=== PATIENT | female | born 1950 | race Caucasian/White ===

== ENCOUNTER 2016-05-05 19:06 | Observation (INO) | payer OTHER ==
[~2016-05-05] VITALS: Ht 157.5 cm; Wt 94.8 kg
[~2016-05-05 19:06] MED LIST: ACET-1138 PO; ATOR-24 PO; CHOL100010 PO; CITA40TA4 PO; CMD25 PO; CRG625 PO; EST5 PO; HYG25 PO; LSN40 PO; RXC5 PO; SNK PO; TRIA0.5C9 TOP; VITAMIN B6 PO
[2016-05-05 19:49] LABS: BASO % 0.2 %; BASO ABS # 0.02 K/uL (0-0.2); COMPLETE YES; EOS % 3.3 %; HEMATOCRIT 37.5 % (37-47); IG% 0.3 %; LYMPH % 23.4 %; LYMPH ABS # 2.19 K/uL (1.2-3.4); MEAN CELL VOLUME 89.5 fL (80-100); MEAN CORPUSCULAR HEMOGLOBIN 29.6 pg (25-34); MEAN CORPUSCULAR HGB CONC 33.1 g/dl (32-36); MEAN PLATELET VOLUME 8.7 fL (7.4-10.4); NEUT % 63.8 %; PLATELET COUNT 270 K/uL (130-400); RED BLOOD COUNT 4.19 M/uL (4.2-5.4); WHITE BLOOD COUNT 9.35 K/uL (4.8-10.8)
[2016-05-05 19:56] LABS: BLOOD UREA NITROGEN 12 mg/dl (7-18); CALCIUM 9.1 mg/dl (8.5-10.1); CARBON DIOXIDE 28 mmol/L (21-32); CHLORIDE 106 mmol/L (98-107); GLUCOSE 94 mg/dl (70-99); SODIUM 142 mmol/L (136-145)
--- NOTE | 2016-05-05 19:56 | EMERGENCY ROOM VISIT NOTE ---
History First contact with patient: 19:12 (Eriberto Roberson MD) First contact with patient: 19:09 (Chandu Urena M.D.) Chief Complaint: CHEST PAIN Stated Complaint: CHEST PAIN Nursing Triage Summary: PT PRESENTS VIA ALS FROM HOME. PT HAD A SUDDEN ONSET OF DIZZINESS WITH LEFT SIDED CP RADIATING INTO HER LEFT JAW 6/10 AND ASSOCIATED NAUSEA. EMS ADMINISTERED 324 ASA AND 4MG IV ZOFRAN TIRE SORTER. UPON ARRIVAL PT DENIES ANY CP OR NAUSEA, ONLY SLIGHT DIZZINESS. (Eriberto Roberson MD) History of Present Illness The patient is a 66 year old female smoker w/ hx HTN, HLD, CVA who presents to the Emergency Room with complaints of Chest Pain. Around 4 PM today, patient noted progressive AGUIRRE, sweating, a sensation of room spinning followed by central chest pain. Chest pain was described as non-radiating 5/10 intensity pressure sensation. She also reported lightheadedness nausea/vomiting. NO SOB, Palpitation, no cough. NO previous similar symptoms. Pt denies headache, change in vision, fevers, diarrhea, pain with urination, and melena. Patient arrived by ambulance and was given Zofran and ASA along the route. 2 wks ago, she was treated for acute bronchitis with abx, prednisone, and sent home with and inhaler. She is a patient of Dr. Fregoso. (Eriberto Roberson MD) Review of Systems See HPI for pertinent positives & negatives. A total of 10 systems reviewed and were otherwise negative. (Eriberto Roberson MD) Past Medical/Surgical History Medical Problems: (1) Anxiety (2) COPD (chronic obstructive pulmonary disease) (3) Depression (4) Dysmetabolic syndrome (5) GERD (gastroesophageal reflux disease) (6) Heterozygous factor V Leiden mutation (7) History of CVA (cerebrovascular accident) (8) HTN (hypertension) (9) Hyperlipidemia (10) Irritable bowel syndrome (IBS) (11) Osteoarthritis (12) PUD (peptic ulcer disease) (13) Tobacco abuse disorder Surgical Problems: (1) History of carpal tunnel surgery (2) History of hysterectomy (3) S/P total knee arthroplasty (Chandu Urena M.D.) Social History Smoking Status: Current Every Day Smoker Marital Status: Housing Status: lives with family (Eriberto Roberson MD) Current/Historical Medications Scheduled Atorvastatin (Lipitor), 40 MG PO QAM Carvedilol (Carvedilol), 6.25 MG PO BID Chlorthalidone (Chlorthalidone), 25 MG PO QAM Cholecalciferol (Vitamin D), 1,000 UNITS PO QAM Citalopram (Citalopram Hydrobromide), 40 MG PO QAM Diclofenac Sodium (Topical) (Voltaren 1% Top Gel), 1 APPLN TOP QID Duloxetine HCl (Cymbalta), 60 MG PO DAILY Estradiol (Estradiol), 0.5 MG PO QAM Fluticasone Propionate (Flovent Hfa), 2 PUFFS INH BID Lisinopril (Lisinopril), 40 MG PO QAM Pyridoxine Hcl (Vitamin B6), 250 MG PO QAM Warfarin Sod (Coumadin), 2.5 MG PO QAM Scheduled PRN Albuterol (Ventolin Hfa), 2 PUFFS INH Q6 PRN for Wheezing Hydrocodone/Acetaminophen 7.5MG/325MG ([place] 7.5MG/325MG), 1 TAB PO Q6 PRN for Pain Allergies Coded Allergies: Buspirone (Verified Allergy, Unknown, PT UNSURE OF RXN, 05/05/16) Iodine (Verified Allergy, Unknown, ITCHING, 05/05/16) Physical Exam Vital Signs Date Time Temp Pulse Resp B/P Pulse Ox O2 Delivery O2 Flow Rate FiO2 05/05/16 21:00 163/76 05/05/16 20:41 80 15 92 05/05/16 20:30 150/80 05/05/16 20:11 75 21 92 05/05/16 20:06 76 18 96 05/05/16 20:00 167/86 05/05/16 19:36 75 19 93 05/05/16 19:30 162/86 05/05/16 19:22 74 20 168/86 95 Room Air 05/05/16 19:14 168/86 05/05/16 19:13 74 05/05/16 19:12 95 Room Air 05/05/16 19:11 95 Room Air 05/05/16 19:11 36.5 77 20 155/80 95 Room Air 05/05/16 19:08 155/80 (Chandu Urena M.D.) Physical Exam GENERAL: alert, well appearing, well nourished, no distress, non-toxic OROPHARYNX: no exudate, no erythema, lips, buccal mucosa, and tongue normal and mucous membranes are moist NECK: supple, no nuchal rigidity, no adenopathy, non-tender LUNGS: Felipa wheezing. Normal chest wall mechanics HEART: no murmurs, S1 normal and S2 normal ABDOMEN: abdomen soft, non-tender, normo-active bowel sounds, no masses, no rebound or guarding. . SKIN: no rashes and no bruising UPPER EXTREMITIES: upper extremities are grossly normal. LOWER EXTREMITIES: No pitting edema. (Eriberto Roberson MD) Medical Decision & Procedures Laboratory Results 05/05/16 19:12 Red Blood Count 4.19, Mean Corpuscular Volume 89.5, Mean Corpuscular Hemoglobin 29.6, Mean Corpuscular Hemoglobin Concent 33.1, Mean Platelet Volume 8.7, Neutrophils (%) (Auto) 63.8, Lymphocytes (%) (Auto) 23.4, Monocytes (%) (Auto) 9.0, Eosinophils (%) (Auto) 3.3, Basophils (%) (Auto) 0.2, Neutrophils # (Auto) 5.96, Lymphocytes # (Auto) 2.19, Monocytes # (Auto) 0.84, Eosinophils # (Auto) 0.31, Basophils # (Auto) 0.02 05/05/16 19:12 Test 05/05/16 19:12 05/05/16 19:19 White Blood Count 9.35 K/uL (4.8-10.8) Red Blood Count 4.19 M/uL (4.2-5.4) Hemoglobin 12.4 g/dL (12.0-16.0) Hematocrit 37.5 % (37-47) Mean Corpuscular Volume 89.5 fL (80-100) Mean Corpuscular Hemoglobin 29.6 pg (25-34) Mean Corpuscular Hemoglobin Concent 33.1 g/dl (32-36) Platelet Count 270 K/uL (130-400) Mean Platelet Volume 8.7 fL (7.4-10.4) Neutrophils (%) (Auto) 63.8 % Lymphocytes (%) (Auto) 23.4 % Monocytes (%) (Auto) 9.0 % Eosinophils (%) (Auto) 3.3 % Basophils (%) (Auto) 0.2 % Neutrophils # (Auto) 5.96 K/uL (1.4-6.5) Lymphocytes # (Auto) 2.19 K/uL (1.2-3.4) Monocytes # (Auto) 0.84 K/uL (0.11-0.59) Eosinophils # (Auto) 0.31 K/uL (0-0.5) Basophils # (Auto) 0.02 K/uL (0-0.2) RDW Standard Deviation 49.0 fL (36.4-46.3) RDW Coefficient of Variation 15.2 % (11.5-14.5) Immature Granulocyte % (Auto) 0.3 % Immature Granulocyte # (Auto) 0.03 K/uL (0.00-0.02) Prothrombin Time 19.3 SECONDS (9.0-12.0) Prothromb Time International Ratio 1.8 (0.9-1.1) Anion Gap 8.0 mmol/L (3-11) Est Creatinine Clear Calc Drug Dose 62.9 ml/min Estimated GFR () 68.5 Estimated GFR (Non- 59.1 BUN/Creatinine Ratio 12.0 (10-20) Calcium Level 9.1 mg/dl (8.5-10.1) Troponin I < 0.015 ng/ml (0-0.045) Bedside Troponin I 0.000 ng/ml (0-0.045) (Chandu Urena M.D.) Medications Administered Medications (Trade) Dose Ordered Sig/Justin Route Start Time Stop Time Status Last Admin Dose Admin Albuterol/ Ipratropium (Duoneb) 3 ml QIDR INH 05/05/16 20:00 05/05/16 22:45 DC 05/05/16 20:13 3 ML (Chandu Urena M.D.) Medical Decision Differential diagnoses includes but is not limited to acute coronary syndrome, myocardial infarction, pericarditis, pulmonary embolus, aortic dissection, pneumonia, pneumothorax, musculoskeletal, shingles, esophageal. 66 yo F smoker with HTN, HLD, CVA, p/w with 5/10 substernal Chest pain, EKG NSR , troponin neg, with Felipa wheezing on exam Chest Pain, Wheezing Recent hx of bronchitis, s/p abx therapy, on prednisone, inhaler, felipa wheeze on exam CXR: unremarkable, Pneumonia unlikely Troponin: negative, ACS unlikely CBC: unremarkable BMP: wnl -Failure of outpatient therapy for Acute Bronchitis likely, but further evaluation for cardiac etiology warranted given patient's multiple risk factors -Given Duoneb treatment for wheezing - Discussed case with [facility] Hospitalist ( Dr. Stoddard) who agreed to admit to inpatient service (Eriberto Roberson MD) Resident Physician Supervision Note: Dr. Roberson was resident physician during care of patient. I separately evaluated patient and did history and exam. I discussed the case with the resident and generally agree with the findings and plan. Please see my full H& P note for complete documentation. Documented By: Chandu Urena MD (Chandu Urena M.D.) Impression Primary Impression: Substernal precordial chest pain Departure Information Dispostion Admitted as an inpatient Referrals Obed King M.D. (PCP) Patient Instructions My [facility] Resident Tracking Resident Involvement: Resident Care Provided Care Provided: Adult ED (Eriberto Roberson MD)
--- NOTE | 2016-05-05 19:56 | DIAGNOSTIC IMAGING REPORT ---
CHEST ONE VIEW PORTABLE CLINICAL HISTORY: CHEST PAIN dyspnea COMPARISON STUDY: 06/26/2015 FINDINGS: Moderate cardiomegaly. Lungs are clear. Diaphragms are smooth. IMPRESSION: Moderate cardiomegaly. Lungs are clear. Electronically signed by: Sukumar Rees M.D. 05/05/2016 7:55 PM Dictated Date/Time: 05/05/2016 7:55 PM
[2016-05-05] MEDS ORDERED: ALBUT/IPRATROP 3MG/0.5MG NEB 3 ML VIAL INH SCH (20:00)
[2016-05-05] MEDS ORDERED: CYM/60 PO (21:08)
[2016-05-05] MEDS ORDERED: CLX40 PO (21:08)
[2016-05-05] MEDS ORDERED: FLVHFA110 INH (21:08)
[2016-05-05] MEDS ORDERED: PRVHFAIN INH (21:08)
[2016-05-05] MEDS ORDERED: DICL1GEL12 TOP (21:08)
[2016-05-05] MEDS ORDERED: CHOL100010 PO (21:09)
[2016-05-05 21:14] LABS: INR 1.8 (0.9-1.1); PROTHROMBIN TIME (PATIENT) 19.3 SECONDS (9.0-12.0)
[2016-05-05] MEDS ORDERED: PYRI250T7 PO (21:16)
[2016-05-05] MEDS ORDERED: HYDR-3983 PO (21:16)
--- NOTE | 2016-05-05 21:26 | EMERGENCY ROOM VISIT NOTE ---
History Report prepared by Ruiz: Ronna Jacobo Under the Supervision of: Dr. Chandu Urena M.D. First contact with patient: 19:09 Chief Complaint: CHEST PAIN Stated Complaint: CHEST PAIN Nursing Triage Summary: PT PRESENTS VIA ALS FROM HOME. PT HAD A SUDDEN ONSET OF DIZZINESS WITH LEFT SIDED CP RADIATING INTO HER LEFT JAW 6/10 AND ASSOCIATED NAUSEA. EMS ADMINISTERED 324 ASA AND 4MG IV ZOFRAN MODELING DIRECTOR. UPON ARRIVAL PT DENIES ANY CP OR NAUSEA, ONLY SLIGHT DIZZINESS. History of Present Illness The patient is a 66 year old female who presents to the Emergency Room with complaints of resolved central chest pain that started 3.5 hours ago, around 1600. At that time she was also experiencing lightheadedness, a headache, and sweating.The patient came to the ED via ambulance. The patient received aspirin and Zofran MODELING DIRECTOR. She describes the pain as pressure and she rates her discomfort as a 5/10 in severity. The pain does not radiate from her chest. She denies shortness of breath, palpitations, and lower extremity edema. Additionally, the patient was diagnosed with bronchitis 1.5 weeks ago. She was started on antibiotics, prednisone, and 3 inhalers. She states that she uses one inhaler in the morning, one at night, and she has one for emergencies. She has a history of hypertension and hyperlipidemia. The patient also has a history of a CVA and she is on Coumadin. Source of History: patient Onset: 3.5 hours ago, around 1600 Position: chest (central) Symptom Intensity: 5/10 Quality: pressure Timing: resolved Associated Symptoms: + headache, No SOB Note: lightheadedness, sweating, no palpitations, no lower extremity edema Review of Systems See HPI for pertinent positives & negatives. A total of 10 systems reviewed and were otherwise negative. Past Medical & Surgical Medical Problems: (1) Anxiety (2) COPD (chronic obstructive pulmonary disease) (3) Depression (4) Dysmetabolic syndrome (5) GERD (gastroesophageal reflux disease) (6) Heterozygous factor V Leiden mutation (7) History of CVA (cerebrovascular accident) (8) HTN (hypertension) (9) Hyperlipidemia (10) Irritable bowel syndrome (IBS) (11) Osteoarthritis (12) PUD (peptic ulcer disease) (13) Tobacco abuse disorder Surgical Problems: (1) History of carpal tunnel surgery (2) History of hysterectomy (3) S/P total knee arthroplasty Family History Factor V Leiden mutation Social History Smoking Status: Current Every Day Smoker Marital Status: Housing Status: lives with family Current/Historical Medications Scheduled Atorvastatin (Lipitor), 40 MG PO QAM Carvedilol (Carvedilol), 6.25 MG PO BID Chlorthalidone (Chlorthalidone), 25 MG PO QAM Cholecalciferol (Vitamin D), 1,000 UNITS PO QAM Citalopram (Citalopram Hydrobromide), 40 MG PO QAM Diclofenac Sodium (Topical) (Voltaren 1% Top Gel), 1 APPLN TOP QID Duloxetine HCl (Cymbalta), 60 MG PO DAILY Estradiol (Estradiol), 0.5 MG PO QAM Fluticasone Propionate (Flovent Hfa), 2 PUFFS INH BID Lisinopril (Lisinopril), 40 MG PO QAM Pyridoxine Hcl (Vitamin B6), 250 MG PO QAM Warfarin Sod (Coumadin), 2.5 MG PO QAM Scheduled PRN Albuterol (Ventolin Hfa), 2 PUFFS INH Q6 PRN for Wheezing Hydrocodone/Acetaminophen 7.5MG/325MG ([place] 7.5MG/325MG), 1 TAB PO Q6 PRN for Pain Allergies Coded Allergies: Buspirone (Verified Allergy, Unknown, PT UNSURE OF RXN, 05/05/16) Iodine (Verified Allergy, Unknown, ITCHING, 05/05/16) Physical Exam Vital Signs Date Time Temp Pulse Resp B/P Pulse Ox O2 Delivery O2 Flow Rate FiO2 05/05/16 21:00 163/76 05/05/16 20:41 80 15 92 05/05/16 20:30 150/80 05/05/16 20:11 75 21 92 05/05/16 20:06 76 18 96 05/05/16 20:00 167/86 05/05/16 19:36 75 19 93 05/05/16 19:30 162/86 05/05/16 19:22 74 20 168/86 95 Room Air 05/05/16 19:14 168/86 05/05/16 19:13 74 05/05/16 19:12 95 Room Air 05/05/16 19:11 95 Room Air 05/05/16 19:11 36.5 77 20 155/80 95 Room Air 05/05/16 19:08 155/80 Physical Exam GENERAL: Patient is well appearing and in no acute distress. HEENT: No acute trauma, normocephalic atraumatic, mucous membranes moist, no nasal congestion, no scleral icterus. NECK: No stridor, no adenopathy, no meningismus, trachea is midline. LUNGS: No dyspnea. Diffuse wheezing in all lung mendoza. Equal bilaterally. No wheeze, no rhonchi. HEART: Regular rate and rhythm. No murmurs, rubs, gallops appreciated. ABDOMEN: Soft, nontender, bowel sounds positive, no masses appreciated, no peritonitis. BACK: No midline tenderness, no CVA tenderness EXTREMITIES: Normal motion all extremities, no cyanosis, no edema. NEUROLOGIC: Alert and oriented, no acute motor or sensory deficits, no focal weakness, cranial nerves grossly intact. SKIN: No rash, no jaundice, no diaphoresis. Medical Decision & Procedures ER Provider Diagnostic Interpretation: X ray results are stated below per my interpretation and the radiologist's interpretation. CHEST ONE VIEW PORTABLE IMPRESSION: Moderate cardiomegaly. Lungs are clear. Electronically signed by: Sukumar Rees M.D. 05/05/2016 7:55 PM Dictated Date/Time: 05/05/2016 7:55 PM Laboratory Results 05/05/16 19:12 Red Blood Count 4.19, Mean Corpuscular Volume 89.5, Mean Corpuscular Hemoglobin 29.6, Mean Corpuscular Hemoglobin Concent 33.1, Mean Platelet Volume 8.7, Neutrophils (%) (Auto) 63.8, Lymphocytes (%) (Auto) 23.4, Monocytes (%) (Auto) 9.0, Eosinophils (%) (Auto) 3.3, Basophils (%) (Auto) 0.2, Neutrophils # (Auto) 5.96, Lymphocytes # (Auto) 2.19, Monocytes # (Auto) 0.84, Eosinophils # (Auto) 0.31, Basophils # (Auto) 0.02 05/05/16 19:12 Test 05/05/16 19:12 05/05/16 19:19 White Blood Count 9.35 K/uL (4.8-10.8) Red Blood Count 4.19 M/uL (4.2-5.4) Hemoglobin 12.4 g/dL (12.0-16.0) Hematocrit 37.5 % (37-47) Mean Corpuscular Volume 89.5 fL (80-100) Mean Corpuscular Hemoglobin 29.6 pg (25-34) Mean Corpuscular Hemoglobin Concent 33.1 g/dl (32-36) Platelet Count 270 K/uL (130-400) Mean Platelet Volume 8.7 fL (7.4-10.4) Neutrophils (%) (Auto) 63.8 % Lymphocytes (%) (Auto) 23.4 % Monocytes (%) (Auto) 9.0 % Eosinophils (%) (Auto) 3.3 % Basophils (%) (Auto) 0.2 % Neutrophils # (Auto) 5.96 K/uL (1.4-6.5) Lymphocytes # (Auto) 2.19 K/uL (1.2-3.4) Monocytes # (Auto) 0.84 K/uL (0.11-0.59) Eosinophils # (Auto) 0.31 K/uL (0-0.5) Basophils # (Auto) 0.02 K/uL (0-0.2) RDW Standard Deviation 49.0 fL (36.4-46.3) RDW Coefficient of Variation 15.2 % (11.5-14.5) Immature Granulocyte % (Auto) 0.3 % Immature Granulocyte # (Auto) 0.03 K/uL (0.00-0.02) Prothrombin Time 19.3 SECONDS (9.0-12.0) Prothromb Time International Ratio 1.8 (0.9-1.1) Anion Gap 8.0 mmol/L (3-11) Est Creatinine Clear Calc Drug Dose 62.9 ml/min Estimated GFR () 68.5 Estimated GFR (Non- 59.1 BUN/Creatinine Ratio 12.0 (10-20) Calcium Level 9.1 mg/dl (8.5-10.1) Troponin I < 0.015 ng/ml (0-0.045) Bedside Troponin I 0.000 ng/ml (0-0.045) Laboratory results as reviewed by me. Medications Administered Medications (Trade) Dose Ordered Sig/Justin Route Start Time Stop Time Status Last Admin Dose Admin Albuterol/ Ipratropium (Duoneb) 3 ml QIDR INH 05/05/16 20:00 05/05/16 22:45 DC 05/05/16 20:13 3 ML ECG Indication: chest pain Rate (beats per minute): 76 Rhythm: normal sinus Findings: no acute ischemic change, no ectopy ED Course 1919: The biomedical field service engineer, Dr. Eriberto Roberson, evaluated the patient at this time. We discussed his findings and potential treatment plans. 1939: The patient was evaluated in room B2. A complete history and physical exam was performed. 1999: Ordered DuoNeb 3 ml INH 2029: Dr. Roberson discussed the patient's case with Dr. Richi Mendez. The patient will be evaluated for further treatment and disposition. 2031: Upon Dr. Roberson's reevaluation, the patient is resting comfortably. He discussed results and treatment plan with the patient. The patient verbalized understanding and agreement with the treatment plan. The patient will be evaluated for further management. Medical Decision Differential: Cardiac Ischemia (STEMI, NSTEMI, Unstable Angina, etc), Aortic Dissection, Arrhythmia, Pulmonary Embolism, Pneumonia, Pneumothorax, MSK, Infectious, Pericarditis/Myocarditis, Esophageal Rupture, Gastrointestinal, amongst other pathologies entertained. 66 yr old female arrives iwth acute left chest pain radiating to neck associated with nausea and vertigo. Received ASA and Zofran MODELING DIRECTOR with resolution of symptoms. Feeling well and in no distress now though on exam her lungs are quite poor. Neb given. She recently was treated for bronchitis consistent with failure of outpatient therapy. Already anticoagulated thus I do not feel CT PE study required. EKG negative for acute findings and trop negative as well. Will need to come in for cardiac rule out along with further treatment for bronchitis. Stable and in no distress throughout ED stay. Consults Time Called: 2018 Consulting Physician: Dr. Richi Mendez Returned Call: 2029 Dr. Roberson discussed the patient's case with Dr. Richi Mendez. The patient will be evaluated for further treatment and disposition. Impression Primary Impression: Substernal chest pain Additional Impressions: Failure of outpatient treatment Bronchitis Scribe Attestation The scribe's documentation has been prepared under my direction and personally reviewed by me in its entirety. I confirm that the note above accurately reflects all work, treatment, procedures, and medical decision making performed by me. Departure Information Dispostion Being Evaluated By Hospitalist Referrals Obed King M.D. (PCP) Patient Instructions My [facility] Problem Qualifiers
[2016-05-05] MEDS ORDERED: NITROGLYCERIN 0.4 MG SL PER TAB CHARGE SL PRN (21:30)
[2016-05-05] MEDS ORDERED: ONDANSETRON INJ 2 MG/ML 2 ML VIAL IV PRN (21:30)
[2016-05-05] MEDS ORDERED: ACETAMINOPHEN 325 MG TAB PO PRN (21:30)
[2016-05-05] MEDS ORDERED: MoRPHine SULFATE 2 MG/ML CARP IV PRN (21:30)
--- NOTE | 2016-05-05 21:30 | History and Physical ---
History & Physical Date & Time of Service: May 05, 2016 at 21:30 Chief Complaint: Chest Pain Primary Care Physician: Obed King M.D. Past Medical/Surgical History Medical Problems: (1) Anxiety Status: Chronic (2) COPD (chronic obstructive pulmonary disease) Status: Chronic (3) Depression Status: Chronic (4) Dysmetabolic syndrome Status: Chronic (5) GERD (gastroesophageal reflux disease) Status: Chronic (6) Heterozygous factor V Leiden mutation Status: Chronic (7) History of CVA (cerebrovascular accident) Status: Chronic (8) HTN (hypertension) Status: Chronic (9) Hyperlipidemia Status: Chronic (10) Irritable bowel syndrome (IBS) Status: Chronic (11) Osteoarthritis Status: Chronic (12) PUD (peptic ulcer disease) Status: Chronic (13) Tobacco abuse disorder Status: Chronic Surgical Problems: (1) History of carpal tunnel surgery Status: Chronic (2) History of hysterectomy Status: Chronic (3) S/P total knee arthroplasty Permanent Comment: Left 2015 Status: Chronic Family History Factor V Leiden mutation Social History Smoking Status: Current Every Day Smoker Marital Status: Immunizations History of Influenza Vaccine: Yes History of Tetanus Vaccine?: Yes History of Pneumococcal: Yes History of Hepatitis B Vaccine: No Multi-Drug Resistant Organisms History of MDRO: No Allergies Coded Allergies: Buspirone (Verified Allergy, Unknown, PT UNSURE OF RXN, 05/05/16) Iodine (Verified Allergy, Unknown, ITCHING, 05/05/16) Home Medications Scheduled Atorvastatin (Lipitor), 40 MG PO QAM Carvedilol (Carvedilol), 6.25 MG PO BID Chlorthalidone (Chlorthalidone), 25 MG PO QAM Cholecalciferol (Vitamin D), 1,000 UNITS PO QAM Citalopram (Citalopram Hydrobromide), 40 MG PO QAM Diclofenac Sodium (Topical) (Voltaren 1% Top Gel), 1 APPLN TOP QID Duloxetine HCl (Cymbalta), 60 MG PO DAILY Estradiol (Estradiol), 0.5 MG PO QAM Fluticasone Propionate (Flovent Hfa), 2 PUFFS INH BID Lisinopril (Lisinopril), 40 MG PO QAM Pyridoxine Hcl (Vitamin B6), 250 MG PO QAM Warfarin Sod (Coumadin), 2.5 MG PO QAM Scheduled PRN Albuterol (Ventolin Hfa), 2 PUFFS INH Q6 PRN for Wheezing Hydrocodone/Acetaminophen 7.5MG/325MG ([place] 7.5MG/325MG), 1 TAB PO Q6 PRN for Pain Physical Exam Vital Signs Date Time Temp Pulse Resp B/P Pulse Ox O2 Delivery O2 Flow Rate FiO2 05/05/16 21:00 163/76 05/05/16 20:41 80 15 92 05/05/16 20:30 150/80 05/05/16 20:11 75 21 92 05/05/16 20:06 76 18 96 05/05/16 20:00 167/86 05/05/16 19:36 75 19 93 05/05/16 19:30 162/86 05/05/16 19:22 74 20 168/86 95 Room Air 05/05/16 19:14 168/86 05/05/16 19:13 74 05/05/16 19:12 95 Room Air 05/05/16 19:11 95 Room Air 05/05/16 19:11 36.5 77 20 155/80 95 Room Air 05/05/16 19:08 155/80 Diagnostics Laboratory Results Results Past 24 Hours Test 05/05/16 19:12 05/05/16 19:19 Range/Units White Blood Count 9.35 4.8-10.8 K/uL Red Blood Count 4.19 4.2-5.4 M/uL Hemoglobin 12.4 12.0-16.0 g/dL Hematocrit 37.5 37-47 % Mean Corpuscular Volume 89.5 80-100 fL Mean Corpuscular Hemoglobin 29.6 25-34 pg Mean Corpuscular Hemoglobin Concent 33.1 32-36 g/dl Platelet Count 270 130-400 K/uL Mean Platelet Volume 8.7 7.4-10.4 fL Neutrophils (%) (Auto) 63.8 % Lymphocytes (%) (Auto) 23.4 % Monocytes (%) (Auto) 9.0 % Eosinophils (%) (Auto) 3.3 % Basophils (%) (Auto) 0.2 % Neutrophils # (Auto) 5.96 1.4-6.5 K/uL Lymphocytes # (Auto) 2.19 1.2-3.4 K/uL Monocytes # (Auto) 0.84 0.11-0.59 K/uL Eosinophils # (Auto) 0.31 0-0.5 K/uL Basophils # (Auto) 0.02 0-0.2 K/uL RDW Standard Deviation 49.0 36.4-46.3 fL RDW Coefficient of Variation 15.2 11.5-14.5 % Immature Granulocyte % (Auto) 0.3 % Immature Granulocyte # (Auto) 0.03 0.00-0.02 K/uL Prothrombin Time 19.3 9.0-12.0 SECONDS Prothromb Time International Ratio 1.8 0.9-1.1 Sodium Level 142 136-145 mmol/L Potassium Level 4.0 3.5-5.1 mmol/L Chloride Level 106 98-107 mmol/L Carbon Dioxide Level 28 21-32 mmol/L Anion Gap 8.0 3-11 mmol/L Blood Urea Nitrogen 12 7-18 mg/dl Creatinine 1.00 0.60-1.20 mg/dl Est Creatinine Clear Calc Drug Dose 62.9 ml/min Estimated GFR () 68.5 Estimated GFR (Non- 59.1 BUN/Creatinine Ratio 12.0 10-20 Random Glucose 94 70-99 mg/dl Calcium Level 9.1 8.5-10.1 mg/dl Troponin I < 0.015 0-0.045 ng/ml Bedside Troponin I 0.000 0-0.045 ng/ml Impression VTE Prophylaxis VTE Risk Assessment Done? Y/N: Yes Risk Level: Moderate
[2016-05-05] MEDS ORDERED: HYDROCODONE/ACETAMINOPHEN 7.5/325MG TAB PO PRN (22:15)
[2016-05-05] MEDS ORDERED: ALBUTEROL HFA 8 GM INHALER INH PRN (22:15)
--- NOTE | 2016-05-05 22:31 | History and Physical ---
History & Physical Date & Time of Service: May 05, 2016 at 22:16 Chief Complaint: Chest Pain Primary Care Physician: Obed King M.D. History of Present Illness Source: patient This is a 66 y/o female with PMHx of CVA, Factor V Leiden on Coumadin, HTN, Dyslipidemia and other problems as outlined below who presents to the ED c/o chest pain that began this afternoon. Pt states that around 1630 she had just finished dinner when she developed chest pain that she describes as 5/10 substernal chest "pressure" that did not radiate anywhere. Sxs were assoc with diaphoresis, N/V and lightheadedness. Sxs persisted for about 5 minutes before resolving completely. Pt has no personal or FmHx of CAD. She had a stress test July 2015 which was negative. Pt is on Coumadin for Factor V Leiden. She recently completed abx and prednisone taper for bronchitis. Pt denies fever/ chills, palpitations, SOB, wheezing, abd pain, bowel or bladder issues, LE edema or calf pain. In the ED, vitals are stable. Trop and EKG are unremarkable. CXR is negative. Pt is currently chest pain free. She will be admitted for further evaluation and treatment. Past Medical/Surgical History Medical Problems: (1) Anxiety Status: Chronic (2) COPD (chronic obstructive pulmonary disease) Status: Chronic (3) Depression Status: Chronic (4) Dysmetabolic syndrome Status: Chronic (5) GERD (gastroesophageal reflux disease) Status: Chronic (6) Heterozygous factor V Leiden mutation Status: Chronic (7) History of CVA (cerebrovascular accident) Status: Chronic (8) HTN (hypertension) Status: Chronic (9) Hyperlipidemia Status: Chronic (10) Irritable bowel syndrome (IBS) Status: Chronic (11) Osteoarthritis Status: Chronic (12) PUD (peptic ulcer disease) Status: Chronic (13) Tobacco abuse disorder Status: Chronic Surgical Problems: (1) History of carpal tunnel surgery Status: Chronic (2) History of hysterectomy Status: Chronic (3) S/P total knee arthroplasty Permanent Comment: Left 2014 Status: Chronic Family History Factor V Leiden mutation Social History Smoking Status: Current Every Day Smoker (1 ppd x 50 years) Alcohol Use: occasionally Drug Use: none Marital Status: Housing status: lives with significant other Occupational Status: retired Immunizations History of Influenza Vaccine: Yes History of Tetanus Vaccine?: Yes History of Pneumococcal: Yes History of Hepatitis B Vaccine: No Multi-Drug Resistant Organisms History of MDRO: No Allergies Coded Allergies: Buspirone (Verified Allergy, Unknown, PT UNSURE OF RXN, 05/05/16) Iodine (Verified Allergy, Unknown, ITCHING, 05/05/16) Home Medications Scheduled Atorvastatin (Lipitor), 40 MG PO QAM Carvedilol (Carvedilol), 6.25 MG PO BID Chlorthalidone (Chlorthalidone), 25 MG PO QAM Cholecalciferol (Vitamin D), 1,000 UNITS PO QAM Citalopram (Citalopram Hydrobromide), 40 MG PO QAM Diclofenac Sodium (Topical) (Voltaren 1% Top Gel), 1 APPLN TOP QID Duloxetine HCl (Cymbalta), 60 MG PO DAILY Estradiol (Estradiol), 0.5 MG PO QAM Fluticasone Propionate (Flovent Hfa), 2 PUFFS INH BID Lisinopril (Lisinopril), 40 MG PO QAM Pyridoxine Hcl (Vitamin B6), 250 MG PO QAM Warfarin Sod (Coumadin), 2.5 MG PO QAM Scheduled PRN Albuterol (Ventolin Hfa), 2 PUFFS INH Q6 PRN for Wheezing Hydrocodone/Acetaminophen 7.5MG/325MG ([place] 7.5MG/325MG), 1 TAB PO Q6 PRN for Pain Review of Systems Constitutional: + sweats, No chills, No fatigue, No fever, No weakness Eyes: No worsening of vision ENT: + hearing loss Respiratory: No cough, No shortness of breath Cardiovascular: + chest pain, No claudication, No edema, No palpitations Abdomen: + nausea, + vomiting, No GI bleeding, No constipation, No diarrhea, No pain Musculoskeletal: No calf pain, No swelling Genitourinary - Female: No dysuria Neurologic: No weakness Psychiatric: No depression symptoms Endocrine: No fatigue Hematologic / Lymphatic: No abnormal bleeding/bruising Integumentary: No new/changing skin lesions Physical Exam Vital Signs Date Time Temp Pulse Resp B/P Pulse Ox O2 Delivery O2 Flow Rate FiO2 05/05/16 22:11 74 16 146/83 90 Room Air 05/05/16 21:31 80 16 156/82 91 Room Air 05/05/16 21:00 163/76 05/05/16 20:41 80 15 92 05/05/16 20:30 150/80 05/05/16 20:11 75 21 92 05/05/16 20:06 76 18 96 05/05/16 20:00 167/86 05/05/16 19:36 75 19 93 05/05/16 19:30 162/86 05/05/16 19:22 74 20 168/86 95 Room Air 05/05/16 19:14 168/86 05/05/16 19:13 74 05/05/16 19:12 95 Room Air 05/05/16 19:11 95 Room Air 05/05/16 19:11 36.5 77 20 155/80 95 Room Air 05/05/16 19:08 155/80 General Appearance: WD/WN, no apparent distress, + pertinent finding (Pt is sitting up in bed with at bedside) Head: normocephalic, atraumatic Eyes: normal inspection ENT: hearing grossly normal Neck: supple Respiratory/Chest: lungs clear, normal breath sounds, no respiratory distress, + pertinent finding (chest is mildly tender) Cardiovascular: regular rate, rhythm, no edema, no murmur Abdomen/GI: normal bowel sounds, non tender, soft Back: normal inspection Extremities/Musculoskelatal: normal inspection, no calf tenderness, + pedal edema (trace bilat) Neurologic/Psych: alert, normal mood/affect, oriented x 3 Skin: normal color, warm/dry Diagnostics Laboratory Results Results Past 24 Hours Test 05/05/16 19:12 05/05/16 19:19 Range/Units White Blood Count 9.35 4.8-10.8 K/uL Red Blood Count 4.19 4.2-5.4 M/uL Hemoglobin 12.4 12.0-16.0 g/dL Hematocrit 37.5 37-47 % Mean Corpuscular Volume 89.5 80-100 fL Mean Corpuscular Hemoglobin 29.6 25-34 pg Mean Corpuscular Hemoglobin Concent 33.1 32-36 g/dl Platelet Count 270 130-400 K/uL Mean Platelet Volume 8.7 7.4-10.4 fL Neutrophils (%) (Auto) 63.8 % Lymphocytes (%) (Auto) 23.4 % Monocytes (%) (Auto) 9.0 % Eosinophils (%) (Auto) 3.3 % Basophils (%) (Auto) 0.2 % Neutrophils # (Auto) 5.96 1.4-6.5 K/uL Lymphocytes # (Auto) 2.19 1.2-3.4 K/uL Monocytes # (Auto) 0.84 0.11-0.59 K/uL Eosinophils # (Auto) 0.31 0-0.5 K/uL Basophils # (Auto) 0.02 0-0.2 K/uL RDW Standard Deviation 49.0 36.4-46.3 fL RDW Coefficient of Variation 15.2 11.5-14.5 % Immature Granulocyte % (Auto) 0.3 % Immature Granulocyte # (Auto) 0.03 0.00-0.02 K/uL Prothrombin Time 19.3 9.0-12.0 SECONDS Prothromb Time International Ratio 1.8 0.9-1.1 Sodium Level 142 136-145 mmol/L Potassium Level 4.0 3.5-5.1 mmol/L Chloride Level 106 98-107 mmol/L Carbon Dioxide Level 28 21-32 mmol/L Anion Gap 8.0 3-11 mmol/L Blood Urea Nitrogen 12 7-18 mg/dl Creatinine 1.00 0.60-1.20 mg/dl Est Creatinine Clear Calc Drug Dose 62.9 ml/min Estimated GFR () 68.5 Estimated GFR (Non- 59.1 BUN/Creatinine Ratio 12.0 10-20 Random Glucose 94 70-99 mg/dl Calcium Level 9.1 8.5-10.1 mg/dl Troponin I < 0.015 0-0.045 ng/ml Bedside Troponin I 0.000 0-0.045 ng/ml Diagnostic Radiology CXR IMPRESSION: Moderate cardiomegaly. Lungs are clear. EKG EKG: NSR at 76 bpm with no acute ischemic changes noted Impression Assessment and Plan CHEST PAIN R/O ACS -observation status to telemetry -RFs include tobacco use, HTN, Dyslipidemia, obesity -stress echo 07/2015 was negative for inducible ischemia -EKG: no acute ischemic changes; repeat EKG PRN chest pain and in AM -Initial troponin is negative; continue to monitor with serial cardiac enzymes q6h -obtain echo to r/o cardiac wall motion abnormalities -cont BB and statin -start ASA -consider cardio consult if Elena trend up -counseled patient regarding importance of smoking cessation -pt is currently chest pain free -continue to monitor HTN -BP mildly elevated -cont chlorthalidone, lisinopril and carvedilol -monitor FACTOR V LEIDEN -INR subtherapeutic at 1.8 -cont Coumadin -monitor INR daily H/O CVA -CVA 2009; residual short term memory loss per pt -cont Coumadin and statin DYSLIPIDEMIA -cont statin DEPRESSION/ANXIETY -stable -cont Celexa and Cymbalta DVT PROPHYLAXIS -cont Coumadin DISPO Observation status until further workup is complete. Pt seen in collaboration with Dr. Stoddard. Please see addendum for further details. Thanks! -Of note: patient will be followed by Dr. Ceballos starting tomorrow AM. VTE Prophylaxis VTE Risk Assessment Done? Y/N: Yes Risk Level: Moderate Note ATTENDING ADDENDUM Record reviewed. Patient interviewed and examined. Care coordinated with Griselda Dalal PA-C. Please refer to her documentation for patient's history. Briefly, 66-year-old female with history of cerebrovascular disease, back to 5 Leiden mutation, hypertension, and other problems and presented to the ED with chest discomfort. Chest pain described as midsternal pressure that occurred after eating her dinner. Pain was associated with some nausea and diaphoresis. Pain-free in ED. EXAM: General- no distress VS- as noted HEENT- anicteric Neck- no JVD Lungs- diffuse mild wheezing Heart- RRR, I/ systolic murmur at base Abdomen- benign Extremities- 1+ pretibial edema; no calf tenderness Neuro-alert DATA: Lab studies as noted. ASSESSMENT AND PLAN: Chest pain at rest after eating. Serum troponin in ED was 0. EKG performed in ED at 19:12 demonstrated normal sinus rhythm at 76/minute, no acute ST or T-wave abnormalities. Chest pain may be cardiac in nature. Check serial cardiac markers and EKGs. At risk for pulmonary emboli due to factor V Leiden mutation, but pain not pleuritic in nature, oxygen saturation stable, and already anticoagulated on warfarin. Consider GI etiology. Further evaluation will depend on initial hospital course. Please refer to JING Dalal's documentation for discussion of other issues. Johnnie Stoddard MD .
[2016-05-05 23:36] VITALS: BP 154/85; PULSE 74; TEMP 36.3; O2SAT 93
[2016-05-06] VITALS (7 sets, daily range): BP systolic 122–154; BP diastolic 71–85; PULSE 74–85; TEMP 36.3–37; O2SAT 0–92; Ht 157.5 cm; Wt 94.8 kg
[2016-05-06] MEDS ORDERED: IV FLUIDS COMPLETED PRN (00:15)
[2016-05-06 08:10] LABS: HEMATOCRIT 36.5 % (37-47); MEAN CELL VOLUME 92.4 fL (80-100); MEAN CORPUSCULAR HEMOGLOBIN 29.9 pg (25-34); MEAN CORPUSCULAR HGB CONC 32.3 g/dl (32-36); MEAN PLATELET VOLUME 8.4 fL (7.4-10.4); PLATELET COUNT 231 K/uL (130-400); RED BLOOD COUNT 3.95 M/uL (4.2-5.4); WHITE BLOOD COUNT 8.01 K/uL (4.8-10.8)
[2016-05-06 08:18] LABS: INR 2.1 (0.9-1.1); PROTHROMBIN TIME (PATIENT) 23.1 SECONDS (9.0-12.0)
[2016-05-06] MEDS: DICLOFENAC SOD 1% GEL 100 GM TUBE EXT SCH ×3 (08:25→15:37)
[2016-05-06 08:43] LABS: BLOOD UREA NITROGEN 14 mg/dl (7-18); BUN/CREATININE RATIO 16.1 (10-20); CALCIUM 8.9 mg/dl (8.5-10.1); CARBON DIOXIDE 30 mmol/L (21-32); CHLORIDE 106 mmol/L (98-107); CREATININE 0.85 mg/dl (0.60-1.20); GLUCOSE 96 mg/dl (70-99); POTASSIUM 4.1 mmol/L (3.5-5.1); SODIUM 142 mmol/L (136-145)
[2016-05-06] MEDS ORDERED: CARVEDILOL 6.25 MG TAB PO SCH (09:00)
[2016-05-06] MEDS ORDERED: CHOLECALCIFEROL 1000 INTER.UNIT TAB PO SCH (09:00)
[2016-05-06] MEDS ORDERED: LISINOPRIL 40 MG TAB PO SCH (09:00)
[2016-05-06] MEDS ORDERED: ATORVASTATIN 40 MG TAB PO SCH (09:00)
[2016-05-06] MEDS ORDERED: DULOXETINE HCL 60 MG CAP PO SCH (09:00)
[2016-05-06] MEDS ORDERED: ESTRADIOL 1 MG TAB PO SCH (09:00)
[2016-05-06] MEDS ORDERED: ASPIRIN 81 MG ECTAB PO SCH (09:00)
[2016-05-06] MEDS ORDERED: CITALOPRAM 40 MG TAB PO SCH (09:00)
[2016-05-06] MEDS ORDERED: PYRIDOXINE HCL 50 MG TAB PO SCH (09:00)
[2016-05-06] MEDS ORDERED: CHLORTHALIDONE 25 MG TAB PO SCH (09:00)
[2016-05-06] MEDS ORDERED: FLUTICASONE HFA 110MCG INHALER INH SCH (09:00)
--- NOTE | 2016-05-06 09:33 | Progress Note ---
Internal Med Progress Note Date of Service: May 06, 2016. Provider Documentation: SUBJECTIVE: Patient is seen and examined at bedside. States doing well. Denies any chest pain, SOB, dizziness, palpitations. Offers no complaints. Eager to get discharged. OBJECTIVE: Vital Signs-as noted below Physical Exam: General Appearance:Moderately built and nourished, no apparent distress Head: normocephalic, Atraumatic Eyes: normal inspection, EOMI, PERRLA, Anicteric Neck: supple, Trachea midline Respiratory/Chest: Normal breath sounds, CTA Cardiovascular: S1, S2, No murmur Abdomen/GI:Soft, Non tender, Bowel sounds present Extremities/Musculoskelatal:normal inspection, no edema Neurologic/Psych:AAOX3, grossly no focal neurological deficits Skin: normal color, warm Lab data as noted below. ASSESSMENT & PLAN: CHEST PAIN R/O ACS Risk Factors: Tobacco use, HTN, Dyslipidemia, obesity Last stress echo 07/2015 was negative for inducible ischemia EKG: no acute ischemic changes; Troponin: negative X 3 ECHO: No regional wall motion abnormalities, small circumferential pericardial effusion continue BB, statin Counselled on smoking cessation currently asymptomatic HTN continue chlorthalidone, lisinopril and carvedilol Continue to monitor monitor FACTOR V LEIDEN INR 1.8 >>.2.1 continue Coumadin monitor INR H/O CVA CVA 2009; residual short term memory loss per pt Cont Coumadin and statin DYSLIPIDEMIA continue statin DEPRESSION/ANXIETY stable cont Celexa and Cymbalta DVT PROPHYLAXIS On Coumadin INR therapeutic DISPO Plan to discharge home today Follow up with on 05/13/16 at 2:50pm Follow up with (Cardiology) as outpatient in 2-3 weeks. PROCEDURES: ECHO: * No regional wall motion abnormalities noted. * The left ventricle is hyperdynamic. * The LV Ejection Fraction = >70 %. * Doppler findings do not suggest pulmonary hypertension. * The LV diastolic function is normal. * There is a small circumferential pericardial effusion that is largest anteriorly. * There are no echocardiographic indications of cardiac tamponade. Vital Signs: Date Time Temp Pulse Resp B/P Pulse Ox O2 Delivery O2 Flow Rate FiO2 05/06/16 14:47 37.0 78 20 129/79 90 05/06/16 12:22 0 Room Air 05/06/16 11:19 36.8 85 20 132/71 92 Room Air 05/06/16 08:44 Room Air 05/06/16 07:46 36.7 79 20 150/83 91 Room Air 05/06/16 04:10 36.6 74 20 122/73 91 Room Air 05/06/16 04:00 Room Air 05/06/16 02:04 36.3 74 18 154/85 Room Air 05/05/16 23:36 36.3 74 18 154/85 93 Room Air 05/05/16 22:51 36.5 75 16 169/82 90 05/05/16 22:45 75 16 169/82 90 Room Air 05/05/16 22:11 74 16 146/83 90 Room Air 05/05/16 21:31 80 16 156/82 91 Room Air 05/05/16 21:00 163/76 05/05/16 20:41 80 15 92 05/05/16 20:30 150/80 05/05/16 20:11 75 21 92 05/05/16 20:06 76 18 96 05/05/16 20:00 167/86 05/05/16 19:36 75 19 93 05/05/16 19:30 162/86 05/05/16 19:22 74 20 168/86 95 Room Air 05/05/16 19:14 168/86 05/05/16 19:13 74 05/05/16 19:12 95 Room Air 05/05/16 19:11 95 Room Air 05/05/16 19:11 36.5 77 20 155/80 95 Room Air 05/05/16 19:08 155/80 Lab Results: Results Past 24 Hours Test 05/05/16 19:12 05/05/16 19:19 05/06/16 02:00 05/06/16 02:02 Range/Units White Blood Count 9.35 4.8-10.8 K/uL Red Blood Count 4.19 4.2-5.4 M/uL Hemoglobin 12.4 12.0-16.0 g/dL Hematocrit 37.5 37-47 % Mean Corpuscular Volume 89.5 80-100 fL Mean Corpuscular Hemoglobin 29.6 25-34 pg Mean Corpuscular Hemoglobin Concent 33.1 32-36 g/dl Platelet Count 270 130-400 K/uL Mean Platelet Volume 8.7 7.4-10.4 fL Neutrophils (%) (Auto) 63.8 % Lymphocytes (%) (Auto) 23.4 % Monocytes (%) (Auto) 9.0 % Eosinophils (%) (Auto) 3.3 % Basophils (%) (Auto) 0.2 % Neutrophils # (Auto) 5.96 1.4-6.5 K/uL Lymphocytes # (Auto) 2.19 1.2-3.4 K/uL Monocytes # (Auto) 0.84 0.11-0.59 K/uL Eosinophils # (Auto) 0.31 0-0.5 K/uL Basophils # (Auto) 0.02 0-0.2 K/uL RDW Standard Deviation 49.0 36.4-46.3 fL RDW Coefficient of Variation 15.2 11.5-14.5 % Immature Granulocyte % (Auto) 0.3 % Immature Granulocyte # (Auto) 0.03 0.00-0.02 K/uL Prothrombin Time 19.3 9.0-12.0 SECONDS Prothromb Time International Ratio 1.8 0.9-1.1 Sodium Level 142 136-145 mmol/L Potassium Level 4.0 3.5-5.1 mmol/L Chloride Level 106 98-107 mmol/L Carbon Dioxide Level 28 21-32 mmol/L Anion Gap 8.0 3-11 mmol/L Blood Urea Nitrogen 12 7-18 mg/dl Creatinine 1.00 0.60-1.20 mg/dl Est Creatinine Clear Calc Drug Dose 62.9 ml/min Estimated GFR () 68.5 Estimated GFR (Non- 59.1 BUN/Creatinine Ratio 12.0 10-20 Random Glucose 94 70-99 mg/dl Calcium Level 9.1 8.5-10.1 mg/dl Troponin I < 0.015 < 0.015 0-0.045 ng/ml Bedside Troponin I 0.000 0-0.045 ng/ml Creatine Kinase MB Ratio 0-3.0 Creatine Kinase MB 1.0 0.5-3.6 ng/ml Test 05/06/16 08:00 05/06/16 08:01 Range/Units Creatine Kinase MB Ratio 0-3.0 White Blood Count 8.01 4.8-10.8 K/uL Red Blood Count 3.95 4.2-5.4 M/uL Hemoglobin 11.8 12.0-16.0 g/dL Hematocrit 36.5 37-47 % Mean Corpuscular Volume 92.4 80-100 fL Mean Corpuscular Hemoglobin 29.9 25-34 pg Mean Corpuscular Hemoglobin Concent 32.3 32-36 g/dl RDW Standard Deviation 52.4 36.4-46.3 fL RDW Coefficient of Variation 15.4 11.5-14.5 % Platelet Count 231 130-400 K/uL Mean Platelet Volume 8.4 7.4-10.4 fL Prothrombin Time 23.1 9.0-12.0 SECONDS Prothromb Time International Ratio 2.1 0.9-1.1 Sodium Level 142 136-145 mmol/L Potassium Level 4.1 3.5-5.1 mmol/L Chloride Level 106 98-107 mmol/L Carbon Dioxide Level 30 21-32 mmol/L Anion Gap 6.0 3-11 mmol/L Blood Urea Nitrogen 14 7-18 mg/dl Creatinine 0.85 0.60-1.20 mg/dl Est Creatinine Clear Calc Drug Dose 70.8 ml/min Estimated GFR () 83.3 Estimated GFR (Non- 71.9 BUN/Creatinine Ratio 16.1 10-20 Random Glucose 96 70-99 mg/dl Calcium Level 8.9 8.5-10.1 mg/dl Creatine Kinase MB 0.8 0.5-3.6 ng/ml Troponin I < 0.015 0-0.045 ng/ml Hepatitis C Antibody Screen NEG NEG
[2016-05-06] MEDS ORDERED: WARFARIN SOD 2.5 MG TAB PO SCH (16:00)
--- NOTE | 2016-05-06 16:50 | ECHOCARDIOGRAM REPORT ---
*NOTICE TO RECEIVING [employer] This information is strictly Confidential and protected under [place] law. [place] law prohibits you from making any further disclosure of this information unless further disclosure is expressly permitted by the written consent of the person to whom it pertains or is authorized by law. A general authorization for the release of medical or other information is not sufficient for this purpose. Hospital accepts no responsibility if the information is made available to any other person, INCLUDING THE PATIENT. Interpretation Summary * Name: KINDRA LOWE Study Date: 05/06/2016 09:19 AM BP: 150/83 mmHg * Patient Location: [facility]\S\N287\S\2 HR: 88 * : 1950 (M/d/yyyy) Gender: Female Height: 64 in * Age: 66 yrs Ethnicity: [place] Weight: 210 lb * Ordering Physician: Griselda Dalal * Referring Physician: Self, Referred * Performed By: Saima Alfaro RCS * * Reason For Study: CHEST PAIN * BSA: 2.0 m2 * The study was technically adequate. * -- Conclusions -- * No regional wall motion abnormalities noted. * The left ventricle is hyperdynamic. * The LV Ejection Fraction = >70 %. * Doppler findings do not suggest pulmonary hypertension. * The LV diastolic function is normal. * There is a small circumferential pericardial effusion that is largest anteriorly. * There are no echocardiographic indications of cardiac tamponade. Procedure Details * A complete two-dimensional transthoracic echocardiogram was performed (2D, M-mode, Doppler and color flow Doppler). Left Ventricle * The left ventricle is normal in size. * There is normal left ventricular wall thickness. * The left ventricle is hyperdynamic. * Ejection Fraction = >70 %. * No regional wall motion abnormalities noted. Right Ventricle * The right ventricle is normal size. * The right ventricular systolic function is normal as assessed by tricuspid annular plane systolic excursion (TAPSE) (normal >1.5 cm). Atria * The left atrial size is normal. * Right atrial size is normal. * There is no evidence of atrial septal defect, but resolution does not allow assessment for a patent foramen ovale. Mitral Valve * The mitral valve is normal. * There is no mitral valve stenosis. * Significant mitral regurgitation is absent. Tricuspid Valve * The tricuspid valve is normal. * There is no tricuspid stenosis. * Significant tricuspid regurgitation is absent. * Doppler findings do not suggest pulmonary hypertension. Aortic Valve * The aortic valve is trileaflet. * Aortic stenosis is absent. * There is no significant aortic regurgitation. Pulmonic Valve * The pulmonary valve is not well seen, but the Doppler examination is normal without significant regurgitation or stenosis. Great Vessels * The aortic root and proximal ascending aorta are normal sized. Pericardium/Pleural * There is a small circumferential pericardial effusion that is largest anteriorly. * There are no echocardiographic indications of cardiac tamponade. Great Vessels * Normal inferior vena cava diameter and respiratory variation suggests normal central venous pressure. Left Ventricular Diastolic Function * The LV diastolic function is normal. MMode 2D Measurements and Calculations IVSd 1.5 cm IVSs 1.6 cm LVIDd 4.2 cm LVIDs 3.3 cm LVPWd 1.1 cm LVPWs 1.4 cm IVS/LVPW 1.3 FS 21.9 % EDV(Teich) 80.8 ml ESV(Teich) 44.8 ml EF(Teich) 44.6 % EDV(cubed) 76.8 ml ESV(cubed) 36.6 ml EF(cubed) 52.3 % % IVS thick 6.6 % % LVPW thick 27.6 % LV mass(C)d 203.6 grams LV mass(C)dI 102.0 grams/m\S\2 LV mass(C)s 180.4 grams LV mass(C)sI 90.3 grams/m\S\2 SV(Teich) 36.0 ml SI(Teich) 18.0 ml/m\S\2 SV(cubed) 40.2 ml SI(cubed) 20.1 ml/m\S\2 Ao root diam 3.8 cm Ao root area 11.5 cm\S\2 ACS 1.9 cm LA dimension 3.4 cm LA/Ao 0.90 LVOT diam 2.0 cm LVOT area 3.0 cm\S\2 LVAd ap4 24.8 cm\S\2 LVLd ap4 6.1 cm EDV(MOD-sp4) 81.9 ml EDV(sp4-el) 84.9 ml LVAs ap4 13.5 cm\S\2 LVLs ap4 4.8 cm ESV(MOD-sp4) 33.4 ml ESV(sp4-el) 32.2 ml EF(MOD-sp4) 59.3 % EF(sp4-el) 62.1 % LVAd ap2 20.9 cm\S\2 LVLd ap2 5.9 cm EDV(MOD-sp2) 63.6 ml EDV(sp2-el) 63.4 ml LVAs ap2 10.7 cm\S\2 LVLs ap2 4.4 cm ESV(MOD-sp2) 21.7 ml ESV(sp2-el) 21.9 ml EF(MOD-sp2) 65.9 % EF(sp2-el) 65.5 % LVLd %diff -4.47 % EDV(MOD-bp) 74.7 ml LVLs %diff -9.05 % ESV(MOD-bp) 27.6 ml EF(MOD-bp) 63.0 % SV(MOD-sp4) 48.6 ml SI(MOD-sp4) 24.3 ml/m\S\2 SV(MOD-sp2) 41.9 ml SI(MOD-sp2) 21.0 ml/m\S\2 SV(MOD-bp) 47.1 ml SI(MOD-bp) 23.6 ml/m\S\2 SV(sp4-el) 52.7 ml SI(sp4-el) 26.4 ml/m\S\2 SV(sp2-el) 41.5 ml SI(sp2-el) 20.8 ml/m\S\2 Doppler Measurements and Calculations MV E max domenico 100.8 cm/sec MV A max domenico 84.7 cm/sec MV E/A 1.2 MV P1/2t max domenico 125.9 cm/sec MV P1/2t 80.9 msec MVA(P1/2t) 2.7 cm\S\2 MV dec slope 455.9 cm/sec\S\2 MV dec time 0.19 sec Ao V2 max 138.7 cm/sec Ao max PG 7.7 mmHg Ao max PG (full) 3.5 mmHg CL[place](V,A) 2.2 cm\S\2 [place](V,D) 2.2 cm\S\2 LV V1 max PG 4.2 mmHg LV V1 max 102.3 cm/sec PA V2 max 91.8 cm/sec PA max PG 3.4 mmHg
--- NOTE | 2016-05-06 17:12 | Discharge Summary ---
Discharge Summary Date of Service May 06, 2016. Discharge Summary Admission Date: May 05, 2016 at 21:29 Discharge Date: May 06, 2016 Discharge Disposition: Home Principal Diagnosis: Chest Pain: Atypical Procedures: CXR: Moderate cardiomegaly. Lungs are clear ECHO: * No regional wall motion abnormalities noted. * The left ventricle is hyperdynamic. * The LV Ejection Fraction = >70 %. * Doppler findings do not suggest pulmonary hypertension. * The LV diastolic function is normal. * There is a small circumferential pericardial effusion that is largest anteriorly. * There are no echocardiographic indications of cardiac tamponade. Consultations: None Pending Studies/Follow-Up: Follow up with on 05/13/16 at 2:50pm Follow up with (Cardiology) as outpatient in 2-3 weeks. Medication Reconciliation Continued Medications: Albuterol (Ventolin Hfa) 60 Puffs/5400 Mcg Aers 2 PUFFS INH Q6 PRN for Wheezing Atorvastatin (Lipitor) 40 Mg Tab 40 MG PO QAM, TAB Carvedilol (Carvedilol) 6.25 Mg Tab 6.25 MG PO BID Chlorthalidone (Chlorthalidone) 25 Mg Tab 25 MG PO QAM Cholecalciferol (Vitamin D) 1,000 Unit Tab 1000 UNITS PO QAM Citalopram (Citalopram Hydrobromide) 40 Mg Tab 40 MG PO QAM Diclofenac Sodium (Topical) (Voltaren 1% Top Gel) 1 % Gel 1 APPLN TOP QID Duloxetine HCl (Cymbalta) 60 Mg Cap 60 MG PO DAILY Estradiol (Estradiol) 0.5 Mg Tab 0.5 MG PO QAM Fluticasone Propionate (Flovent Hfa) 120 Puffs/31719 Mcg Aero 2 PUFFS INH BID for 30 Days, #1 INHALER 3 Refills Hydrocodone/Acetaminophen 7.5MG/325MG ([place] 7.5MG/325MG) Tab 1 TAB PO Q6 PRN for Pain, TAB PRN PAIN Lisinopril (Lisinopril) 40 Mg Tab 40 MG PO QAM Pyridoxine Hcl (Vitamin B6) 250 Mg Tab 250 MG PO QAM Warfarin Sod (Coumadin) 2.5 Mg Tab 2.5 MG PO QAM Admission Information HPI (per Admitting provider): This is a 66 y/o female with PMHx of CVA, Factor V Leiden on Coumadin, HTN, Dyslipidemia and other problems as outlined below who presents to the ED c/o chest pain that began this afternoon. Pt states that around 1630 she had just finished dinner when she developed chest pain that she describes as 5/10 substernal chest "pressure" that did not radiate anywhere. Sxs were assoc with diaphoresis, N/V and lightheadedness. Sxs persisted for about 5 minutes before resolving completely. Pt has no personal or FmHx of CAD. She had a stress test July 2015 which was negative. Pt is on Coumadin for Factor V Leiden. She recently completed abx and prednisone taper for bronchitis. Pt denies fever/ chills, palpitations, SOB, wheezing, abd pain, bowel or bladder issues, LE edema or calf pain. In the ED, vitals are stable. Trop and EKG are unremarkable. CXR is negative. Pt is currently chest pain free. She will be admitted for further evaluation and treatment. Physical Exam (per Admitting): General Appearance: WD/WN, no apparent distress, + pertinent finding (Pt is sitting up in bed with at bedside) Head: normocephalic, atraumatic Eyes: normal inspection ENT: hearing grossly normal Neck: supple Respiratory/Chest: lungs clear, normal breath sounds, no respiratory distress, + pertinent finding (chest is mildly tender) Cardiovascular: regular rate, rhythm, no edema, no murmur Abdomen/GI: normal bowel sounds, non tender, soft Back: normal inspection Extremities/Musculoskelatal: normal inspection, no calf tenderness, + pedal edema (trace bilat) Neurologic/Psych: alert, normal mood/affect, oriented x 3 Skin: normal color, warm/dry Hospital Course CHEST PAIN R/O ACS Risk Factors: Tobacco use, HTN, Dyslipidemia, obesity Last stress echo 07/2015 was negative for inducible ischemia EKG: no acute ischemic changes; Troponin: negative X 3 ECHO: No regional wall motion abnormalities, small circumferential pericardial effusion continue BB, statin Counselled on smoking cessation currently asymptomatic HTN continue chlorthalidone, lisinopril and carvedilol Continue to monitor monitor FACTOR V LEIDEN INR 1.8 >>.2.1 continue Coumadin monitor INR H/O CVA CVA 2009; residual short term memory loss per pt Cont Coumadin and statin DYSLIPIDEMIA continue statin DEPRESSION/ANXIETY stable cont Celexa and Cymbalta DVT PROPHYLAXIS On Coumadin INR therapeutic DISPO Plan to discharge home today Follow up with on 05/13/16 at 2:50pm Follow up with (Cardiology) as outpatient in 2-3 weeks. PROCEDURES: ECHO: * No regional wall motion abnormalities noted. * The left ventricle is hyperdynamic. * The LV Ejection Fraction = >70 %. * Doppler findings do not suggest pulmonary hypertension. * The LV diastolic function is normal. * There is a small circumferential pericardial effusion that is largest anteriorly. * There are no echocardiographic indications of cardiac tamponade. Total time spent on discharge = This includes examination of the patient, discharge planning, medication reconciliation, and communication with other providers. Discharge Instructions Discharge Instructions Date of Service May 06, 2016. Admission Reason for Admission: Chest Pain Discharge Discharge Diagnosis / Problem: Chest Pain: Atypical Discharge Goals Goal(s): Decrease discomfort, Improve function Activity Recommendations Activity Limitations: resume your previous activity Exercise/Sports Limitations: as tolerated . Instructions / Follow-Up Instructions / Follow-Up Follow up with on 05/13/16 at 2:50pm Follow up with (Cardiology) as outpatient in 2-3 weeks. Seek immediate medical attention if your symptoms reoccur or worsen Current Hospital Diet Patient's current hospital diet: AHA Diet (Heart Healthy) Discharge Diet Recommended Diet: AHA Diet (Heart Healthy) Pending Studies Studies pending at discharge: no Medical Emergencies . Who to Call and When: Medical Emergencies: If at any time you feel your situation is an emergency, please call 911 immediately. . Non-Emergent Contact Non-Emergency issues call your: Primary Care Provider, [employer] Unit Leader Call Non-Emergent contact if: you have a fever, your pain is not controlled, your pain is worsening, your pain is unusual for you, you have any medication questions . . "Provider Documentation" section prepared by Jules Ceballos. VTE Core Measure Inpt VTE Proph given/why not?: Warfarin (Coumadin)
[2016-06-25] MEDS ORDERED: ANT25 PO (13:04)
== END 2016-05-06 18:15 | disposition home or self-care (01) ==
LOC: ENRESERVDT → ENRESERVTM → EDBD 19:06 → C.EDB 19:07 → C.MED 21:29
PROVIDERS: ADMIT Hospitalist; ATTEND Internal Medicine
DX: R07.89 Other chest pain (principal); I10 Essential (primary) hypertension; D68.2 Hereditary deficiency of other clotting factors; Z86.73 Personal history of transient ischemic attack (TIA), and cerebral infarction without residual deficits; E78.5 Hyperlipidemia, unspecified; F32.9 Major depressive disorder, single episode, unspecified; F41.9 Anxiety disorder, unspecified; J44.9 Chronic obstructive pulmonary disease, unspecified; K58.9 Irritable bowel syndrome, unspecified; F17.210 Nicotine dependence, cigarettes, uncomplicated

== ENCOUNTER 2016-06-22 07:36 | Inpatient (IN) | payer OTHER ==
[2016-06-22] VITALS (7 sets, daily range): BP systolic 160–185; BP diastolic 82–85; PULSE 73–117; TEMP 36.4–36.9; O2SAT 90–97; Ht 162.6 cm; Wt 93.0 kg
[~2016-06-22] VITALS: Ht 162.6 cm; Wt 93.0 kg
[~2016-06-22 07:36] MED LIST changes: -ACET-1138 PO; +CYM/60 PO; +DICL1GEL12 TOP; +FLVHFA110 INH; +HYDR-3983 PO; +PRVHFAIN INH; +PYRI250T7 PO; -RXC5 PO; -SNK PO; -TRIA0.5C9 TOP; -VITAMIN B6 PO
[2016-06-22] MEDS ORDERED: MECLIZINE HCL 25 MG TAB PO STA (07:54)
[2016-06-22] MEDS ORDERED: SODIUM CHLORIDE 0.9% 1000ML 1,000 ML IV STA (07:54)
[2016-06-22 08:02] LABS: BASO % 0.5 %; BASO ABS # 0.04 K/uL (0-0.2); COMPLETE YES; EOS % 5.7 %; HEMATOCRIT 40.8 % (37-47); IG% 0.3 %; LYMPH % 26.8 %; LYMPH ABS # 2.36 K/uL (1.2-3.4); MEAN CELL VOLUME 94.9 fL (80-100); MEAN CORPUSCULAR HEMOGLOBIN 31.2 pg (25-34); MEAN CORPUSCULAR HGB CONC 32.8 g/dl (32-36); MEAN PLATELET VOLUME 8.7 fL (7.4-10.4); MONO % 8.7 %; PLATELET COUNT 323 K/uL (130-400); WHITE BLOOD COUNT 8.82 K/uL (4.8-10.8)
--- NOTE | 2016-06-22 08:05 | EMERGENCY ROOM VISIT NOTE ---
History Report prepared by Ruiz: Kristopher De La O Under the Supervision of: Lorraine RoweO. First contact with patient: 07:42 Chief Complaint: DIZZY Stated Complaint: DIZZY History of Present Illness The patient is a 66 year old female who presents to the Emergency Room via EMS with complaints of persistent dizziness that started around 2 hours ago. She says that she cannot open her eyes due to the dizziness. She states that turning her head makes the dizziness worse, and staying still makes the dizziness a bit better. The patient notes that she started having vomiting and diarrhea around the same time this morning. She also started feeling tight in her throat this morning. The patient says that she has had these symptoms before , and the patient states that this was caused in the past due to high blood pressure. She denies any changes in vision, ringing in ears, ear pain, chest pain, shortness of breath, or weakness or numbness in her arms or legs. The patient has a history of a stroke. She has not had any new medications. The patient was recently seen here on May 05 for chest pain. Source of History: patient Onset: Around 2 hours ago Position: other (global - dizziness) Symptom Intensity: cannot open eyes due to dizziness Timing: other (persistent) Modifying Factors (Worsening): other (moving head) Modifying Factors (Relieving): other (staying still) Associated Symptoms: + diarrhea, + vomiting, No SOB, No chest pain, No numbness (arms or legs), No weakness (arms or legs) Note: Associated symptoms: Throat tightness. Denies ear pain or ringing in ears. Review of Systems See HPI for pertinent positives & negatives. A total of 10 systems reviewed and were otherwise negative. Past Medical & Surgical Medical Problems: (1) Anxiety (2) Chest tightness (3) COPD (chronic obstructive pulmonary disease) (4) Depression (5) Dysmetabolic syndrome (6) GERD (gastroesophageal reflux disease) (7) Heterozygous factor V Leiden mutation (8) History of CVA (cerebrovascular accident) (9) HTN (hypertension) (10) Hyperlipidemia (11) Irritable bowel syndrome (IBS) (12) Osteoarthritis (13) PUD (peptic ulcer disease) (14) Tobacco abuse disorder Surgical Problems: (1) History of carpal tunnel surgery (2) History of hysterectomy (3) S/P total knee arthroplasty Family History Factor V Leiden mutation Social History Smoking Status: Current Every Day Smoker Drug Use: none Marital Status: Housing Status: lives with family Occupation Status: retired Current/Historical Medications Scheduled Atorvastatin (Lipitor), 40 MG PO QAM Calcium Carbonate (Calcium), 1 TAB PO BID Carvedilol (Coreg), 1 TAB PO BID Chlorthalidone (Chlorthalidone), 25 MG PO QAM Cholecalciferol (Vitamin D), 1,000 UNITS PO QAM Citalopram (Citalopram Hydrobromide), 40 MG PO QAM Diclofenac Sodium (Topical) (Voltaren 1% Top Gel), 1 APPLN TOP QID Duloxetine HCl (Cymbalta), 60 MG PO DAILY Estradiol (Estradiol), 0.5 MG PO QAM Fluticasone Propionate (Flovent Hfa), 2 PUFFS INH BID Lisinopril (Lisinopril), 40 MG PO QAM Pyridoxine Hcl (Vitamin B6), 250 MG PO QAM Warfarin Sod (Coumadin), 2.5 MG PO QAM Scheduled PRN Acetaminophen (Tylenol), 500 MG PO Q6 PRN for Pain Albuterol (Ventolin Hfa), 2 PUFFS INH Q6 PRN for Wheezing Hydrocodone/Acetaminophen 7.5MG/325MG ([place] 7.5MG/325MG), 1 TAB PO Q6 PRN for Pain Allergies Coded Allergies: Buspirone (Verified Allergy, Unknown, PT UNSURE OF RXN, 06/22/16) Iodine (Verified Allergy, Unknown, ITCHING, 06/22/16) Physical Exam Vital Signs Date Time Temp Pulse Resp B/P Pulse Ox O2 Delivery O2 Flow Rate FiO2 06/22/16 10:15 70 16 173/89 96 Nasal Cannula 2.0 06/22/16 10:15 97 Nasal Cannula 2.0 06/22/16 10:00 64 18 194/95 95 Nasal Cannula 2.0 06/22/16 09:56 73 06/22/16 09:51 75 15 180/98 98 Nasal Cannula 2.0 06/22/16 09:36 68 18 201/112 98 Nasal Cannula 2.0 06/22/16 09:08 80 18 191/108 97 Nasal Cannula 2.0 06/22/16 09:06 70 19 97 06/22/16 08:51 67 19 06/22/16 08:10 68 20 182/106 94 Room Air 72 192/110 76 212/97 06/22/16 08:06 212/97 06/22/16 07:56 94 Room Air 06/22/16 07:56 94 Room Air 06/22/16 07:45 36.4 67 20 182/104 94 Room Air Physical Exam GENERAL: laying in bed with eyes closed, disheveled, uncomfortable EYE EXAM: normal conjunctiva, PERRL and EOM's intact. Horizontal nystagmus present to left with rightward gaze. OROPHARYNX: no exudate, no erythema, lips, buccal mucosa, and tongue normal and mucous membranes are moist NECK: supple, no nuchal rigidity, no adenopathy, non-tender LUNGS: Clear to auscultation. Normal chest wall mechanics HEART: no murmurs, S1 normal and S2 normal ABDOMEN: abdomen soft, non-tender, normo-active bowel sounds, no masses, no rebound or guarding. BACK: Back is symmetrical on inspection and there is no deformity, no midline tenderness, no CVA tenderness. SKIN: no rashes and no bruising UPPER EXTREMITIES: upper extremities are grossly normal. LOWER EXTREMITIES: No pitting edema. NEURO EXAM: Normal sensorium, normal speech, no weakness of arms, no weakness of legs. No drift. Finger to nose intact. Gross sensation intact. Medical Decision & Procedures ER Provider Diagnostic Interpretation: Radiology results as stated below per my review and the radiologist's interpretation: CT OF THE HEAD WITHOUT CONTRAST CLINICAL HISTORY: Sudden onset dizziness. Weakness. COMPARISON STUDY: Head CT July 21, 2008 and MRI of the brain October 04, 2008. CT DOSE: 537.48 mGy.cm TECHNIQUE: Helical axial images of the head were obtained without IV contrast. Automated exposure control was utilized for the study. FINDINGS: No acute intracranial hemorrhage, midline shift or mass effect is present. A small area of encephalomalacia within the left frontal lobe is unchanged. Basilar cisterns are patent. There are no extra-axial collections. There are no findings to suggest acute dural sinus thrombosis or acute territorial infarct. There are no calvarial abnormalities. Visualized portions of the sinuses and mastoid air cells are clear. IMPRESSION: No acute intracranial findings. No change since prior exam. Electronically signed by: Parish Lugo M.D. 06/22/2016 9:06 AM Dictated Date/Time: 06/22/2016 9:04 AM CHEST ONE VIEW PORTABLE CLINICAL HISTORY: Weakness. Dizziness. COMPARISON STUDY: Chest radiograph May 05, 2016. FINDINGS: There is mild elevation of the right hemidiaphragm. No pneumothorax or pleural effusion is present. There is mild cardiomegaly. There is no evidence of pulmonary edema. No consolidation is identified. IMPRESSION: Mild cardiomegaly. No acute cardiopulmonary findings. Electronically signed by: Parish Lugo M.D. 06/22/2016 8:26 AM Dictated Date/Time: 06/22/2016 8:25 AM Laboratory Results 06/22/16 07:20 Red Blood Count 4.30, Mean Corpuscular Volume 94.9, Mean Corpuscular Hemoglobin 31.2, Mean Corpuscular Hemoglobin Concent 32.8, Mean Platelet Volume 8.7, Neutrophils (%) (Auto) 58.0, Lymphocytes (%) (Auto) 26.8, Monocytes (%) (Auto) 8.7, Eosinophils (%) (Auto) 5.7, Basophils (%) (Auto) 0.5, Neutrophils # (Auto) 5.12, Lymphocytes # (Auto) 2.36, Monocytes # (Auto) 0.77, Eosinophils # (Auto) 0.50, Basophils # (Auto) 0.04 06/22/16 07:20 Test 06/22/16 07:20 06/22/16 08:03 06/22/16 08:41 White Blood Count 8.82 K/uL (4.8-10.8) Red Blood Count 4.30 M/uL (4.2-5.4) Hemoglobin 13.4 g/dL (12.0-16.0) Hematocrit 40.8 % (37-47) Mean Corpuscular Volume 94.9 fL (80-100) Mean Corpuscular Hemoglobin 31.2 pg (25-34) Mean Corpuscular Hemoglobin Concent 32.8 g/dl (32-36) Platelet Count 323 K/uL (130-400) Mean Platelet Volume 8.7 fL (7.4-10.4) Neutrophils (%) (Auto) 58.0 % Lymphocytes (%) (Auto) 26.8 % Monocytes (%) (Auto) 8.7 % Eosinophils (%) (Auto) 5.7 % Basophils (%) (Auto) 0.5 % Neutrophils # (Auto) 5.12 K/uL (1.4-6.5) Lymphocytes # (Auto) 2.36 K/uL (1.2-3.4) Monocytes # (Auto) 0.77 K/uL (0.11-0.59) Eosinophils # (Auto) 0.50 K/uL (0-0.5) Basophils # (Auto) 0.04 K/uL (0-0.2) RDW Standard Deviation 49.0 fL (36.4-46.3) RDW Coefficient of Variation 14.2 % (11.5-14.5) Immature Granulocyte % (Auto) 0.3 % Immature Granulocyte # (Auto) 0.03 K/uL (0.00-0.02) Prothrombin Time 41.4 SECONDS (9.0-12.0) Prothromb Time International Ratio 3.7 (0.9-1.1) Activated Partial Thromboplast Time 50.7 SECONDS (21.0-31.0) Partial Thromboplastin Ratio 2.0 Anion Gap 8.0 mmol/L (3-11) Est Creatinine Clear Calc Drug Dose 76.5 ml/min Estimated GFR () 87.0 Estimated GFR (Non- 75.1 BUN/Creatinine Ratio 13.3 (10-20) Calcium Level 8.7 mg/dl (8.5-10.1) Total Bilirubin 0.4 mg/dl (0.2-1) Direct Bilirubin < 0.1 mg/dl (0-0.2) Aspartate Amino Transf (AST/SGOT) 17 U/L (15-37) Alanine Aminotransferase (ALT/SGPT) 26 U/L (12-78) Alkaline Phosphatase 48 U/L (45-117) Total Protein 6.8 gm/dl (6.4-8.2) Albumin 3.8 gm/dl (3.4-5.0) Thyroid Stimulating Hormone (TSH) 2.680 uIu/ml (0.300-4.500) Bedside Glucose 116 mg/dl (70-90) Urine Color YELLOW Urine Appearance CLEAR (CLEAR) Urine pH 6.5 (4.5-7.5) Urine Specific [place] 1.019 (1.000-1.030) Urine Protein NEG (NEG) Urine Glucose (UA) NEG (NEG) Urine Ketones NEG (NEG) Urine Occult Blood 1+ (NEG) Urine Nitrite NEG (NEG) Urine Bilirubin NEG (NEG) Urine Urobilinogen NEG (NEG) Urine Leukocyte Esterase NEG (NEG) Urine WBC (Auto) 1-5 /hpf (0-5) Urine RBC (Auto) 10-30 /hpf (0-4) Urine Hyaline Casts (Auto) 1-5 /lpf (0-5) Urine Epithelial Cells (Auto) >30 /lpf (0-5) Urine Bacteria (Auto) 1+ (NEG) Laboratory results per my review. Medications Administered Medications (Trade) Dose Ordered Sig/Justin Route Start Time Stop Time Status Last Admin Dose Admin Sodium Chloride (Nss 1000ml) 1,000 ml @ 999 mls/hr Q1H1M STAT IV 06/22/16 07:54 06/22/16 08:54 DC 06/22/16 08:04 999 MLS/HR Meclizine HCl (Antivert Tab) 25 mg NOW STAT PO 06/22/16 07:54 06/22/16 07:55 DC 06/22/16 08:16 25 MG Diazepam (Valium Inj) 2.5 mg NOW ONCE IV 06/22/16 09:00 06/22/16 09:01 DC 06/22/16 09:07 2.5 MG Labetalol HCl 10 mg 10 mg ONE ONCE IV 06/22/16 09:45 06/22/16 09:46 DC 06/22/16 09:55 10 MG Sodium Chloride (Nss 1000ml) 1,000 ml @ 100 mls/hr Q10H IV 06/22/16 10:45 06/22/16 20:44 06/22/16 12:21 100 MLS/HR ECG Indication: other (dizziness) Rate (beats per minute): 67 Rhythm: sinus rhythm Findings: no ectopy, other (normal axis) Change: no significant change (compared to May 06 2016) Change: Repeat ECG: no change from old - normal sinus rhythm rate of 68 bpm, normal axis. ED Course ED COURSE: Vital signs were reviewed and showed hypertensive vitals. The patients medical record was reviewed The above diagnostic studies were performed and reviewed. ED treatments and interventions as stated above. 0743: The patient was evaluated in room A2. A complete history and physical examination was performed. 0754: Ordered Antivert Tab 25 mg PO, NSS 1000 ml @ 999 mls/hr IV. 0820: I reevaluated the patient and she vomited when she got up and moved. 0837: I reevaluated the patient and she got up to urinate, and did not vomit. 0845: I reevaluated the patient and she still feels dizzy. 0900: Ordered Valium Inj 2.5 mg IV. 0943: Upon reevaluation, the patient awakens to voice and is now able to keep her eyes open, but is still hypertensive. I discussed my findings with the patient and she understands and agrees with the treatment plan. Based on the patients age, coexisting illnesses, exam and lab findings the decision to treat as an inpatient was made. The patient remained stable while under my care. The patient will be evaluated for further management. 0945: Ordered Normodyne IV 10 mg IV. 0953: I discussed the patient with Dr. Aydin Mendez master cosmetologist - he will evaluate the patient for further treatment. Medical Decision Differential diagnosis includes etiologies such as benign positional vertigo, dehydration, hypovolemia, anemia, tumor, infection, hypoglycemia, electrolyte abnormalities, cardiac sources, intracerebral event, toxicologic, neurologic, as well as others were entertained. Patient is a 66-year-old female who presents to ER with sudden onset of dizziness around 6 AM this morning associated with nausea and vomiting. She does admit to having this before in the past. She notes that symptoms are worsened with opening her eyes or moving her head. On exam she is completely neurologically intact with exception of a horizontal nystagmus as described above. Vitals show hypertension. Labs and CT were ordered along with Antivert. She was given a bolus normal saline. CBC, BMP, LFTs, bilirubin, TSH and troponin were normal. EKG initially had poor baseline in the inferior leads upon repeat showed an unchanged EKG from previous. INR was supratherapeutic at 3.7. CT head shows no acute pathology. She did improve slightly after the Antivert and was able to ambulate but was still very unsteady with her gait. She was given 2.5 mg of Valium IV. Following this she was requiring nasal cannula as she was slightly hypoxic. She still had difficulty ambulating but was able to keep her eyes open during conversation. She is unable to walk by herself. Patient remained hypertensive following the Valium and meclizine. She still has systolics 190 and was given labetalol at this time. I initially believe that her hypertension was secondary to her symptoms of vertigo and was hoping that it would decline with improvement of her vertiginous symptoms. Since it did not, I did elect to treat this blood pressure. Systolic blood pressure down to 160 she is still fairly dizzy. Patient was admitted to internal medicine for further workup of hypertension and vertigo. Consults Time Called: [phone] Consulting Physician: Dr. Aydin Mendez master cosmetologist Returned Call: [phone] I discussed the patient with Dr. Aydin Mendez master cosmetologist - he will evaluate the patient for further treatment. Impression Primary Impression: Hypertensive urgency Additional Impressions: Vertigo Ambulatory dysfunction Nystagmus Scribe Attestation The scribe's documentation has been prepared under my direction and personally reviewed by me in its entirety. I confirm that the note above accurately reflects all work, treatment, procedures, and medical decision making performed by me. Departure Information Dispostion Being Evaluated By Hospitalist Referrals Obed King M.D. (PCP) Patient Instructions My [facility] Problem Qualifiers
[2016-06-22 08:16] LABS: ALT/SGPT 26 U/L (12-78); BLOOD UREA NITROGEN 11 mg/dl (7-18); BUN/CREATININE RATIO 13.3 (10-20); CARBON DIOXIDE 26 mmol/L (21-32); CHLORIDE 108 mmol/L (98-107); CREATININE 0.82 mg/dl (0.60-1.20); GLUCOSE 106 mg/dl (70-99); POTASSIUM 3.9 mmol/L (3.5-5.1); SODIUM 142 mmol/L (136-145)
[2016-06-22 08:19] LABS: PROTHROMBIN TIME (PATIENT) 41.4 SECONDS (9.0-12.0)
[2016-06-22 08:22] LABS: INR 3.7 (0.9-1.1)
[2016-06-22 08:26] LABS: ALKALINE PHOSPHATASE 48 U/L (45-117); AST/SGOT 17 U/L (15-37)
--- NOTE | 2016-06-22 08:27 | DIAGNOSTIC IMAGING REPORT ---
CHEST ONE VIEW PORTABLE CLINICAL HISTORY: Weakness. Dizziness. COMPARISON STUDY: Chest radiograph May 05, 2016. FINDINGS: There is mild elevation of the right hemidiaphragm. No pneumothorax or pleural effusion is present. There is mild cardiomegaly. There is no evidence of pulmonary edema. No consolidation is identified. IMPRESSION: Mild cardiomegaly. No acute cardiopulmonary findings. Electronically signed by: Parish Lugo M.D. 06/22/2016 8:26 AM Dictated Date/Time: 06/22/2016 8:25 AM
[2016-06-22 08:31] LABS: CALCIUM 8.7 mg/dl (8.5-10.1)
[2016-06-22 08:55] LABS: URINE APPEARANCE CLEAR (CLEAR); URINE BILIRUBIN NEG (NEG); URINE COLOR YELLOW; URINE EPITHELIAL CELL AUTO >30 /lpf (0-5); URINE NITRITE NEG (NEG); URINE PH 6.5 (4.5-7.5); URINE SPECIFIC GRAVITY 1.019 (1.000-1.030); UROBILINOGEN NEG (NEG)
[2016-06-22] MEDS ORDERED: DIAZEPAM INJ 5 MG/ML 2 ML CARP IV ONE (09:00)
[2016-06-22 09:02] LABS: MANUAL MICROSCOPIC REQUIRED? NO; REVIEW REQ? NO
--- NOTE | 2016-06-22 09:07 | DIAGNOSTIC IMAGING REPORT ---
CT OF THE HEAD WITHOUT CONTRAST CLINICAL HISTORY: Sudden onset dizziness. Weakness. COMPARISON STUDY: Head CT July 21, 2008 and MRI of the brain October 04, 2008. CT DOSE: 537.48 mGy.cm TECHNIQUE: Helical axial images of the head were obtained without IV contrast. Automated exposure control was utilized for the study. FINDINGS: No acute intracranial hemorrhage, midline shift or mass effect is present. A small area of encephalomalacia within the left frontal lobe is unchanged. Basilar cisterns are patent. There are no extra-axial collections. There are no findings to suggest acute dural sinus thrombosis or acute territorial infarct. There are no calvarial abnormalities. Visualized portions of the sinuses and mastoid air cells are clear. IMPRESSION: No acute intracranial findings. No change since prior exam. Electronically signed by: Parish Lugo M.D. 06/22/2016 9:06 AM Dictated Date/Time: 06/22/2016 9:04 AM
[2016-06-22] MEDS ORDERED: LABETALOL HCL IV 5 MG/ML 20ML IV ONE (09:45)
[2016-06-22] MEDS ORDERED: SODIUM CHLORIDE 0.9% 1000ML 1,000 ML IV SCH (10:45)
[2016-06-22] MEDS ORDERED: CARV12.52 PO (10:56)
[2016-06-22] MEDS ORDERED: CALC-393 PO (10:56)
[2016-06-22] MEDS ORDERED: TYLOTC500 PO (10:56)
[2016-06-22] MEDS ORDERED: ALBUTEROL HFA 8 GM INHALER INH PRN (11:00)
[2016-06-22] MEDS ORDERED: ONDANSETRON INJ 2 MG/ML 2 ML VIAL IV PRN (11:15)
[2016-06-22] MEDS ORDERED: DULOXETINE HCL 60 MG CAP PO ONE (12:00)
[2016-06-22] MEDS ORDERED: LISINOPRIL 40 MG TAB PO ONE (12:00)
[2016-06-22] MEDS ORDERED: CARVEDILOL 12.5 MG TAB PO ONE (12:00)
[2016-06-22] MEDS ORDERED: CITALOPRAM 40 MG TAB PO ONE (12:00)
[2016-06-22] MEDS ORDERED: IV FLUIDS COMPLETED PRN (12:15)
[2016-06-22] MEDS: MECLIZINE HCL 12.5 MG TAB PO PRN ×2 (12:24→20:39)
--- NOTE | 2016-06-22 18:03 | History and Physical ---
History & Physical Date & Time of Service: June 22, 2016 at 11:07 Chief Complaint: DIZZY Primary Care Physician: Obed King M.D. History of Present Illness Source: patient, spouse, clinic records, hospital records 66 year old female with PMH factor v leiden, HTN, CVA, tobacco abuse, pericardial effusion presents to the Emergency Room via EMS with complaints of dizziness that started this morning. Pt said that the dizziness started after she had episodes of vomiting and watery diarrhea. She said that the dizziness worsening if she tried to move her head. she said that because of the dizziness she is seeing everything double. She tried to keep the left eyes closed because it helps with the dizziness. She said also she developed chest tightness as well with seems to improved now. She said that she has had these symptoms in the past that was attributed to elevate BP. She did not miss any dose of her BP meds. When she came to the ER BP was very high. She denies any recent Upper respiratory viral infection. She denies any ringing in ears, ear pain, chest pain, shortness of breath, weakness or numbness. Past Medical/Surgical History Medical Problems: (1) Anxiety Status: Chronic (2) COPD (chronic obstructive pulmonary disease) Status: Chronic (3) Depression Status: Chronic (4) Dysmetabolic syndrome Status: Chronic (5) GERD (gastroesophageal reflux disease) Status: Chronic (6) Heterozygous factor V Leiden mutation Status: Chronic (7) History of CVA (cerebrovascular accident) Status: Chronic (8) HTN (hypertension) Status: Chronic (9) Hyperlipidemia Status: Chronic (10) Irritable bowel syndrome (IBS) Status: Chronic (11) Osteoarthritis Status: Chronic (12) PUD (peptic ulcer disease) Status: Chronic (13) Tobacco abuse disorder Status: Chronic Surgical Problems: (1) History of carpal tunnel surgery Status: Chronic (2) History of hysterectomy Status: Chronic (3) S/P total knee arthroplasty Permanent Comment: Left 2014 Status: Chronic Family History Factor V Leiden mutation Social History Smoking Status: Current Every Day Smoker Drug Use: none Marital Status: Housing status: lives with significant other Occupational Status: retired Immunizations History of Influenza Vaccine: Yes History of Tetanus Vaccine?: Yes History of Pneumococcal: Yes History of Hepatitis B Vaccine: No Multi-Drug Resistant Organisms History of MDRO: No Allergies Coded Allergies: Buspirone (Verified Allergy, Unknown, PT UNSURE OF RXN, 06/22/16) Iodine (Verified Allergy, Unknown, ITCHING, 06/22/16) Home Medications Scheduled Atorvastatin (Lipitor), 40 MG PO QAM Calcium Carbonate (Calcium), 1 TAB PO BID Carvedilol (Coreg), 1 TAB PO BID Chlorthalidone (Chlorthalidone), 25 MG PO QAM Cholecalciferol (Vitamin D), 1,000 UNITS PO QAM Citalopram (Citalopram Hydrobromide), 40 MG PO QAM Diclofenac Sodium (Topical) (Voltaren 1% Top Gel), 1 APPLN TOP QID Duloxetine HCl (Cymbalta), 60 MG PO DAILY Estradiol (Estradiol), 0.5 MG PO QAM Fluticasone Propionate (Flovent Hfa), 2 PUFFS INH BID Lisinopril (Lisinopril), 40 MG PO QAM Pyridoxine Hcl (Vitamin B6), 250 MG PO QAM Warfarin Sod (Coumadin), 2.5 MG PO QAM Scheduled PRN Acetaminophen (Tylenol), 500 MG PO Q6 PRN for Pain Albuterol (Ventolin Hfa), 2 PUFFS INH Q6 PRN for Wheezing Hydrocodone/Acetaminophen 7.5MG/325MG ([place] 7.5MG/325MG), 1 TAB PO Q6 PRN for Pain Review of Systems Constitutional: No chills, No fever Eyes: + diplopia, No discharge ENT: No nasal symptoms, No sore throat, No tinnitus Respiratory: No cough, No shortness of breath, No sputum Cardiovascular: No chest pain, No palpitations Abdomen: + diarrhea, + nausea, + vomiting, No pain Musculoskeletal: No calf pain Genitourinary - Female: No dysuria, No hematuria, No urinary frequency Neurologic: + vertigo, No paralysis, No weakness Psychiatric: No substance abuse Endocrine: No fatigue Hematologic / Lymphatic: No night sweats Integumentary: No itch, No rash Physical Exam Vital Signs Date Time Temp Pulse Resp B/P Pulse Ox O2 Delivery O2 Flow Rate FiO2 06/22/16 10:15 70 16 173/89 96 Nasal Cannula 2.0 06/22/16 10:15 97 Nasal Cannula 2.0 06/22/16 10:00 64 18 194/95 95 Nasal Cannula 2.0 5/14/17 09:56 73 06/22/16 09:51 75 15 180/98 98 Nasal Cannula 2.0 06/22/16 09:36 68 18 201/112 98 Nasal Cannula 2.0 06/22/16 09:08 80 18 191/108 97 Nasal Cannula 2.0 06/22/16 09:06 70 19 97 06/22/16 08:51 67 19 06/22/16 08:10 68 20 182/106 94 Room Air 72 192/110 76 212/97 06/22/16 08:06 212/97 06/22/16 07:56 94 Room Air 06/22/16 07:56 94 Room Air 06/22/16 07:45 36.4 67 20 182/104 94 Room Air General Appearance: WD/WN, no apparent distress Head: normocephalic, atraumatic Eyes: PERRL, EOMI, + pertinent finding (horizontal nystagmus) ENT: normal ENT inspection, + pertinent finding (decrease hearing function) Neck: supple, no JVD Respiratory/Chest: no respiratory distress, no accessory muscle use, + pertinent finding (mild wheezing on expiratory) Cardiovascular: regular rate, rhythm, no gallop, no JVD Abdomen/GI: normal bowel sounds, non tender, soft Back: normal inspection, no CVA tenderness Extremities/Musculoskelatal: no calf tenderness Neurologic/Psych: no motor/sensory deficits, alert, oriented x 3 Skin: normal color, warm/dry, no rash Diagnostics Laboratory Results Results Past 24 Hours Test 06/22/16 07:20 06/22/16 08:03 06/22/16 08:41 Range/Units White Blood Count 8.82 4.8-10.8 K/uL Red Blood Count 4.30 4.2-5.4 M/uL Hemoglobin 13.4 12.0-16.0 g/dL Hematocrit 40.8 37-47 % Mean Corpuscular Volume 94.9 80-100 fL Mean Corpuscular Hemoglobin 31.2 25-34 pg Mean Corpuscular Hemoglobin Concent 32.8 32-36 g/dl Platelet Count 323 130-400 K/uL Mean Platelet Volume 8.7 7.4-10.4 fL Neutrophils (%) (Auto) 58.0 % Lymphocytes (%) (Auto) 26.8 % Monocytes (%) (Auto) 8.7 % Eosinophils (%) (Auto) 5.7 % Basophils (%) (Auto) 0.5 % Neutrophils # (Auto) 5.12 1.4-6.5 K/uL Lymphocytes # (Auto) 2.36 1.2-3.4 K/uL Monocytes # (Auto) 0.77 0.11-0.59 K/uL Eosinophils # (Auto) 0.50 0-0.5 K/uL Basophils # (Auto) 0.04 0-0.2 K/uL RDW Standard Deviation 49.0 36.4-46.3 fL RDW Coefficient of Variation 14.2 11.5-14.5 % Immature Granulocyte % (Auto) 0.3 % Immature Granulocyte # (Auto) 0.03 0.00-0.02 K/uL Prothrombin Time 41.4 9.0-12.0 SECONDS Prothromb Time International Ratio 3.7 0.9-1.1 Activated Partial Thromboplast Time 50.7 21.0-31.0 SECONDS Partial Thromboplastin Ratio 2.0 Sodium Level 142 136-145 mmol/L Potassium Level 3.9 3.5-5.1 mmol/L Chloride Level 108 98-107 mmol/L Carbon Dioxide Level 26 21-32 mmol/L Anion Gap 8.0 3-11 mmol/L Blood Urea Nitrogen 11 7-18 mg/dl Creatinine 0.82 0.60-1.20 mg/dl Est Creatinine Clear Calc Drug Dose 76.5 ml/min Estimated GFR () 87.0 Estimated GFR (Non- 75.1 BUN/Creatinine Ratio 13.3 10-20 Random Glucose 106 70-99 mg/dl Calcium Level 8.7 8.5-10.1 mg/dl Total Bilirubin 0.4 0.2-1 mg/dl Direct Bilirubin < 0.1 0-0.2 mg/dl Aspartate Amino Transf (AST/SGOT) 17 15-37 U/L Alanine Aminotransferase (ALT/SGPT) 26 12-78 U/L Alkaline Phosphatase 48 45-117 U/L Troponin I < 0.015 0-0.045 ng/ml Total Protein 6.8 6.4-8.2 gm/dl Albumin 3.8 3.4-5.0 gm/dl Thyroid Stimulating Hormone (TSH) 2.680 0.300-4.500 uIu/ml Bedside Glucose 116 70-90 mg/dl Urine Color YELLOW Urine Appearance CLEAR CLEAR Urine pH 6.5 4.5-7.5 Urine Specific [place] 1.019 1.000-1.030 Urine Protein NEG NEG Urine Glucose (UA) NEG NEG Urine Ketones NEG NEG Urine Occult Blood 1+ NEG Urine Nitrite NEG NEG Urine Bilirubin NEG NEG Urine Urobilinogen NEG NEG Urine Leukocyte Esterase NEG NEG Urine WBC (Auto) 1-5 0-5 /hpf Urine RBC (Auto) 10-30 0-4 /hpf Urine Hyaline Casts (Auto) 1-5 0-5 /lpf Urine Epithelial Cells (Auto) >30 0-5 /lpf Urine Bacteria (Auto) 1+ NEG Diagnostic Radiology CT OF THE HEAD WITHOUT CONTRAST CLINICAL HISTORY: Sudden onset dizziness. Weakness. COMPARISON STUDY: Head CT July 21, 2008 and MRI of the brain October 04, 2008. CT DOSE: 537.48 mGy.cm TECHNIQUE: Helical axial images of the head were obtained without IV contrast. Automated exposure control was utilized for the study. FINDINGS: No acute intracranial hemorrhage, midline shift or mass effect is present. A small area of encephalomalacia within the left frontal lobe is unchanged. Basilar cisterns are patent. There are no extra-axial collections. There are no findings to suggest acute dural sinus thrombosis or acute territorial infarct. There are no calvarial abnormalities. Visualized portions of the sinuses and mastoid air cells are clear. IMPRESSION: No acute intracranial findings. No change since prior exam. Electronically signed by: Parish Lugo M.D. 06/22/2016 9:06 AM Dictated Date/Time: 06/22/2016 9:04 AM CHEST ONE VIEW PORTABLE CLINICAL HISTORY: Weakness. Dizziness. COMPARISON STUDY: Chest radiograph May 05, 2016. FINDINGS: There is mild elevation of the right hemidiaphragm. No pneumothorax or pleural effusion is present. There is mild cardiomegaly. There is no evidence of pulmonary edema. No consolidation is identified. IMPRESSION: Mild cardiomegaly. No acute cardiopulmonary findings. Electronically signed by: Parish Lugo M.D. 06/22/2016 8:26 AM Impression Assessment and Plan VERTIGO Possible benign paroxysmal positional vertigo Might be related to dehydration vs HTN urgency Worsening with turning her head CT head was negative for any intracranial abnormality Fall precaution received meclizine in the ER Continue meclizine PRN PT eval for vestibular rehab HYPERTENSION URGENCY Received IV labetatol in the ER BP trending down resume PO meds Will start chlorthalidone in am due possible dehydration (episodes N/V) Hydralazine prn for SBP above 170 continue monitor BP in telemetry CHEST TIGHTNESS Troponin negative EKG shown no ischemic changes Will follow CMx2 sets Monitor in tele mild exp wheezing present on exam, will do DuoNeb treatment Hx CVA Factor V Leiden On Coumadin INR supra therapeutic (INR 3.7) Hold today dose coumadin Check INR in am TOBACCO ABUSE Counseling on smoking cessation Refused nicotine patch ANXIETY Continue celaxa SHOULDERS PAIN Continue hydrocodone/cymbalta DYSLIPIDEMIA Continue Lipitor DVT px on Coumadin INR 3.7 CODE STATUS FULL CODE Level of Care Telemetry Advanced Directives Existing Living Will: No Existing Power of Marketing Database Analyst: No Resuscitation Status FULL RESUSCITATION VTE Prophylaxis VTE Risk Assessment Done? Y/N: Yes Risk Level: Moderate Given or contraindicated: Warfarin (Coumadin)
[2016-06-22] MEDS ORDERED: ALBUT/IPRATROP 3MG/0.5MG NEB 3 ML VIAL INH PRN (19:15)
[2016-06-22] MEDS: FLUTICASONE HFA 110MCG INHALER INH SCH (20:38)
[2016-06-22] MEDS: CALCIUM CARBONATE 1250MG TAB PO SCH (20:39)
[2016-06-22] MEDS: CARVEDILOL 12.5 MG TAB PO SCH (20:40)
[2016-06-22] MEDS: ALBUT/IPRATROP 3MG/0.5MG NEB 3 ML VIAL INH SCH (23:05)
[2016-06-23] VITALS (13 sets, daily range): BP systolic 123–184; BP diastolic 75–85; PULSE 70–95; TEMP 36.7–37; O2SAT 90–100
[2016-06-23] MEDS: HydrALAZINE HCL 20 MG/ML VIAL IV. PRN (00:51)
[2016-06-23] MEDS ORDERED: CLONIDINE HCL 0.1 MG TAB PO ONE (02:00)
[2016-06-23] MEDS ORDERED: CLONIDINE HCL 0.1 MG TAB PO PRN (02:00)
[2016-06-23] MEDS: HYDROCODONE/ACETAMINOPHEN 7.5/325MG TAB PO PRN (02:08)
[2016-06-23] MEDS: ALBUT/IPRATROP 3MG/0.5MG NEB 3 ML VIAL INH SCH ×5 (07:07→19:35)
[2016-06-23 07:28] LABS: HEMATOCRIT 38.3 % (37-47); MEAN CORPUSCULAR HEMOGLOBIN 30.6 pg (25-34); MEAN CORPUSCULAR HGB CONC 31.9 g/dl (32-36); MEAN PLATELET VOLUME 8.7 fL (7.4-10.4); PLATELET COUNT 302 K/uL (130-400); RED BLOOD COUNT 3.99 M/uL (4.2-5.4); WHITE BLOOD COUNT 11.84 K/uL (4.8-10.8)
[2016-06-23 07:33] LABS: INR 2.7 (0.9-1.1); PROTHROMBIN TIME (PATIENT) 30.3 SECONDS (9.0-12.0)
[2016-06-23] MEDS: CHLORTHALIDONE 25 MG TAB PO SCH (07:47)
[2016-06-23] MEDS: LISINOPRIL 40 MG TAB PO SCH (07:47)
[2016-06-23] MEDS: CALCIUM CARBONATE 1250MG TAB PO SCH ×2 (07:47→21:28)
[2016-06-23] MEDS: CARVEDILOL 12.5 MG TAB PO SCH ×2 (07:47→21:28)
[2016-06-23] MEDS: CHOLECALCIFEROL 1000 INTER.UNIT TAB PO SCH (07:48)
[2016-06-23] MEDS: ESTRADIOL 1 MG TAB PO SCH (07:48)
[2016-06-23] MEDS: PYRIDOXINE HCL 50 MG TAB PO SCH (07:48)
[2016-06-23] MEDS: ATORVASTATIN 40 MG TAB PO SCH (07:48)
[2016-06-23] MEDS: DULOXETINE HCL 60 MG CAP PO SCH (07:54)
[2016-06-23] MEDS: CITALOPRAM 40 MG TAB PO SCH (07:54)
[2016-06-23] MEDS: FLUTICASONE HFA 110MCG INHALER INH SCH ×2 (07:55→21:25)
[2016-06-23 08:00] LABS: BLOOD UREA NITROGEN 10 mg/dl (7-18); BUN/CREATININE RATIO 11.5 (10-20); CALCIUM 8.3 mg/dl (8.5-10.1); CARBON DIOXIDE 28 mmol/L (21-32); CHLORIDE 108 mmol/L (98-107); CREATININE 0.83 mg/dl (0.60-1.20); GLUCOSE 91 mg/dl (70-99); POTASSIUM 3.8 mmol/L (3.5-5.1); SODIUM 141 mmol/L (136-145)
--- NOTE | 2016-06-23 15:04 | Progress Note ---
Medicine Progress Note Date & Time of Visit: June 23, 2016 at 14:53. Subjective Pt was seen and examined Lying in bed with no distress Pt said that she is still feel dizzy and a pressure feeling in his head he said that he had dizziness in the past that was resolved after 3 hrs Denies any chest pain, palpitation, N/V and SOB Objective Last 8 Hrs Date Time Temp Pulse Resp B/P Pulse Ox O2 Delivery O2 Flow Rate FiO2 06/23/16 14:15 37.0 70 17 123/75 100 2.0 06/23/16 12:00 Nasal Cannula 2.0 06/23/16 11:55 70 16 92 Room Air 06/23/16 08:00 Nasal Cannula 2.0 06/23/16 07:08 36.7 84 18 145/82 Nasal Cannula 2.0 06/23/16 07:07 80 16 93 Room Air Physical Exam: General- no acute distress Head- atraumatic Eyes- PERRL, EOMI, +nystagmus ENT- oropharynx clear Neck- supple, no JVD Lungs- clear to auscultation and percussion Heart- regular rhythm; no murmur Abdomen- normal bowel sounds, soft Extremities-no calf tenderness Neuro- alert, oriented x 3; PERRL, EOMI; no facial palsy Skin- warm & dry Laboratory Results: Last 24 Hours Test 06/22/16 19:00 06/22/16 19:29 06/23/16 00:30 06/23/16 07:00 Creatine Kinase MB Ratio Creatine Kinase MB 1.6 ng/ml 1.1 ng/ml Troponin I < 0.015 ng/ml Test 06/23/16 07:02 White Blood Count 11.84 K/uL Red Blood Count 3.99 M/uL Hemoglobin 12.2 g/dL Hematocrit 38.3 % Mean Corpuscular Volume 96.0 fL Mean Corpuscular Hemoglobin 30.6 pg Mean Corpuscular Hemoglobin Concent 31.9 g/dl RDW Standard Deviation 49.5 fL RDW Coefficient of Variation 14.0 % Platelet Count 302 K/uL Mean Platelet Volume 8.7 fL Prothrombin Time 30.3 SECONDS Prothromb Time International Ratio 2.7 Sodium Level 141 mmol/L Potassium Level 3.8 mmol/L Chloride Level 108 mmol/L Carbon Dioxide Level 28 mmol/L Anion Gap 5.0 mmol/L Blood Urea Nitrogen 10 mg/dl Creatinine 0.83 mg/dl Est Creatinine Clear Calc Drug Dose 76.6 ml/min Estimated GFR () 85.8 Estimated GFR (Non- 74.0 BUN/Creatinine Ratio 11.5 Random Glucose 91 mg/dl Calcium Level 8.3 mg/dl Creatine Kinase MB 1.0 ng/ml Assessment & Plan VERTIGO Possible benign paroxysmal positional vertigo Might be related to dehydration vs HTN urgency BP has been stable and received IVF CT head was negative for any intracranial abnormality Will get an MRI/MRA head and base on finding will consult neuro Case discussed with Neuro BPPV testing was negative as per Physical therapy Fall precaution Continue meclizine PRN Continue PT HYPERTENSION URGENCY Received IV labetatol in the ER Continue lisinopril and chlorthalidone Hydralazine prn for SBP above 170 continue monitor BP in telemetry CHEST TIGHTNESS Troponin negative EKG shown no ischemic changes CM are negative Monitor in tele Resolved Hx CVA Factor V Leiden On Coumadin INR therapeutic (INR 2.5) Will resume coumadin continue to monitor INR TOBACCO ABUSE Counseling on smoking cessation Refused nicotine patch ANXIETY Continue celaxa SHOULDERS PAIN Continue hydrocodone/cymbalta DYSLIPIDEMIA Continue Lipitor DVT px on Coumadin INR 2.5 CODE STATUS FULL CODE DISPOSITION Discharge home tomorrow Follow up appointment with Dr. Lau on 06/30 at 9:45 am Current Inpatient Medications: Current Inpatient Medications Medications (Trade) Dose Ordered Sig/Justin Route Start Time Stop Time Status Last Admin Dose Admin Albuterol (Ventolin Hfa Inhaler) 2 puffs Q6 PRN INH 06/22/16 11:00 07/22/16 10:59 Atorvastatin Calcium (Lipitor Tab) 40 mg QAM PO 06/23/16 09:00 07/23/16 08:59 06/23/16 07:48 40 MG Carvedilol (Coreg Tab) 12.5 mg BID PO 06/22/16 21:00 07/22/16 20:59 06/23/16 07:47 12.5 MG Chlorthalidone ([place] Tab) 25 mg QAM PO 06/23/16 09:00 07/23/16 08:59 06/23/16 07:47 25 MG Cholecalciferol (Vitamin D Tab) 1,000 inter.unit QAM PO 06/23/16 09:00 07/23/16 08:59 06/23/16 07:48 1,000 INTER.UNIT Citalopram Hydrobromide (celeXA TAB) 40 mg QAM PO 06/23/16 09:00 07/22/16 08:59 06/23/16 07:54 40 MG Duloxetine HCl (Cymbalta Cap) 60 mg DAILY PO 06/23/16 09:00 07/22/16 08:59 06/23/16 07:54 60 MG Fluticasone Propionate (Flovent Hfa 110MCG Inhaler) 2 puffs BID INH 06/22/16 21:00 07/22/16 20:59 06/23/16 07:55 2 PUFFS Acetaminophen/ Hydrocodone Bitart ([place] 7.5/325 Tab) 1 tab Q6 PRN PO 06/22/16 11:00 07/06/16 10:59 06/23/16 02:08 1 TAB Lisinopril (Zestril Tab) 40 mg QAM PO 06/23/16 09:00 07/23/16 08:59 06/23/16 07:47 40 MG Calcium Carbonate (oS-[place] 500 TAB) 1,250 mg BID PO 06/22/16 21:00 07/22/16 20:59 06/23/16 07:47 1,250 MG Estradiol (Estrace Tab) 0.5 mg QAM PO 06/23/16 09:00 07/23/16 08:59 06/23/16 07:48 0.5 MG Pyridoxine HCl (Vitamin B-6 Tab) 250 mg QAM PO 06/23/16 09:00 07/23/16 08:59 06/23/16 07:48 250 MG Meclizine HCl (Antivert Tab) 12.5 mg Q8 PRN PO 06/22/16 11:15 07/22/16 11:14 06/22/16 20:39 12.5 MG Ondansetron HCl (Zofran Inj) 4 mg Q6H PRN IV 06/22/16 11:15 07/22/16 11:14 Miscellaneous (Iv Fluids Completed) 1 ea PRN PRN N/A 06/22/16 12:15 06/22/17 12:14 Albuterol/ Ipratropium (Duoneb) 3 ml QIDR INH 06/22/16 20:00 07/22/16 19:59 06/23/16 11:55 3 ML Hydralazine HCl (HydrALAZINE INJ) 10 mg Q6H PRN IV. 06/22/16 18:15 07/22/16 18:14 06/23/16 00:51 10 MG Albuterol/ Ipratropium (Duoneb) 3 ml Q2H PRN INH 06/22/16 19:15 07/22/16 19:14 Clonidine HCl (Catapres Tab) 0.1 mg Q4H PRN PO 06/23/16 02:00 07/23/16 01:59
[2016-06-23] MEDS ORDERED: WARFARIN SOD 2 MG TAB PO ONE (18:30)
--- NOTE | 2016-06-23 19:31 | DIAGNOSTIC IMAGING REPORT ---
MRI OF THE BRAIN WITHOUT IV CONTRAST CLINICAL HISTORY: Vertigo. Nystagmus. COMPARISON STUDY: CT of the brain dated 06/22/2016. MRI of the brain dated 10/04/2008. TECHNIQUE: MRI of the brain was performed utilizing various T1 and T2-weighted sequences in the axial, sagittal, and coronal planes. IV contrast was not administered for this examination. The examination is modestly degraded by motion artifact. FINDINGS: Brain parenchyma: There is encephalomalacia from a chronic left frontal lobe infarct. Minimal subcortical and periventricular microangiopathic changes noted. There is no hemorrhage or mass effect. There is no restricted diffusion to suggest acute ischemia. Vale-white matter differentiation is preserved. No extra-axial fluid collection is seen. The cerebellar tonsils are normal in configuration. Ventricles, sulci, and cisterns: Normal in configuration. Pituitary and sella: Unremarkable. Intracranial vasculature: Normal flow voids are maintained at the skull base. Orbits: The bony orbits are grossly intact. Orbital contents are normal in appearance. Sinuses and mastoids: Clear. Calvarium: Unremarkable. Cervical cord: Partially visualized cervical spinal cord is normal in morphology and signal intensity. IMPRESSION: No acute intracranial abnormality. Electronically signed by: Nixon Drake M.D. 06/23/2016 7:29 PM Dictated Date/Time: 06/23/2016 7:27 PM
--- NOTE | 2016-06-23 19:33 | DIAGNOSTIC IMAGING REPORT ---
MR ANGIOGRAM OF THE BRAIN CLINICAL HISTORY: Vertigo. Nystagmus. COMPARISON STUDY: MRI of the brain performed concurrently on 06/23/2016. MR angiogram of the brain dated 07/21/2008. TECHNIQUE: 3-D [id number] MR angiography of the intracranial circulation is performed. 3-D tumble views are created and assessed. IV contrast was not administered for this examination. FINDINGS: There is origin of the left posterior cerebral artery. The internal carotid arteries are widely patent bilaterally, as are the anterior and middle cerebral arteries. The vertebrobasilar system and posterior cerebral arteries are widely patent. The left vertebral artery is dominant. There is no aneurysm, high-grade stenosis, or focal vessel cutoff seen throughout the intracranial circulation. The brain parenchyma is normal as visualized. IMPRESSION: Unremarkable MR angiogram of the brain. Electronically signed by: Nixon Drake M.D. 06/23/2016 7:32 PM Dictated Date/Time: 06/23/2016 7:30 PM
[2016-06-24] VITALS (15 sets, daily range): BP systolic 101–195; BP diastolic 64–97; PULSE 77–110; TEMP 36.5–37; O2SAT 90–97
[2016-06-24] MEDS: HYDROCODONE/ACETAMINOPHEN 7.5/325MG TAB PO PRN ×3 (01:25→21:05)
[2016-06-24 06:19] LABS: HEMATOCRIT 38.8 % (37-47); MEAN CELL VOLUME 92.8 fL (80-100); MEAN CORPUSCULAR HEMOGLOBIN 30.4 pg (25-34); MEAN CORPUSCULAR HGB CONC 32.7 g/dl (32-36); MEAN PLATELET VOLUME 8.6 fL (7.4-10.4); PLATELET COUNT 286 K/uL (130-400); RED BLOOD COUNT 4.18 M/uL (4.2-5.4); WHITE BLOOD COUNT 12.55 K/uL (4.8-10.8)
[2016-06-24 06:29] LABS: PROTHROMBIN TIME (PATIENT) 22.4 SECONDS (9.0-12.0)
[2016-06-24] MEDS: ALBUT/IPRATROP 3MG/0.5MG NEB 3 ML VIAL INH SCH ×4 (07:57→19:21)
[2016-06-24] MEDS: HydrALAZINE HCL 20 MG/ML VIAL IV. PRN (08:45)
[2016-06-24] MEDS: FLUTICASONE HFA 110MCG INHALER INH SCH ×2 (08:45→21:01)
[2016-06-24] MEDS: CARVEDILOL 12.5 MG TAB PO SCH ×2 (08:46→21:01)
[2016-06-24] MEDS: CALCIUM CARBONATE 1250MG TAB PO SCH ×2 (08:46→21:01)
[2016-06-24] MEDS: ATORVASTATIN 40 MG TAB PO SCH (08:46)
[2016-06-24] MEDS: CITALOPRAM 40 MG TAB PO SCH (08:46)
[2016-06-24] MEDS: PYRIDOXINE HCL 50 MG TAB PO SCH (08:47)
[2016-06-24] MEDS: DULOXETINE HCL 60 MG CAP PO SCH (08:48)
[2016-06-24] MEDS: CHOLECALCIFEROL 1000 INTER.UNIT TAB PO SCH (08:49)
[2016-06-24] MEDS: LISINOPRIL 40 MG TAB PO SCH (08:49)
[2016-06-24] MEDS: CHLORTHALIDONE 25 MG TAB PO SCH (08:49)
[2016-06-24] MEDS: ESTRADIOL 1 MG TAB PO SCH (08:49)
--- NOTE | 2016-06-24 16:19 | Progress Note ---
Internal Med Progress Note Date of Service: June 24, 2016. Provider Documentation: SUBJECTIVE: The patient was seen and examined Still has some Vertigo Getting PT Was noted to have high BP OBJECTIVE: Vital Signs-as noted below Exam: General-no distress at rest Eyes-normal ENT-normal Neck-supple Lungs-clear to auscultate bilaterally Heart-Regular,no murmur appreciated Abdomen-Benign,no masses,bowel sound present Extremities-no edema Neuro-AAOx3 No focal neuro deficit Lab data as noted below. ASSESSMENT & PLAN: VERTIGO Possible benign paroxysmal positional vertigo/ Labyrinthine disease Might be related to dehydration vs HTN urgency BP has been stable and received IVF CT head was negative for any intracranial abnormality Will get an MRI/MRA have been negative Case discussed with Neuro BPPV testing was negative as per Physical therapy Continue PT/OT Likely home tomorrow HYPERTENSION URGENCY Received IV labetalol in the ER Continue lisinopril and chlorthalidone Hydralazine prn for SBP above 170 continue monitor BP in telemetry Blood Pressure is stable now CHEST TIGHTNESS Troponin negative EKG shown no ischemic changes CM are negative Hx CVA Factor V Leiden On Coumadin INR therapeutic (INR 2.0 on 06/24/16) TOBACCO ABUSE Counseling on smoking cessation Refused nicotine patch ANXIETY Continue celaxa SHOULDERS PAIN Continue hydrocodone/Cymbalta DYSLIPIDEMIA Continue Lipitor CODE STATUS FULL CODE DISPOSITION Discharge home tomorrow Follow up appointment with Dr. Lau on 06/30 at 9:45 am Vital Signs: Date Time Temp Pulse Resp B/P Pulse Ox O2 Delivery O2 Flow Rate FiO2 06/24/16 14:43 36.5 83 18 101/64 95 Room Air 06/24/16 14:38 80 16 96 Room Air 06/24/16 12:00 95 Room Air 06/24/16 11:41 36.8 84 18 127/79 92 Room Air 06/24/16 10:00 103 18 126/75 95 Room Air 06/24/16 09:25 110 95 06/24/16 08:00 94 Room Air 06/24/16 07:58 77 16 94 Room Air 06/24/16 07:18 36.9 93 18 195/92 90 Room Air 06/24/16 04:00 Room Air 06/24/16 01:21 96 152/97 06/24/16 00:27 37.0 81 20 179/76 91 Nasal Cannula 2.0 06/24/16 00:00 94 Room Air 06/23/16 20:00 94 Room Air 06/23/16 19:37 80 16 95 Room Air Lab Results: Results Past 24 Hours Test 06/24/16 05:55 Range/Units White Blood Count 12.55 4.8-10.8 K/uL Red Blood Count 4.18 4.2-5.4 M/uL Hemoglobin 12.7 12.0-16.0 g/dL Hematocrit 38.8 37-47 % Mean Corpuscular Volume 92.8 80-100 fL Mean Corpuscular Hemoglobin 30.4 25-34 pg Mean Corpuscular Hemoglobin Concent 32.7 32-36 g/dl RDW Standard Deviation 46.4 36.4-46.3 fL RDW Coefficient of Variation 13.6 11.5-14.5 % Platelet Count 286 130-400 K/uL Mean Platelet Volume 8.6 7.4-10.4 fL Prothrombin Time 22.4 9.0-12.0 SECONDS Prothromb Time International Ratio 2.0 0.9-1.1
[2016-06-25 00:18] VITALS: BP 137/67; PULSE 79; TEMP 36.8; O2SAT 91
[2016-06-25 04:12] VITALS: BP 129/80; PULSE 78; TEMP 36.9; O2SAT 90
[2016-06-25 07:06] LABS: INR 1.6 (0.9-1.1); PROTHROMBIN TIME (PATIENT) 17.6 SECONDS (9.0-12.0)
[2016-06-25 07:17] VITALS: BP 148/78; PULSE 74; TEMP 36.6; O2SAT 92
[2016-06-25] MEDS: ALBUT/IPRATROP 3MG/0.5MG NEB 3 ML VIAL INH SCH ×3 (07:50→11:38)
[2016-06-25 08:00] VITALS: O2SAT 92
[2016-06-25] MEDS: CALCIUM CARBONATE 1250MG TAB PO SCH (09:13)
[2016-06-25] MEDS: CITALOPRAM 40 MG TAB PO SCH (09:13)
[2016-06-25] MEDS: PYRIDOXINE HCL 50 MG TAB PO SCH (09:14)
[2016-06-25] MEDS: DULOXETINE HCL 60 MG CAP PO SCH (09:14)
[2016-06-25] MEDS: CARVEDILOL 12.5 MG TAB PO SCH (09:14)
[2016-06-25] MEDS: ATORVASTATIN 40 MG TAB PO SCH (09:14)
[2016-06-25] MEDS: ESTRADIOL 1 MG TAB PO SCH (09:15)
[2016-06-25] MEDS: LISINOPRIL 40 MG TAB PO SCH (09:15)
[2016-06-25] MEDS: CHLORTHALIDONE 25 MG TAB PO SCH (09:15)
[2016-06-25] MEDS: FLUTICASONE HFA 110MCG INHALER INH SCH (09:16)
[2016-06-25] MEDS: CHOLECALCIFEROL 1000 INTER.UNIT TAB PO SCH (09:16)
[2016-06-25 11:31] VITALS: BP 129/80; PULSE 69; TEMP 36.6; O2SAT 92
--- NOTE | 2016-06-25 11:49 | Progress Note ---
Internal Med Progress Note Date of Service: June 25, 2016. Provider Documentation: SUBJECTIVE: The patient was seen and examined Still has some Vertigo Getting PT BP controlled now No more dizziness Ambulating well OBJECTIVE: Vital Signs-as noted below Exam: General-no distress at rest Eyes-normal ENT-normal Neck-supple Lungs-clear to auscultate bilaterally Heart-Regular,no murmur appreciated Abdomen-Benign,no masses,bowel sound present Extremities-no edema Neuro-AAOx3 No focal neuro deficit Lab data as noted below. ASSESSMENT & PLAN: VERTIGO Possible benign paroxysmal positional vertigo/ Labyrinthine disease Might be related to dehydration vs HTN urgency BP has been stable and received IVF CT head was negative for any intracranial abnormality Will get an MRI/MRA have been negative Case discussed with Neuro BPPV testing was negative as per Physical therapy Continue PT/OT-no more dizziness Likely home today HYPERTENSION URGENCY Received IV labetalol in the ER Continue lisinopril and chlorthalidone Hydralazine prn for SBP above 170 continue monitor BP in telemetry Blood Pressure is stable now and remains stable CHEST TIGHTNESS Troponin negative EKG shown no ischemic changes CE are negative Hx CVA Factor V Leiden On Coumadin INR therapeutic (INR 2.0 on 06/24/16) TOBACCO ABUSE Counseling on smoking cessation Refused nicotine patch ANXIETY Continue celaxa SHOULDERS PAIN Continue hydrocodone/Cymbalta DYSLIPIDEMIA Continue Lipitor CODE STATUS FULL CODE DISPOSITION Discharge home tomorrow Follow up appointment with Dr. Lau on 06/30 at 9:45 am Discharge home today Vital Signs: Date Time Temp Pulse Resp B/P Pulse Ox O2 Delivery O2 Flow Rate FiO2 06/25/16 11:31 36.6 69 18 129/80 92 Room Air 06/25/16 08:00 92 Room Air 06/25/16 07:17 36.6 74 20 148/78 92 Room Air 06/25/16 04:12 36.9 78 19 129/80 90 Room Air 06/25/16 04:00 Room Air 06/25/16 00:18 36.8 79 20 137/67 91 Room Air 06/25/16 00:00 Room Air 06/24/16 20:36 36.8 85 18 131/76 92 Room Air 06/24/16 20:00 Room Air 06/24/16 19:23 86 16 95 Room Air 06/24/16 16:00 97 Room Air 06/24/16 14:43 36.5 83 18 101/64 95 Room Air 06/24/16 14:38 80 16 96 Room Air 06/24/16 12:00 95 Room Air Lab Results: Results Past 24 Hours Test 06/25/16 06:40 Range/Units Prothrombin Time 17.6 9.0-12.0 SECONDS Prothromb Time International Ratio 1.6 0.9-1.1
[2016-06-25 12:56] VITALS: BP 129/80; PULSE 69; TEMP 36.6; O2SAT 92
[2016-06-25] MEDS ORDERED: ANT25 PO (13:04)
--- NOTE | 2016-06-25 13:06 | Discharge Instructions ---
Discharge Instructions Date of Service June 25, 2016. Admission Reason for Admission: Hypertensive Urgency,Vertigo Discharge Discharge Diagnosis / Problem: Dizziness -resolved Discharge Goals Goal(s): Prevent Disease Progression Activity Recommendations Activity Limitations: resume your previous activity . Instructions / Follow-Up Instructions / Follow-Up Dr Lau on 06/30/16 at 9:45 AM .Keep follow up with Coumadin clinic Current Hospital Diet Patient's current hospital diet: Low Sodium Diet (2gm Na), AHA Diet (Heart Healthy) Discharge Diet Recommended Diet: AHA Diet (Heart Healthy), Low Sodium Diet (2gm Na) Pending Studies Studies pending at discharge: no Medical Emergencies . Who to Call and When: Medical Emergencies: If at any time you feel your situation is an emergency, please call 911 immediately. . Non-Emergent Contact Non-Emergency issues call your: Primary Care Provider . Past History Medical & Surgical History: (1) Vertigo (2) Hypertensive urgency (3) Ambulatory dysfunction (4) Chest tightness (5) HTN (hypertension) (6) Heterozygous factor V Leiden mutation (7) History of CVA (cerebrovascular accident) (8) Tobacco abuse disorder (9) COPD (chronic obstructive pulmonary disease) (10) Anxiety (11) Dysmetabolic syndrome . "Provider Documentation" section prepared by Melony Vanegas. . VTE Core Measure Inpt VTE Proph given/why not?: Warfarin (Coumadin)
--- NOTE | 2016-06-25 18:22 | Discharge Summary ---
Discharge Summary Date of Service June 25, 2016. Discharge Summary Admission Date: June 22, 2016 at 10:45 Discharge Date: June 25, 2016 Discharge Disposition: Home Principal Diagnosis: Hypertensive Urgency,Vertigo Secondary Diagnoses/Problems: Please see H&P and Hospital Progress note Medication Reconciliation New Medications: Meclizine HCl (Meclizine HCl) 25 Mg Tab 12.5 MG PO Q8 PRN for dizziness for 10 Days, #15 TAB Continued Medications: Acetaminophen (Tylenol) 500 Mg Tab 500 MG PO Q6 PRN for Pain, TAB Albuterol (Ventolin Hfa) 60 Puffs/5400 Mcg Aers 2 PUFFS INH Q6 PRN for Wheezing Atorvastatin (Lipitor) 40 Mg Tab 40 MG PO QAM, TAB Calcium Carbonate (Calcium) 600 Mg Tab 1 TAB PO BID Carvedilol (Coreg) 12.5 Mg Tab 1 TAB PO BID, TAB 0 Refills Chlorthalidone (Chlorthalidone) 25 Mg Tab 25 MG PO QAM Cholecalciferol (Vitamin D) 1,000 Unit Tab 1000 UNITS PO QAM Citalopram (Citalopram Hydrobromide) 40 Mg Tab 40 MG PO QAM Diclofenac Sodium (Topical) (Voltaren 1% Top Gel) 1 % Gel 1 APPLN TOP QID Duloxetine HCl (Cymbalta) 60 Mg Cap 60 MG PO DAILY Estradiol (Estradiol) 0.5 Mg Tab 0.5 MG PO QAM Fluticasone Propionate (Flovent Hfa) 120 Puffs/89671 Mcg Aero 2 PUFFS INH BID for 30 Days, #1 INHALER 3 Refills Hydrocodone/Acetaminophen 7.5MG/325MG ([place] 7.5MG/325MG) Tab 1 TAB PO Q6 PRN for Pain, TAB PRN PAIN Lisinopril (Lisinopril) 40 Mg Tab 40 MG PO QAM Pyridoxine Hcl (Vitamin B6) 250 Mg Tab 250 MG PO QAM Warfarin Sod (Coumadin) 2.5 Mg Tab 2.5 MG PO QAM Admission Information HPI (per Admitting provider): 66 year old female with PMH factor v leiden, HTN, CVA, tobacco abuse, pericardial effusion presents to the Emergency Room via EMS with complaints of dizziness that started this morning. Pt said that the dizziness started after she had episodes of vomiting and watery diarrhea. She said that the dizziness worsening if she tried to move her head. she said that because of the dizziness she is seeing everything double. She tried to keep the left eyes closed because it helps with the dizziness. She said also she developed chest tightness as well with seems to improved now. She said that she has had these symptoms in the past that was attributed to elevate BP. She did not miss any dose of her BP meds. When she came to the ER BP was very high. She denies any recent Upper respiratory viral infection. She denies any ringing in ears, ear pain, chest pain, shortness of breath, weakness or numbness. Past Medical/Surgical History Medical Problems: (1) Anxiety Status: Chronic (2) COPD (chronic obstructive pulmonary disease) Status: Chronic (3) Depression Status: Chronic (4) Dysmetabolic syndrome Status: Chronic (5) GERD (gastroesophageal reflux disease) Status: Chronic (6) Heterozygous factor V Leiden mutation Status: Chronic (7) History of CVA (cerebrovascular accident) Status: Chronic (8) HTN (hypertension) Status: Chronic (9) Hyperlipidemia Status: Chronic (10) Irritable bowel syndrome (IBS) Status: Chronic (11) Osteoarthritis Status: Chronic (12) PUD (peptic ulcer disease) Status: Chronic (13) Tobacco abuse disorder Status: Chronic Surgical Problems: (1) History of carpal tunnel surgery Status: Chronic (2) History of hysterectomy Status: Chronic (3) S/P total knee arthroplasty Permanent Comment: Left 2014 Status: Chronic Family History Factor V Leiden mutation Social History Smoking Status: Current Every Day Smoker Drug Use: none Marital Status: Housing status: lives with significant other Occupational Status: retired Immunizations History of Influenza Vaccine: Yes History of Tetanus Vaccine?: Yes History of Pneumococcal: Yes History of Hepatitis B Vaccine: No Multi-Drug Resistant Organisms History of MDRO: No Allergies Coded Allergies: Buspirone (Verified Allergy, Unknown, PT UNSURE OF RXN, 06/22/16) Iodine (Verified Allergy, Unknown, ITCHING, 06/22/16) Home Medications Scheduled Atorvastatin (Lipitor), 40 MG PO QAM Calcium Carbonate (Calcium), 1 TAB PO BID Carvedilol (Coreg), 1 TAB PO BID Chlorthalidone (Chlorthalidone), 25 MG PO QAM Cholecalciferol (Vitamin D), 1,000 UNITS PO QAM Citalopram (Citalopram Hydrobromide), 40 MG PO QAM Diclofenac Sodium (Topical) (Voltaren 1% Top Gel), 1 APPLN TOP QID Duloxetine HCl (Cymbalta), 60 MG PO DAILY Estradiol (Estradiol), 0.5 MG PO QAM Fluticasone Propionate (Flovent Hfa), 2 PUFFS INH BID Lisinopril (Lisinopril), 40 MG PO QAM Pyridoxine Hcl (Vitamin B6), 250 MG PO QAM Warfarin Sod (Coumadin), 2.5 MG PO QAM Scheduled PRN Acetaminophen (Tylenol), 500 MG PO Q6 PRN for Pain Albuterol (Ventolin Hfa), 2 PUFFS INH Q6 PRN for Wheezing Hydrocodone/Acetaminophen 7.5MG/325MG ([place] 7.5MG/325MG), 1 TAB PO Q6 PRN for Pain Review of Systems Constitutional: No chills, No fever Eyes: + diplopia, No discharge ENT: No nasal symptoms, No sore throat, No tinnitus Respiratory: No cough, No shortness of breath, No sputum Cardiovascular: No chest pain, No palpitations Abdomen: + diarrhea, + nausea, + vomiting, No pain Musculoskeletal: No calf pain Genitourinary - Female: No dysuria, No hematuria, No urinary frequency Neurologic: + vertigo, No paralysis, No weakness Psychiatric: No substance abuse Endocrine: No fatigue Hematologic / Lymphatic: No night sweats Integumentary: No itch, No rash Physical Ex - H&P Physical Exam Vital Signs Date Time Temp Pulse Resp B/P Pulse Ox O2 Delivery O2 Flow Rate FiO2 06/22/16 10:15 70 16 173/89 96 Nasal Cannula 2.0 06/22/16 10:15 97 Nasal Cannula 2.0 06/22/16 10:00 64 18 194/95 95 Nasal Cannula 2.0 06/22/16 09:56 73 06/22/16 09:51 75 15 180/98 98 Nasal Cannula 2.0 06/22/16 09:36 68 18 201/112 98 Nasal Cannula 2.0 06/22/16 09:08 80 18 191/108 97 Nasal Cannula 2.0 06/22/16 09:06 70 19 97 06/22/16 08:51 67 19 06/22/16 08:10 68 20 182/106 94 Room Air 72 192/110 76 212/97 06/22/16 08:06 212/97 06/22/16 07:56 94 Room Air 06/22/16 07:56 94 Room Air 06/22/16 07:45 36.4 67 20 182/104 94 Room Air General Appearance: WD/WN, no apparent distress Head: normocephalic, atraumatic Eyes: PERRL, EOMI, + pertinent finding (horizontal nystagmus) ENT: normal ENT inspection, + pertinent finding (decrease hearing function) Neck: supple, no JVD Respiratory/Chest: no respiratory distress, no accessory muscle use, + pertinent finding (mild wheezing on expiratory) Cardiovascular: regular rate, rhythm, no gallop, no JVD Abdomen/GI: normal bowel sounds, non tender, soft Back: normal inspection, no CVA tenderness Extremities/Musculoskelatal: no calf tenderness Neurologic/Psych: no motor/sensory deficits, alert, oriented x 3 Skin: normal color, warm/dry, no rash Diagnostics - H&P Diagnostics Laboratory Results Results Past 24 Hours Test 06/22/16 07:20 06/22/16 08:03 06/22/16 08:41 Range/Units White Blood Count 8.82 4.8-10.8 K/uL Red Blood Count 4.30 4.2-5.4 M/uL Hemoglobin 13.4 12.0-16.0 g/dL Hematocrit 40.8 37-47 % Mean Corpuscular Volume 94.9 80-100 fL Mean Corpuscular Hemoglobin 31.2 25-34 pg Mean Corpuscular Hemoglobin Concent 32.8 32-36 g/dl Platelet Count 323 130-400 K/uL Mean Platelet Volume 8.7 7.4-10.4 fL Neutrophils (%) (Auto) 58.0 % Lymphocytes (%) (Auto) 26.8 % Monocytes (%) (Auto) 8.7 % Eosinophils (%) (Auto) 5.7 % Basophils (%) (Auto) 0.5 % Neutrophils # (Auto) 5.12 1.4-6.5 K/uL Lymphocytes # (Auto) 2.36 1.2-3.4 K/uL Monocytes # (Auto) 0.77 0.11-0.59 K/uL Eosinophils # (Auto) 0.50 0-0.5 K/uL Basophils # (Auto) 0.04 0-0.2 K/uL RDW Standard Deviation 49.0 36.4-46.3 fL RDW Coefficient of Variation 14.2 11.5-14.5 % Immature Granulocyte % (Auto) 0.3 % Immature Granulocyte # (Auto) 0.03 0.00-0.02 K/uL Prothrombin Time 41.4 9.0-12.0 SECONDS Prothromb Time International Ratio 3.7 0.9-1.1 Activated Partial Thromboplast Time 50.7 21.0-31.0 SECONDS Partial Thromboplastin Ratio 2.0 Sodium Level 142 136-145 mmol/L Potassium Level 3.9 3.5-5.1 mmol/L Chloride Level 108 98-107 mmol/L Carbon Dioxide Level 26 21-32 mmol/L Anion Gap 8.0 3-11 mmol/L Blood Urea Nitrogen 11 7-18 mg/dl Creatinine 0.82 0.60-1.20 mg/dl Est Creatinine Clear Calc Drug Dose 76.5 ml/min Estimated GFR () 87.0 Estimated GFR (Non- 75.1 BUN/Creatinine Ratio 13.3 10-20 Random Glucose 106 70-99 mg/dl Calcium Level 8.7 8.5-10.1 mg/dl Total Bilirubin 0.4 0.2-1 mg/dl Direct Bilirubin < 0.1 0-0.2 mg/dl Aspartate Amino Transf (AST/SGOT) 17 15-37 U/L Alanine Aminotransferase (ALT/SGPT) 26 12-78 U/L Alkaline Phosphatase 48 45-117 U/L Troponin I < 0.015 0-0.045 ng/ml Total Protein 6.8 6.4-8.2 gm/dl Albumin 3.8 3.4-5.0 gm/dl Thyroid Stimulating Hormone (TSH) 2.680 0.300-4.500 uIu/ml Bedside Glucose 116 70-90 mg/dl Urine Color YELLOW Urine Appearance CLEAR CLEAR Urine pH 6.5 4.5-7.5 Urine Specific [place] 1.019 1.000-1.030 Urine Protein NEG NEG Urine Glucose (UA) NEG NEG Urine Ketones NEG NEG Urine Occult Blood 1+ NEG Urine Nitrite NEG NEG Urine Bilirubin NEG NEG Urine Urobilinogen NEG NEG Urine Leukocyte Esterase NEG NEG Urine WBC (Auto) 1-5 0-5 /hpf Urine RBC (Auto) 10-30 0-4 /hpf Urine Hyaline Casts (Auto) 1-5 0-5 /lpf Urine Epithelial Cells (Auto) >30 0-5 /lpf Urine Bacteria (Auto) 1+ NEG Diagnostic Radiology CT OF THE HEAD WITHOUT CONTRAST CLINICAL HISTORY: Sudden onset dizziness. Weakness. COMPARISON STUDY: Head CT July 21, 2008 and MRI of the brain October 04, 2008. CT DOSE: 537.48 mGy.cm TECHNIQUE: Helical axial images of the head were obtained without IV contrast. Automated exposure control was utilized for the study. FINDINGS: No acute intracranial hemorrhage, midline shift or mass effect is present. A small area of encephalomalacia within the left frontal lobe is unchanged. Basilar cisterns are patent. There are no extra-axial collections. There are no findings to suggest acute dural sinus thrombosis or acute territorial infarct. There are no calvarial abnormalities. Visualized portions of the sinuses and mastoid air cells are clear. IMPRESSION: No acute intracranial findings. No change since prior exam. Electronically signed by: Parish Lugo M.D. 06/22/2016 9:06 AM Dictated Date/Time: 06/22/2016 9:04 AM CHEST ONE VIEW PORTABLE CLINICAL HISTORY: Weakness. Dizziness. COMPARISON STUDY: Chest radiograph May 05, 2016. FINDINGS: There is mild elevation of the right hemidiaphragm. No pneumothorax or pleural effusion is present. There is mild cardiomegaly. There is no evidence of pulmonary edema. No consolidation is identified. IMPRESSION: Mild cardiomegaly. No acute cardiopulmonary findings. Electronically signed by: Parish Lugo M.D. 06/22/2016 8:26 AM Impression - H&P Impression Assessment and Plan VERTIGO Possible benign paroxysmal positional vertigo Might be related to dehydration vs HTN urgency Worsening with turning her head CT head was negative for any intracranial abnormality Fall precaution received meclizine in the ER Continue meclizine PRN PT eval for vestibular rehab HYPERTENSION URGENCY Received IV labetatol in the ER BP trending down resume PO meds Will start chlorthalidone in am due possible dehydration (episodes N/V) Hydralazine prn for SBP above 170 continue monitor BP in telemetry CHEST TIGHTNESS Troponin negative EKG shown no ischemic changes Will follow CMx2 sets Monitor in tele mild exp wheezing present on exam, will do DuoNeb treatment Hx CVA Factor V Leiden On Coumadin INR supra therapeutic (INR 3.7) Hold today dose coumadin Check INR in am TOBACCO ABUSE Counseling on smoking cessation Refused nicotine patch ANXIETY Continue celaxa SHOULDERS PAIN Continue hydrocodone/cymbalta DYSLIPIDEMIA Continue Lipitor DVT px on Coumadin INR 3.7 CODE STATUS FULL CODE Level of Care Telemetry Advanced Directives Existing Living Will: No Existing Power of Mentally Impaired Teacher: No Resuscitation Status FULL RESUSCITATION VTE Prophylaxis VTE Risk Assessment Done? Y/N: Yes Risk Level: Moderate Given or contraindicated: Warfarin (Coumadin) Physical Exam (per Admitting): General Appearance: WD/WN, no apparent distress Head: normocephalic, atraumatic Eyes: PERRL, EOMI, + pertinent finding (horizontal nystagmus) ENT: normal ENT inspection, + pertinent finding (decrease hearing function) Neck: supple, no JVD Respiratory/Chest: no respiratory distress, no accessory muscle use, + pertinent finding (mild wheezing on expiratory) Cardiovascular: regular rate, rhythm, no gallop, no JVD Abdomen/GI: normal bowel sounds, non tender, soft Back: normal inspection, no CVA tenderness Extremities/Musculoskelatal: no calf tenderness Neurologic/Psych: no motor/sensory deficits, alert, oriented x 3 Skin: normal color, warm/dry, no rash Hospital Course VERTIGO Possible benign paroxysmal positional vertigo/ Labyrinthine disease Might be related to dehydration vs HTN urgency BP has been stable and received IVF CT head was negative for any intracranial abnormality Will get an MRI/MRA have been negative Case discussed with Neuro BPPV testing was negative as per Physical therapy Continue PT/OT-no more dizziness Likely home today HYPERTENSION URGENCY Received IV labetalol in the ER Continue lisinopril and chlorthalidone Hydralazine prn for SBP above 170 continue monitor BP in telemetry Blood Pressure is stable now and remains stable CHEST TIGHTNESS Troponin negative EKG shown no ischemic changes CE are negative Hx CVA Factor V Leiden On Coumadin INR therapeutic (INR 2.0 on 06/24/16) TOBACCO ABUSE Counseling on smoking cessation Refused nicotine patch ANXIETY Continue celaxa SHOULDERS PAIN Continue hydrocodone/Cymbalta DYSLIPIDEMIA Continue Lipitor CODE STATUS FULL CODE DISPOSITION Discharge home tomorrow Follow up appointment with Dr. Lau on 06/30 at 9:45 am Discharge home today Total time spent on discharge = 35 minutes This includes examination of the patient, discharge planning, medication reconciliation, and communication with other providers. Discharge Instructions Date of Service June 25, 2016. Admission Reason for Admission: Hypertensive Urgency,Vertigo Discharge Discharge Diagnosis / Problem: Dizziness -resolved Discharge Goals Goal(s): Prevent Disease Progression Activity Recommendations Activity Limitations: resume your previous activity . Instructions / Follow-Up Instructions / Follow-Up Dr Lau on 06/30/16 at 9:45 AM .Keep follow up with Coumadin clinic Current Hospital Diet Patient's current hospital diet: Low Sodium Diet (2gm Na), AHA Diet (Heart Healthy) Discharge Diet Recommended Diet: AHA Diet (Heart Healthy), Low Sodium Diet (2gm Na) Pending Studies Studies pending at discharge: no Medical Emergencies . Who to Call and When: Medical Emergencies: If at any time you feel your situation is an emergency, please call 911 immediately. . Non-Emergent Contact Non-Emergency issues call your: Primary Care Provider . Past History Medical & Surgical History: (1) Vertigo (2) Hypertensive urgency (3) Ambulatory dysfunction (4) Chest tightness (5) HTN (hypertension) (6) Heterozygous factor V Leiden mutation (7) History of CVA (cerebrovascular accident) (8) Tobacco abuse disorder (9) COPD (chronic obstructive pulmonary disease) (10) Anxiety (11) Dysmetabolic syndrome . "Provider Documentation" section prepared by Melony Vanegas. . VTE Core Measure Inpt VTE Proph given/why not?: Warfarin (Coumadin) <Electronically signed by Melony Vanegas M.D.> Additional Copies To Obed King M.D.
== END 2016-06-25 14:00 | disposition home or self-care (01) | DRG 305 ==
LOC: ENRESERVTM → ENRESERVDT → EDBD 07:36 → C.EDA 07:39 → C.MED 10:45 → EDBEDREQ 10:47
PROVIDERS: ADMIT Internal Medicine; ATTEND Internal Medicine
DX: I16.0 Hypertensive urgency (principal); H81.10 Benign paroxysmal vertigo, unspecified ear; F17.210 Nicotine dependence, cigarettes, uncomplicated; R19.7 Diarrhea, unspecified; R07.89 Other chest pain; M25.519 Pain in unspecified shoulder; F41.9 Anxiety disorder, unspecified; J44.9 Chronic obstructive pulmonary disease, unspecified; F32.9 Major depressive disorder, single episode, unspecified; E78.5 Hyperlipidemia, unspecified; M19.90 Unspecified osteoarthritis, unspecified site; K27.9 Peptic ulcer, site unspecified, unspecified as acute or chronic, without hemorrhage or perforation; Z96.651 Presence of right artificial knee joint; E88.81 Metabolic syndrome and other insulin resistance; Z86.79 Personal history of other diseases of the circulatory system; Z86.73 Personal history of transient ischemic attack (TIA), and cerebral infarction without residual deficits; Z83.2 Family history of diseases of the blood and blood-forming organs and certain disorders involving the immune mechanism; Z79.899 Other long term (current) drug therapy; Z79.891 Long term (current) use of opiate analgesic; Z79.01 Long term (current) use of anticoagulants; Z79.1 Long term (current) use of non-steroidal anti-inflammatories (NSAID); Z79.890 Hormone replacement therapy; Z87.19 Personal history of other diseases of the digestive system

== ENCOUNTER 2017-09-23 08:43 | Inpatient (IN) | payer OTHER ==
[~2017-09-23] VITALS: Ht 157.5 cm; Wt 98.5 kg
[2017-09-23] VITALS (8 sets, daily range): BP systolic 155–158; BP diastolic 80–89; PULSE 71–97; TEMP 36.6–36.8; O2SAT 88–94; Ht 157.5 cm; Wt 98.5 kg
[~2017-09-23 08:43] MED LIST changes: +ANT25 PO; -CHOL100010 PO; -CITA40TA4 PO; -CRG625 PO; -CYM/60 PO; -DICL1GEL12 TOP; -EST5 PO; -HYDR-3983 PO; +LISI40TA3 PO; -LSN40 PO; -PRVHFAIN INH
[2017-09-23] MEDS ORDERED: METHYLPREDNISOLONE 125 MG VIAL IV STA (08:52)
--- NOTE | 2017-09-23 08:54 | EMERGENCY ROOM VISIT NOTE ---
History Report prepared by Ruiz: Abi Bustamante Under the Supervision of: Dr. Miguel Armenta M.D. First contact with patient: 08:45 Stated Complaint: SOB History of Present Illness The patient is a 67 year old female who presents to the Emergency Room with complaints of persistent shortness of breath that started around 2 AM this morning. Per EMS, the patient became short of breath when she rolled over in her bed. She has had some wheezing. The patient's sats were 91% upon arrival of EMS. EMS administered duoneb and put the patient on 4L of oxygen. The patient notes she does not normally use oxygen at home. She has a history of COPD but denies previously being on any steroids. She denies fever. The patient is a 2 pack/day smoker. Source of History: patient, EMS Onset: 2 AM this morning Position: other (lungs) Quality: other (short of breath) Timing: other (persistent) Associated Symptoms: No fevers Review of Systems See HPI for pertinent positives & negatives. A total of 10 systems reviewed and were otherwise negative. Past Medical & Surgical Medical Problems: (1) Anxiety (2) COPD (chronic obstructive pulmonary disease) (3) Depression (4) Dysmetabolic syndrome (5) GERD (gastroesophageal reflux disease) (6) Heterozygous factor V Leiden mutation (7) History of CVA (cerebrovascular accident) (8) HTN (hypertension) (9) Hyperlipidemia (10) Irritable bowel syndrome (IBS) (11) Osteoarthritis (12) PUD (peptic ulcer disease) (13) Tobacco abuse disorder Surgical Problems: (1) History of carpal tunnel surgery (2) History of hysterectomy (3) History of total right knee replacement (TKR) (4) S/P total knee arthroplasty Family History Factor V Leiden mutation Social History Smoking Status: Current Every Day Smoker Drug Use: none Marital Status: Housing Status: lives with family Occupation Status: retired Current/Historical Medications Scheduled Atorvastatin (Lipitor), 80 MG PO DAILY Calcium Carbonate (Calcium), 1 TAB PO BID Carvedilol (Coreg), 1 TAB PO BID Cholecalciferol (Vitamin D), 1,000 UNITS PO QAM Citalopram (Citalopram Hydrobromide), 40 MG PO QAM Diclofenac Sodium (Topical) (Voltaren 1% Top Gel), 1 APPLN TOP QID Duloxetine HCl (Cymbalta), 60 MG PO DAILY Estradiol (Estradiol), 0.5 MG PO QAM Gabapentin (Neurontin), 300 MG PO BID Ipratropium-Albuterol (Duoneb), 3 ML INH QIDR Lisinopril (Zestril), 40 MG PO DAILY Prednisone (Prednisone), 40 MG PO DAILY Umeclidinium-Vilanterol (Anoro Ellipta 62.5-25 Mcg/INH), 1 PUFF INH DAILY Warfarin Sod (Jantoven), 2.5 MG PO 6XWK Scheduled PRN Acetaminophen (Tylenol), 500 MG PO Q6 PRN for Pain Albuterol (Ventolin Hfa), 2 PUFFS INH Q6 PRN for Wheezing Hydrocodone/Acetaminophen 7.5MG/325MG ([place] 7.5MG/325MG), 1 TAB PO Q6 PRN for Pain Meclizine HCl (Meclizine HCl), 12.5 MG PO Q8 PRN for dizziness Durable Medical Equipment Nebulizer Machine (Home Use) (Nebulizer Machine (Home Use) ), EA N/A UD Allergies Coded Allergies: Buspirone (Verified Allergy, Unknown, PT UNSURE OF RXN, 09/23/17) Iodine (Verified Allergy, Unknown, ITCHING, 09/23/17) Physical Exam Vital Signs Date Time Temp Pulse Resp B/P (MAP) Pulse Ox O2 Delivery O2 Flow Rate FiO2 09/23/17 11:26 88 Room Air 12.0 09/23/17 10:50 88 12 178/92 88 Room Air 09/23/17 10:45 86 Room Air 09/23/17 09:50 88 20 182/111 96 Nebulizer 12.0 09/23/17 09:31 88 24 188/114 94 Nebulizer 09/23/17 09:09 92 Room Air 09/23/17 09:07 89 28 90 Room Air 09/23/17 09:07 95 09/23/17 08:59 93 Room Air 09/23/17 08:50 36.8 88 20 165/81 93 Room Air Physical Exam GENERAL: Awake, alert, well-appearing, in no acute distress HENT: Normocephalic, atraumatic. Oropharynx unremarkable. EYES: Normal conjunctiva. Sclera non-icteric. NECK: Supple. No nuchal rigidity. FROM. No JVD. RESPIRATORY: Diffusely wheezing throughout all lung mendoza. CARDIAC: Regular rate, normal rhythm. Extremities warm and well perfused. Pulses equal. ABDOMEN: Soft, non-distended. No tenderness to palpation. No rebound or guarding. No masses. RECTAL: Deferred. MUSCULOSKELETAL: Chest examination reveals no tenderness. The back is symmetrical on inspection without obvious abnormality. There is no CVA tenderness to palpation. No joint edema. LOWER EXTREMITIES: Calves are equal size bilaterally and non-tender. No edema. No discoloration. NEURO: Normal sensorium. No sensory or motor deficits noted. SKIN: No rash or jaundice noted. Medical Decision & Procedures ER Provider Diagnostic Interpretation: Radiology results as stated below per my review and radiologist interpretation: SINGLE VIEW CHEST CLINICAL HISTORY: Generalized weakness. FINDINGS: An AP, portable, upright chest radiograph is compared to study dated 05/05/2016. The examination is degraded by portable technique and patient rotation. The heart is enlarged and there is pulmonary vascular congestion. Perihilar and lower lobe opacities are noted. Small pleural effusions are suspected. No pneumothorax is seen. The skeletal structures are osteopenic. The bony thorax is grossly intact. IMPRESSION: 1. Cardiomegaly with evidence of congestive failure. 2. Perihilar and dependent airspace opacities likely represent a component of interstitial edema. Correlate clinically for evidence of superimposed pneumonia. Electronically signed by: Nixon Drake M.D. 09/23/2017 9:46 AM Dictated Date/Time: 09/23/2017 9:45 AM Laboratory Results Test 09/23/17 09:46 Immature Granulocyte % (Auto) 0.4 % White Blood Count 13.68 K/uL (4.8-10.8) Red Blood Count 4.20 M/uL (4.2-5.4) Hemoglobin 12.9 g/dL (12.0-16.0) Hematocrit 38.7 % (37-47) Mean Corpuscular Volume 92.1 fL (80-100) Mean Corpuscular Hemoglobin 30.7 pg (25-34) Mean Corpuscular Hemoglobin Concent 33.3 g/dl (32-36) Platelet Count 258 K/uL (130-400) Mean Platelet Volume 8.6 fL (7.4-10.4) Neutrophils (%) (Auto) 79.8 % Lymphocytes (%) (Auto) 11.3 % Monocytes (%) (Auto) 6.9 % Eosinophils (%) (Auto) 1.5 % Basophils (%) (Auto) 0.1 % Neutrophils # (Auto) 10.91 K/uL (1.4-6.5) Lymphocytes # (Auto) 1.55 K/uL (1.2-3.4) Monocytes # (Auto) 0.94 K/uL (0.11-0.59) Eosinophils # (Auto) 0.21 K/uL (0-0.5) Basophils # (Auto) 0.02 K/uL (0-0.2) Immature Granulocyte # (Auto) 0.05 K/uL (0.00-0.02) Total Bilirubin 0.7 mg/dl (0.2-1) Aspartate Amino Transf (AST/SGOT) 21 U/L (15-37) Alanine Aminotransferase (ALT/SGPT) 35 U/L (12-78) Alkaline Phosphatase 59 U/L (45-117) Total Creatine Kinase 117 U/L (26-192) Creatine Kinase MB 1.1 ng/ml (0.5-3.6) Creatine Kinase MB Ratio 0.9 (0-3.0) Pro-B-Type Natriuretic Peptide 1309 pg/ml (0-900) Total Protein 6.9 gm/dl (6.4-8.2) Albumin 3.6 gm/dl (3.4-5.0) Globulin 3.3 gm/dl (2.5-4.0) Albumin/Globulin Ratio 1.1 (0.9-2) Labs reviewed by ED physician. Medications Administered Medications (Trade) Dose Ordered Sig/Justin Route Start Time Stop Time Status Last Admin Dose Admin Albuterol/ Ipratropium (Duoneb) 12 ml ONE ONCE INH 09/23/17 09:00 09/23/17 09:01 DC 09/23/17 09:06 12 ML Methylprednisolone Sodium Succinate (Solu-Medrol IV) 60 mg NOW STAT IV 09/23/17 08:52 09/23/17 08:55 DC 09/23/17 08:52 60 MG ECG Per My Interpretation Indication: SOB/dyspnea Rate (beats per minute): 89 Rhythm: normal sinus Findings: other (no ST elevation or depression) ED Course 0845: Past medical records reviewed. The patient was evaluated in room A2. A complete history and physical examination was performed. 1100: The patient failed ambulation trial. She will stay for hospitalization. 1105: [facility] she has agreed to evaluate the patient for further management and care. Medical Decision Differential diagnosis: Etiologies such as infections, reactive airway disease, pneumonia, pneumothorax , COPD, CHF, cardiac ischemia, pulmonary embolism, musculoskeletal, gastrointestinal, as well as others were entertained. This is a 67-year-old female who presents emergency department complaining of shortness of breath. Patient is hypoxic upon arrival to the emergency department. She was given an hour-long breathing treatment started on Solu- Medrol. The patient was ambulated by nursing staff however she remains hypoxic and extremely short of breath. Based on these findings I felt that the patient should be admitted to the hospital did discuss her case with hospitalist who are in agreement with the treatment plan. Medication Reconcilliation Current Medication List: was personally reviewed by me Blood Pressure Screening Patient's blood pressure: Elevated blood pressure (monitor by hospitalist) Consults Time Called: 1100 Consulting Physician: Andrea Dumont Returned Call: 1105 I discussed the patient's case with Andrea Duomnt, she has agreed to evaluate the patient for further management and care. Impression Primary Impression: COPD exacerbation Scribe Attestation The scribe's documentation has been prepared under my direction and personally reviewed by me in its entirety. I confirm that the note above accurately reflects all work, treatment, procedures, and medical decision making performed by me. Departure Information Dispostion Being Evaluated By Hospitalist Prescriptions Nebulizer Machine (Home Use) (NEBULIZER MACHINE (HOME USE) ) Mis EA N/A UD, #1 Prov: Massimo Marlow, DO 09/24/17 Prednisone (Prednisone) 20 Mg Tab 40 MG PO DAILY for 4 Days, #8 TAB Prov: Massimo Marlow, DO 09/24/17 Ipratropium-Albuterol (DUONEB) 3 Ml Nebu 3 ML INH QIDR for 30 Days, #120 ML Prov: Massimo Marlow, DO 09/24/17 Referrals Obed King M.D. (PCP)
[2017-09-23] MEDS ORDERED: ALBUT/IPRATROP 3MG/0.5MG NEB 3 ML VIAL INH ONE (09:00)
--- NOTE | 2017-09-23 09:47 | DIAGNOSTIC IMAGING REPORT ---
SINGLE VIEW CHEST CLINICAL HISTORY: Generalized weakness. FINDINGS: An AP, portable, upright chest radiograph is compared to study dated 05/05/2016. The examination is degraded by portable technique and patient rotation. The heart is enlarged and there is pulmonary vascular congestion. Perihilar and lower lobe opacities are noted. Small pleural effusions are suspected. No pneumothorax is seen. The skeletal structures are osteopenic. The bony thorax is grossly intact. IMPRESSION: 1. Cardiomegaly with evidence of congestive failure. 2. Perihilar and dependent airspace opacities likely represent a component of interstitial edema. Correlate clinically for evidence of superimposed pneumonia. Electronically signed by: Nixon Drake M.D. 09/23/2017 9:46 AM Dictated Date/Time: 09/23/2017 9:45 AM
[2017-09-23 09:56] LABS: BASO % 0.1 %; BASO ABS # 0.02 K/uL (0-0.2); EOS % 1.5 %; EOS ABS # 0.21 K/uL (0-0.5); HEMATOCRIT 38.7 % (37-47); HEMOGLOBIN 12.9 g/dL (12.0-16.0); IG# 0.05 K/uL (0.00-0.02); LYMPH % 11.3 %; LYMPH ABS # 1.55 K/uL (1.2-3.4); MEAN CELL VOLUME 92.1 fL (80-100); MEAN CORPUSCULAR HEMOGLOBIN 30.7 pg (25-34); MEAN CORPUSCULAR HGB CONC 33.3 g/dl (32-36); MEAN PLATELET VOLUME 8.6 fL (7.4-10.4); MONO % 6.9 %; MONO ABS # 0.94 K/uL (0.11-0.59); NEUT % 79.8 %; NEUT ABS # 10.91 K/uL (1.4-6.5); PLATELET COUNT 258 K/uL (130-400); RED CELL DISTRIBUTION WIDTH CV 14.2 % (11.5-14.5); RED CELL DISTRIBUTION WIDTH SD 47.6 fL (36.4-46.3); WHITE BLOOD COUNT 13.68 K/uL (4.8-10.8)
[2017-09-23 10:19] LABS: ALBUMIN 3.6 gm/dl (3.4-5.0); ALKALINE PHOSPHATASE 59 U/L (45-117); ALT/SGPT 35 U/L (12-78); AST/SGOT 21 U/L (15-37); BLOOD UREA NITROGEN 14 mg/dl (7-18); CALCIUM 8.9 mg/dl (8.5-10.1); CARBON DIOXIDE 26 mmol/L (21-32); CKMB 1.1 ng/ml (0.5-3.6); CREATININE 1.02 mg/dl (0.60-1.20); GLUCOSE 99 mg/dl (70-99); POTASSIUM 4.5 mmol/L (3.5-5.1); SODIUM 137 mmol/L (136-145); TOTAL PROTEIN 6.9 gm/dl (6.4-8.2)
[2017-09-23] MEDS ORDERED: LISI40TA PO (10:52)
[2017-09-23] MEDS ORDERED: GABA-113 PO (10:52)
[2017-09-23] MEDS ORDERED: ZOST50IN IM (10:52)
[2017-09-23] MEDS ORDERED: ATOR80TA PO (10:52)
[2017-09-23] MEDS ORDERED: UMEC1AER INH (10:52)
[2017-09-23] MEDS ORDERED: WARF5TAB7 PO (10:52)
[2017-09-23] MEDS ORDERED: CALC-393 PO (10:56)
[2017-09-23] MEDS ORDERED: TYLOTC500 PO (10:56)
[2017-09-23] MEDS ORDERED: CARV12.52 PO (10:56)
[2017-09-23] MEDS ORDERED: CITA40TA4 PO (10:59)
[2017-09-23] MEDS ORDERED: EST5 PO (10:59)
[2017-09-23 11:36] LABS: INR 1.7 (0.9-1.1)
[2017-09-23] MEDS ORDERED: CITALOPRAM 40 MG TAB PO ONE (11:42)
[2017-09-23] MEDS ORDERED: ACETAMINOPHEN 325 MG TAB PO PRN (11:45)
[2017-09-23] MEDS ORDERED: ONDANSETRON INJ 2 MG/ML 2 ML VIAL IV PRN (11:45)
[2017-09-23] MEDS: ALBUT/IPRATROP 3MG/0.5MG NEB 3 ML VIAL INH SCH ×3 (12:00→19:49)
[2017-09-23] MEDS ORDERED: OPTIRAY 320 IV PRN (12:00)
[2017-09-23] MEDS ORDERED: GABAPENTIN 300 MG CAP PO STA (13:21)
[2017-09-23] MEDS ORDERED: CARVEDILOL 12.5 MG TAB PO STA (13:21)
[2017-09-23] MEDS ORDERED: LISINOPRIL 40 MG TAB PO STA (13:21)
[2017-09-23] MEDS ORDERED: ATORVASTATIN 40 MG TAB PO STA (13:21)
[2017-09-23] MEDS ORDERED: FUROSEMIDE INJ 40 MG in SYRINGE 0 ML IV STA (13:22)
[2017-09-23] MEDS ORDERED: DiphenhydrAMINE INJ 25 MG in SYRINGE 0 ML IV ONE (13:30)
[2017-09-23] MEDS ORDERED: DULOXETINE HCL 60 MG CAP PO STA (13:38)
[2017-09-23] MEDS ORDERED: METHYLPREDNISOLONE IV 60 MG in SYRINGE 0 ML IV SCH (13:45)
[2017-09-23] MEDS ORDERED: DiphenhydrAMINE HCL 50 MG/ML VIAL IV SCH (13:45)
[2017-09-23] MEDS: HYDROCODONE/ACETAMINOPHEN 7.5/325MG TAB PO PRN ×2 (14:39→21:56)
--- NOTE | 2017-09-23 14:39 | History and Physical ---
History & Physical Date & Time of Service: Sep 23, 2017 ~ 11:15 Chief Complaint: Shortness of breath Primary Care Physician: Dre Cagle M.D. History of Present Illness 67-year-old female who presents the ED with shortness of breath. Patient reports that whenever she went to bed at around 2:00 this morning, she developed shortness of breath whenever she laid down. She reports she sat up on the edge the bed for about 30 minutes and had improvement in her symptoms. She then laid back down and the shortness of breath returned. She also notes chest pressure. She denies any radiation of the discomfort into her jaw, neck, shoulder, arm. Patient notes increasing lower extremity edema over the past couple months. Noted that her chlorthalidone was discontinued a couple of weeks ago due to borderline low BPs and patient feeling dehydrated. Patient reports little to minimal cough without sputum production. No fevers or chills. She denies lightheadedness, dizziness, diaphoresis, syncopal events. No abdominal pain, nausea, vomiting, diarrhea. She reports urinary frequency last evening. In the ED, patient is found to be hypoxic on room air at 88%. This improved with oxygen 2 L via nasal cannula, Solu-Medrol 60 mg IV, and DuoNeb treatment. Chest x-ray suggesting congestive failure. ProBNP is elevated at 1309. Past Medical/Surgical History Medical Problems: (1) Anxiety Status: Chronic (2) COPD (chronic obstructive pulmonary disease) Status: Chronic (3) Depression Status: Chronic (4) Dysmetabolic syndrome Status: Chronic (5) GERD (gastroesophageal reflux disease) Status: Chronic (6) Heterozygous factor V Leiden mutation Status: Chronic (7) History of CVA (cerebrovascular accident) Status: Chronic (8) HTN (hypertension) Status: Chronic (9) Hyperlipidemia Status: Chronic (10) Irritable bowel syndrome (IBS) Status: Chronic (11) Osteoarthritis Status: Chronic (12) PUD (peptic ulcer disease) Status: Chronic (13) Tobacco abuse disorder Status: Chronic Surgical Problems: (1) History of carpal tunnel surgery Status: Chronic (2) History of hysterectomy Status: Chronic (3) History of total right knee replacement (TKR) Status: Chronic (4) S/P total knee arthroplasty Permanent Comment: Left 2014 Status: Chronic Family History Diabetes mellitus FATHER Hypertension FATHER Social History Smoking Status: Current Every Day Smoker Alcohol Use: occasionally Immunizations History of Influenza Vaccine: Yes Influenza Vaccine Date: Nov 24, 2016 History of Tetanus Vaccine?: Yes Tetanus Immunization Date: Dec 28, 2006 History of Pneumococcal: Yes Pneumococcal Date: Sep 09, 2017 Allergies Coded Allergies: Buspirone (Verified Allergy, Unknown, PT UNSURE OF RXN, 09/23/17) Iodine (Verified Allergy, Unknown, ITCHING, 09/23/17) Home Medications Scheduled Atorvastatin (Lipitor), 80 MG PO DAILY Calcium Carbonate (Calcium), 1 TAB PO BID Carvedilol (Coreg), 1 TAB PO BID Cholecalciferol (Vitamin D), 1,000 UNITS PO QAM Citalopram (Citalopram Hydrobromide), 40 MG PO QAM Diclofenac Sodium (Topical) (Voltaren 1% Top Gel), 1 APPLN TOP QID Duloxetine HCl (Cymbalta), 60 MG PO DAILY Estradiol (Estradiol), 0.5 MG PO QAM Gabapentin (Neurontin), 300 MG PO BID Lisinopril (Zestril), 40 MG PO DAILY Umeclidinium-Vilanterol (Anoro Ellipta 62.5-25 Mcg/INH), 1 PUFF INH DAILY Warfarin Sod (Jantoven), 2.5 MG PO 6XWK Scheduled PRN Acetaminophen (Tylenol), 500 MG PO Q6 PRN for Pain Albuterol (Ventolin Hfa), 2 PUFFS INH Q6 PRN for Wheezing Hydrocodone/Acetaminophen 7.5MG/325MG ([place] 7.5MG/325MG), 1 TAB PO Q6 PRN for Pain Meclizine HCl (Meclizine HCl), 12.5 MG PO Q8 PRN for dizziness Review of Systems ROS per HPI, all other systems reviewed and negative Physical Exam Vital Signs Date Time Temp Pulse Resp B/P (MAP) Pulse Ox O2 Delivery O2 Flow Rate FiO2 09/23/17 13:50 36.8 96 18 155/80 (105) 92 Nasal Cannula 2.0 09/23/17 12:53 97 13 163/86 96 Nasal Cannula 2.0 09/23/17 12:26 95 22 155/91 92 Nasal Cannula 2.0 09/23/17 11:42 92 Nasal Cannula 2.0 09/23/17 11:42 86 Room Air 09/23/17 11:26 88 Room Air 12.0 09/23/17 10:50 88 12 178/92 88 Room Air 09/23/17 10:45 86 Room Air 09/23/17 09:50 88 20 182/111 96 Nebulizer 12.0 09/23/17 09:31 88 24 188/114 94 Nebulizer 09/23/17 09:09 92 Room Air 09/23/17 09:07 89 28 90 Room Air 09/23/17 09:07 95 09/23/17 08:59 93 Room Air 09/23/17 08:50 36.8 88 20 165/81 93 Room Air General Appearance: WD/WN, no apparent distress Head: normocephalic, atraumatic Eyes: normal inspection, EOMI, sclerae normal ENT: hearing grossly normal, + pertinent finding (Mucous members moist) Neck: supple, no JVD, trachea midline Respiratory/Chest: no respiratory distress, + decreased breath sounds, + crackles (Faint, bilateral bases) Cardiovascular: regular rate, rhythm, normal peripheral pulses, + pertinent finding (Trace edema BLE) Abdomen/GI: normal bowel sounds, non tender, soft, no organomegaly Extremities/Musculoskelatal: normal inspection, no calf tenderness, normal capillary refill Neurologic/Psych: no motor/sensory deficits, alert, normal mood/affect, oriented x 3 Skin: normal color, warm/dry Diagnostics Laboratory Results Results Past 24 Hours Test 09/23/17 09:46 Range/Units White Blood Count 13.68 4.8-10.8 K/uL Red Blood Count 4.20 4.2-5.4 M/uL Hemoglobin 12.9 12.0-16.0 g/dL Hematocrit 38.7 37-47 % Mean Corpuscular Volume 92.1 80-100 fL Mean Corpuscular Hemoglobin 30.7 25-34 pg Mean Corpuscular Hemoglobin Concent 33.3 32-36 g/dl Platelet Count 258 130-400 K/uL Mean Platelet Volume 8.6 7.4-10.4 fL Neutrophils (%) (Auto) 79.8 % Lymphocytes (%) (Auto) 11.3 % Monocytes (%) (Auto) 6.9 % Eosinophils (%) (Auto) 1.5 % Basophils (%) (Auto) 0.1 % Neutrophils # (Auto) 10.91 1.4-6.5 K/uL Lymphocytes # (Auto) 1.55 1.2-3.4 K/uL Monocytes # (Auto) 0.94 0.11-0.59 K/uL Eosinophils # (Auto) 0.21 0-0.5 K/uL Basophils # (Auto) 0.02 0-0.2 K/uL RDW Standard Deviation 47.6 36.4-46.3 fL RDW Coefficient of Variation 14.2 11.5-14.5 % Immature Granulocyte % (Auto) 0.4 % Immature Granulocyte # (Auto) 0.05 0.00-0.02 K/uL Prothrombin Time 17.5 9.0-12.0 SECONDS Prothromb Time International Ratio 1.7 0.9-1.1 Sodium Level 137 136-145 mmol/L Potassium Level 4.5 3.5-5.1 mmol/L Chloride Level 105 98-107 mmol/L Carbon Dioxide Level 26 21-32 mmol/L Anion Gap 6.0 3-11 mmol/L Blood Urea Nitrogen 14 7-18 mg/dl Creatinine 1.02 0.60-1.20 mg/dl Est Creatinine Clear Calc Drug Dose 60.7 ml/min Estimated GFR () 66.4 Estimated GFR (Non- 57.3 BUN/Creatinine Ratio 13.9 10-20 Random Glucose 99 70-99 mg/dl Calcium Level 8.9 8.5-10.1 mg/dl Total Bilirubin 0.7 0.2-1 mg/dl Aspartate Amino Transf (AST/SGOT) 21 15-37 U/L Alanine Aminotransferase (ALT/SGPT) 35 12-78 U/L Alkaline Phosphatase 59 45-117 U/L Total Creatine Kinase 117 26-192 U/L Creatine Kinase MB 1.1 0.5-3.6 ng/ml Creatine Kinase MB Ratio 0.9 0-3.0 Troponin I < 0.015 0-0.045 ng/ml Pro-B-Type Natriuretic Peptide 1309 0-900 pg/ml Total Protein 6.9 6.4-8.2 gm/dl Albumin 3.6 3.4-5.0 gm/dl Globulin 3.3 2.5-4.0 gm/dl Albumin/Globulin Ratio 1.1 0.9-2 Diagnostic Radiology CXR IMPRESSION: 1. Cardiomegaly with evidence of congestive failure. 2. Perihilar and dependent airspace opacities likely represent a component of interstitial edema. Correlate clinically for evidence of superimposed pneumonia. Impression Assessment and Plan ACUTE HYPOXIC RESPIRATORY FAILURE -Admit to telemetry -Patient presenting with sudden onset of shortness of breath and orthopnea that began in the middle the night; in the ED, patient found to be hypoxic on room air at 88% which improved with 2 L of oxygen via nasal cannula -Patient symptoms possibly multifactorial -Possible CHF, chest x-ray suggesting pulmonary congestion and proBNP is elevated (no prior to compare to) -will give Lasix 40 mg IV 1 -I's and O's, daily weights -Serial cardiac enzymes, update resting echocardiogram -Patient also has history of COPD, which is likely being exacerbated by CHF -S/ P Solu-Medrol 60 mg IV in the ED, will continue with 40 mg prednisone p.o. daily and [id number] nebs; hold on antibiotics for now since no fever, cough, or sputum production -Also history of factor V Leiden with currently subtherapeutic INR; will check CTA chest to evaluate for PE HYPERTENSION -BP somewhat hypertensive, however patient did not take her medications this morning -Continue lisinopril and carvedilol at home doses for now HISTORY OF CVA FACTOR V LEIDEN DISORDER -On Coumadin, currently with subtherapeutic INR 1.7 -will increase Coumadin to 5 mg tonight -May need bridging pending CT chest results CHRONIC PAIN -Continue home medications DVT PROPHYLAXIS -On Coumadin DISPOSITION -In my clinical judgment this beneficiary meets acute admission criteria, established by [facility], that includes being hospitalized through two midnights. 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 Don Vanegas Advanced Directives Existing Living Will: No Existing Power of Evaporator Supervisor: No Resuscitation Status VTE Prophylaxis Will order VTE Prophylaxis: Yes
--- NOTE | 2017-09-23 14:58 | ECHOCARDIOGRAM REPORT ---
*NOTICE TO RECEIVING DEMOCRAT AGENCY This information is strictly Confidential and protected under [place] law. [place] law prohibits you from making any further disclosure of this information unless further disclosure is expressly permitted by the written consent of the person to whom it pertains or is authorized by law. A general authorization for the release of medical or other information is not sufficient for this purpose. Hospital accepts no responsibility if the information is made available to any other person, INCLUDING THE PATIENT. Interpretation Summary * Name: KINDRA LOWE Study Date: 09/23/2017 01:35 PM BP: 178/92 mmHg * Patient Location: [facility] HR: 88 * : 1950 (M/d/yyyy) Gender: Female Height: 62 in * Age: 67 yrs Ethnicity: [place] Weight: 224 lb * Ordering Physician: Anastasiya Bland * Referring Physician: Self, Referred * Performed By: Brenna Link RDCS * * Reason For Study: Shortness of breath * BSA: 2.0 m2 * -- Conclusions -- * Patient rhythm was sinus and sinus tachycardia rate 100 * The left ventricle is normal in size. * There is borderline concentric left ventricular hypertrophy. * The left ventricular wall motion is normal. * Ejection Fraction = 60-65%. * There is mild to moderate mitral regurgitation. * There is trace tricuspid regurgitation. * Doppler findings do not suggest pulmonary hypertension. * Normal inferior vena cava diameter and respiratory variation suggests normal central venous pressure. Procedure Details * A complete two-dimensional transthoracic echocardiogram was performed (2D, M-mode, Doppler and color flow Doppler). Left Ventricle * The left ventricle is normal in size. * There is borderline concentric left ventricular hypertrophy. * Ejection Fraction = 60-65%. * Left ventricular systolic function is normal. * The left ventricular wall motion is normal. Right Ventricle * The right ventricle is normal in size and function. Atria * The left atrial size is normal. * Right atrial size is normal. * No ASD detected; PFO is not assessed. Mitral Valve * The mitral valve anatomy is normal. * There is no mitral valve stenosis. * There is mild to moderate mitral regurgitation. Tricuspid Valve * The tricuspid valve anatomy is normal. * There is no tricuspid stenosis. * There is trace tricuspid regurgitation. * Doppler findings do not suggest pulmonary hypertension. Aortic Valve * The aortic valve is trileaflet. * No hemodynamically significant valvular aortic stenosis. * No aortic regurgitation is present. Pulmonic Valve * The pulmonic valve is not well visualized. Great Vessels * The aortic root is normal size. Pericardium/Pleural * There is a trivial circumferential pericardial effusion of non-hemodynamic significance Great Vessels * Normal inferior vena cava diameter and respiratory variation suggests normal central venous pressure. MMode 2D Measurements and Calculations IVSd 0.78 cm LVIDd 4.6 cm LVIDs 3.0 cm LVPWd 1.2 cm IVS/LVPW 0.63 FS 35.0 % EDV(Teich) 97.8 ml ESV(Teich) 34.9 ml EF(Teich) 64.3 % EDV(cubed) 98.0 ml ESV(cubed) 26.9 ml EF(cubed) 72.5 % LV mass(C)d 162.1 grams LV mass(C)dI 80.8 grams/m\S\2 SV(Teich) 62.9 ml SI(Teich) 31.4 ml/m\S\2 SV(cubed) 71.0 ml SI(cubed) 35.4 ml/m\S\2 Ao root diam 2.6 cm Ao root area 5.2 cm\S\2 ACS 2.1 cm LA dimension 3.6 cm asc Aorta Diam 3.0 cm LA/Ao 1.4 LVOT diam 1.9 cm LVOT area 3.0 cm\S\2 LVAd ap4 20.4 cm\S\2 LVLd ap4 6.3 cm EDV(MOD-sp4) 54.8 ml EDV(sp4-el) 56.6 ml LVAs ap4 11.6 cm\S\2 LVLs ap4 5.3 cm ESV(MOD-sp4) 20.8 ml ESV(sp4-el) 21.6 ml EF(MOD-sp4) 62.0 % EF(sp4-el) 61.9 % LVAd ap2 21.8 cm\S\2 LVLd ap2 6.2 cm EDV(MOD-sp2) 65.5 ml EDV(sp2-el) 65.5 ml LVAs ap2 12.2 cm\S\2 LVLs ap2 5.0 cm ESV(MOD-sp2) 25.9 ml ESV(sp2-el) 25.4 ml EF(MOD-sp2) 60.5 % EF(sp2-el) 61.2 % LVLd %diff -1.35 % EDV(MOD-bp) 60.0 ml LVLs %diff -7.29 % ESV(MOD-bp) 24.2 ml EF(MOD-bp) 59.7 % SV(MOD-sp4) 34.0 ml SI(MOD-sp4) 16.9 ml/m\S\2 SV(MOD-sp2) 39.6 ml SI(MOD-sp2) 19.8 ml/m\S\2 SV(MOD-bp) 35.8 ml SI(MOD-bp) 17.9 ml/m\S\2 SV(sp4-el) 35.1 ml SI(sp4-el) 17.5 ml/m\S\2 SV(sp2-el) 40.1 ml SI(sp2-el) 20.0 ml/m\S\2 Doppler Measurements and Calculations MV E max domenico 133.7 cm/sec MV dec time 0.29 sec Ao V2 max 119.8 cm/sec Ao max PG 5.7 mmHg Ao max PG (full) 1.9 mmHg [place](V,A) 2.4 cm\S\2 [place](V,D) 2.4 cm\S\2 LV V1 max PG 3.8 mmHg LV V1 max 97.9 cm/sec PA V2 max 102.7 cm/sec PA max PG 4.2 mmHg PA acc slope 983.6 cm/sec\S\2 PA acc time 0.08 sec TR max domenico 247.2 cm/sec PA pr(Accel) 41.5 mmHg
--- NOTE | 2017-09-23 15:27 | DIAGNOSTIC IMAGING REPORT ---
(CHEST FOR PE) ANGIO WITH CT DOSE: 680.53 mGy.cm HISTORY: Dyspnea cough TECHNIQUE: Multiaxial CT images of the chest were performed following the intravenous administration of contrast to evaluate the pulmonary arteries. Maximal intensity projection images were also obtained. A dose lowering technique was utilized adhering to the principles of ALARA. COMPARISON STUDY: None. FINDINGS: Bilateral pleural effusions. The pulmonary vasculature enhances appropriately. No significant filling defect. Mild bibasilar atelectatic change. IMPRESSION: 1. Study is negative for pulmonary embolus. 2. Small bilateral pleural effusions with bibasilar atelectatic change. The above report was generated using voice recognition software. It may contain grammatical, syntax or spelling errors. Electronically signed by: Sukumar Rees M.D. 09/23/2017 3:26 PM Dictated Date/Time: 09/23/2017 3:23 PM
[2017-09-23] MEDS ORDERED: WARFARIN SOD 5 MG TAB PO ONE (16:00)
[2017-09-23] MEDS ORDERED: CYM/60 PO (21:08)
[2017-09-23] MEDS ORDERED: PRVHFAIN INH (21:08)
[2017-09-23] MEDS ORDERED: DICL1GEL12 TOP (21:08)
[2017-09-23] MEDS ORDERED: CHOL100010 PO (21:09)
[2017-09-23] MEDS ORDERED: HYDR-3983 PO (21:16)
[2017-09-23] MEDS: CALCIUM CARBONATE 500 MG CHEWABLE PO SCH (21:51)
[2017-09-23] MEDS: GABAPENTIN 300 MG CAP PO SCH (21:53)
[2017-09-23] MEDS: CARVEDILOL 12.5 MG TAB PO SCH (21:53)
[2017-09-24 06:08] LABS: HEMATOCRIT 37.4 % (37-47); HEMOGLOBIN 12.4 g/dL (12.0-16.0); MEAN CELL VOLUME 92.1 fL (80-100); MEAN CORPUSCULAR HEMOGLOBIN 30.5 pg (25-34); MEAN CORPUSCULAR HGB CONC 33.2 g/dl (32-36); PLATELET COUNT 265 K/uL (130-400); RED CELL DISTRIBUTION WIDTH CV 14.1 % (11.5-14.5); RED CELL DISTRIBUTION WIDTH SD 47.2 fL (36.4-46.3); WHITE BLOOD COUNT 14.04 K/uL (4.8-10.8)
[2017-09-24 06:42] LABS: CALCIUM 8.7 mg/dl (8.5-10.1); CREATININE 1.19 mg/dl (0.60-1.20); POTASSIUM 3.7 mmol/L (3.5-5.1)
[2017-09-24 07:12] VITALS: PULSE 71; O2SAT 93
[2017-09-24] MEDS: ALBUT/IPRATROP 3MG/0.5MG NEB 3 ML VIAL INH SCH ×2 (07:12→11:16)
[2017-09-24 07:13] VITALS: BP 164/76; PULSE 76; TEMP 36.5; O2SAT 90
[2017-09-24] MEDS: CARVEDILOL 12.5 MG TAB PO SCH (07:50)
[2017-09-24] MEDS: CALCIUM CARBONATE 500 MG CHEWABLE PO SCH ×2 (07:50→07:52)
[2017-09-24] MEDS: GABAPENTIN 300 MG CAP PO SCH (07:51)
[2017-09-24] MEDS: HYDROCODONE/ACETAMINOPHEN 7.5/325MG TAB PO PRN (07:58)
[2017-09-24 08:26] LABS: INR 1.9 (0.9-1.1); PTT PATIENT 37.5 SECONDS (21.0-31.0)
[2017-09-24] MEDS ORDERED: CHOLECALCIFEROL 1000 INTER.UNIT TAB PO SCH (09:00)
[2017-09-24] MEDS ORDERED: DULOXETINE HCL 60 MG CAP PO SCH (09:00)
[2017-09-24] MEDS ORDERED: LISINOPRIL 40 MG TAB PO SCH (09:00)
[2017-09-24] MEDS ORDERED: CITALOPRAM 40 MG TAB PO SCH (09:00)
[2017-09-24] MEDS ORDERED: ATORVASTATIN 40 MG TAB PO SCH (09:00)
--- NOTE | 2017-09-24 09:23 | Progress Note ---
Subjective Date of Service: Sep 24, 2017. Subjective Pt evaluation today including: conversation w/ patient, physical exam, lab review, review of studies, review of inpatient medication list Saw/examined the patient in room 284 No problems/issues to note today; she is off of the oxygen She has been ambulating in the hallways Denies shortness of breath States she feels ready enough to go home Denies chest pain/palpitations Problem List Medical Problems: (1) Ambulatory dysfunction Status: Acute (2) Bronchitis Status: Acute (3) Chest pain Status: Acute (4) Failure of outpatient treatment Status: Acute (5) Hypertensive urgency Status: Acute (6) Nystagmus Status: Acute (7) Substernal chest pain Status: Acute (8) Substernal precordial chest pain Status: Acute (9) Vertigo Status: Acute (10) Wheezes Status: Acute Review of Systems Constitutional: No fever, No chills Respiratory: No cough, No sputum, No wheezing, No shortness of breath (resolved ), No dyspnea on exertion, No dyspnea at rest, No hemoptysis Abdomen: No pain, No nausea, No vomiting, No diarrhea Medications Current Inpatient Medications Medications (Trade) Dose Ordered Sig/Justin Route Start Time Stop Time Status Last Admin Dose Admin Acetaminophen (Tylenol Tab) 650 mg Q4H PRN PO 09/23/17 11:45 10/23/17 11:44 Ondansetron HCl (Zofran Inj) 4 mg Q6H PRN IV 09/23/17 11:45 10/23/17 11:44 Atorvastatin Calcium (Lipitor Tab) 80 mg DAILY PO 09/24/17 09:00 10/24/17 08:59 09/24/17 07:49 80 MG Carvedilol (Coreg Tab) 12.5 mg BID PO 09/23/17 21:00 10/23/17 20:59 09/24/17 07:50 12.5 MG Cholecalciferol (Vitamin D Tab) 1,000 inter.unit QAM PO 09/24/17 09:00 10/24/17 08:59 09/24/17 07:50 1,000 INTER.UNIT Duloxetine HCl (Cymbalta Cap) 60 mg DAILY PO 09/24/17 09:00 10/24/17 08:59 09/24/17 07:50 60 MG Gabapentin (Neurontin Cap) 300 mg BID PO 09/23/17 21:00 10/23/17 20:59 09/24/17 07:51 300 MG Acetaminophen/ Hydrocodone Bitart ([place] 7.5/325 Tab) 1 tab Q6 PRN PO 09/23/17 11:45 10/07/17 11:44 09/24/17 07:58 1 TAB Lisinopril (Zestril Tab) 40 mg DAILY PO 09/24/17 09:00 10/24/17 08:59 09/24/17 07:51 40 MG Calcium Carbonate (Tums Chew Tab) 500 mg BID PO 09/23/17 21:00 10/23/17 20:59 Miscellaneous Information (Order Awaiting Action) 1 ea QS N/A 09/23/17 16:00 10/23/17 15:59 Miscellaneous Information (Order Awaiting Action) 1 ea QS N/A 09/23/17 16:00 10/23/17 15:59 Albuterol/ Ipratropium (Duoneb) 3 ml QIDR INH 09/23/17 12:00 10/23/17 11:59 09/24/17 07:12 3 ML Prednisone (PredniSONE TAB) 40 mg DAILY PO 09/24/17 09:00 09/27/17 09:01 09/24/17 07:50 40 MG Ioversol (Optiray 320) 125 ml UD PRN IV 09/23/17 12:00 09/27/17 11:59 Objective Vital Signs Date Time Temp Pulse Resp B/P (MAP) Pulse Ox O2 Delivery O2 Flow Rate FiO2 09/24/17 08:00 Room Air 2.0 09/24/17 07:13 36.5 76 18 164/76 (105) 90 Room Air 09/24/17 07:12 71 16 93 Nasal Cannula 2.0 09/24/17 00:00 Room Air 2.0 09/23/17 23:00 36.7 93 18 158/89 (112) 93 Nasal Cannula 2.0 09/23/17 19:49 71 16 92 Nasal Cannula 2.0 09/23/17 19:28 36.6 81 18 155/84 (107) 92 Nasal Cannula 2.0 09/23/17 16:00 92 Room Air 2.0 09/23/17 15:21 97 20 94 Nasal Cannula 09/23/17 13:50 36.8 96 18 155/80 (105) 92 Nasal Cannula 2.0 09/23/17 12:53 97 13 163/86 96 Nasal Cannula 2.0 09/23/17 12:26 95 22 155/91 92 Nasal Cannula 2.0 09/23/17 11:42 92 Nasal Cannula 2.0 09/23/17 11:42 86 Room Air 09/23/17 11:26 88 Room Air 12.0 09/23/17 10:50 88 12 178/92 88 Room Air 09/23/17 10:45 86 Room Air 09/23/17 09:50 88 20 182/111 96 Nebulizer 12.0 09/23/17 09:31 88 24 188/114 94 Nebulizer 09/23/17 09:09 92 Room Air 09/23/17 09:07 89 28 90 Room Air 09/23/17 09:07 95 Physical Exam General Appearance: no apparent distress Respiratory/Chest: chest non-tender, lungs clear, normal breath sounds, no respiratory distress, no accessory muscle use Cardiovascular: regular rate, rhythm, no edema, no murmur Extremities: normal inspection, no pedal edema Neurologic/Psychiatric: no motor/sensory deficits, alert, normal mood/affect Laboratory Results Last 24 Hours Test 09/23/17 09:46 09/23/17 14:45 09/23/17 15:29 09/23/17 21:17 White Blood Count 13.68 K/uL Red Blood Count 4.20 M/uL Hemoglobin 12.9 g/dL Hematocrit 38.7 % Mean Corpuscular Volume 92.1 fL Mean Corpuscular Hemoglobin 30.7 pg Mean Corpuscular Hemoglobin Concent 33.3 g/dl Platelet Count 258 K/uL Mean Platelet Volume 8.6 fL Neutrophils (%) (Auto) 79.8 % Lymphocytes (%) (Auto) 11.3 % Monocytes (%) (Auto) 6.9 % Eosinophils (%) (Auto) 1.5 % Basophils (%) (Auto) 0.1 % Neutrophils # (Auto) 10.91 K/uL Lymphocytes # (Auto) 1.55 K/uL Monocytes # (Auto) 0.94 K/uL Eosinophils # (Auto) 0.21 K/uL Basophils # (Auto) 0.02 K/uL RDW Standard Deviation 47.6 fL RDW Coefficient of Variation 14.2 % Immature Granulocyte % (Auto) 0.4 % Immature Granulocyte # (Auto) 0.05 K/uL Prothrombin Time 17.5 SECONDS Prothromb Time International Ratio 1.7 Sodium Level 137 mmol/L Potassium Level 4.5 mmol/L Chloride Level 105 mmol/L Carbon Dioxide Level 26 mmol/L Anion Gap 6.0 mmol/L Blood Urea Nitrogen 14 mg/dl Creatinine 1.02 mg/dl Est Creatinine Clear Calc Drug Dose 60.7 ml/min Estimated GFR () 66.4 Estimated GFR (Non- 57.3 BUN/Creatinine Ratio 13.9 Random Glucose 99 mg/dl Calcium Level 8.9 mg/dl Total Bilirubin 0.7 mg/dl Aspartate Amino Transf (AST/SGOT) 21 U/L Alanine Aminotransferase (ALT/SGPT) 35 U/L Alkaline Phosphatase 59 U/L Total Creatine Kinase 117 U/L Creatine Kinase MB 1.1 ng/ml Creatine Kinase MB Ratio 0.9 Troponin I < 0.015 ng/ml < 0.015 ng/ml < 0.015 ng/ml Pro-B-Type Natriuretic Peptide 1309 pg/ml Total Protein 6.9 gm/dl Albumin 3.6 gm/dl Globulin 3.3 gm/dl Albumin/Globulin Ratio 1.1 Urine Color YELLOW Urine Appearance CLEAR Urine pH 5.0 Urine Specific [place] 1.015 Urine Protein NEG Urine Glucose (UA) NEG Urine Ketones 1+ Urine Occult Blood 1+ Urine Nitrite NEG Urine Bilirubin NEG Urine Urobilinogen NEG Urine Leukocyte Esterase NEG Urine WBC (Auto) 1-5 /hpf Urine RBC (Auto) 0-4 /hpf Urine Hyaline Casts (Auto) 0 /lpf Urine Epithelial Cells (Auto) 20-30 /lpf Urine Bacteria (Auto) NEG Test 09/24/17 05:30 09/24/17 08:00 White Blood Count 14.04 K/uL Red Blood Count 4.06 M/uL Hemoglobin 12.4 g/dL Hematocrit 37.4 % Mean Corpuscular Volume 92.1 fL Mean Corpuscular Hemoglobin 30.5 pg Mean Corpuscular Hemoglobin Concent 33.2 g/dl RDW Standard Deviation 47.2 fL RDW Coefficient of Variation 14.1 % Platelet Count 265 K/uL Mean Platelet Volume 9.0 fL Sodium Level 134 mmol/L Potassium Level 3.7 mmol/L Chloride Level 100 mmol/L Carbon Dioxide Level 26 mmol/L Anion Gap 8.0 mmol/L Blood Urea Nitrogen 22 mg/dl Creatinine 1.19 mg/dl Est Creatinine Clear Calc Drug Dose 52.0 ml/min Estimated GFR () 55.1 Estimated GFR (Non- 47.5 BUN/Creatinine Ratio 18.2 Random Glucose 160 mg/dl Calcium Level 8.7 mg/dl Prothrombin Time 20.1 SECONDS Prothromb Time International Ratio 1.9 Activated Partial Thromboplast Time 37.5 SECONDS Partial Thromboplastin Ratio 1.4 Assessment and Plan This is a 67 year old female with a past medical history of Factor V Leiden mutation on long-term anticoagulation, hx. of CVA, HTN, HLD, likely COPD, tobacco use disorder - presents with worsening shortness of breath, hypoxia Acute Hypoxic Respiratory Failure likely secondary to Acute COPD Exacerbation - patient with likely underlying COPD - sees pulmonology specialist in [place] - uses Anoro-Ellipta inhaler at home at baseline - presented with acute shortness of breath and hypoxia - initially required oxygen, now off of it - ambulating without oxygen - feels good enough to get home; will d/c with prednisone for four more days - will d/c with a nebulizer machine and duoneb - outpatient PCP and pulmonology follow-up Tobacco Use Disorder - counseled on cessation - patient not quite ready to quit Factor V Leiden Mutation - continue 5mg of Coumadin tonight (09/24) - outpatient INR check with goal of 2-3 HTN - blood pressure stable - will continue Coreg/Lisinopril - outpatient blood pressure check Hx. of CVA DVT ppx - Coumadin FULL CODE
[2017-09-24] MEDS ORDERED: PRD20 PO (09:25)
[2017-09-24] MEDS ORDERED: NEBMAC (09:25)
[2017-09-24] MEDS ORDERED: IPRA-64 INH (09:25)
--- NOTE | 2017-09-24 10:07 | Clinical Documentation Query ---
JAQUELINE Flaherty : CLINICAL DOCUMENTATION QUERY Patient is a 67 year old female admitted for acute hypoxic respiratory failure. Differential diagnoses included CHF and COPD exacerbation. Echocardiogram demonstrated an normal LVEF. Patient was administered IV Lasix with an net negative I/O of 800 ml's with improvement in oxygenation and respiratory rate. As appropriate, consider documentation as suggested below as this impacts accurate DRG assignment. Thank you. In your clinical opinion is this patient being managed for: ( ) Acute diastolic CHF ( x ) Not Agree - acute COPD exacerbation ( ) Other explanation of clinical findings (No explanation is considered a No Response) ( ) Unable to determine ( ) Need to Discuss (Phone CDS or qliq) (No discussion is considered a No Response) The medical record reflects the following clinical findings, treatment, and risk factors. Clinical Indicators: As above Treatment: Echocardiogram demonstrated an normal LVEF. Patient was administered IV Lasix with an net negative I/O of 800 ml's with improvement in oxygenation and respiratory rate Risk Factors: Age, obesity, hypertension Please clarify and document your clinical opinion in the progress notes and discharge summary. Terms such as "probable", "suspected", "likely", "questionable", "possible", or "still to be ruled out" are acceptable. IF IN AGREEMENT, YOU MUST DOCUMENT ABOVE DIAGNOSTIC STATEMENT IN DAILY PROGRESS NOTES AND DISCHARGE SUMMARY. This document is not part of the patient's record. Thank You, Jean Carlos Costa, RN [phone]
--- NOTE | 2017-09-24 11:04 | Discharge Instructions ---
Discharge Instructions Date of Service Sep 24, 2017. Admission Reason for Admission: SOB Discharge Discharge Diagnosis / Problem: Likely worsening COPD, Tobacco Use Discharge Goals Goal(s): Decrease discomfort, Improve function, Diagnostic testing, Therapeutic intervention Activity Recommendations Activity Limitations: resume your previous activity . Instructions / Follow-Up Instructions / Follow-Up Please follow-up with Dr. Diaz (covering for Dr. Cagle) on September 28 at 12:45PM * You will be on prednisone 40mg for the next four days * You will be prescribed a nebulizer machine * You will be prescribed DuoNebs to be used with the nebulizer machine for shortness of breath * Continue the Anoro-Ellipta use and follow-up with pulmonology as an outpatient * Please speak to your primary care doctor about tobacco cessation Current Hospital Diet Patient's current hospital diet: AHA Diet (Heart Healthy), Low Sodium Diet (2gm Na) Discharge Diet Recommended Diet: AHA Diet (Heart Healthy), Low Sodium Diet (2gm Na) Pending Studies Studies pending at discharge: no Medical Emergencies . Who to Call and When: Medical Emergencies: If at any time you feel your situation is an emergency, please call 911 immediately. . Non-Emergent Contact Non-Emergency issues call your: Primary Care Provider, [employer] Worker . . "Provider Documentation" section prepared by Massimo Marlow. .
--- NOTE | 2017-09-24 11:10 | Discharge Summary ---
Discharge Summary Date of Service Sep 24, 2017. Discharge Summary Admission Date: Sep 23, 2017 at 11:34 Discharge Date: Sep 24, 2017 Discharge Disposition: Home Principal Diagnosis: Acute Hypoxic Respiratory Failure likely secondary to Acute COPD Exacerbation Tobacco Use Disorder Factor V Leiden Mutation HTN Hx. of CVA Medication Reconciliation New Medications: Nebulizer Machine (Home Use) (Nebulizer Machine (Home Use) ) Mis EA N/A UD, #1 Ipratropium-Albuterol (Duoneb) 3 Ml Nebu 3 ML INH QIDR for 30 Days, #120 ML Prednisone (Prednisone) 20 Mg Tab 40 MG PO DAILY for 4 Days, #8 TAB Continued Medications: Acetaminophen (Tylenol) 500 Mg Tab 500 MG PO Q6 PRN for Pain, TAB Albuterol (Ventolin Hfa) 60 Puffs/5400 Mcg Aers 2 PUFFS INH Q6 PRN for Wheezing Atorvastatin (Lipitor) 80 Mg Tab 80 MG PO DAILY Calcium Carbonate (Calcium) 600 Mg Tab 1 TAB PO BID Carvedilol (Coreg) 12.5 Mg Tab 1 TAB PO BID Cholecalciferol (Vitamin D) 1,000 Unit Tab 1000 UNITS PO QAM Citalopram (Citalopram Hydrobromide) 40 Mg Tab 40 MG PO QAM Diclofenac Sodium (Topical) (Voltaren 1% Top Gel) 1 % Gel 1 APPLN TOP QID Duloxetine HCl (Cymbalta) 60 Mg Cap 60 MG PO DAILY Estradiol (Estradiol) 0.5 Mg Tab 0.5 MG PO QAM Gabapentin (Neurontin) 300 Mg Cap 300 MG PO BID Hydrocodone/Acetaminophen 7.5MG/325MG ([place] 7.5MG/325MG) Tab 1 TAB PO Q6 PRN for Pain, TAB PRN PAIN Lisinopril (Zestril) 40 Mg Tab 40 MG PO DAILY Meclizine HCl (Meclizine HCl) 25 Mg Tab 12.5 MG PO Q8 PRN for dizziness for 10 Days, #15 TAB Umeclidinium-Vilanterol (Anoro Ellipta 62.5-25 Mcg/INH) 1 Aer Aer 1 PUFF INH DAILY Warfarin Sod (Jantoven) 5 Mg Tab 2.5 MG PO [id number] everyday except thursday Admission Information HPI (per Admitting provider): 67-year-old female who presents the ED with shortness of breath. Patient reports that whenever she went to bed at around 2:00 this morning, she developed shortness of breath whenever she laid down. She reports she sat up on the edge the bed for about 30 minutes and had improvement in her symptoms. She then laid back down and the shortness of breath returned. She also notes chest pressure. She denies any radiation of the discomfort into her jaw, neck, shoulder, arm. Patient notes increasing lower extremity edema over the past couple months. Noted that her chlorthalidone was discontinued a couple of weeks ago due to borderline low BPs and patient feeling dehydrated. Patient reports little to minimal cough without sputum production. No fevers or chills. She denies lightheadedness, dizziness, diaphoresis, syncopal events. No abdominal pain, nausea, vomiting, diarrhea. She reports urinary frequency last evening. In the ED, patient is found to be hypoxic on room air at 88%. This improved with oxygen 2 L via nasal cannula, Solu-Medrol 60 mg IV, and DuoNeb treatment. Chest x-ray suggesting congestive failure. ProBNP is elevated at 1309. Physical Exam (per Admitting): General Appearance: WD/WN, no apparent distress Head: normocephalic, atraumatic Eyes: normal inspection, EOMI, sclerae normal ENT: hearing grossly normal, + pertinent finding (Mucous members moist) Neck: supple, no JVD, trachea midline Respiratory/Chest: no respiratory distress, + decreased breath sounds, + crackles (Faint, bilateral bases) Cardiovascular: regular rate, rhythm, normal peripheral pulses, + pertinent finding (Trace edema BLE) Abdomen/GI: normal bowel sounds, non tender, soft, no organomegaly Extremities/Musculoskelatal: normal inspection, no calf tenderness, normal capillary refill Neurologic/Psych: no motor/sensory deficits, alert, normal mood/affect, oriented x 3 Skin: normal color, warm/dry Hospital Course This is a 67 year old female with a past medical history of Factor V Leiden mutation on long-term anticoagulation, hx. of CVA, HTN, HLD, likely COPD, tobacco use disorder - presents with worsening shortness of breath, hypoxia Acute Hypoxic Respiratory Failure likely secondary to Acute COPD Exacerbation - patient with likely underlying COPD - sees pulmonology specialist in [place] - uses Anoro-Ellipta inhaler at home at baseline - presented with acute shortness of breath and hypoxia - initially required oxygen, now off of it - ambulating without oxygen - feels good enough to get home; will d/c with prednisone for four more days - will d/c with a nebulizer machine and duoneb - outpatient PCP and pulmonology follow-up Tobacco Use Disorder - counseled on cessation - patient not quite ready to quit Factor V Leiden Mutation - continue 5mg of Coumadin tonight (09/24) - outpatient INR check with goal of 2-3 HTN - blood pressure stable - will continue Coreg/Lisinopril - outpatient blood pressure check Hx. of CVA DVT ppx - Coumadin FULL CODE Total time spent on discharge = 50 minutes This includes examination of the patient, discharge planning, medication reconciliation, and communication with other providers. Discharge Instructions Please follow-up with Dr. Diaz (covering for Dr. Cagle) on September 28 at 12:45PM * You will be on prednisone 40mg for the next four days * You will be prescribed a nebulizer machine * You will be prescribed DuoNebs to be used with the nebulizer machine for shortness of breath * Continue the Anoro-Ellipta use and follow-up with pulmonology as an outpatient * Please speak to your primary care doctor about tobacco cessation
[2017-09-24 11:11] VITALS: BP 137/76; PULSE 75; TEMP 36.7; O2SAT 93
[2017-09-24 11:17] VITALS: PULSE 71; O2SAT 93
== END 2017-09-24 12:06 | disposition home or self-care (01) | DRG 189 ==
LOC: EDBD 08:43 → C.EDA 08:44 → EDBEDREQ 11:32 → C.MED 11:34 → EDBEDREQSVC 12:04 → ENRESERV 12:08
PROVIDERS: ADMIT Internal Medicine; ATTEND Family Medicine
DX: J96.01 Acute respiratory failure with hypoxia (principal); J44.1 Chronic obstructive pulmonary disease with (acute) exacerbation; D68.2 Hereditary deficiency of other clotting factors; F32.9 Major depressive disorder, single episode, unspecified; E88.81 Metabolic syndrome and other insulin resistance; K21.9 Gastro-esophageal reflux disease without esophagitis; I10 Essential (primary) hypertension; Z79.01 Long term (current) use of anticoagulants; F17.200 Nicotine dependence, unspecified, uncomplicated; Z88.8 Allergy status to other drugs, medicaments and biological substances; Z86.73 Personal history of transient ischemic attack (TIA), and cerebral infarction without residual deficits; Z96.651 Presence of right artificial knee joint

== ENCOUNTER 2022-04-15 16:57 | Inpatient (IN) ==
[2022-04-15 17:49] LABS: Albumin Globulin Ratio 1.5 (0.9-2); Albumin Level 3.8 gm/dl (3.4-5.0); BUN Creatinine Ratio 19.8 (10-20); Bilirubin,Total 0.4 mg/dl (0.2-1.0); Calcium 9.1 mg/dl (8.5-10.1); Creatinine Clr Calc Pharmacy 61.5 ml/min; Est GFR (African American) 78.8 ml/min; Globulin 2.6 gm/dl (2.5-4.0); Potassium 3.5 mmol/L (3.5-5.1); Total Protein 6.4 gm/dl (6.0-8.3)
[2022-04-15 18:12] LABS: Hematocrit (blood only) 29.1 % (37.0-47.0); Hemoglobin 10.1 g/dl (12.0-16.0); Mean Corpuscular Hemoglobin 29.1 pg (25.0-34.0); Mean Corpuscular Hgb Conc 34.7 g/dL (32.0-36.0); Mean Corpuscular Volume 83.9 fL (80.0-100.0); Mean Platelet Volume 9.9 fL (9.4-12.4); Platelet Count 75 K/uL (130-400); RDW Coefficient of Variation 12.9 % (11.5-14.5); RDW Standard Deviation 38.7 fL (36.4-46.3); Red Blood Count 3.47 M/uL (4.20-5.40); White Blood Count 2.81 K/ul (4.8-10.8)
[2022-04-15 18:13] LABS: Basophils # (auto) 0.01 K/uL (0-0.2); Basophils % (auto) 0.4 %; Eosinophils # (auto) 0.03 K/uL (0-0.50); Eosinophils % (auto) 1.1 %; Immature Granulocytes # (auto) 0.01 K/uL (0.01-0.20); Immature Granulocytes % (auto) 0.4 %; Lymphocytes % (auto) 7.1 %; Monocytes # (auto) 0.27 K/uL (0.11-0.59); Monocytes % (auto) 9.6 %; Neutrophils # (auto) 2.29 K/uL (1.40-6.50); Neutrophils % (auto) 81.4 %
[2022-04-15] MEDS ORDERED: LACTATED RINGER'S 1,000 ML IV ONE (18:18)
[2022-04-15] MEDS ORDERED: GI COCKTAIL ED USE PO ONE (18:18)
[2022-04-15 18:38] LABS: Magnesium 1.6 mg/dl (1.7-2.4)
--- NOTE | 2022-04-15 18:46 | Emergency Department Note ---
Impression & Plan Difficulty in swallowing, Esophageal cancer, Elevated INR ED Provider Note Provider: Eric Acosta MD DATE OF SERVICE: 04/15/2022 CHIEF COMPLAINT: Trouble swallowing, esophageal pain HISTORY OF PRESENT ILLNESS: Patient is a 72-year-old female unfortunate history of esophageal cancer currently on chemotherapy and radiation, history of hypertension, COPD, IBS, PUD, and factor V Leiden mutation on warfarin presenting today referred by [facility]. Radiation last week and chemotherapy last week. Worsening pain particular last 3 to 4 days of the mid chest and with swallowing. Not able to take most of her meds and difficulty swallowing even liquids. Has had a little bit of nosebleeds at times as well but not severe. Referred by [facility] that she has not been able to eat or drink very much but has been taking her warfarin by report. Has been using some Carafate at home as well as some hydrocodone which has not been that helpful. PAST MEDICAL HISTORY: As noted above MEDICATIONS: Reviewed home medication SOCIAL HISTORY: and lives at home PHYSICAL EXAM: GENERAL: alert and oriented in no acute distress on stretcher Head: normocephalic and atraumatic EYES: No injection, discharge or icterus NECK: Trachea midline. ENT: Mucous membranes pink and moist. Some dried blood noted in the bilateral naris. No active bleeding noted. Pharynx without evidence of active bleeding or significant erythema or white plaques noted. LUNGS: Airway patent. No retractions. Breath sounds clear with good air entry bilaterally. HEART: Regular rate and rhythm. No chest wall tenderness ABDOMEN: Soft and non-tender, without guarding or rebound. SKIN: Acyanotic, warm, dry, without rashes EXTREMITIES: Without swelling, tenderness or deformity NEUROLOGICAL: No focal deficits. No aphasia. No facial droop or slurred speech. EK bpm sinus tachycardia. No PVC or PAC. No acute ST segment elevation or depression with QTc of 466. CONTINUOUS CARDIAC MONITORING: was ordered and showed a heart rate of 90s bpm in normal sinus rhythm PDMP was checked without noted issue. 1 view chest x-ray per interpretation: No evidence of free air under the diaphragm or pneumonia pneumothorax. Patient's laboratory and imaging studies reviewed. Differential includes Cardiac ischemia, aortic dissection, pulmonary embolism, pneumothorax, pneumonia, pericarditis, myocarditis, esophageal rupture, GERD, cholecystitis, pancreatitis, musculoskeletal, as well as other pathologies. IMPRESSION/MEDICAL DECISION MAKING: Patient was evaluated by [facility] at home and they did call ahead and leave information regarding the patient. Patient unfortunately with esophageal cancer on treatment now with limited ability for oral intake due to pain and trouble swallowing. We will try GI cocktail to see if this might help. Basic labs obtained here. Slight anemia. Slight leukopenia but on chemotherapy. No fevers reported. Denies trauma. Some history of nosebleeds some slight dried blood in nares but not actively bleeding. No severe electrolyte abnormality noted. No evidence of acute renal injury. Lower suspicion this is cardiac in nature but an EKG was obtained. Chest x-ray obtained as well but I doubt this is pulmonary in nature. Unfortunately whether is from the esophageal cancer the result of radiation treatment, is having what seems like esophageal pain. Given some IV fluids. Not severely dehydrated but as she is not taking anything by mouth and to prevent her from dehydrating, will have the hospitalist observe. INR is somewhat elevated likely secondary to decreased oral intake. No active bleeding so we will hold for reversal at this time. Discussed with hospitalist. DIAGNOSIS: Esophageal cancer, trouble swallowing/pain, elevated INR DISPOSITION: Hospitalist will evaluate Patient was agreeable with this plan. Past Med/Surg History Medical History (Updated 04/15/22 @ 20:17 by Eric Acosta M.D.) Anxiety and depression Carotid artery disease Per 11/2021 Carotid Duplex: 70-99% right ICA stenosis, 50-69% left ICA stenosis - Seen by vascular 12/12/21- 70-99% right ICA stenosis since 12/2019- continuing with surveillance and medical management Chronic kidney disease Chronic rhinitis Cognitive deficit due to old cerebrovascular accident (CVA) COPD (chronic obstructive pulmonary disease) Degenerative disc disease Dyslipidemia Factor 5 Leiden mutation, heterozygous REASON FOR WARARIN RX GERD (gastroesophageal reflux disease) Heart palpitations FOLLOWED BY [facility] Hematoma of brain S/p fall 11/12/21- s/p right occipital craniotomy for minimally invasive evacuation of iintraparenchymal hematoma HTN (hypertension) Hyperlipidemia Meniere disease Migraine On home oxygen therapy 2.5L AT HS Pericardial effusion Seizure BILAT. HAND SHAKING>WAS TOLD WAS SEIZURE ACTIVITY - No hx of seizures per PCP and neurosurgery records- on Keppra for seizure prophylaxis after craniotomy Stomach cancer CURRENT DX>"FOUND MASS DOWN LOWER NEAR ESOPHAGUS" (EGD/BIOPSY AT [facility]) Stroke 2009> RESIDUAL MEMORY ISSUES /MILD WEAKNESS Surgical History Brain bleed 11/12/21>LIFE FLIGHTED TO [facility] (EVACUATED BLOOD FROM BRAIN) S/P FELL AND HIT HEAD History of anesthesia reaction SLOW TO WAKE UP SOMETIMES History of carpal tunnel release RT/LEFT History of cataract surgery RT/LEFT History of colonoscopy History of esophagogastroduodenoscopy (EGD) History of hysterectomy History of tooth extraction History of total knee replacement RT/LEFT S/P trigger finger release Family History (Updated 02/14/22 @ 08:25 by Tiffany Kennedy, SHIVANI) Mother Unknown family medical history Father Myocardial infarction Brother , as infant; No problems noted. Son No problems noted. Son No problems noted. Sister No problems noted. Sister No problems noted. Sister H/O brain surgery Sister No problems noted. 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 How many Children do You have: 2 Feels Safe at Home: Yes caffeine: Yes (2 cups/day) during the past year weight has: decreased > 10 lbs Assistive Devices: Cane, Denture - Upper, Denture - Lower, Hearing Aid - Bilateral and Oxygen - at Night Allergies Allergies Allergy/AdvReac Type Severity Reaction Status Date / Time iodine Allergy Intermediate ITCHING Verified 04/11/22 08:43 nickel Allergy Intermediate RASH/ITCHIN Verified 04/11/22 08:43 G buspirone Allergy Unknown PT UNSURE Verified 04/11/22 08:43 OF RXN Home Meds Home Medications Medication Instructions Recorded Confirmed atorvastatin 80 mg tablet (Lipitor) 80 mg PO QAM 11/02/21 04/15/22 carvedilol 12.5 mg tablet 12.5 mg PO BID 11/02/21 04/15/22 ezetimibe 10 mg tablet (Zetia) 10 mg PO QAM 11/02/21 04/15/22 gabapentin 300 mg capsule 300 mg PO TID 11/02/21 04/15/22 hydrocodone 7.5 mg-acetaminophen 1 tab PO Q6 PRN Pain 11/02/21 04/15/22 325 mg tablet venlafaxine 150 mg 150 mg PO QAM 11/02/21 04/15/22 capsule,extended release 24 hr (Effexor XR) aspirin 81 mg tablet,delayed 81 mg PO QAM 01/14/22 04/15/22 release cholecalciferol (vitamin D3) 25 25 mcg PO QAM 01/14/22 04/15/22 mcg (1,000 unit) tablet (Vitamin D3) cyanocobalamin (vitamin B-12) 500 500 mcg PO QAM 01/14/22 04/15/22 mcg tablet docusate sodium 100 mg capsule 100 mg PO BID 01/14/22 04/15/22 folic acid 800 mcg tablet 0.8 mg PO QAM 01/14/22 04/15/22 albuterol sulfate 90 mcg/actuation 2 puff inhalation Q6H PRN 02/14/22 04/15/22 aerosol inhaler Shortness Of Breath Or Wheezing diclofenac sodium 1 % topical gel 2 g topical QID PRN Pain 02/14/22 04/15/22 (Arthritis Pain (diclofenac)) ipratropium 0.5 mg-albuterol 3 mg 3 ml inhalation Q6H PRN Shortness 02/14/22 04/15/22 (2.5 mg base)/3 mL nebulization Of Breath Or Wheezing soln levetiracetam 500 mg 1,000 mg PO BID 02/14/22 04/15/22 tablet,extended release 24 hr (Keppra XR) umeclidinium 62.5 mcg-vilanterol 1 ea inhalation DAILY 02/14/22 04/15/22 25 mcg/actuation powdr for inhalation (Anoro Ellipta) hydrochlorothiazide 25 mg tablet 12.5 mg PO QAM 04/07/22 04/15/22 lisinopril 20 mg tablet 20 mg PO UD 04/15/22 04/15/22 warfarin 2.5 mg tablet 2.5 mg PO DAILY 04/15/22 04/15/22 Previous Rx's Medication Instructions Recorded sucralfate 1 gram tablet (Carafate) 1 g PO ACHS PRN dysphagia #60 tabs 03/31/22 Results & Data (ED) Vital Signs Vital Signs - 24 hr 04/15/22 17:01 04/15/22 17:58 04/15/22 19:32 Temperature 36.5 C Temperature Source Temporal Artery Scan Pulse Rate 103 H 85 Pulse Rate [Right Brachial] 91 H Pulse Rhythm [Right Brachial] Regular Pulse Strength [Right Brachial] Normal Respiratory Rate 16 19 Respiratory Effort / Characteristics Non-Labored Spontaneous Respiratory Depth Normal Respiratory Pattern Regular Blood Pressure 131/76 Blood Pressure [Right Arm] 190/100 H Blood Pressure Mean 94 Blood Pressure Mean [Right Arm] 130 Blood Pressure Position [Right Arm] Lying Pulse Oximetry 99 99 Oxygen Delivery Method Room Air Room Air Sepsis Recent Fever Within 48 Hours No Sepsis New/Unexplained Change in Mental Status N/A Sepsis Action Taken by Nursing No Action Required 04/15/22 21:56 Temperature Temperature Source Pulse Rate 94 H Pulse Rate [Right Brachial] Pulse Rhythm [Right Brachial] Pulse Strength [Right Brachial] Respiratory Rate Respiratory Effort / Characteristics Respiratory Depth Respiratory Pattern Blood Pressure Blood Pressure [Right Arm] Blood Pressure Mean Blood Pressure Mean [Right Arm] Blood Pressure Position [Right Arm] Pulse Oximetry Oxygen Delivery Method Sepsis Recent Fever Within 48 Hours Sepsis New/Unexplained Change in Mental Status Sepsis Action Taken by Nursing Laboratory Data 04/15/22 17:08 04/15/22 17:08 Lab Results 04/15/22 04/15/22 04/15/22 Range/Units 17:08 17:08 17:08 WBC 2.81 L (4.8-10.8) K/ul RBC 3.47 L (4.20-5.40) M/uL Hgb 10.1 L (12.0-16.0) g/dl Hct 29.1 L (37.0-47.0) % MCV 83.9 (80.0-100.0) fL MCH 29.1 (25.0-34.0) pg MCHC 34.7 (32.0-36.0) g/dL RDW Std Deviation 38.7 (36.4-46.3) fL RDW Coeff of Rony 12.9 (11.5-14.5) % Plt Count 75 L (130-400) K/uL MPV 9.9 (9.4-12.4) fL Immature Gran % (Auto) 0.4 % Neut % (Auto) 81.4 % Lymph % (Auto) 7.1 % [place] % (Auto) 9.6 % Eos % (Auto) 1.1 % Baso % (Auto) 0.4 % Neut # (Auto) 2.29 (1.40-6.50) K/uL Lymph # (Auto) 0.20 L (1.2-3.4) K/uL [place] # (Auto) 0.27 (0.11-0.59) K/uL Eos # (Auto) 0.03 (0-0.50) K/uL Baso # (Auto) 0.01 (0-0.2) K/uL Immature Gran # (Auto) 0.01 (0.01-0.20) K/uL PT 51.3 H (9.0-12.0) Seconds INR 5.3 H (0.9-1.1) APTT 52.7 H* (21.0-31.0) Seconds PTT Ratio 1.9 Sodium 140 (136-145) mmol/L Potassium 3.5 (3.5-5.1) mmol/L Chloride 104 (98-107) mmol/L Carbon Dioxide 29 (21-32) mmol/L Anion Gap 7 (3-11) BUN 17 (6-23) mg/dl Creatinine 0.86 (0.6-1.2) mg/dl Est Cr Clr Drug Dosing 61.5 ml/min Est GFR ( Amer) 78.8 ml/min Est GFR (Non-Af Amer) 68.0 ml/min BUN/Creatinine Ratio 19.8 (10-20) Glucose 117 H (70-99(Fasting)) mg/dl Calcium 9.1 (8.5-10.1) mg/dl Magnesium 1.6 L (1.7-2.4) mg/dl Total Bilirubin 0.4 (0.2-1.0) mg/dl AST 9 L (13-39) U/L ALT 12 (7-52) U/L Alkaline Phosphatase 42 (34-104) U/L Total Protein 6.4 (6.0-8.3) gm/dl Albumin 3.8 (3.4-5.0) gm/dl Globulin 2.6 (2.5-4.0) gm/dl Albumin/Globulin Ratio 1.5 (0.9-2) Urine Color Urine Appearance (Clear) Urine pH (4.5-7.5) Ur Specific [place] (1.000-1.030) Urine Protein (Negative) Urine Glucose (UA) (Negative) Urine Ketones (Negative) Urine Blood (Negative) Urine Nitrite (Negative) Urine Bilirubin (Negative) Urine Urobilinogen (Negative) Ur Leukocyte Esterase (Negative) Urine WBC (Auto) (0-5) /hpf Urine RBC (Auto) (0-4) /hpf U Hyaline Cast (Auto) (0-5) /lpf U Epithel Cells (Auto) (0-5) /lpf Urine Bacteria (Auto) (Negative) SARS-CoV-2, RNA, NAAT (NEGATIVE) 04/15/22 04/15/22 Range/Units 19:40 Unknown WBC (4.8-10.8) K/ul RBC (4.20-5.40) M/uL Hgb (12.0-16.0) g/dl Hct (37.0-47.0) % MCV (80.0-100.0) fL MCH (25.0-34.0) pg MCHC (32.0-36.0) g/dL RDW Std Deviation (36.4-46.3) fL RDW Coeff of Rony (11.5-14.5) % Plt Count (130-400) K/uL MPV (9.4-12.4) fL Immature Gran % (Auto) % Neut % (Auto) % Lymph % (Auto) % [place] % (Auto) % Eos % (Auto) % Baso % (Auto) % Neut # (Auto) (1.40-6.50) K/uL Lymph # (Auto) (1.2-3.4) K/uL [place] # (Auto) (0.11-0.59) K/uL Eos # (Auto) (0-0.50) K/uL Baso # (Auto) (0-0.2) K/uL Immature Gran # (Auto) (0.01-0.20) K/uL PT (9.0-12.0) Seconds INR (0.9-1.1) APTT (21.0-31.0) Seconds PTT Ratio Sodium (136-145) mmol/L Potassium (3.5-5.1) mmol/L Chloride (98-107) mmol/L Carbon Dioxide (21-32) mmol/L Anion Gap (3-11) BUN (6-23) mg/dl Creatinine (0.6-1.2) mg/dl Est Cr Clr Drug Dosing ml/min Est GFR ( Amer) ml/min Est GFR (Non-Af Amer) ml/min BUN/Creatinine Ratio (10-20) Glucose (70-99(Fasting)) mg/dl Calcium (8.5-10.1) mg/dl Magnesium (1.7-2.4) mg/dl Total Bilirubin (0.2-1.0) mg/dl AST (13-39) U/L ALT (7-52) U/L Alkaline Phosphatase (34-104) U/L Total Protein (6.0-8.3) gm/dl Albumin (3.4-5.0) gm/dl Globulin (2.5-4.0) gm/dl Albumin/Globulin Ratio (0.9-2) Urine Color Yellow Urine Appearance Clear (Clear) Urine pH 7.5 (4.5-7.5) Ur Specific [place] 1.022 (1.000-1.030) Urine Protein Trace H (Negative) Urine Glucose (UA) Negative (Negative) Urine Ketones Trace H (Negative) Urine Blood 2+ H (Negative) Urine Nitrite Negative (Negative) Urine Bilirubin Negative (Negative) Urine Urobilinogen Negative (Negative) Ur Leukocyte Esterase Trace H (Negative) Urine WBC (Auto) 5-10 H (0-5) /hpf Urine RBC (Auto) >30 H (0-4) /hpf U Hyaline Cast (Auto) 1-5 (0-5) /lpf U Epithel Cells (Auto) >30 H (0-5) /lpf Urine Bacteria (Auto) Negative (Negative) SARS-CoV-2, RNA, NAAT NEGATIVE (NEGATIVE) Administered Medications Discontinued Medications Al Hydrox/Mg Hydrox/Simethicone (Gi Cocktail Ed Use) 1 dose PO ONE ONE Stop: 04/15/22 18:19 Last Admin: 04/15/22 18:38 Dose: 1 dose Documented By: PERNELL Lactated Ringer's (Lr) 1,000 mls @ 999 mls/hr IV .Q1H1M ONE Stop: 04/15/22 19:18 Last Infusion: 04/15/22 19:36 Dose: 0 mls/hr Documented By: Admin: 04/15/22 18:35 Dose: 999 mls/hr Documented By: PERNELL Discharge Plan Visit Data Chief Complaint: Dehydration Stated Complaint: CAN'T EAT OR DRINK,DEHYDRATED,RADIATION 5 WEEKS ED Provider: Eric Acosta Discharge Problem: Difficulty in swallowing, Esophageal cancer, Elevated INR Patient Disposition: Being Evaluated by Hospitalist Discharge Instructions Interventions: ED Discharge Assessment Last Done: 04/15/22 22:13 Forms Stand Alone Forms: My [facility] [place] Prescriptions Prescriptions: No Action albuterol sulfate 90 mcg/actuation HFA aerosol inhaler 2 puff inhalation Q6H PRN (Reason: Shortness Of Breath Or Wheezing) diclofenac sodium [Arthritis Pain (diclofenac)] 1 % gel 2 g topical QID PRN (Reason: Pain) Rx Instructions: apply to single elbow, wrist or hand; for hand includes palm/fingers/back of hand ipratropium-albuterol 0.5 mg-3 mg(2.5 mg base)/3 mL solution for nebulization 3 ml inhalation Q6H PRN (Reason: Shortness Of Breath Or Wheezing) sucralfate [Carafate] 1 gram tablet 1 g PO ACHS PRN (Reason: dysphagia) Qty: 60 2RF Rx Instructions: Placed 1 pill in 1 teaspoon of water and take 1 hour before meals and bedtime. atorvastatin [Lipitor] 80 mg tablet 80 mg PO QAM hydrocodone-acetaminophen 7.5-325 mg tablet 1 tab PO Q6 PRN (Reason: Pain) gabapentin 300 mg capsule 300 mg PO TID ezetimibe [Zetia] 10 mg tablet 10 mg PO QAM carvedilol 12.5 mg tablet 12.5 mg PO BID venlafaxine [Effexor XR] 150 mg capsule,extended release 24hr 150 mg PO QAM Anoro Ellipta 62.5-25 mcg/actuation blister with device 1 ea INHALATION DAILY hydrochlorothiazide 25 mg tablet 12.5 mg PO QAM Patient Comments: ONHOLD as of 04/07/22 aspirin 81 mg Tablet,Delayed Release (Dr/Ec) 81 mg PO QAM cyanocobalamin (vitamin B-12) 500 mcg Tablet 500 mcg PO QAM docusate sodium 100 mg Capsule 100 mg PO BID folic acid 800 mcg Tablet 0.8 mg PO QAM cholecalciferol (vitamin D3) [Vitamin D3] 25 mcg (1,000 unit) Tablet 25 mcg PO QAM levetiracetam [Keppra XR] 500 mg tablet extended release 24 hr 1,000 mg PO BID lisinopril 20 mg tablet 20 mg PO UD Rx Instructions: on hold 04/07/22 warfarin 2.5 mg tablet 2.5 mg PO DAILY Referrals Referrals: Dre Cagle MD [Primary Care Provider] - Difficulty in swallowing Qualifiers: Dysphagia type: esophageal phase Qualified Code(s): R13.19 - Other dysphagia Esophageal cancer Qualifiers: Malignant neoplasm of esophagus location: unspecified location Qualified Code(s): C15.9 - Malignant neoplasm of esophagus, unspecified
[2022-04-15 19:05] LABS: INR 5.3 (0.9-1.1); Partial Thromboplastin Ratio 1.9; Prothrombin Time 51.3 Seconds (9.0-12.0)
[2022-04-15 19:53] LABS: Partial Thromboplastin Time 52.7 Seconds (21.0-31.0)
[2022-04-15 20:10] LABS: Appearance Urine Clear (Clear); Bacteria Urine Automated Negative (Negative); Bilirubin Urine Negative (Negative); Blood Urine 2+ (Negative); Color Urine Yellow; Epithelial Cell Urine Auto >30 /lpf (0-5); Glucose Urine UA Negative (Negative); Ketones Urine Trace (Negative); Leukocyte Esterase Urine Trace (Negative); Nitrite Urine Negative (Negative); RBC Urine Automated >30 /hpf (0-4); Specific Gravity Urine 1.022 (1.000-1.030); Urobilinogen Urine Negative (Negative); pH Urine 7.5 (4.5-7.5)
[2022-04-15 21:34] LABS: Protein Urine Trace (Negative)
[2022-04-15] MEDS ORDERED: ACETAMINOPHEN 325 MG TAB PO PRN (22:37)
[2022-04-15] MEDS ORDERED: HYDROCODONE/ACETAMINOPHEN 7.5/325MG TAB PO PRN (22:37)
[2022-04-15] MEDS ORDERED: NITROGLYCERIN SL 0.4 MG/TAB TAB SL PRN (22:37)
[2022-04-15] MEDS ORDERED: DICLOFENAC SOD 1% GEL 100 GM TUBE EXT PRN (22:37)
[2022-04-15] MEDS ORDERED: ALBUT/IPRATROP 3MG/0.5MG NEB 3 ML VIAL INH PRN (22:37)
[2022-04-15] MEDS ORDERED: carvediloL 12.5 MG TAB PO ONE (22:37)
[2022-04-15] MEDS ORDERED: ALBUTEROL HFA 8 GM INHALER INH PRN (22:37)
[2022-04-15] MEDS ORDERED: MoRPHine SULFATE 2 MG/ML CARP IV PRN (22:37)
[2022-04-15] MEDS ORDERED: SUCRALFATE 1 GM TAB PO PRN (22:37)
[2022-04-15] MEDS: D5W AND NSS 1,000 ML IV SCH (23:23)
[2022-04-15] MEDS: ONDANSETRON INJ 2 MG/ML 2 ML VIAL IV PRN (23:43)
--- NOTE | 2022-04-16 03:37 | History and Physical Report ---
DATE OF ADMISSION: 04/15/2022 CHIEF COMPLAINT: Poor appetite and difficulty swallowing. HISTORY OF PRESENT ILLNESS: A 72-year-old female with past medical history significant for type 2 diabetes, currently not on medications, hyperlipidemia, COPD, sleep apnea, nocturnal hypoxia, history of CVA, hypertension, chronic kidney disease stage III, carotid stenosis, thrombophlebitis,malignant neoplasm of lower thoracic esophagus, irritable bowel syndrome, GERD, history of fibromyalgia, Meniere disease, history of intraparenchymal hematoma in brain, factor V Leiden heterozygosis, thrombocytosis, anxiety presents with poor oral intake. The patient had a fall in November 2021 with resultant intraparenchymal hemorrhage resulting craniotomy in [place]. Keppra prescribed for seizure precautions. At that time, her course was complicated by E. coli uti and thrombocytosis. At that time evaluation revealed metastatic lower esophageal adenocarcinoma. Currently, the patient says she just completed chemotherapy 5 cycles and also 28 radiation treatments last week and I during recent evaluation found to be symptomatic hypotension requiring currently lisinopril and hydrochlorothiazide on hold. It looks like plan for possible future esophagectomy. palpitations controlled control by Coreg and as per cardiology notes. As per hem/onc notes, recommendations for magic swizzle, h small meals throughout the day and continue daily Boost and also to continue Coumadin. The patient says since the radiation treatment, she is having swallowing difficulty with painful swallowing and also having pain in lower esophagus that is getting worse and she is not able to eat much and swallow much, not eating or drinking. That is the reason she came to ER. ER given GI cocktail which helped, but the pain is coming back. She has vomiting few times a day, but no blood in vomitus and no blood in the stools. She says now she develops some abdominal pain also. Today she had some epistaxis. Denies shortness of breath and no cough, no fever, no headache, no blurred visions. She has had some peripheral vision problems in the left eye for long time. No headache, no runny nose. Hemodynamically stable. She is taking Coumadin, INR is 5.3 today. Because of poor appetite and dehydration we were called for admission. ALLERGIES: IODINE, NICKEL, BUSPIRONE. PAST MEDICAL HISTORY: As mentioned above. PAST SURGICAL HISTORY: Bilateral knee arthroplasty, bilateral carpal tunnel surgery, colonoscopy, dilatation and curettage, EGDs, open skull for removal of hematoma of the right side in November 2021, partial hysterectomy, bilateral cataract surgeries, trigger tendon release on the right side, endoscopic ultrasound. MEDICATIONS: The patient is on albuterol two puff inhalation q.6h hours p.r.n., aspirin 81 mg p.o. daily, Lipitor 80mg q.a.m., Coreg 12.5 mg p.o. b.i.d., vitamin D 25 mcg p.o. daily, vitamin B12 500 mcg p.o. a.m., diclofenac sodium 2 grams p.r.n., Colace 100 mg p.o. b.i.d., Zetia 10 mg p.o. a.m., folic acid 0.8mg p.o. daily, gabapentin 300 mg p.o. t.i.d., hydrochlorothiazide 12.5 mg p.o. daily, acetaminophen one tablet p.o. q.6 hours p.r.n., DuoNeb inhalation q.6 hours p.r.n., Keppra 1000 mg p.o. b.i.d., lisinopril on hold, sucralfate 1 gram p.o. a.c. and at bedtime p.r.n., venlafaxine 150 mg p.o. a.m., Coumadin 2.5 mg p.o. daily, umeclidinium Vilanterol one inhalation daily. FAMILY HISTORY: Significant for mother has arthritis, factor V deficiency, diabetes, hypertension. Father has [place]. Aunt has arthritis. SOCIAL HISTORY: , smoked three-quarter pack a day for last 33 years. Currently smoking 1/2 pack cigarette daily. Alcohol rare, no drug use. REVIEW OF SYSTEMS: As per HPI. Rest of the review of systems is negative. PHYSICAL EXAMINATION: GENERAL: The patient is of moderate build, not in acute distress. VITAL SIGNS: Temperature 37.5, pulse 94, respiratory rate 19, blood pressure 119/100, oxygen 99% on room air. HEENT: Pupils equal, round and reactive to light. Oral mucosa moist. NECK: No JVD, no neck masses. CARDIOVASCULAR: S1 and S2 heard. Regular rate and rhythm. No murmur, no gallop. RESPIRATORY SYSTEM: Normal AP diameter. No accessory muscle use. No wheezing, no crackles. ABDOMEN: Soft. Bowel sounds are present, nontender, no distention. CENTRAL NERVOUS SYSTEM: Alert and oriented. Speech is clear. No facial droop. Moves all extremities. EXTREMITIES: No edema, no erythema. LABORATORY DATA: WBC 2.8, hemoglobin 10.1, hematocrit 29.1, platelets 75. PT 51.3, INR 5.3, APTT 52.7. Sodium 140, potassium 3.5, chloride 104, bicarb 29, BUN 17, creatinine 0.8, serum glucose 117, calcium 9.1, magnesium 1.6, total bilirubin 0.4, AST 9, ALT 12, alkaline phosphatase 42. Urinalysis: 2+ leukocyte esterase, bacteria negative. SARS-CoV-2 rapid test negative. Chest x-ray, no acute findings. EKG: Sinus tachycardia at rate of 102, no acute ST changes seen. ASSESSMENT AND PLAN: This is a 72-year-old female with esophageal cancer, ongoing chemoradiation, presents with poor appetite. 1. Poor appetite, difficulty swallowing, painful swallowing. The patient has just finished her course of chemo and also radiation last week. She says she has completed 5 cycles of chemo and 28 cycles of radiation and has difficulty swallowing, and also having nausea, not able to eat or drink. She says she is trying to drink Boost as well as taking medications. We will keep her on liquid diet for now for pain control and consult GI for further recommendations. Monitor in the hospital. We will give gentle fluids. 2. Esophageal cancer, lower third. Status post chemo and radiation. Further management as per hem/onc. 3. History of factor V Leiden mutation,hx of CVA . on Coumadin. INR is 5.3, we will hold the Coumadin. 4. Pancytopenia, most likely from chemo. We will follow the labs. 5. History of hypertension. Currently lisinopril and hydrochlorothiazide are on hold because of the symptomatic hypotension. Continue on Coreg. If the blood pressure is running high, we will place on IV hydralazine p.r.n. . 6. Hyperlipidemia. On statin. 7. History of fall and resulted in intraparenchymal hemorrhage in brain in November 2021 status post craniotomy, on Keppra for seizure prophylaxis. 8. History of atherosclerotic carotid disease. Following with vascular surgery. 9. Chronic obstructive pulmonary disease. Ongoing tobacco abuse. Continue home inhaler. 10. History of obstructive sleep apnea with nocturnal hypoxia. CPAP with 2 L of oxygen at nighttime. 11. History of vertigo, Meniere disease. We will monitor. 12. Type 2 diabetes. Currently not on medication. We will follow the blood sugar. 13. Anxiety and depression, fibromyalgia. Continue home medications. 14. Deep venous thrombosis prophylaxis: INR is supratherapeutic. DISPOSITION: Close monitor in med tele. PT, OT prior to discharge. Social Service to help with discharge planning. Level 1 full code as per discussion with the patient. Job ID: [id number] [id number]
[2022-04-16 07:22] LABS: Hematocrit (blood only) 27.7 % (37.0-47.0); Hemoglobin 9.4 g/dl (12.0-16.0); Mean Corpuscular Hemoglobin 29.1 pg (25.0-34.0); Mean Corpuscular Hgb Conc 33.9 g/dL (32.0-36.0); Mean Corpuscular Volume 85.8 fL (80.0-100.0); Platelet Count 70 K/uL (130-400); RDW Coefficient of Variation 12.9 % (11.5-14.5); RDW Standard Deviation 39.5 fL (36.4-46.3); Red Blood Count 3.23 M/uL (4.20-5.40); White Blood Count 2.62 K/ul (4.8-10.8)
[2022-04-16 07:25] LABS: BUN Creatinine Ratio 17.8 (10-20); Calcium 8.9 mg/dl (8.5-10.1); Creatinine Clr Calc Pharmacy 69.6 ml/min; Est GFR (Non-African American) 82.9 ml/min; Magnesium 1.5 mg/dl (1.7-2.4); Phosphorus 3.2 mg/dl (2.5-4.9); Potassium 3.4 mmol/L (3.5-5.1)
[2022-04-16] MEDS: KEPPRA XR~ORDER AWAITING ACTION SCH ×2 (07:27→15:32)
[2022-04-16 07:46] LABS: Prothrombin Time 61.9 Seconds (9.0-12.0)
[2022-04-16 07:50] LABS: INR 6.4 (0.9-1.1)
[2022-04-16 07:55] LABS: Basophils # (auto) 0.01 K/uL (0-0.2); Basophils % (auto) 0.4 %; Eosinophils # (auto) 0.01 K/uL (0-0.50); Eosinophils % (auto) 0.4 %; Immature Granulocytes # (auto) 0.01 K/uL (0.01-0.20); Immature Granulocytes % (auto) 0.4 %; Lymphocytes # (auto) 0.29 K/uL (1.2-3.4); Lymphocytes % (auto) 11.1 %; Monocytes # (auto) 0.29 K/uL (0.11-0.59); Monocytes % (auto) 11.1 %; Neutrophils # (auto) 2.01 K/uL (1.40-6.50); Neutrophils % (auto) 76.6 %
--- NOTE | 2022-04-16 08:02 | XRay Report ---
XR chest 1V portable CLINICAL HISTORY: trouble swallowing, pain TECHNIQUE: Single frontal radiograph of the chest was obtained. Comparison: Comparison is made to chest radiograph 11/12/2021 FINDINGS: No lines and tubes are seen. Calcified aortic knob is seen. The lungs are clear. No evidence of pleur al effusion or pneumothorax. IMPRESSION: No acute chest disease. ACT 112: Negative or not required by law. Electronically signed by: Moustapha Aguero M.D. 04/16/2022 8:01 AM
[2022-04-16 08:18] LABS: Estimated Average Glucose 160 mg/dl; Hemoglobin A1C 7.2 % (4.5-5.6)
--- NOTE | 2022-04-16 08:34 | Gastrointestinal Consultation ---
Date of Consultation April 16, 2022 Assessment & Plan (1) Difficulty in swallowing: (2) Esophageal cancer: Plan This is a 72 y/o female with PMhx metastatic esophageal cancer undergoing chemo/radiation treatment, who presented with worsening dysphagia, odynophagia, regurgitation, poor PO intake. Found to have supratherapeutic INR at 6.4. Symptoms suspicious for radiation esophagitis vs related to underlying malignancy, stricture/stenosis. Currently pt resting in bed and appears comfortable; abd soft, nontender. - Case discussed with hospital attending, GI attending, and advanced endoscopist Dr. Mitchell. - Will plan for EGD tomorrow for evaluation of the esophagus. If no significant esophagitis found will evaluate if esophageal stent would be indicated - For now would continue liquid diet as tolerated - Consider IV Pepcid - Consider sucralfate - IVF - Please aim to correct INR to < 2 - Will make NPO after midnight Prior to endoscopic evaluation, we appreciate assistance in the management and correction of vasquez laboratory elements including the following: Please optimize pt's hemoglobin >7, INR <2, platelets >50,000, potassium levels >3.5 but <5.3, and sodium levels within 5 points of the reference range. Thank you for allowing us to participate in the care of this patient. Please call with any acute changes, questions or concerns. Please see addendum below with additional recommendation from my supervising physician. Supervising Physician Co-Signing Physician Notes I saw and evaluated the patient on 04/16/2022w with Tabitha Corbett PA-C and agree with her recommendations and plan of care. 72 y/o F with history of metastatic GEJ esophageal adenocarcinoma discovered in 10/2021 recently finished chemo and radiation, YASMINE, COPD, HLD, HTN, CKD III, DM2, Factor 5 Leiden on coumadin who presented with worsening odynophagia and some dysphagia. reports she has tried PPI, liquid carafate, pepcid, magic mouthwash, and lidocaine without any relief. Significant pain with swallowing which is limiting her ability to eat. She does feel that solids are sticking at times but it is mainly the pain which is limiting her PO intake. Has had some nausea and vomiting. No hematemesis, melena, hematochezia. Physical exam: AAOx3, CTA bilaterally, RRR without murmurs, abdomen soft non- tender non-distended. Will plan for potential EGD tomorrow (INR was 5 today so this will need to be <2 in order to proceed with EGD. Primary is planning to give vitamin K and recheck). If INR not corrected by tomorrow would plan for EGD on Thursday. NPO at midnight. Suspect symptoms are related to radiation esophagitis but also need to rule out infections such as CMV, josselin, etc. Pending outcome of EGD may plan for esophagram to see if esophageal stent would be beneficial but given small tumor size it may not be an option. Discussed with Dr. Valencia with advanced endoscopy. Would use PPI BID, liquid carafate QID, and IV pepcid before bedtime with GI cocktail as needed. Judie Staton DO Gastroenterology and Hepatology History of Present Illness Reason for Consultation: dysphagia, oesophageal cancer Requesting Physician: Dr. Lozano Attending Physician: Essence Perrin MD History of Present Illness This is a 72 y/ female with PMHx T2DM, COPD, history of CVA, h/o intracranial hemorrhage s/p craniotomy 11/2021, Factor V leiden, on Coumadin, CKD III, recently dx'd metastatic esophageal cancer on chemo and radiation tx. She has been having some difficulty swallowing since radiation along with odynophagia and poor appetite, nausea; not able to eat or drink much. Finished 5 cycles of chemo and 28 cycles of radiation last week. Was rx'd Magic Swizzle as OP; it doesn't really help at this point. She has intermittent vomiting as well. Symptoms have worsened and she presented to the hospital yesterday. On arrival labs significant for supratherapeutic INR (5.3 -> today > 6.4), pancytopenia (WBC 2.6, HGB 9.4, PLT 70k). Coumadin is being held. CXR nonacute. She was placed on a liquid diet as IP. She tells me she often has dysphagia along with burning esophageal pain with eating and drinking most things. She often has regurgitation after swallowing liquids/solids, and occasional nausea, vomiting as well. She is able to eat things like ice cream, applesauce but not very much else. She tells me she has lost of a lot of weight. She has chronic loose stools since starting chemo - has between 1-3 loose stools per day. No hematemesis, hematochezia, melena, fever, chills, CP. Has chronic SOB on account of her COPD. She is working on quitting smoking. Denies NSAID, ETOH use. EUS 01/2022: A mass was found in the lower third of the esophagus. This was staged T3 N1 Mx by endosonographic criteria. - One malignant lymph node was visualized in the celiac region (level 20). Fine needle aspiration performed. Cytology: Lymph node, celiac, endoscopic fine-needle aspiration: - Metastatic adenocarcinoma EGD 10/2021: - Rule out malignancy, esophageal tumor was found at the gastroesophageal junction. Biopsied. - Normal stomach. - Normal duodenal bulb and second portion of the duodenum. A. Esophagus, mass, biopsy: Invasive poorly differentiated adenocarcinoma with focal signet ring cell feature, see note. Allergies Allergy/AdvReac Type Severity Reaction Status Date / Time iodine Allergy Intermediate ITCHING Verified 04/11/22 08:43 nickel Allergy Intermediate RASH/ITCHIN Verified 04/11/22 08:43 G buspirone Allergy Unknown PT UNSURE Verified 04/11/22 08:43 OF RXN Home Medications Medication Instructions Recorded Confirmed Type atorvastatin 80 mg tablet (Lipitor) 80 mg PO QAM 11/02/21 04/15/22 History carvedilol 12.5 mg tablet 12.5 mg PO BID 11/02/21 04/15/22 History ezetimibe 10 mg tablet (Zetia) 10 mg PO QAM 11/02/21 04/15/22 History gabapentin 300 mg capsule 300 mg PO TID 11/02/21 04/15/22 History hydrocodone 7.5 mg-acetaminophen 1 tab PO Q6 PRN Pain 11/02/21 04/15/22 History 325 mg tablet venlafaxine 150 mg 150 mg PO QAM 11/02/21 04/15/22 History capsule,extended release 24 hr (Effexor XR) aspirin 81 mg tablet,delayed 81 mg PO QAM 01/14/22 04/15/22 History release cholecalciferol (vitamin D3) 25 25 mcg PO QAM 01/14/22 04/15/22 History mcg (1,000 unit) tablet (Vitamin D3) cyanocobalamin (vitamin B-12) 500 500 mcg PO QAM 01/14/22 04/15/22 History mcg tablet docusate sodium 100 mg capsule 100 mg PO BID 01/14/22 04/15/22 History folic acid 800 mcg tablet 0.8 mg PO QAM 01/14/22 04/15/22 History albuterol sulfate 90 mcg/actuation 2 puff inhalation Q6H PRN 02/14/22 04/15/22 History aerosol inhaler Shortness Of Breath Or Wheezing diclofenac sodium 1 % topical gel 2 g topical QID PRN Pain 02/14/22 04/15/22 History (Arthritis Pain (diclofenac)) ipratropium 0.5 mg-albuterol 3 mg 3 ml inhalation Q6H PRN Shortness 02/14/22 04/15/22 History (2.5 mg base)/3 mL nebulization Of Breath Or Wheezing soln levetiracetam 500 mg 1,000 mg PO BID 02/14/22 04/15/22 History tablet,extended release 24 hr (Keppra XR) umeclidinium 62.5 mcg-vilanterol 1 ea inhalation DAILY 02/14/22 04/15/22 History 25 mcg/actuation powdr for inhalation (Anoro Ellipta) sucralfate 1 gram tablet (Carafate) 1 g PO ACHS PRN dysphagia #60 tabs 03/31/22 04/15/22 Rx hydrochlorothiazide 25 mg tablet 12.5 mg PO QAM 04/07/22 04/15/22 History lisinopril 20 mg tablet 20 mg PO UD 04/15/22 04/15/22 History warfarin 2.5 mg tablet 2.5 mg PO DAILY 04/15/22 04/15/22 History Patient History Medical History (Updated 04/15/22 @ 20:17 by Eric Acosta M.D.) Anxiety and depression Carotid artery disease Per 11/2021 Carotid Duplex: 70-99% right ICA stenosis, 50-69% left ICA stenosis - Seen by vascular 12/12/21- 70-99% right ICA stenosis since 12/2019- continuing with surveillance and medical management Chronic kidney disease Chronic rhinitis Cognitive deficit due to old cerebrovascular accident (CVA) COPD (chronic obstructive pulmonary disease) Degenerative disc disease Dyslipidemia Factor 5 Leiden mutation, heterozygous REASON FOR WARARIN RX GERD (gastroesophageal reflux disease) Heart palpitations FOLLOWED BY [facility] Hematoma of brain S/p fall 11/12/21- s/p right occipital craniotomy for minimally invasive evacuation of iintraparenchymal hematoma HTN (hypertension) Hyperlipidemia Meniere disease Migraine On home oxygen therapy 2.5L AT HS Pericardial effusion Seizure BILAT. HAND SHAKING>WAS TOLD WAS SEIZURE ACTIVITY - No hx of seizures per PCP and neurosurgery records- on Keppra for seizure prophylaxis after craniotomy Stomach cancer CURRENT DX>"FOUND MASS DOWN LOWER NEAR ESOPHAGUS" (EGD/BIOPSY AT [facility]) Stroke 2008> RESIDUAL MEMORY ISSUES /MILD WEAKNESS Surgical History Brain bleed 11/12/21>LIFE FLIGHTED TO [place] (EVACUATED BLOOD FROM BRAIN) S/P FELL AND HIT HEAD History of anesthesia reaction SLOW TO WAKE UP SOMETIMES History of carpal tunnel release RT/LEFT History of cataract surgery RT/LEFT History of colonoscopy History of esophagogastroduodenoscopy (EGD) History of hysterectomy History of tooth extraction History of total knee replacement RT/LEFT S/P trigger finger release Family History (Updated 02/14/22 @ 08:25 by Tiffany Kennedy, SHIVANI) Mother Unknown family medical history Father Myocardial infarction Brother , as infant; No problems noted. Son No problems noted. Son No problems noted. Sister No problems noted. Sister No problems noted. Sister H/O brain surgery Sister No problems noted. 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 How many Children do You have: 2 Feels Safe at Home: Yes Safety Concerns: Feels Safe At This Time caffeine: Yes (2 cups/day) during the past year weight has: decreased > 10 lbs Assistive Devices: Cane, Denture - Upper, Denture - Lower, Glasses, Hearing Aid - Bilateral and Oxygen - at Night Review of Systems Review of Systems: All systems reviewed & are unremarkable except as noted in HPI & below Physical Exam Constitutional: well developed (chronically ill ) and comfortable; no acute distress Eyes: Sclera anicteric, no conjunctival injection ENMT: moist mucous membranes, no pallor Neck: trachea midline supple Respiratory: normal respiratory effort, lungs clear to auscultation Cardiovascular: RRR, no murmur, no edema Gastrointestinal (Abdomen): normal bowel sounds, soft, nontender, no hepatosplenomegaly Inspection/Auscultation: abdomen not distended Skin: no rashes, warm and dry Neurologic: alert and oriented x 3, no obvious focal neuro deficit Psychiatric: normal mood and affect Results & Data ([facility]) Vital Signs (Past 12 Hours) Vital Signs Temp Pulse Pulse Pulse Resp BP Pulse Ox 04/16/22 07:54 37.0 C 85 18 137/78 97 04/16/22 07:13 87 04/16/22 03:06 36.8 C 89 18 119/73 98 04/16/22 01:00 91 H 04/15/22 22:28 37.5 C 96 H 18 170/84 H 96 04/15/22 23:20 78 27 H 100 04/15/22 22:40 04/15/22 22:40 37.5 C 96 H 18 170/84 H 96 04/15/22 21:56 94 H O2 Del Method O2 Flow Rate 04/16/22 07:54 Room Air 04/16/22 07:13 04/16/22 03:06 Nasal Cannula 2 04/16/22 01:00 04/15/22 22:28 Room Air 04/15/22 23:20 2.5 04/15/22 22:40 Room Air, Nasal Cannula 2 04/15/22 22:40 Room Air 04/15/22 21:56 Laboratory Results 04/16/22 04/16/22 04/16/22 Range/Units 06:47 06:47 06:47 WBC 2.62 L (4.8-10.8) K/ul RBC 3.23 L (4.20-5.40) M/uL Hgb 9.4 L (12.0-16.0) g/dl Hct 27.7 L (37.0-47.0) % MCV 85.8 (80.0-100.0) fL MCH 29.1 (25.0-34.0) pg MCHC 33.9 (32.0-36.0) g/dL RDW Std Deviation 39.5 (36.4-46.3) fL RDW Coeff of Rony 12.9 (11.5-14.5) % Plt Count 70 L (130-400) K/uL MPV 9.0 L (9.4-12.4) fL Immature Gran % (Auto) 0.4 % Neut % (Auto) 76.6 % Lymph % (Auto) 11.1 % [place] % (Auto) 11.1 % Eos % (Auto) 0.4 % Baso % (Auto) 0.4 % Neut # (Auto) 2.01 (1.40-6.50) K/uL Lymph # (Auto) 0.29 L (1.2-3.4) K/uL [place] # (Auto) 0.29 (0.11-0.59) K/uL Eos # (Auto) 0.01 (0-0.50) K/uL Baso # (Auto) 0.01 (0-0.2) K/uL Immature Gran # (Auto) 0.01 (0.01-0.20) K/uL PT (9.0-12.0) Seconds INR (0.9-1.1) APTT (21.0-31.0) Seconds PTT Ratio Sodium 141 (136-145) mmol/L Potassium 3.4 L (3.5-5.1) mmol/L Chloride 106 (98-107) mmol/L Carbon Dioxide 32 (21-32) mmol/L Anion Gap 3 (3-11) BUN 13 (6-23) mg/dl Creatinine 0.73 (0.6-1.2) mg/dl Est Cr Clr Drug Dosing 69.6 ml/min Est GFR ( Amer) 96.0 ml/min Est GFR (Non-Af Amer) 82.9 ml/min BUN/Creatinine Ratio 17.8 (10-20) Glucose 123 H (70-99(Fasting)) mg/dl Estimat Average Glucose 160 mg/dl Hemoglobin A1c 7.2 H (4.5-5.6) % Calcium 8.9 (8.5-10.1) mg/dl Phosphorus 3.2 (2.5-4.9) mg/dl Magnesium 1.5 L (1.7-2.4) mg/dl Total Bilirubin (0.2-1.0) mg/dl AST (13-39) U/L ALT (7-52) U/L Alkaline Phosphatase (34-104) U/L Total Protein (6.0-8.3) gm/dl Albumin (3.4-5.0) gm/dl Globulin (2.5-4.0) gm/dl Albumin/Globulin Ratio (0.9-2) Urine Color Urine Appearance (Clear) Urine pH (4.5-7.5) Ur Specific [place] (1.000-1.030) Urine Protein (Negative) Urine Glucose (UA) (Negative) Urine Ketones (Negative) Urine Blood (Negative) Urine Nitrite (Negative) Urine Bilirubin (Negative) Urine Urobilinogen (Negative) Ur Leukocyte Esterase (Negative) Urine WBC (Auto) (0-5) /hpf Urine RBC (Auto) (0-4) /hpf U Hyaline Cast (Auto) (0-5) /lpf U Epithel Cells (Auto) (0-5) /lpf Urine Bacteria (Auto) (Negative) SARS-CoV-2, RNA, NAAT (NEGATIVE) 04/16/22 04/15/22 04/15/22 Range/Units 06:47 Unknown 19:40 WBC (4.8-10.8) K/ul RBC (4.20-5.40) M/uL Hgb (12.0-16.0) g/dl Hct (37.0-47.0) % MCV (80.0-100.0) fL MCH (25.0-34.0) pg MCHC (32.0-36.0) g/dL RDW Std Deviation (36.4-46.3) fL RDW Coeff of Rony (11.5-14.5) % Plt Count (130-400) K/uL MPV (9.4-12.4) fL Immature Gran % (Auto) % Neut % (Auto) % Lymph % (Auto) % [place] % (Auto) % Eos % (Auto) % Baso % (Auto) % Neut # (Auto) (1.40-6.50) K/uL Lymph # (Auto) (1.2-3.4) K/uL [place] # (Auto) (0.11-0.59) K/uL Eos # (Auto) (0-0.50) K/uL Baso # (Auto) (0-0.2) K/uL Immature Gran # (Auto) (0.01-0.20) K/uL PT 61.9 H (9.0-12.0) Seconds INR 6.4 H* (0.9-1.1) APTT (21.0-31.0) Seconds PTT Ratio Sodium (136-145) mmol/L Potassium (3.5-5.1) mmol/L Chloride (98-107) mmol/L Carbon Dioxide (21-32) mmol/L Anion Gap (3-11) BUN (6-23) mg/dl Creatinine (0.6-1.2) mg/dl Est Cr Clr Drug Dosing ml/min Est GFR ( Amer) ml/min Est GFR (Non-Af Amer) ml/min BUN/Creatinine Ratio (10-20) Glucose (70-99(Fasting)) mg/dl Estimat Average Glucose mg/dl Hemoglobin A1c (4.5-5.6) % Calcium (8.5-10.1) mg/dl Phosphorus (2.5-4.9) mg/dl Magnesium (1.7-2.4) mg/dl Total Bilirubin (0.2-1.0) mg/dl AST (13-39) U/L ALT (7-52) U/L Alkaline Phosphatase (34-104) U/L Total Protein (6.0-8.3) gm/dl Albumin (3.4-5.0) gm/dl Globulin (2.5-4.0) gm/dl Albumin/Globulin Ratio (0.9-2) Urine Color Yellow Urine Appearance Clear (Clear) Urine pH 7.5 (4.5-7.5) Ur Specific [place] 1.022 (1.000-1.030) Urine Protein Trace H (Negative) Urine Glucose (UA) Negative (Negative) Urine Ketones Trace H (Negative) Urine Blood 2+ H (Negative) Urine Nitrite Negative (Negative) Urine Bilirubin Negative (Negative) Urine Urobilinogen Negative (Negative) Ur Leukocyte Esterase Trace H (Negative) Urine WBC (Auto) 5-10 H (0-5) /hpf Urine RBC (Auto) >30 H (0-4) /hpf U Hyaline Cast (Auto) 1-5 (0-5) /lpf U Epithel Cells (Auto) >30 H (0-5) /lpf Urine Bacteria (Auto) Negative (Negative) SARS-CoV-2, RNA, NAAT NEGATIVE (NEGATIVE) 04/15/22 04/15/22 04/15/22 Range/Units 17:08 17:08 17:08 WBC 2.81 L (4.8-10.8) K/ul RBC 3.47 L (4.20-5.40) M/uL Hgb 10.1 L (12.0-16.0) g/dl Hct 29.1 L (37.0-47.0) % MCV 83.9 (80.0-100.0) fL MCH 29.1 (25.0-34.0) pg MCHC 34.7 (32.0-36.0) g/dL RDW Std Deviation 38.7 (36.4-46.3) fL RDW Coeff of Rony 12.9 (11.5-14.5) % Plt Count 75 L (130-400) K/uL MPV 9.9 (9.4-12.4) fL Immature Gran % (Auto) 0.4 % Neut % (Auto) 81.4 % Lymph % (Auto) 7.1 % [place] % (Auto) 9.6 % Eos % (Auto) 1.1 % Baso % (Auto) 0.4 % Neut # (Auto) 2.29 (1.40-6.50) K/uL Lymph # (Auto) 0.20 L (1.2-3.4) K/uL [place] # (Auto) 0.27 (0.11-0.59) K/uL Eos # (Auto) 0.03 (0-0.50) K/uL Baso # (Auto) 0.01 (0-0.2) K/uL Immature Gran # (Auto) 0.01 (0.01-0.20) K/uL PT 51.3 H (9.0-12.0) Seconds INR 5.3 H (0.9-1.1) APTT 52.7 H* (21.0-31.0) Seconds PTT Ratio 1.9 Sodium 140 (136-145) mmol/L Potassium 3.5 (3.5-5.1) mmol/L Chloride 104 (98-107) mmol/L Carbon Dioxide 29 (21-32) mmol/L Anion Gap 7 (3-11) BUN 17 (6-23) mg/dl Creatinine 0.86 (0.6-1.2) mg/dl Est Cr Clr Drug Dosing 61.5 ml/min Est GFR ( Amer) 78.8 ml/min Est GFR (Non-Af Amer) 68.0 ml/min BUN/Creatinine Ratio 19.8 (10-20) Glucose 117 H (70-99(Fasting)) mg/dl Estimat Average Glucose mg/dl Hemoglobin A1c (4.5-5.6) % Calcium 9.1 (8.5-10.1) mg/dl Phosphorus (2.5-4.9) mg/dl Magnesium 1.6 L (1.7-2.4) mg/dl Total Bilirubin 0.4 (0.2-1.0) mg/dl AST 9 L (13-39) U/L ALT 12 (7-52) U/L Alkaline Phosphatase 42 (34-104) U/L Total Protein 6.4 (6.0-8.3) gm/dl Albumin 3.8 (3.4-5.0) gm/dl Globulin 2.6 (2.5-4.0) gm/dl Albumin/Globulin Ratio 1.5 (0.9-2) Urine Color Urine Appearance (Clear) Urine pH (4.5-7.5) Ur Specific [place] (1.000-1.030) Urine Protein (Negative) Urine Glucose (UA) (Negative) Urine Ketones (Negative) Urine Blood (Negative) Urine Nitrite (Negative) Urine Bilirubin (Negative) Urine Urobilinogen (Negative) Ur Leukocyte Esterase (Negative) Urine WBC (Auto) (0-5) /hpf Urine RBC (Auto) (0-4) /hpf U Hyaline Cast (Auto) (0-5) /lpf U Epithel Cells (Auto) (0-5) /lpf Urine Bacteria (Auto) (Negative) SARS-CoV-2, RNA, NAAT (NEGATIVE) Diagnostic Findings CXR: FINDINGS: No lines and tubes are seen. Calcified aortic knob is seen. The lungs are clear. No evidence of pleural effusion or pneumothorax. (1) Difficulty in swallowing Dysphagia type: esophageal phase Qualified Code(s): R13.19 - Other dysphagia (2) Esophageal cancer Malignant neoplasm of esophagus location: unspecified location Qualified Code(s): C15.9 - Malignant neoplasm of esophagus, unspecified
[2022-04-16] MEDS: CHLORASEPTIC 1.4% SOLN 180 ML BTL MT PRN ×2 (09:00→16:45)
[2022-04-16] MEDS ORDERED: ENOXAPARIN INJ 40 MG/0.4 ML SYR SQ SCH (09:00)
[2022-04-16] MEDS: ATORVASTATIN 40 MG TAB PO SCH (09:38)
[2022-04-16] MEDS: carvediloL 12.5 MG TAB PO SCH ×2 (09:38→20:16)
[2022-04-16] MEDS: CYANOCOBALAMIN (B-12) 500 MCG TABLET PO SCH (09:38)
[2022-04-16] MEDS: EZETIMIBE 10 MG TABLET PO SCH (09:38)
[2022-04-16] MEDS: DOCUSATE SODIUM 100 MG CAP PO SCH ×2 (09:38→20:16)
[2022-04-16] MEDS: FOLIC ACID 400 MCG TAB PO SCH (09:38)
[2022-04-16] MEDS: GABAPENTIN 300 MG CAP PO SCH ×3 (09:38→20:16)
[2022-04-16] MEDS: ASPIRIN 81 MG ECTAB PO SCH (09:38)
[2022-04-16] MEDS: VENLAFAXINE HCL XR 150 MG CAPXR PO SCH (09:38)
[2022-04-16] MEDS: CHOLECALCIFEROL 1,000 UNITS 25 MCG TAB PO SCH (09:38)
[2022-04-16] MEDS: UMECLIDINIUM/VILANTEROL 62.5/25MCG 7 PUFFS/INHALER INH SCH (09:38)
[2022-04-16] MEDS: D5W AND NSS 1,000 ML IV SCH (10:52)
--- NOTE | 2022-04-16 18:08 | Hospitalist Progress Note ---
Date of Service April 16, 2022 Assessment & Plan (1) Difficulty in swallowing: (2) Odynophagia: Plan 72-year-old female with esophageal cancer, ongoing chemoradiation, presents with poor appetite due to painfull difficulty swallowing Might be related to radiation esophagitis Continue IV Pepcid and sucralfate Chloraseptic added for symptoms management Gastro on board Case discussed with GI plan for EGD tomorrow if INR below 2 We will make n.p.o. after midnight Esophageal cancer, lower third. Status post chemo and radiation. Further management as per hem/onc. History of factor V Leiden mutation hx of CVA on Coumadin. INR is 6.4 today Continue to hold Coumadin We will give vitamin K since patient is scheduled to for EGD tomorrow and GI recommended INR to be below 2 Continue monitor PT/INR Supratherapeutic INR No sign of active bleeding INR 6.4 Vitamin K 5 mg x 1 given Hold Coumadin Continue monitor PT/INR Pancytopenia Most likely from chemo. Platelets 70 and WBC 2.6 today no active bleeding Continue monitor PT/INR History of hypertension. BP fluctuated Will resume BP meds Continue monitor BP History of fall and resulted in intraparenchymal hemorrhage in brain in November 2021 status post craniotomy continue Keppra for seizure prophylaxis. History of atherosclerotic carotid disease. Following with vascular surgery. Chronic obstructive pulmonary disease. Counseling on tobacco cessation Continue home inhaler. History of obstructive sleep apnea with nocturnal hypoxia. Most recent globin A1c 7.2 CPAP with 2 L of oxygen at nighttime. Type 2 diabetes. Most recent hemoglobin A1c 7.2 currently not on medication. Continue monitor blood sugar Anxiety Depression Fibromyalgia. Continue home medications. Deep venous thrombosis prophylaxis: INR is supratherapeutic. Code status Full code Disposition Plan for EGD tomorrow we will discharge once medically stable Admission and Anticipated Discharge Date Admission Date: April 15, 2022 Subjective Patient was seen and evaluated for follow-up sore throat and epigastric tenderness Lying in bed with no acute distress Patient states he has dysphagia due to the pain Denies any chest pain, palpitation, dizziness, shortness of breath. Review of Systems Review of Systems: All systems reviewed & are unremarkable except as noted in Subjective Physical Exam Physical Exam: General- No acute distress Head- atraumatic Eyes- PERRL, EOMI, ENT- oropharynx clear Neck- supple, no JVD Lungs- clear to auscultation Heart- regular rhythm; no murmur Abdomen- normal bowel sounds, soft, nontender Extremities- no calf tenderness Neuro- alert, oriented x 3; PERRL, EOMI; no facial palsy; no dysarthria Skin- warm & dry today tolerated well supported then will call Results & Data Results & Data ([facility]) Vital Signs (Past 12 Hours) Vital Signs Temp Pulse Pulse Resp BP Pulse Ox O2 Del Method 04/16/22 16:46 89 04/16/22 15:18 36.9 C 84 18 153/76 H 99 Room Air 04/16/22 11:20 36.7 C 87 18 154/88 H 95 Room Air 04/16/22 10:54 Room Air 04/16/22 07:54 37.0 C 85 18 137/78 97 Room Air 04/16/22 07:13 87 (1) Difficulty in swallowing Dysphagia type: esophageal phase Qualified Code(s): R13.19 - Other dysphagia
[2022-04-16] MEDS ORDERED: PHYTONADIONE 5 MG TAB PO ONE (20:00)
[2022-04-16] MEDS: PANTOprazole 40 MG in SYRINGE 0 ML IV SCH (20:20)
[2022-04-16] MEDS: FAMOTIDINE 20 MG in SYRINGE 3 ML IV SCH (20:20)
[2022-04-16] MEDS ORDERED: MAGNESIUM SULFATE / D5W 1 GM/100 ML BAG IV ONE (21:15)
[2022-04-16] MEDS: ONDANSETRON INJ 2 MG/ML 2 ML VIAL IV PRN (22:44)
[2022-04-16] MEDS: NICOTINE 21 MG/24 HR TDSY TD SCH (23:32)
[2022-04-17] MEDS: D5W AND NSS 1,000 ML IV SCH ×2 (00:16→12:58)
[2022-04-17] MEDS: KEPPRA XR~ORDER AWAITING ACTION SCH ×3 (01:34→15:27)
--- NOTE | 2022-04-17 05:50 | Electrocardiogram Report ---
Test Reason : Blood Pressure : / mmHG Vent. Rate : 102 BPM Atrial Rate : 102 BPM P-R Int : 146 ms QRS Dur : 080 ms QT Int : 358 ms P-R-T Axes : 056 011 052 degrees QTc Int : 466 ms Sinus tachycardia Otherwise normal ECG When compared with ECG of 12-NOV-2021 09:58, Aberrant conduction is no longer Present Confirmed by Jose Valladares ([id number]) on 04/17/2022 5:49:31 AM Referred By: REFERRED SELF Confirmed By:Jose Valladares
[2022-04-17 09:08] LABS: BUN Creatinine Ratio 11.6 (10-20); Calcium 8.1 mg/dl (8.5-10.1); Est GFR (African American) 101.5 ml/min; Est GFR (Non-African American) 87.6 ml/min; Magnesium 1.5 mg/dl (1.7-2.4); Potassium 2.9 mmol/L (3.5-5.1)
[2022-04-17 09:16] LABS: INR 1.9 (0.9-1.1); Prothrombin Time 19.4 Seconds (9.0-12.0)
[2022-04-17 09:17] LABS: Hematocrit (blood only) 24.4 % (37.0-47.0); Hemoglobin 8.4 g/dl (12.0-16.0); Mean Corpuscular Hemoglobin 29.3 pg (25.0-34.0); Mean Corpuscular Hgb Conc 34.4 g/dL (32.0-36.0); Mean Platelet Volume 9.2 fL (9.4-12.4); Platelet Count 60 K/uL (130-400); RDW Coefficient of Variation 13.1 % (11.5-14.5); RDW Standard Deviation 39.5 fL (36.4-46.3); Red Blood Count 2.87 M/uL (4.20-5.40); White Blood Count 2.26 K/ul (4.8-10.8)
--- NOTE | 2022-04-17 10:25 | Hospitalist Progress Note ---
Date of Service April 17, 2022 Assessment & Plan (1) Difficulty in swallowing: (2) Odynophagia: Plan 72-year-old female with esophageal cancer, ongoing chemoradiation, presents with poor appetite due to painfull difficulty swallowing Might be related to radiation esophagitis Continue IV Pepcid, sucralfate and Chloraseptic Gastro on board Case discussed with GI plan for EGD today since INR 1.9 Keep NPO for now for the EGD Esophageal cancer, lower third. Status post chemo and radiation. Further management as per hem/onc. History of factor V Leiden mutation hx of CVA on Coumadin. INR is 1.9 today after given Vit K last night Continue to hold Coumadin, will resume after the procedure today We will give vitamin K since patient is scheduled to for EGD tomorrow and GI recommended INR to be below 2 Continue monitor PT/INR Supratherapeutic INR No sign of active bleeding Vitamin K 5 mg x 1 given yesterday INR 1.9, will resume coumadin today Continue monitor PT/INR Pancytopenia Most likely from chemo. Platelets 60 and WBC 2.6 today no active bleeding Continue monitor PT/INR Electrolytes imbalance Potassium 2.9 and Mg 1.5 electrolytes replaced Continue monitor BMP History of hypertension. BP fluctuated Will resume BP meds Continue monitor BP History of fall and resulted in intraparenchymal hemorrhage in brain in November 2021 status post craniotomy continue Keppra for seizure prophylaxis. History of atherosclerotic carotid disease. Following with vascular surgery. Chronic obstructive pulmonary disease. Counseling on tobacco cessation Continue home inhaler. History of obstructive sleep apnea with nocturnal hypoxia. ContinueCPAP with 2 L of oxygen at nighttime. Type 2 diabetes. Most recent hemoglobin A1c 7.2 currently not on medication. Continue monitor blood sugar Anxiety Depression Fibromyalgia. Continue home medications. Deep venous thrombosis prophylaxis: INR 1.9 Will resume coumadin today Code status Full code Disposition Plan for EGD today we will discharge once medically stable Admission and Anticipated Discharge Date Admission Date: April 15, 2022 Subjective Patient was seen and evaluated for follow-up sore throat and epigastric tenderness Lying in bed with no acute distress Pt said that she is getting hungry She is scheduled to go for EGD today Denies any chest pain, palpitation, dizziness, shortness of breath. Review of Systems Review of Systems: All systems reviewed & are unremarkable except as noted in Subjective Physical Exam Physical Exam: General- No acute distress Head- atraumatic Eyes- PERRL, EOMI, ENT- oropharynx clear Neck- supple, no JVD Lungs- clear to auscultation Heart- regular rhythm; no murmur Abdomen- normal bowel sounds, soft, nontender Extremities- no calf tenderness Neuro- alert, oriented x 3; PERRL, EOMI; no facial palsy; no dysarthria Skin- warm & dry today tolerated well supported then will call Results & Data Results & Data ([facility]) Vital Signs (Past 12 Hours) Vital Signs Temp Pulse Pulse Resp BP BP Pulse Ox 04/17/22 07:44 36.8 C 65 18 157/79 H 92 04/17/22 02:50 37.1 C 88 18 162/78 H 98 04/17/22 00:00 91 H 04/16/22 23:10 04/16/22 22:56 37.1 C 87 18 164/88 H 98 O2 Del Method O2 Flow Rate 04/17/22 07:44 Room Air 04/17/22 02:50 Nasal Cannula 2 04/17/22 00:00 04/16/22 23:10 Room Air, Nasal Cannula 2 04/16/22 22:56 Nasal Cannula 2 (1) Difficulty in swallowing Dysphagia type: esophageal phase Qualified Code(s): R13.19 - Other dysphagia
--- NOTE | 2022-04-17 10:28 | History & Physical Report ---
Date of Service April 17, 2022 Assessment & Plan (1) Odynophagia: Plan: Proceed with planned EGD. Admission and Anticipated Discharge Date Admission Date: April 15, 2022 History of Present Illness Chief Complaint: here today for EGD. Primary Care Provider: Dre Cagle MD 72 y/o female with PMhx metastatic esophageal cancer undergoing chemo/radiation treatment, who presented with worsening dysphagia, odynophagia, regurgitation, poor PO intake.Planning for EGD today for further evaluation. Allergies Allergy/AdvReac Type Severity Reaction Status Date / Time iodine Allergy Intermediate ITCHING Verified 04/11/22 08:43 nickel Allergy Intermediate RASH/ITCHIN Verified 04/11/22 08:43 G buspirone Allergy Unknown PT UNSURE Verified 04/11/22 08:43 OF RXN Home Medications Medication Instructions Recorded Confirmed Type atorvastatin 80 mg tablet (Lipitor) 80 mg PO QAM 11/02/21 04/15/22 History carvedilol 12.5 mg tablet 12.5 mg PO BID 11/02/21 04/15/22 History ezetimibe 10 mg tablet (Zetia) 10 mg PO QAM 11/02/21 04/15/22 History gabapentin 300 mg capsule 300 mg PO TID 11/02/21 04/15/22 History hydrocodone 7.5 mg-acetaminophen 1 tab PO Q6 PRN Pain 11/02/21 04/15/22 History 325 mg tablet venlafaxine 150 mg 150 mg PO QAM 11/02/21 04/15/22 History capsule,extended release 24 hr (Effexor XR) aspirin 81 mg tablet,delayed 81 mg PO QAM 01/14/22 04/15/22 History release cholecalciferol (vitamin D3) 25 25 mcg PO QAM 01/14/22 04/15/22 History mcg (1,000 unit) tablet (Vitamin D3) cyanocobalamin (vitamin B-12) 500 500 mcg PO QAM 01/14/22 04/15/22 History mcg tablet docusate sodium 100 mg capsule 100 mg PO BID 01/14/22 04/15/22 History folic acid 800 mcg tablet 0.8 mg PO QAM 01/14/22 04/15/22 History albuterol sulfate 90 mcg/actuation 2 puff inhalation Q6H PRN 02/14/22 04/15/22 History aerosol inhaler Shortness Of Breath Or Wheezing diclofenac sodium 1 % topical gel 2 g topical QID PRN Pain 02/14/22 04/15/22 History (Arthritis Pain (diclofenac)) ipratropium 0.5 mg-albuterol 3 mg 3 ml inhalation Q6H PRN Shortness 02/14/22 04/15/22 History (2.5 mg base)/3 mL nebulization Of Breath Or Wheezing soln levetiracetam 500 mg 1,000 mg PO BID 02/14/22 04/15/22 History tablet,extended release 24 hr (Keppra XR) umeclidinium 62.5 mcg-vilanterol 1 ea inhalation DAILY 02/14/22 04/15/22 History 25 mcg/actuation powdr for inhalation (Anoro Ellipta) sucralfate 1 gram tablet (Carafate) 1 g PO ACHS PRN dysphagia #60 tabs 03/31/22 04/15/22 Rx hydrochlorothiazide 25 mg tablet 12.5 mg PO QAM 04/07/22 04/15/22 History lisinopril 20 mg tablet 20 mg PO UD 04/15/22 04/15/22 History warfarin 2.5 mg tablet 2.5 mg PO DAILY 04/15/22 04/15/22 History Past Med/Surg History Medical History Anxiety and depression Carotid artery disease Per 11/2021 Carotid Duplex: 70-99% right ICA stenosis, 50-69% left ICA stenosis - Seen by vascular 12/12/21- 70-99% right ICA stenosis since 12/2019- continuing with surveillance and medical management Chronic kidney disease Chronic rhinitis Cognitive deficit due to old cerebrovascular accident (CVA) COPD (chronic obstructive pulmonary disease) Degenerative disc disease Dyslipidemia Factor 5 Leiden mutation, heterozygous REASON FOR WARARIN RX GERD (gastroesophageal reflux disease) Heart palpitations FOLLOWED BY [facility] Hematoma of brain S/p fall 11/12/21- s/p right occipital craniotomy for minimally invasive evacuation of iintraparenchymal hematoma HTN (hypertension) Hyperlipidemia Meniere disease Migraine On home oxygen therapy 2.5L AT HS Pericardial effusion Seizure BILAT. HAND SHAKING>WAS TOLD WAS SEIZURE ACTIVITY - No hx of seizures per PCP and neurosurgery records- on Keppra for seizure prophylaxis after craniotomy Stomach cancer CURRENT DX>"FOUND MASS DOWN LOWER NEAR ESOPHAGUS" (EGD/BIOPSY AT [facility]) Stroke 2008> RESIDUAL MEMORY ISSUES /MILD WEAKNESS Surgical History Brain bleed 11/12/21>LIFE FLIGHT[place] (EVACUATED BLOOD FROM BRAIN) S/P FELL AND HIT HEAD History of anesthesia reaction SLOW TO WAKE UP SOMETIMES History of carpal tunnel release RT/LEFT History of cataract surgery RT/LEFT History of colonoscopy History of esophagogastroduodenoscopy (EGD) History of hysterectomy History of tooth extraction History of total knee replacement RT/LEFT S/P trigger finger release Family History Mother Unknown family medical history Father Myocardial infarction Brother , as infant; No problems noted. Son No problems noted. Son No problems noted. Sister No problems noted. Sister No problems noted. Sister H/O brain surgery Sister No problems noted. 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 How many Children do You have: 2 Feels Safe at Home: Yes Safety Concerns: Feels Safe At This Time caffeine: Yes (2 cups/day) during the past year weight has: decreased > 10 lbs Assistive Devices: Cane and Glasses Review of Systems All systems reviewed & are unremarkable except as noted in HPI & below Physical Exam Constitutional: WD/WN, vitals as above Respiratory: normal respiratory effort, lungs clear to auscultation Cardiovascular: RRR, no murmur, no edema Gastrointestinal (Abdomen): normal bowel sounds, soft, nontender, no hepatosplenomegaly Psychiatric: A+Ox3, euthymic affect Results & Data ([place]) Vital Signs (Past 12 Hours) Vital Signs Temp Pulse Pulse Resp BP BP Pulse Ox 04/17/22 07:44 36.8 C 65 18 157/79 H 92 04/17/22 02:50 37.1 C 88 18 162/78 H 98 04/17/22 00:00 91 H 04/16/22 23:10 04/16/22 22:56 37.1 C 87 18 164/88 H 98 O2 Del Method O2 Flow Rate 04/17/22 07:44 Room Air 04/17/22 02:50 Nasal Cannula 2 04/17/22 00:00 04/16/22 23:10 Room Air, Nasal Cannula 2 04/16/22 22:56 Nasal Cannula 2 Code Status & VTE Plan VTE Prophylaxis Plan VTE Prophylaxis will be ordered: Yes
[2022-04-17] MEDS ORDERED: MAGNESIUM SULFATE / D5W 1 GM/100 ML BAG IV ONE (10:33)
--- NOTE | 2022-04-17 10:34 | Radiation OncologyConsultation ---
Date of Consultation April 17, 2022 Assessment & Plan (1) Esophageal cancer: Patient has completed chemoradiation therapy 1 week ago. Malignant neoplasm of esophagus location: unspecified location Qualified Code(s): C15.9 - Malignant neoplasm of esophagus, unspecified Present on Admission?: Yes (2) Odynophagia: Continue conservative management. Agree with sucralfate, IV Pepcid. Patient will proceed with EGD tomorrow. We will continue to follow. History of Present Illness Reason for Consultation: Odynophagia Requesting Physician: Essence Perrin MD Attending Physician: Essence Perrin MD History of Present Illness Weight loss and dysphagia for several months. 10/24/2021. Upper EUS, upper GI endoscopy and biopsy. Finding of esophageal lesion and celiac lymph node. Invasive poorly differentiated adenocarcinoma with focal signet ring features (Dr. Mitchell) 11/02/2021. Fall with head trauma. ER evaluation and finding of intracranial hemorrhage. 11/12/2021. Right occipital craniotomy for minimally invasive evacuation of intraparenchymal hematoma. 12/26/2021. PET/CT. No evidence of FDG avidity in the left upper lobe pulmonary nodule which appears stable dating back to 09/23/2017. Markedly hypermetabolic distal esophageal mass. Right posterior parietal craniotomy and hematoma evacuation with expected postsurgical changes and question of postsurgical change versus recent trauma to the superficial tissues. 01/17/2022. Upper EUS. Mass found in the lower third of the esophagus. T3N1. FNA of celiac lymph node. Metastatic adenocarcinoma. (Dr. Mitchell.) T3N1 adenocarcinoma of the esophagus. 02/05/2022. Medical oncology consultation. Recommendation for combined radiation and chemotherapy. Chemotherapy comprised of paclitaxel and carboplatin. (Dr. Thom Olivas) 04/11/2022: Patient completed chemoradiation therapy. She received a total dose of 50.4 Gy Ms. Ayala is now admitted for continued severe odynophagia. She is unable to tolerate solid foods. Despite conservative management, her symptoms continued to progress. She is now admitted for further work-up and management. EGD is scheduled for 04/18/2022. Allergies Allergy/AdvReac Type Severity Reaction Status Date / Time iodine Allergy Intermediate ITCHING Verified 04/11/22 08:43 nickel Allergy Intermediate RASH/ITCHIN Verified 04/11/22 08:43 G buspirone Allergy Unknown PT UNSURE Verified 04/11/22 08:43 OF RXN Home Medications Medication Instructions Recorded Confirmed Type atorvastatin 80 mg tablet (Lipitor) 80 mg PO QAM 11/02/21 04/15/22 History carvedilol 12.5 mg tablet 12.5 mg PO BID 11/02/21 04/15/22 History ezetimibe 10 mg tablet (Zetia) 10 mg PO QAM 11/02/21 04/15/22 History gabapentin 300 mg capsule 300 mg PO TID 11/02/21 04/15/22 History hydrocodone 7.5 mg-acetaminophen 1 tab PO Q6 PRN Pain 11/02/21 04/15/22 History 325 mg tablet venlafaxine 150 mg 150 mg PO QAM 11/02/21 04/15/22 History capsule,extended release 24 hr (Effexor XR) aspirin 81 mg tablet,delayed 81 mg PO QAM 01/14/22 04/15/22 History release cholecalciferol (vitamin D3) 25 25 mcg PO QAM 01/14/22 04/15/22 History mcg (1,000 unit) tablet (Vitamin D3) cyanocobalamin (vitamin B-12) 500 500 mcg PO QAM 01/14/22 04/15/22 History mcg tablet docusate sodium 100 mg capsule 100 mg PO BID 01/14/22 04/15/22 History folic acid 800 mcg tablet 0.8 mg PO QAM 01/14/22 04/15/22 History albuterol sulfate 90 mcg/actuation 2 puff inhalation Q6H PRN 02/14/22 04/15/22 History aerosol inhaler Shortness Of Breath Or Wheezing diclofenac sodium 1 % topical gel 2 g topical QID PRN Pain 02/14/22 04/15/22 History (Arthritis Pain (diclofenac)) ipratropium 0.5 mg-albuterol 3 mg 3 ml inhalation Q6H PRN Shortness 02/14/22 04/15/22 History (2.5 mg base)/3 mL nebulization Of Breath Or Wheezing soln levetiracetam 500 mg 1,000 mg PO BID 02/14/22 04/15/22 History tablet,extended release 24 hr (Keppra XR) umeclidinium 62.5 mcg-vilanterol 1 ea inhalation DAILY 02/14/22 04/15/22 History 25 mcg/actuation powdr for inhalation (Anoro Ellipta) sucralfate 1 gram tablet (Carafate) 1 g PO ACHS PRN dysphagia #60 tabs 03/31/22 04/15/22 Rx hydrochlorothiazide 25 mg tablet 12.5 mg PO QAM 04/07/22 04/15/22 History lisinopril 20 mg tablet 20 mg PO UD 04/15/22 04/15/22 History warfarin 2.5 mg tablet 2.5 mg PO DAILY 04/15/22 04/15/22 History Patient History Medical History Anxiety and depression Carotid artery disease Per 11/2021 Carotid Duplex: 70-99% right ICA stenosis, 50-69% left ICA stenosis - Seen by vascular 12/12/21- 70-99% right ICA stenosis since 12/2019- continuing with surveillance and medical management Chronic kidney disease Chronic rhinitis Cognitive deficit due to old cerebrovascular accident (CVA) COPD (chronic obstructive pulmonary disease) Degenerative disc disease Dyslipidemia Factor 5 Leiden mutation, heterozygous REASON FOR WARARIN RX GERD (gastroesophageal reflux disease) Heart palpitations FOLLOWED BY [facility] Hematoma of brain S/p fall 11/12/21- s/p right occipital craniotomy for minimally invasive evacuation of iintraparenchymal hematoma HTN (hypertension) Hyperlipidemia Meniere disease Migraine On home oxygen therapy 2.5L AT HS Pericardial effusion Seizure BILAT. HAND SHAKING>WAS TOLD WAS SEIZURE ACTIVITY - No hx of seizures per PCP and neurosurgery records- on Keppra for seizure prophylaxis after craniotomy Stomach cancer CURRENT DX>"FOUND MASS DOWN LOWER NEAR ESOPHAGUS" (EGD/BIOPSY AT [facility]) Stroke 2008> RESIDUAL MEMORY ISSUES /MILD WEAKNESS Surgical History Brain bleed 11/12/21>LIFE FLIGHTED TO [place] (EVACUATED BLOOD FROM BRAIN) S/P FELL AND HIT HEAD History of anesthesia reaction SLOW TO WAKE UP SOMETIMES History of carpal tunnel release RT/LEFT History of cataract surgery RT/LEFT History of colonoscopy History of esophagogastroduodenoscopy (EGD) History of hysterectomy History of tooth extraction History of total knee replacement RT/LEFT S/P trigger finger release Family History Mother Unknown family medical history Father Myocardial infarction Brother , as ; No problems noted. Son No problems noted. Son No problems noted. Sister No problems noted. Sister No problems noted. Sister H/O brain surgery Sister No problems noted. 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 How many Children do You have: 2 Feels Safe at Home: Yes Safety Concerns: Feels Safe At This Time caffeine: Yes (2 cups/day) during the past year weight has: decreased > 10 lbs Assistive Devices: Cane and Glasses Review of Systems Review of Systems: All systems reviewed & are unremarkable except as noted in HPI & below Physical Exam Constitutional: WD/WN, vitals as above Eyes: PERRL, conjunctivae normal, anicteric sclerae ENMT: Ears: + hearing impairment Respiratory: normal respiratory effort, lungs clear to auscultation Cardiovascular: Heart Sounds: normal S1 and normal S2 Gastrointestinal (Abdomen): normal bowel sounds, soft, nontender, no hepatosplenomegaly Psychiatric: Orientation: alert and oriented x 3 Time Spent Attending I spent 10 minutes in preparation for this consultation including reviewing all the clinical records, reviewing laboratory studies, pathology reports and imaging results. I spent 20 minutes with direct face to face interaction with the patient and/or family including performing a physical exam and answering all questions. I spent 10 minutes documenting this patient's visit.
--- NOTE | 2022-04-17 10:35 | Anesthesiology Consultation ---
Date of Service April 17, 2022 Assessment & Plan Chart Review Chart Review: Acceptable Risk for Surgery and Patient NOT seen in Pre Admission Testing Consults Requested none ASA ASA3 Proposed Anesthesia Anesthesia Type: MAC Risk / Benefits Reviewed With: PT / POA / Parent / Guardian, Accepts Plan and Informed Consent Obtained History Surgery Operation Date: 04/17/22 16:00 Proposed Procedures p Esophagogastroduodenoscopy Shemar Staton, Height/Weight Height: 5 ft 2 in Weight: 81.5 kg Allergies Allergy/AdvReac Type Severity Reaction Status Date / Time iodine Allergy Intermediate ITCHING Verified 04/11/22 08:43 nickel Allergy Intermediate RASH/ITCHIN Verified 04/11/22 08:43 G buspirone Allergy Unknown PT UNSURE Verified 04/11/22 08:43 OF RXN Medications Home Medications Medication Instructions Recorded Confirmed Last Taken atorvastatin 80 mg tablet (Lipitor) 80 mg PO QAM 11/02/21 04/15/22 01/16/22 08:00 carvedilol 12.5 mg tablet 12.5 mg PO BID 11/02/21 04/15/22 01/16/22 04:30 ezetimibe 10 mg tablet (Zetia) 10 mg PO QAM 11/02/21 04/15/22 01/16/22 08:00 gabapentin 300 mg capsule 300 mg PO TID 11/02/21 04/15/22 01/17/22 04:30 hydrocodone 7.5 mg-acetaminophen 1 tab PO Q6 PRN Pain 11/02/21 04/15/22 01/16/22 12:00 325 mg tablet venlafaxine 150 mg 150 mg PO QAM 11/02/21 04/15/22 01/16/22 capsule,extended release 24 hr (Effexor XR) aspirin 81 mg tablet,delayed 81 mg PO QAM 01/14/22 04/15/22 01/16/22 08:00 release cholecalciferol (vitamin D3) 25 25 mcg PO QAM 01/14/22 04/15/22 01/16/22 08:00 mcg (1,000 unit) tablet (Vitamin D3) cyanocobalamin (vitamin B-12) 500 500 mcg PO QAM 01/14/22 04/15/22 01/16/22 08:00 mcg tablet docusate sodium 100 mg capsule 100 mg PO BID 01/14/22 04/15/22 01/16/22 20:00 folic acid 800 mcg tablet 0.8 mg PO QAM 01/14/22 04/15/22 01/16/22 08:00 albuterol sulfate 90 mcg/actuation 2 puff inhalation Q6H PRN 02/14/22 04/15/22 Unknown aerosol inhaler Shortness Of Breath Or Wheezing diclofenac sodium 1 % topical gel 2 g topical QID PRN Pain 02/14/22 04/15/22 Unknown (Arthritis Pain (diclofenac)) ipratropium 0.5 mg-albuterol 3 mg 3 ml inhalation Q6H PRN Shortness 02/14/22 04/15/22 Unknown (2.5 mg base)/3 mL nebulization Of Breath Or Wheezing soln levetiracetam 500 mg 1,000 mg PO BID 02/14/22 04/15/22 Unknown tablet,extended release 24 hr (Keppra XR) umeclidinium 62.5 mcg-vilanterol 1 ea inhalation DAILY 02/14/22 04/15/22 Unknown 25 mcg/actuation powdr for inhalation (Anoro Ellipta) sucralfate 1 gram tablet (Carafate) 1 g PO ACHS PRN dysphagia #60 tabs 03/31/22 04/15/22 Unknown hydrochlorothiazide 25 mg tablet 12.5 mg PO QAM 04/07/22 04/15/22 Unknown lisinopril 20 mg tablet 20 mg PO UD 04/15/22 04/15/22 Unknown warfarin 2.5 mg tablet 2.5 mg PO DAILY 04/15/22 04/15/22 Unknown Active Medications Generic Name Dose Route Start Last Admin Trade Name Freq PRN Reason Stop Dose Admin Acetaminophen 650 mg 04/15/22 22:37 04/16/22 22:56 Acetaminophen 325 Mg Tab PO 05/15/22 22:36 650 mg Q4H PRN Administration Pain or Fever Aspirin 81 mg 04/16/22 09:00 04/16/22 09:38 Aspirin 81 Mg Ectab PO 05/16/22 08:59 Not Given QAM [facility] Atorvastatin Calcium 80 mg 04/16/22 09:00 04/16/22 09:38 Atorvastatin 40 Mg Tab PO 05/16/22 08:59 Not Given QAM HANNAH Carvedilol 12.5 mg 04/16/22 09:00 04/16/22 20:16 Carvedilol 12.5 Mg Tab PO 05/16/22 08:59 12.5 mg BID HANNAH Administration Cyanocobalamin 500 mcg 04/16/22 09:00 04/16/22 09:38 Cyanocobalamin (B-12) 500 Mcg Tablet PO 05/16/22 08:59 Not Given QAM HANNAH Docusate Sodium 100 mg 04/16/22 09:00 04/16/22 20:16 Docusate Sodium 100 Mg Cap PO 05/16/22 08:59 100 mg BID HANNAH Administration Ezetimibe 10 mg 04/16/22 09:00 04/16/22 09:38 Ezetimibe 10 Mg Tablet PO 05/16/22 08:59 Not Given QAM HANNAH Folic Acid 800 mcg 04/16/22 09:00 04/16/22 09:38 Folic Acid 400 Mcg Tab PO 05/16/22 08:59 Not Given QAM HANNAH Gabapentin 300 mg 04/16/22 09:00 04/16/22 20:16 Gabapentin 300 Mg Cap PO 05/16/22 08:59 300 mg TID HANNAH Administration Dextrose/Sodium Chloride 1,000 mls @ 80 mls/hr 04/15/22 22:37 04/17/22 00:16 D5w And Nss IV 05/15/22 22:36 80 mls/hr .[id number] HANNAH Administration Famotidine 20 mg/ Syringe 5 mls @ 2.5 mls/min 04/16/22 21:00 04/16/22 20:20 IV 05/16/22 20:59 2.5 mls/min Q12 HANNAH Administration Pantoprazole Sodium 40 mg/ 10 mls @ 5 mls/min 04/16/22 21:00 04/16/22 20:20 Syringe IV 05/16/22 20:59 5 mls/min BID HANNAH Administration Miscellaneous 1 each 04/16/22 08:00 04/17/22 09:12 Keppra Xr~Order Awaiting Action N/A 05/16/22 07:59 Not Given QS HANNAH Miscellaneous 1 each 04/17/22 08:59 04/17/22 09:12 Remove Nicoderm Patch N/A 04/08/23 08:58 1 each DAILY@0859 HANNAH Administration Morphine Sulfate 2 mg 04/15/22 22:37 04/15/22 23:24 Morphine Sulfate 2 Mg/Ml Carp IV 04/29/22 22:36 2 mg Q3H PRN Administration Pain not relieved by PO Nicotine 21 mg 04/16/22 22:00 04/16/22 23:32 Nicotine 21 Mg/24 Hr Tdsy TD 05/16/22 21:59 21 mg DAILY HANNAH Administration Ondansetron HCl 4 mg 04/15/22 22:37 04/16/22 22:44 Ondansetron Inj 2 Mg/Ml 2 Ml Vial IV 05/15/22 22:36 4 mg Q6H PRN Administration Nausea Phenol 2 sprays 04/16/22 08:51 04/16/22 16:45 Chloraseptic 1.4% Soln 180 Ml Btl MT 05/16/22 08:50 2 sprays Q6H PRN Administration Sore Throat Umeclidinium/Vilanterol 1 puffs 04/16/22 09:00 04/16/22 09:38 Umeclidinium/Vilanterol 62.5/25mcg 7 Puffs/Inhaler INH 05/16/22 08:59 Not Given DAILY HANNAH Venlafaxine HCl 150 mg 04/16/22 09:00 04/16/22 09:38 Venlafaxine Hcl Xr 150 Mg Capxr PO 05/16/22 08:59 Not Given QAM [facility] Vitamin D 1,000 units 04/16/22 09:00 04/16/22 09:38 Cholecalciferol 1,000 Units 25 Mcg Tab PO 05/16/22 08:59 Not Given QAM [facility] NPO Date Last Intake of Fluids: 04/16/22 Time Last Intake of Fluids: 10:33 Date Last Intake of Solids: 04/16/22 Time Last Intake of Solids: 23:00 Past Medical History Medical History Anxiety and depression Carotid artery disease Per 11/2021 Carotid Duplex: 70-99% right ICA stenosis, 50-69% left ICA stenosis - Seen by vascular 12/12/21- 70-99% right ICA stenosis since 12/2019- continuing with surveillance and medical management Chronic kidney disease Chronic rhinitis Cognitive deficit due to old cerebrovascular accident (CVA) COPD (chronic obstructive pulmonary disease) Degenerative disc disease Dyslipidemia Factor 5 Leiden mutation, heterozygous REASON FOR WARARIN RX GERD (gastroesophageal reflux disease) Heart palpitations FOLLOWED BY [facility] Hematoma of brain S/p fall 11/12/21- s/p right occipital craniotomy for minimally invasive evacuation of iintraparenchymal hematoma HTN (hypertension) Hyperlipidemia Meniere disease Migraine On home oxygen therapy 2.5L AT HS Pericardial effusion Seizure BILAT. HAND SHAKING>WAS TOLD WAS SEIZURE ACTIVITY - No hx of seizures per PCP and neurosurgery records- on Keppra for seizure prophylaxis after craniotomy Stomach cancer CURRENT DX>"FOUND MASS DOWN LOWER NEAR ESOPHAGUS" (EGD/BIOPSY AT [facility]) Stroke 2008> RESIDUAL MEMORY ISSUES /MILD WEAKNESS Exercise / Class Metabolic Activity II 4-5 Yardwork/Stairs/Walk up hill Past Family History Family History Mother Unknown family medical history Father Myocardial infarction Brother , as infant; No problems noted. Son No problems noted. Son No problems noted. Sister No problems noted. Sister No problems noted. Sister H/O brain surgery Sister No problems noted. Other No family history of adverse response to anesthesia Past Surgical History Surgical History Brain bleed 11/12/21>LIFE FLIGHTED TO [place] (EVACUATED BLOOD FROM BRAIN) S/P FELL AND HIT HEAD History of anesthesia reaction SLOW TO WAKE UP SOMETIMES History of carpal tunnel release RT/LEFT History of cataract surgery RT/LEFT History of colonoscopy History of esophagogastroduodenoscopy (EGD) History of hysterectomy History of tooth extraction History of total knee replacement RT/LEFT S/P trigger finger release Past Anesthesia History No Hx of Anesthesia Complications and No Family Hx of Anesthesia Complications History of PONV No Hx of PONV and No Hx of Motion Sickness Social History Smoking Status: Current every day smoker tobacco type: cigarettes Smoking cigarettes per day: 1 Hx Alcohol Use: No Hx Substance Use: No substance use type: does not use Physical Exam Vital Signs Last Vital Signs Temp 36.8 C 04/17/22 07:44 Pulse 65 04/17/22 07:44 Resp 18 04/17/22 07:44 BP 157/79 H 04/17/22 07:44 Pulse Ox 92 04/17/22 07:44 O2 Del Method Room Air 04/17/22 07:44 O2 Flow Rate 2 04/17/22 02:50 Constitutional WD/WN, vitals as above Eyes PERRL, conjunctivae normal, anicteric sclerae ENMT external ear and nose normal, oropharynx normal Mouth: no dentition abnormality Thyromental Distance: > or= 3.5 Finger Breadths Mallampati Class: II Neck trachea midline, no thyromegaly Respiratory normal respiratory effort, lungs clear to auscultation Cardiovascular RRR, no murmur, no edema Musculoskeletal Head/Neck/Chest: normocephalic and head atraumatic Spine: normal cervical ROM and no pain with cervical ROM Extremities: extremities normal to inspection and strength 5/5 throughout; full ROM of extremities Skin no rashes, warm and dry Neurologic moves all extremities Psychiatric A+Ox3, euthymic affect Testing Laboratory Results 04/17/22 08:03 04/17/22 08:03 PT 19.4 Seconds (9.0-12.0) H 04/17/22 08:19 INR 1.9 (0.9-1.1) H 04/17/22 08:19 APTT 52.7 Seconds (21.0-31.0) H* 04/15/22 17:08 Hemoglobin A1c 7.2 % (4.5-5.6) H 04/16/22 06:47 Urine Color Yellow 04/15/22 19:40 Urine Appearance Clear (Clear) 04/15/22 19:40 Urine pH 7.5 (4.5-7.5) 04/15/22 19:40 Ur Specific [place] 1.022 (1.000-1.030) 04/15/22 19:40 Urine Protein Trace (Negative) H 04/15/22 19:40 Urine Glucose (UA) Negative (Negative) 04/15/22 19:40 Urine Ketones Trace (Negative) H 04/15/22 19:40 Urine Nitrite Negative (Negative) 04/15/22 19:40 Ur Leukocyte Esterase Trace (Negative) H 04/15/22 19:40 Urine WBC (Auto) 5-10 /hpf (0-5) H 04/15/22 19:40 Urine RBC (Auto) >30 /hpf (0-4) H 04/15/22 19:40 U Hyaline Cast (Auto) 1-5 /lpf (0-5) 04/15/22 19:40 U Epithel Cells (Auto) >30 /lpf (0-5) H 04/15/22 19:40 Urine Bacteria (Auto) Negative (Negative) 04/15/22 19:40
[2022-04-17] MEDS ORDERED: LIDOCAINE 2% MPF LOCAL 5 ML VIAL INFIL ONE (11:08)
[2022-04-17] MEDS ORDERED: PROPOFOL IV EMULSION 10 MG/ML 20 ML VIAL IV ONE (11:08)
--- NOTE | 2022-04-17 11:24 | GI REPORT ---
Patient Name: Stella Ayala Procedure Date: 04/17/2022 10:32 AM Date of : 1950 Admit Type: Inpatient Age: 72 Gender: Female Attending MD: Judie Staton DO, Procedure: Upper GI endoscopy Providers: Judie Staton DO Referring MD: Dre Cagle Indications: Odynophagia Patient Profile: This is a 72 year old female. Refer to note in patient chart for documentation of history and physical. Medicines: Monitored Anesthesia Care Complications: No immediate complications. Estimated Blood Loss: Estimated blood loss was minimal. Procedure: Pre-Anesthesia Assessment: - Prior to the procedure, a History and Physical was performed, and patient medications and allergies were reviewed. The risks and benefits of the procedure and the sedation options and risks were discussed with the patient. All questions were answered and informed consent was obtained. Patient identification and proposed procedure were verified by the physician, the nurse and the press cutter in the procedure room. Mental Status Examination: alert and oriented. Airway Examination: Mallampati Class II (the uvula but not tonsillar pillars visualized). Respiratory Examination: clear to auscultation. CV Examination: RRR, no murmurs, no S3 or S4. Prophylactic Antibiotics: The patient does not require prophylactic antibiotics. Prior Anticoagulants: The patient has taken Coumadin (warfarin). ASA Grade Assessment: III - A patient with severe systemic disease. After reviewing the risks and benefits, the patient was deemed in satisfactory condition to undergo the procedure. The anesthesia plan was to use monitored anesthesia care (MAC). Immediately prior to administration of medications, the patient was re-assessed for adequacy to receive sedatives. The physical status of the patient was re-assessed after the procedure. After obtaining informed consent, the endoscope was passed under direct vision. Throughout the procedure, the patient's blood pressure, pulse, and oxygen saturations were monitored continuously. The Endoscope was introduced through the mouth, and advanced to the second part of duodenum. The upper GI endoscopy was accomplished without difficulty. The patient tolerated the procedure well. Findings: The Z-line was regular and was found 39 cm from the incisors. LA Grade D (one or more mucosal breaks involving at least 75% of esophageal circumference) esophagitis with no bleeding was found. One oozing cratered gastric ulcer with oozing hemorrhage (Jovon Class Ib) was found in the gastric antrum. The lesion was 20 mm in largest dimension. Area was successfully injected with 7 mL of a 0.1 mg/mL solution of epinephrine for hemostasis. The duodenal bulb and second portion of the duodenum were normal. Impression: - Z-line regular, 39 cm from the incisors. - LA Grade D radiation esophagitis with no bleeding but stigmata of recent bleeding with some clot found from the mid esophagus to GE junction. This was ulcerated with some oozing. - No obvious mass seen at the GEJ however the area was severely ulcerated with some sloughing and oozing from recent radiation treatment which interfered with visualization. - Oozing gastric ulcer with oozing hemorrhage (Jovon Class Ib). Injected. Ulcer too large for clip placement and no discrete area seen to clip. - Normal duodenal bulb and second portion of the duodenum. - No specimens collected. Recommendation: - Return patient to [facility] for ongoing care. - Clear liquid diet. - Continue present medications. - PPI 40 mg BID, carafate QID, magic mouth wash for radiation esophagitis. - Repeat EGD in 8 weeks to assess for gastric ulcer healing and healing of radiation esophagitis and to better assess the GEJ as her radiation is now completed. - She is high risk for bleeding on coumadin therapy as the gastric ulcer was large with clot and oozing however her INR was 6 yesterday which most likely precipitated some of this bleed. If she has to stay on AC would recommend that INR is not supratherapeutic. Judie Staton, 04/17/2022 11:24:41 AM Note Initiated On: 04/17/2022 10:32 AM Number of Addenda: 0 I attest to the content of the Intraoperative Record and orders documented therein, exceptions below {[id number]}
--- NOTE | 2022-04-17 11:59 | Anesthesiology Progress Note ---
Date of Service April 17, 2022 Anesthesia Post Procedure Vital Signs Vital Signs: Temp Pulse Pulse Pulse Resp BP BP 04/17/22 11:40 79 16 166/51 H 04/17/22 11:25 83 16 168/76 H 04/17/22 11:10 74 74 14 102/53 L 04/17/22 10:38 36.8 C 86 20 142/99 H 04/17/22 07:44 36.8 C 65 18 157/79 H 04/17/22 02:50 37.1 C 88 18 162/78 H 04/17/22 00:00 91 H 04/16/22 23:10 04/16/22 22:56 37.1 C 87 18 164/88 H 04/16/22 18:28 37.3 C 90 18 164/78 H 04/16/22 16:46 89 04/16/22 15:18 36.9 C 84 18 153/76 H Pulse Ox O2 Del Method O2 Flow Rate 04/17/22 11:40 99 Room Air 04/17/22 11:25 99 Room Air 04/17/22 11:10 99 Room Air 04/17/22 10:38 96 Room Air 04/17/22 07:44 92 Room Air 04/17/22 02:50 98 Nasal Cannula 2 04/17/22 00:00 04/16/22 23:10 Room Air, Nasal Cannula 2 04/16/22 22:56 98 Nasal Cannula 2 04/16/22 18:28 98 Room Air 04/16/22 16:46 04/16/22 15:18 99 Room Air Pain Intensity Other: Pain Intensity: 8 Transfer of Care Handoff Completed per policy Notes Mental Status: alert / awake / arousable and participated in evaluation Patient Amnestic to Procedure: Yes Nausea / Vomiting: adequately controlled Pain: adequately controlled Airway Patency, RR, SpO2: stable & adequate BP & HR: stable & adequate Hydration State: stable & adequate Anesthetic Complications: no major complications apparent and Pt Satisfied with anesthetic care
[2022-04-17] MEDS ORDERED: POTASSIUM CHLORIDE CRTAB 20 MEQ TABCR PO STA (12:45)
[2022-04-17] MEDS: VENLAFAXINE HCL XR 150 MG CAPXR PO SCH (12:46)
[2022-04-17] MEDS: FOLIC ACID 400 MCG TAB PO SCH (12:46)
--- NOTE | 2022-04-17 12:46 | Palliative Care Consultation ---
Date of Consultation April 17, 2022 Assessment & Plan (1) Palliative care by specialist: Met with pt/family. Provided overview of Palliative Medicine, a subspecialty that provides specialized medical care for people living with a serious illness by offering a focus on quality of life. Palliative Medicine is often conflated with hospice: I advised patient/family that Palliative and hospice can be partners but we are not the same. It is important to understand the difference so that we may be informed, and not afraid. Palliative Medicine works to improve QOL through reduction of symptom burden/more control over their illness, for both the patient and family. Palliative medicine clinicians are board certified, specially-trained and another member of the patient's medical care team. We often provide an extra layer of support because our care is based on the needs of the patient, not the prognosis; as such, it's appropriate at any age/advancing stage of a serious illness and can be provided along with curative treatment. Palliative Medicine clinicians are also trained in advanced communication methodologies, to facilitate complex discussions about advanced illness planning, which are needed to help assure that the treatment choices match the patient's goals, aka delivering Goal Concordant care. Finally, we discussed that hospice is a visiting nurse service that focuses on care delivered at the very end of life for patients with terminal illness, with life expectancy less than 6 month. (2) Cancer related pain: Stella feels her esoph pain is for now tolerable. She uses hydrocodone/apap ([place]) at home. She states she was told to avoid Tylenol because of that medi cation. She is unsure of dosing/chart indicates 7.5mg tablet. She has not had much relief with the Chloraseptic. I will change her Tylenol to liquid from tablet given the difficulty she is having with all PO attempts and I have added a prn order for morphine elixir for any severe to very severe breakthrough pain. May need to consider a celiac plexus block (CPB), which can be used for pain involving the GI tract from the distal third of the esophagus and data suggest CPB can improve analgesia, decrease opioid consumption, and decrease opioid- induced adverse effects compared with conventional analgesic treatments. (3) Advanced care planning/counseling discussion: In addition to the time I spent on palliative medicine consultation, I spent an additional 35 minutes in a [id number] discussion about advance care planning and the goals of care with patient and her . Stella identifies her goal is to survive to see her 14yo grand daughter finish High School. She tells me that she knows she will not live long enough to see her grand daughter finish college. She is very unsure about surgery because of the risk factors that her overall medical history presents and she is also seeking more information about treatments options if she forgoes surgery and what their survival statistics would be. She is very reluctant to pursue a higher than average risk surgery which has high risk complications for her; she is clear that she does not want to end up an invalid in a custodial/dependent on others for chronic care.She feels that is not living. She enjoys eating and taking this away would be harsh for her. She and share that when he had cancer, his surgery was done by Dr Franz and they have evolved a longer history with him/have a lot of trust in him because they feel he is the reason is still alive today. They want to speak with Dr Franz about the surgical risks and how they may affect her. They also want to speak to Dr. Christina corrigan in medical oncology to see if nonsurgical interventions may provide her with the survival benefit she is hoping to get in order to meet her goal. At her 's request, we also discussed the importance of smoking cessation. shared that a prior appointments with her longtime assistant warehouse manager, Dr. Membreno, he had emphasized to patient she really needed to quit smoking because her carotid occlusions were worsening and now nearing 100%. Significant, increased risk of mortality with surgery with the carotid complications was emphasized. Patient states that she has already begun the process to try and stop smoking, with her last cigarette being approximately a day or so before admission. She also started the nicotine patch and continues on that at this time. We discussed methods, tricks and suggestions to help with smoking cessation especially the behavioral changes that are needed for long-term success. I asked to remove all smoking-related paraphernalia from the h ome while she is in the hospital. I asked him to discard and throw out any smoking-related items in the home especially items such as ashtrays. I also asked him to try and wash any linens that may have been used around the areas that she smokes especially bed sheets, blankets etc. I also suggested that if they have upholstered furniture, he use something like for breeze to DO to rise those items as well as air out the house to remove the nicotine sent from their home. I asked patient to share with her where she has stashed her cigarettes so that he may also discard those items before she returns home. All these are meant to reduce the behavioral triggers that might tempt her to resume smoking. I also encouraged her to change her mindset when she desires or craves cigarettes. I suggested that she remind herself of what her goals are every time she is tempted to smoke. I advised her that it is important to establish the benefits of smoking cessation in her mind so that they translate into an action that becomes a long-term and permanent behavioral change. For example, I suggested that she tell herself that if she wants to have a cigarette and then she is giving up the potential of an opportunity to live long enough to see her granddaughter graduate. I advised her she has to decide which wants/needs are greater i.e. smoking in the moment versus trying to make it to her granddaughter's graduation. I also directed her to the [place] quit line as well as the resources available for smoking cessation on the [place] [employer]'s website, the [place] [employer]'s website, and the COPD foundation website. I also encouraged her to consider joining some virtual support groups to help bolster their support and encouragement she will need to get through t his process. Patient is very clear that she wishes to pursue cancer directed therapies but in a manner that does not present her with a very high mortality risk. She wishes to optimize her chances for longer term survival to meet her goals as identified above. For now she wishes to remain a full code she wants every opportunity to try and get better and continue her cancer treatment options. She has not considered what she may want in the event that things worsen. Of note, she is very pleased with her [facility] at home visiting nurse services. She states that those have provided her with increased support and this in turn has helped to improve her resiliency. (4) Esophageal pain: (5) Odynophagia: (6) Esophageal cancer: Malignant neoplasm of esophagus location: unspecified location Qualified Code(s): C15.9 - Malignant neoplasm of esophagus, unspecified (7) Anxiety: Plan Medication changes as noted above. Goals of care documented in conversation above. If her esophageal pain does not improve, please consider an interventional pain management consult to have her evaluated for possible celiac plexus block. She has a follow-up scheduled with Dr. Olivas at [facility] oncology on 04/25/2022. It is important she is able to keep this appointment so that she may engage in additional conversation about nonsurgical treatment options for her cancer. She plans to schedule a follow-up appointment with Dr. Burns at [facility] when she is discharged. I did advise her that he was away this week but that she should call his office next week to try and schedule a time to meet with him perhaps even by telemedicine. Alondra Alvarado DNP Clinical Director, Palliative Medicine History of Present Illness Reason for Consultation: [facility] Attending Physician: Essence Perrin MD History of Present Illness Stella Ayala is a 72yo female admitted 04/15/22: presented to [facility] ED with c/o trouble swallowing and increasing esoph pain, which was worsening over the one week prior to admission. She is now having trouble with even liquids.. She has a known hx of locally advanced esophageal adenocarcinoma (uT3N1, stage III), for which she recently completed chemoradiation. She is followed by [facility] Rad Onc and [facility] Med Onc/Dr Olivas. She had a fall Nov 2021 w/resultant intraparenchymal hemorrhage requiring craniotomy at [facility]. Keppra prescribed for seizure precautions.Her admission at that time was complicated by E. coli uti and thrombocytosis. She has been struggling with weight loss and dysphagia for the past several months. Per Dr Olivas's rad onc note 02/20/22: "The patient was initially diagnosed in October 2021 however her course of care was complicated due to a iotracranial hematoma that required surgical evacuation in November 2021. The patient did undergo an upper EUS with FNA biopsy by Dr. Mitchell in January 2022 which did confirm involvement of a celiac lymph node. The patient has been seen by Dr. Casper Olivas from medical oncology who has recommended concurrent chemotherapy with radiation therapy with consideration for surgical resection. The patient has not seen surgical oncologist but will do so shortly." She is followed by the [facility] at [place] team who recently referred her to [facility], however before they were able to see her, she presented to ED for this current admission. [facility] team called me today requesting that I see the patient to assist with any pain and symptom mgt as well as initiating a dialogue about her GOC. Oncology HX: 10/24/2021. Upper EUS, upper GI endoscopy and biopsy. Finding of esophageal lesion and celiac lymph node. Invasive poorly differentiated adenocarcinoma with focal signet ring features (Dr. Mitchell) 11/02/2021. Fall with head trauma. ER evaluation and finding of intracranial hemorrhage. 11/12/2021. Right occipital craniotomy for minimally invasive evacuation of intraparenchymal hematoma. 12/26/2021. PET/CT. No evidence of FDG avidity in the left upper lobe pulmonary nodule which appears stable dating back to 09/23/2017. Markedly hypermetabolic distal esophageal mass. Right posterior parietal craniotomy and hematoma evacuation with expected postsurgical changes and question of postsurgical change versus recent trauma to the superficial tissues. 01/17/2022. Upper EUS. Mass found in the lower third of the esophagus. T3N1. FNA of celiac lymph node. Metastatic adenocarcinoma. (Dr. Mitchell.) T3N1 adenocarcinoma of the esophagus. 02/05/2022. Medical oncology consultation. Recommendation for combined radiation and chemotherapy. Chemotherapy comprised of paclitaxel and carboplatin. (Dr. Thom Olivas) 04/11/2022: Patient completed chemoradiation therapy. She received a total dose of 50.4 Gy Ms. Ayala is now admitted for continued severe odynophagia. She is unable to tolerate solid foods. Despite conservative management, her symptoms continued to progress. She is now admitted for further work-up and management. PMH: type 2 diabetes, currently not on medications, hyperlipidemia, COPD, sleep apnea, nocturnal hypoxia, history of CVA, hypertension, chronic kidney disease stage III, carotid stenosis, thrombophlebitis,malignant neoplasm of lower thoracic esophagus, irritable bowel syndrome, GERD, history of fibromyalgia, Meniere disease, history of intraparenchymal hematoma in brain, factor V Leiden heterozygosis, thrombocytosis, anxiety. Stella is seen bedside with her present. She has just returned from her EGD. She states she is hungry and would like to try eating lunch, a clear liquid diet is ordered. Stella and her affirm the history reported above., She adds that she is not firm on proceeding with surgery bc her initial conversation with surg onc at [facility] did outline the risks given her comorbid health issues and active smoking status. She states she is trying to quit smoking and last smoked 2 days prior to admission. She started a nicotine patch as well. She also spoke with her long time assistant warehouse manager, Dr Membreno, who has been encouraging her to stop smoing bc of her vascular disease anthony the progression of her carotid disease which is nearing 100% occlusion. Stella is unsure about surgery but states she wants to revisit the conversation with both her surgery team at [facility] (Víctor Howard and Osei) as well as with Dr Olivas at [facility] Oncology. She has an oncology appt on 04/25 already scheduled. She states her pain is towards the lower end of her esophagus and when she starts to feel it, she decreases the size of her swallow. She has cornelius losing weight steadily for months. She is "active at home" meaning that she can perform her ADLs and such but she does not have a regular exercise program. Allergies Allergy/AdvReac Type Severity Reaction Status Date / Time iodine Allergy Intermediate ITCHING Verified 04/11/22 08:43 nickel Allergy Intermediate RASH/ITCHIN Verified 04/11/22 08:43 G buspirone Allergy Unknown PT UNSURE Verified 04/11/22 08:43 OF RXN Home Medications Medication Instructions Recorded Confirmed Type atorvastatin 80 mg tablet (Lipitor) 80 mg PO QAM 11/02/21 04/15/22 History carvedilol 12.5 mg tablet 12.5 mg PO BID 11/02/21 04/15/22 History ezetimibe 10 mg tablet (Zetia) 10 mg PO QAM 11/02/21 04/15/22 History gabapentin 300 mg capsule 300 mg PO TID 11/02/21 04/15/22 History hydrocodone 7.5 mg-acetaminophen 1 tab PO Q6 PRN Pain 11/02/21 04/15/22 History 325 mg tablet venlafaxine 150 mg 150 mg PO QAM 11/02/21 04/15/22 History capsule,extended release 24 hr (Effexor XR) aspirin 81 mg tablet,delayed 81 mg PO QAM 01/14/22 04/15/22 History release cholecalciferol (vitamin D3) 25 25 mcg PO QAM 01/14/22 04/15/22 History mcg (1,000 unit) tablet (Vitamin D3) cyanocobalamin (vitamin B-12) 500 500 mcg PO QAM 01/14/22 04/15/22 History mcg tablet docusate sodium 100 mg capsule 100 mg PO BID 01/14/22 04/15/22 History folic acid 800 mcg tablet 0.8 mg PO QAM 01/14/22 04/15/22 History albuterol sulfate 90 mcg/actuation 2 puff inhalation Q6H PRN 02/14/22 04/15/22 History aerosol inhaler Shortness Of Breath Or Wheezing diclofenac sodium 1 % topical gel 2 g topical QID PRN Pain 02/14/22 04/15/22 History (Arthritis Pain (diclofenac)) ipratropium 0.5 mg-albuterol 3 mg 3 ml inhalation Q6H PRN Shortness 02/14/22 04/15/22 History (2.5 mg base)/3 mL nebulization Of Breath Or Wheezing soln levetiracetam 500 mg 1,000 mg PO BID 02/14/22 04/15/22 History tablet,extended release 24 hr (Keppra XR) umeclidinium 62.5 mcg-vilanterol 1 ea inhalation DAILY 02/14/22 04/15/22 History 25 mcg/actuation powdr for inhalation (Anoro Ellipta) sucralfate 1 gram tablet (Carafate) 1 g PO ACHS PRN dysphagia #60 tabs 03/31/22 04/15/22 Rx hydrochlorothiazide 25 mg tablet 12.5 mg PO QAM 04/07/22 04/15/22 History lisinopril 20 mg tablet 20 mg PO UD 04/15/22 04/15/22 History warfarin 2.5 mg tablet 2.5 mg PO DAILY 04/15/22 04/15/22 History Patient History Medical History (Updated 04/17/22 @ 12:48 by Alondra Alvarado DNP) Advanced care planning/counseling discussion Anxiety and depression Cancer related pain Carotid artery disease Per 11/2021 Carotid Duplex: 70-99% right ICA stenosis, 50-69% left ICA stenosis - Seen by vascular 12/12/21- 70-99% right ICA stenosis since 12/2019- continuing with surveillance and medical management Chronic kidney disease Chronic rhinitis Cognitive deficit due to old cerebrovascular accident (CVA) COPD (chronic obstructive pulmonary disease) Degenerative disc disease Dyslipidemia Esophageal pain Factor 5 Leiden mutation, heterozygous REASON FOR WARARIN RX GERD (gastroesophageal reflux disease) Heart palpitations FOLLOWED BY TANNER MEMBRENO Hematoma of brain S/p fall 11/12/21- s/p right occipital craniotomy for minimally invasive evacuation of iintraparenchymal hematoma HTN (hypertension) Hyperlipidemia Meniere disease Migraine On home oxygen therapy 2.5L AT Palliative care by specialist Pericardial effusion Seizure BILAT. HAND SHAKING>WAS TOLD WAS SEIZURE ACTIVITY - No hx of seizures per PCP and neurosurgery records- on Keppra for seizure prophylaxis after craniotomy Stomach cancer CURRENT DX>"FOUND MASS DOWN LOWER NEAR ESOPHAGUS" (EGD/BIOPSY AT [facility]) Stroke 2008> RESIDUAL MEMORY ISSUES /MILD WEAKNESS Surgical History Brain bleed 11/12/21>LIFE FLIGHTED TO [place] (EVACUATED BLOOD FROM BRAIN) S/P FELL AND HIT HEAD History of anesthesia reaction SLOW TO WAKE UP SOMETIMES History of carpal tunnel release RT/LEFT History of cataract surgery RT/LEFT History of colonoscopy History of esophagogastroduodenoscopy (EGD) History of hysterectomy History of tooth extraction History of total knee replacement RT/LEFT S/P trigger finger release Family History Mother Unknown family medical history Father Myocardial infarction Brother , as infant; No problems noted. Son No problems noted. Son No problems noted. Sister No problems noted. Sister No problems noted. Sister H/O brain surgery Sister No problems noted. 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 NAD. NCAT, PERRLA, EOMIs. She speaks in full sentences. She has no resp distress. Lungs diminished but overall relatively clear. S1S2, RRR. Soft abdomen, mildly tender epigastric. Anterior chest wall without bony abnormality. AAOx3. Skin pink/warm, no C/C/E. mild weakness/generalized. Following all commands. During my visit with pt she tried to have some clear liquid lunch: she had a reasonable swallow but near immediate pain in lower esophageal region with anything she tried - cold water, warm broth, etc. She was unable to take her pills because of the same. Results & Data ([facility]) Vital Signs (Past 12 Hours) Vital Signs Temp Pulse Pulse Resp BP BP Pulse Ox 04/17/22 12:05 36.9 C 85 20 177/99 H 100 04/17/22 11:40 79 16 166/51 H 99 04/17/22 11:25 83 16 168/76 H 99 04/17/22 11:10 74 74 14 102/53 L 99 04/17/22 10:38 36.8 C 86 20 142/99 H 96 04/17/22 07:44 36.8 C 65 18 157/79 H 92 04/17/22 02:50 37.1 C 88 18 162/78 H 98 O2 Del Method O2 Flow Rate 04/17/22 12:05 Room Air 04/17/22 11:40 Room Air 04/17/22 11:25 Room Air 04/17/22 11:10 Room Air 04/17/22 10:38 Room Air 04/17/22 07:44 Room Air 04/17/22 02:50 Nasal Cannula 2 Laboratory Results data reviewed Diagnostic Findings data reviewed PG Care Time/CCT Total # of Minutes Spent Total Time Spent: 100 Total Time Spent with Patient: Total time spent is greater than 50% in coordination of care (as documented) at patient's floor/unit and/or counseling patient: I spent 65 min new pt consult and additional 35min in face to face ACP discussi ons overall addressing this case for a total time of 100 min: 15 in medical data review/discussion with referring provider(s) and/or preparation for the visit 30 in direct interaction with the patient and 35 additional min Advance Care Planning/Goals of Care discussions as detailed above in note (must be >16min) 10 in subsequent review and synthesis of assessment and plan 10 in communicating with other providers regarding the patient's case: primary team, note has been sent to Anita Luther N Patel and Willy Andrade at [facility] Prolonged Care Time Prolonged Care Time: Yes Advanced Care Planning 87071 Advanced Care Planning 30 [place] [address] IN/OBS CONSULT LVL 5,80M Patient Type New History Comprehensive Exam Comprehensive Medical Decision Making High Complexity Diagnoses Palliative care by specialist Z51.5 Cancer related pain G89.3 Advanced care planning/counseling discussion Z71.89 Esophageal pain K22.89 Odynophagia R13.10 Esophageal cancer C15.9 Malignant neoplasm of esophagus location: unspecified location Anxiety F41.9 Additional Codes Advanced Care Planning - 28534 Advanced Care Planning 30 Min: 14210 Advanced Care Planning 30 Min ([id number]) Prolonged Care Time - Prolonged Care Time: Yes ([id number])
[2022-04-17] MEDS: CHOLECALCIFEROL 1,000 UNITS 25 MCG TAB PO SCH (12:47)
[2022-04-17] MEDS: ATORVASTATIN 40 MG TAB PO SCH (12:47)
[2022-04-17] MEDS: ASPIRIN 81 MG ECTAB PO SCH ×2 (12:47→12:48)
[2022-04-17] MEDS: UMECLIDINIUM/VILANTEROL 62.5/25MCG 7 PUFFS/INHALER INH SCH (12:49)
[2022-04-17] MEDS: GABAPENTIN 300 MG CAP PO SCH ×3 (12:49→20:03)
[2022-04-17] MEDS: PANTOprazole 40 MG in SYRINGE 0 ML IV SCH ×2 (12:49→20:04)
[2022-04-17] MEDS: carvediloL 12.5 MG TAB PO SCH ×2 (12:50→20:04)
[2022-04-17] MEDS: CYANOCOBALAMIN (B-12) 500 MCG TABLET PO SCH (12:50)
[2022-04-17] MEDS: DOCUSATE SODIUM 100 MG CAP PO SCH ×2 (12:51→20:00)
[2022-04-17] MEDS: EZETIMIBE 10 MG TABLET PO SCH (12:51)
[2022-04-17] MEDS: FAMOTIDINE 20 MG in SYRINGE 3 ML IV SCH ×2 (12:51→20:09)
[2022-04-17] MEDS: CHLORASEPTIC 1.4% SOLN 180 ML BTL MT PRN (12:56)
[2022-04-17] MEDS: SUCRALFATE 1 GM/10 ML UDC PO SCH ×3 (13:07→20:04)
[2022-04-17] MEDS: NICOTINE 21 MG/24 HR TDSY TD SCH (13:24)
[2022-04-17] MEDS: POTASSIUM CHLORIDE / WTR 10 MEQ/100 ML PLCT IV SCH ×2 (13:25→13:26)
[2022-04-17] MEDS ORDERED: MoRPHine SULFATE 10 MG/0.5 ML UDP PO PRN (14:23)
[2022-04-17] MEDS: FIRST - Mouthwash BLM 119 ML PO SCH ×2 (14:59→20:04)
[2022-04-17] MEDS: lisinopril 20 MG TAB PO SCH (15:52)
[2022-04-17] MEDS ORDERED: WARFARIN SOD 2.5 MG TAB PO ONE (17:00)
[2022-04-17] MEDS: ACETAMINOPHEN SUSP 500 MG/15.6 ML UDP PO PRN (17:11)
[2022-04-18] MEDS: KEPPRA XR~ORDER AWAITING ACTION SCH ×3 (01:51→15:05)
[2022-04-18] MEDS: D5W AND NSS 1,000 ML IV SCH ×2 (03:32→13:03)
[2022-04-18] MEDS: FAMOTIDINE 20 MG in SYRINGE 3 ML IV SCH ×2 (04:22→22:17)
[2022-04-18] MEDS ORDERED: MoRPHine SULFATE 4 MG/ML 1 ML CARP\\VIAL IV STA (05:04)
--- NOTE | 2022-04-18 06:29 | Communication Note ---
Date of Service: April 18, 2022 Patient with epigastric burning which later developed into a tight bandlike sensation on patient's lower chest as per RN. Patient underwent EGD yesterday. CT abdomen pelvis Hold aspirin for now N.p.o. until CT results known
--- NOTE | 2022-04-18 07:21 | CT Scan Report ---
ABDOMEN AND PELVIS CT WITHOUT CONTRAST CT DOSE: 668.60 mGy.cm HISTORY: Acute generalized abdominal pain abd pain TECHNIQUE: Multiaxial CT images of the abdomen and pelvis were performed without contrast. A dose lo wering technique was utilized adhering to the principles of ALARA. COMPARISON STUDY: PET CT 12/26/2021 FINDINGS: Heart is upper limits of normal in size. Trace pleural effusions. No pneumatosis or pneumop eritoneum. The unenhanced spleen, adrenal glands, moderately atrophic pancreas and unenhanced liver a ppear unremarkable. Cholelithiasis with contracted gallbladder. Mild nonspecific bilateral perinephric stranding. No hydronephrosis. Unremarkable urinary bladder. At herosclerosis of the aorta. Hysterectomy. Moderate circumferential wall thickening of the distal esop hagus and gastroesophageal junction with adjacent inflammatory stranding trace free fluid. No bowel o bstruction or bowel wall thickening. Trace pelvic ascites. Scattered large and small bowel air-fluid levels. Normal appendix. Unremarkable soft tissues. Degenerative changes of the spine, pelvis and hip s. No destructive bone lesions identified. IMPRESSION: 1. Moderate wall thickening of the distal esophagus and gastroesophageal junction redemonstrated comp atible with the patient's known primary malignancy. Mild adjacent inflammatory stranding and trace fr ee fluid may be on a posttreatment related basis. 2. No bowel obstruction or bowel wall thickening. 3. No lymphadenopathy or evidence of metastatic disease. 4. Trace pleural effusions. 5. Cholelithiasis. ACT 112: Negative or not required by law. The above report was generated using voice recognition software. It may contain grammatical, syntax o r spelling errors. Electronically signed by: Jeremy Land M.D. 04/18/2022 7:19 AM
[2022-04-18 08:00] LABS: Hematocrit (blood only) 22.7 % (37.0-47.0); Hemoglobin 7.6 g/dl (12.0-16.0); Mean Corpuscular Hgb Conc 33.5 g/dL (32.0-36.0); Mean Corpuscular Volume 86.6 fL (80.0-100.0); Mean Platelet Volume 8.8 fL (9.4-12.4); Platelet Count 47 K/uL (130-400); RDW Coefficient of Variation 13.2 % (11.5-14.5); Red Blood Count 2.62 M/uL (4.20-5.40); White Blood Count 2.23 K/ul (4.8-10.8)
[2022-04-18 08:19] LABS: INR 1.2 (0.9-1.1); Prothrombin Time 12.7 Seconds (9.0-12.0)
[2022-04-18] MEDS: GABAPENTIN 300 MG CAP PO SCH ×3 (08:28→22:06)
[2022-04-18] MEDS: carvediloL 12.5 MG TAB PO SCH ×2 (08:28→22:05)
[2022-04-18] MEDS: FOLIC ACID 400 MCG TAB PO SCH (08:29)
[2022-04-18] MEDS: EZETIMIBE 10 MG TABLET PO SCH (08:29)
[2022-04-18] MEDS: DOCUSATE SODIUM 100 MG CAP PO SCH ×3 (08:29→22:07)
[2022-04-18] MEDS: CHOLECALCIFEROL 1,000 UNITS 25 MCG TAB PO SCH (08:29)
[2022-04-18] MEDS: CYANOCOBALAMIN (B-12) 500 MCG TABLET PO SCH (08:29)
[2022-04-18] MEDS: ATORVASTATIN 40 MG TAB PO SCH (08:29)
[2022-04-18] MEDS: VENLAFAXINE HCL XR 150 MG CAPXR PO SCH (08:29)
[2022-04-18] MEDS: lisinopril 20 MG TAB PO SCH (08:30)
[2022-04-18] MEDS: NICOTINE 21 MG/24 HR TDSY TD SCH (08:30)
[2022-04-18] MEDS: FIRST - Mouthwash BLM 119 ML PO SCH ×3 (08:31→22:06)
[2022-04-18] MEDS: UMECLIDINIUM/VILANTEROL 62.5/25MCG 7 PUFFS/INHALER INH SCH ×2 (08:31→08:32)
[2022-04-18] MEDS: SUCRALFATE 1 GM/10 ML UDC PO SCH ×4 (08:31→22:04)
[2022-04-18 08:35] LABS: Calcium 7.7 mg/dl (8.5-10.1); Magnesium 1.4 mg/dl (1.7-2.4); Potassium 3.3 mmol/L (3.5-5.1)
[2022-04-18 08:41] LABS: BUN Creatinine Ratio 9.8 (10-20); Creatinine Clr Calc Pharmacy 84.4 ml/min; Est GFR (African American) 105.7 ml/min; Est GFR (Non-African American) 91.2 ml/min
[2022-04-18] MEDS ORDERED: hydroCHLOROthiazide 25 MG TAB PO SCH (09:00)
[2022-04-18] MEDS: PANTOprazole 40 MG in SYRINGE 0 ML IV SCH ×2 (09:30→22:04)
[2022-04-18] MEDS ORDERED: POTASSIUM CHLORIDE CRTAB 20 MEQ TABCR PO STA (10:17)
[2022-04-18] MEDS: MAGNESIUM SULFATE / D5W 1 GM/100 ML BAG IV SCH ×2 (11:14→13:03)
[2022-04-18] MEDS: CHLORASEPTIC 1.4% SOLN 180 ML BTL MT PRN (11:52)
--- NOTE | 2022-04-18 16:36 | Hospitalist Progress Note ---
Date of Service April 18, 2022 Assessment & Plan (1) Difficulty in swallowing: (2) Odynophagia: Plan 72-year-old female with esophageal cancer, ongoing chemoradiation, presents with poor appetite due to painfull difficulty swallowing Might be related to radiation esophagitis Continue IV Pepcid, sucralfate and Chloraseptic CT abd/pelvis showed moderate wall thickening of the distal esophagus and gastroesophageal junction redemonstrated compatible with the patient's known primary malignancy Gastro on board S/P EGD done yesterday showed Case discussed with GI plan for EGD today since INR 1.9 Keep NPO for now for the EGD showed LA Grade D radiation esophagitis with no bleeding but stigmata of recent bleeding with some clot found from the mid esophagus to GE junction. This was ulcerated with some oozing. No obvious mass seen at the GEJ however the area was severely ulcerated with some sloughing and oozing from recent radiation treatment which interfered with visualization. Oozing gastric ulcer with oozing hemorrhage case discussed with gastro that recommended Clear liquid diet, PPI 40 mg BID, carafate QID, magic mouth wash for radiation esophagitis. Pt will need a repeat EGD in 8 weeks to assess for gastric ulcer healing and healing of radiation esophagitis She is at high for bleeding because she is on coumadin therapy as the gastric ulcer was large with clot and oozing Will hold Coumadin since hgb drop 7.6 aspirin on hold Esophageal cancer, lower third. Status post chemo and radiation. Further management as per hem/onc. Radiation oncology on board History of factor V Leiden mutation Hx of CVA on Coumadin. INR is 1.2 Pt is at high risk of bleeding due to Oozing gastric ulcer with oozing hemorrhage Continue to hold Coumadin due to hgb 7.6 Supratherapeutic INR No sign of active bleeding Received Vitamin K 5 mg x 1 INR 1.2 resolved Pancytopenia Most likely from chemo. Platelets 47 and WBC 2.6 today Continue monitor PT/INR continue to hold apirin and coumadin for now Electrolytes imbalance Potassium 3.3 and Mg 1.4 electrolytes replaced Continue monitor BMP and Mg History of hypertension. 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 History of atherosclerotic carotid disease. Following with vascular surgery. Chronic obstructive pulmonary disease. Counseling on tobacco cessation Continue home inhaler. History of obstructive sleep apnea with nocturnal hypoxia. Continue CPAP with 2 L of oxygen at nighttime. Type 2 diabetes. Most recent hemoglobin A1c 7.2 currently not on medication. Continue monitor blood sugar Anxiety Depression Fibromyalgia. Continue home medications. Deep venous thrombosis prophylaxis: INR 1.2 Coumadin on hold due to Oozing gastric ulcer with oozing hemorrhage/ Low platelet and dropped in Hgb Will add SCD Code status Full code Disposition Continue monitor closely Admission and Anticipated Discharge Date Admission Date: April 15, 2022 Subjective Patient was seen and evaluated for follow-up sore throat and epigastric tenderness Sitting in bed with no acute distress She said that she had so much pain early in the morning She said that drinking water caused her to have pain She described the pain as a bandlike, squeezing that wraps her abdomen She was made NPO, but she is asking for food because she is hungry Denies any chest pain, palpitation, dizziness, shortness of breath. Review of Systems Review of Systems: All systems reviewed & are unremarkable except as noted in Subjective Physical Exam Physical Exam: General- No acute distress Head- atraumatic Eyes- PERRL, EOMI, ENT- oropharynx clear Neck- supple, no JVD Lungs- clear to auscultation Heart- regular rhythm; no murmur Abdomen- normal bowel sounds, soft, +tender with deep palpation Extremities- no calf tenderness Neuro- alert, oriented x 3; PERRL, EOMI; no facial palsy; no dysarthria Skin- warm & dry today tolerated well supported then will call Results & Data Results & Data ([facility]) Vital Signs (Past 12 Hours) Vital Signs Temp Pulse Pulse Resp BP BP Pulse Ox 04/18/22 16:15 73 04/18/22 15:29 36.7 C 83 16 145/63 H 95 04/18/22 10:53 36.7 C 79 16 108/72 96 04/18/22 08:46 04/18/22 07:58 36.8 C 81 16 142/73 H 96 04/18/22 07:23 81 04/18/22 04:45 36.7 C 83 16 156/78 H 99 O2 Del Method O2 Flow Rate 04/18/22 16:15 04/18/22 15:29 Room Air 04/18/22 10:53 Room Air 04/18/22 08:46 Room Air 04/18/22 07:58 Room Air 04/18/22 07:23 04/18/22 04:45 Nasal Cannula 2 (1) Difficulty in swallowing Dysphagia type: esophageal phase Qualified Code(s): R13.19 - Other dysphagia
--- NOTE | 2022-04-18 17:37 | Communication Note ---
Date of Service: April 18, 2022 Pt tolerated broth for dinner last evening. Had episode of abd discomfort last evening and CTAP was nonacute. This AM HGB 7.6, but has pancytopenia noted with all parameters lower today. She had small brown stool today. No melena, hematochezia, hematemesis. Pt states she feels better today; not as much discomfort. Is hungry. With drop in HGB hospitalist has stopped Coumadin. Assessment: 72 y/o F with history of metastatic GEJ esophageal adenocarcinoma discovered in 10/2021 recently finished chemo and radiation, admitted with worsening odynophagia and some dysphagia. - EGD 04/17/22 w/ radiation esophagitis, severely ulcerated area in the GEJ with sloughing and oozing interfering with visualization, as well as oozing gastric ulcer as below: - Z-line regular, 39 cm from the incisors. - LA Grade D radiation esophagitis with no bleeding but stigmata of recent bleeding with some clot found from the mid esophagus to GE junction. This was ulcerated with some oozing. - No obvious mass seen at the GEJ however the area was severely ulcerated with some sloughing and oozing from recent radiation treatment which interfered with visualization. - Oozing gastric ulcer with oozing hemorrhage (Jovon Class Ib). Injected. Ulcer too large for clip placement and no discrete area seen to clip. - Normal duodenal bulb and second portion of the duodenum. - No specimens collected Plan: - Continue PPI 40 mg BID - Carafate susp QID - Can try clear liquids as tolerated - If tolerate can advance to full liquids -> soft mechanical diet. - Magic mouth wash for radiation esophagitis. - Trend H&H, transfuse PRN - Monitor blood counts as OP - Repeat EGD in 8 weeks to assess for gastric ulcer healing and healing of radiation esophagitis and to better assess the GEJ as her radiation is now completed. - She is high risk for bleeding on Coumadin therapy as the gastric ulcer was large with clot and oozing however her INR was 6 on initial presentation which most likely precipitated some of this bleed. If she has to stay on AC would recommend that INR is not supratherapeutic.
[2022-04-18 19:49] LABS: Hematocrit (blood only) 24.2 % (37.0-47.0); Hemoglobin 8.2 g/dl (12.0-16.0); Mean Corpuscular Hemoglobin 29.2 pg (25.0-34.0); Mean Corpuscular Hgb Conc 33.9 g/dL (32.0-36.0); Mean Corpuscular Volume 86.1 fL (80.0-100.0); Mean Platelet Volume 9.7 fL (9.4-12.4); Platelet Count 66 K/uL (130-400); RDW Coefficient of Variation 13.1 % (11.5-14.5); RDW Standard Deviation 39.7 fL (36.4-46.3); Red Blood Count 2.81 M/uL (4.20-5.40); White Blood Count 2.16 K/ul (4.8-10.8)
[2022-04-19] MEDS: KEPPRA XR~ORDER AWAITING ACTION SCH ×3 (01:15→15:41)
[2022-04-19] MEDS: D5W AND NSS 1,000 ML IV SCH ×2 (02:28→13:44)
[2022-04-19 07:14] LABS: Hematocrit (blood only) 22.6 % (37.0-47.0); Hemoglobin 7.7 g/dl (12.0-16.0); Mean Corpuscular Hemoglobin 29.5 pg (25.0-34.0); Mean Corpuscular Hgb Conc 34.1 g/dL (32.0-36.0); Mean Corpuscular Volume 86.6 fL (80.0-100.0); Mean Platelet Volume 9.1 fL (9.4-12.4); Platelet Count 55 K/uL (130-400); RDW Coefficient of Variation 13.1 % (11.5-14.5); RDW Standard Deviation 39.5 fL (36.4-46.3); Red Blood Count 2.61 M/uL (4.20-5.40); White Blood Count 1.67 K/ul (4.8-10.8)
[2022-04-19 07:26] LABS: BUN Creatinine Ratio 6.3 (10-20); Calcium 7.7 mg/dl (8.5-10.1); Creatinine Clr Calc Pharmacy 80.6 ml/min; Est GFR (African American) 104.1 ml/min; Est GFR (Non-African American) 89.8 ml/min; Magnesium 1.3 mg/dl (1.7-2.4); Potassium 3.4 mmol/L (3.5-5.1)
[2022-04-19 07:33] LABS: INR 1.3 (0.9-1.1); Prothrombin Time 13.5 Seconds (9.0-12.0)
[2022-04-19] MEDS ORDERED: POTASSIUM CHLORIDE CRTAB 20 MEQ TABCR PO STA ×2 (08:51→21:56)
[2022-04-19] MEDS: DOCUSATE SODIUM 100 MG CAP PO SCH ×3 (09:16→21:13)
[2022-04-19] MEDS: carvediloL 12.5 MG TAB PO SCH ×2 (09:16→21:13)
[2022-04-19] MEDS: MAGNESIUM SULFATE / D5W 1 GM/100 ML BAG IV SCH ×2 (09:16→11:37)
[2022-04-19] MEDS: ATORVASTATIN 40 MG TAB PO SCH (09:17)
[2022-04-19] MEDS: NICOTINE 21 MG/24 HR TDSY TD SCH ×2 (09:17→09:30)
[2022-04-19] MEDS: GABAPENTIN 300 MG CAP PO SCH ×3 (09:17→21:13)
[2022-04-19] MEDS: CHOLECALCIFEROL 1,000 UNITS 25 MCG TAB PO SCH (09:17)
[2022-04-19] MEDS: FOLIC ACID 400 MCG TAB PO SCH (09:17)
[2022-04-19] MEDS: CYANOCOBALAMIN (B-12) 500 MCG TABLET PO SCH (09:17)
--- NOTE | 2022-04-19 09:17 | Electrocardiogram Report ---
Test Reason : Blood Pressure : / mmHG Vent. Rate : 080 BPM Atrial Rate : 080 BPM P-R Int : 168 ms QRS Dur : 088 ms QT Int : 396 ms P-R-T Axes : 060 026 049 degrees QTc Int : 456 ms Normal sinus rhythm Normal ECG When compared with ECG of 15-APR-2022 17:08, No significant change was found Confirmed by Jose Valladares ([id number]) on 04/19/2022 9:17:10 AM Referred By: REFERRED SELF Confirmed By:Jose Valladares
[2022-04-19] MEDS: EZETIMIBE 10 MG TABLET PO SCH (09:18)
[2022-04-19] MEDS: SUCRALFATE 1 GM/10 ML UDC PO SCH ×4 (09:18→21:13)
[2022-04-19] MEDS: VENLAFAXINE HCL XR 150 MG CAPXR PO SCH (09:18)
[2022-04-19] MEDS: UMECLIDINIUM/VILANTEROL 62.5/25MCG 7 PUFFS/INHALER INH SCH ×2 (09:18→09:30)
[2022-04-19] MEDS: PANTOprazole 40 MG in SYRINGE 0 ML IV SCH ×2 (09:19→21:13)
[2022-04-19] MEDS: lisinopril 20 MG TAB PO SCH (09:20)
[2022-04-19] MEDS: FIRST - Mouthwash BLM 119 ML PO SCH ×3 (09:21→21:14)
[2022-04-19] MEDS: ACETAMINOPHEN SUSP 500 MG/15.6 ML UDP PO PRN (09:21)
[2022-04-19] MEDS: FAMOTIDINE 20 MG in SYRINGE 3 ML IV SCH ×2 (09:24→22:40)
--- NOTE | 2022-04-19 15:32 | Hospitalist Progress Note ---
Date of Service April 19, 2022 Assessment & Plan (1) Difficulty in swallowing: (2) Odynophagia: Plan 72-year-old female with esophageal cancer, ongoing chemoradiation, presents with poor appetite due to painfull difficulty swallowing Might be related to radiation esophagitis Continue IV Pepcid, sucralfate and Chloraseptic CT abd/pelvis showed moderate wall thickening of the distal esophagus and gastroesophageal junction redemonstrated compatible with the patient's known primary malignancy Gastro on board S/P EGD done yesterday showed Case discussed with GI plan for EGD today since INR 1.9 Keep NPO for now for the EGD showed LA Grade D radiation esophagitis with no bleeding but stigmata of recent bleeding with some clot found from the mid esophagus to GE junction. This was ulcerated with some oozing. No obvious mass seen at the GEJ however the area was severely ulcerated with some sloughing and oozing from recent radiation treatment which interfered with visualization. Oozing gastric ulcer with oozing hemorrhage case discussed with gastro that recommended PPI 40 mg BID, carafate QID, magic mouth wash for radiation esophagitis. Pt will need a repeat EGD in 8 weeks to assess for gastric ulcer healing and healing of radiation esophagitis She is at high for bleeding because she is on coumadin therapy as the gastric ulcer was large with clot and oozing Continue to hold Coumadin since hgb 7.8 Diet advanced to Full liquid Continue to hold aspirin Esophageal cancer, lower third. Status post chemo and radiation. Further management as per hem/onc. Radiation oncology on board History of factor V Leiden mutation Hx of CVA on Coumadin. INR is 1.3 Pt is at high risk of bleeding due to Oozing gastric ulcer with oozing hemorrhage Continue to hold Coumadin due to hgb 7.7 Supratherapeutic INR No sign of active bleeding Received Vitamin K 5 mg x 1 INR 1.3 resolved Pancytopenia Most likely from chemo. Platelets 55 and WBC 2.6 today Continue monitor PT/INR Continue to hold Aspirin and Coumadin for now Electrolytes imbalance Potassium 3.4 and Mg 1.3 electrolytes replaced Continue monitor BMP and Mg History of hypertension. 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 History of atherosclerotic carotid disease. Following with vascular surgery. Chronic obstructive pulmonary disease. Counseling on tobacco cessation Continue home inhaler. History of obstructive sleep apnea with nocturnal hypoxia. Continue CPAP with 2 L of oxygen at nighttime. Type 2 diabetes. Most recent hemoglobin A1c 7.2 currently not on medication. Continue monitor blood sugar Anxiety Depression Fibromyalgia. Continue home medications. Deep venous thrombosis prophylaxis: Coumadin on hold due to Oozing gastric ulcer with oozing hemorrhage/ Low platelet and dropped in Hgb On SCD while coumadin on hold Code status Full code Disposition Continue monitor closely Admission and Anticipated Discharge Date Admission Date: April 15, 2022 Subjective Patient was seen and evaluated for follow-up sore throat and epigastric tenderness Lying in bed with no acute distress Pt said that sore throat and abdominal pain improve She said that she tolerated the clear liquid diet Denies any chest pain, palpitation, dizziness, shortness of breath, dark stool Review of Systems Review of Systems: All systems reviewed & are unremarkable except as noted in Subjective Physical Exam Physical Exam: General- No acute distress Head- atraumatic Eyes- PERRL, EOMI, ENT- oropharynx clear Neck- supple, no JVD Lungs- clear to auscultation Heart- regular rhythm; no murmur Abdomen- normal bowel sounds, soft, +tender with deep palpation Extremities- no calf tenderness Neuro- alert, oriented x 3; PERRL, EOMI; no facial palsy; no dysarthria Skin- warm & dry today tolerated well supported then will call Results & Data Results & Data ([facility]) Vital Signs (Past 12 Hours) Vital Signs Temp Pulse Pulse Resp BP BP Pulse Ox 04/19/22 15:11 36.9 C 81 16 120/70 95 04/19/22 15:09 79 04/19/22 11:53 88 04/19/22 11:14 36.5 C 83 16 147/71 H 96 04/19/22 08:11 36.8 C 86 16 159/85 H 96 04/19/22 03:49 36.8 C 74 18 148/81 H 93 O2 Del Method 04/19/22 15:11 Room Air 04/19/22 15:09 04/19/22 11:53 04/19/22 11:14 Room Air 04/19/22 08:11 Room Air 04/19/22 03:49 Room Air (1) Difficulty in swallowing Dysphagia type: esophageal phase Qualified Code(s): R13.19 - Other dysphagia
[2022-04-19 18:55] LABS: Hematocrit (blood only) 24.4 % (37.0-47.0); Hemoglobin 8.2 g/dl (12.0-16.0); Mean Corpuscular Hemoglobin 29.5 pg (25.0-34.0); Mean Corpuscular Hgb Conc 33.6 g/dL (32.0-36.0); Mean Corpuscular Volume 87.8 fL (80.0-100.0); Mean Platelet Volume 8.9 fL (9.4-12.4); Platelet Count 61 K/uL (130-400); RDW Coefficient of Variation 13.1 % (11.5-14.5); RDW Standard Deviation 40.4 fL (36.4-46.3); Red Blood Count 2.78 M/uL (4.20-5.40); White Blood Count 1.83 K/ul (4.8-10.8)
[2022-04-19 19:12] LABS: Magnesium 1.7 mg/dl (1.7-2.4); Potassium 3.4 mmol/L (3.5-5.1)
[2022-04-19] MEDS: CHLORASEPTIC 1.4% SOLN 180 ML BTL MT PRN (22:42)
[2022-04-20] MEDS: KEPPRA XR~ORDER AWAITING ACTION SCH ×4 (00:20→21:07)
[2022-04-20] MEDS: D5W AND NSS 1,000 ML IV SCH (03:48)
[2022-04-20 07:52] LABS: Hematocrit (blood only) 21.7 % (37.0-47.0); Hemoglobin 7.4 g/dl (12.0-16.0); Mean Corpuscular Hemoglobin 29.4 pg (25.0-34.0); Mean Corpuscular Hgb Conc 34.1 g/dL (32.0-36.0); Mean Corpuscular Volume 86.1 fL (80.0-100.0); Mean Platelet Volume 9.1 fL (9.4-12.4); Platelet Count 73 K/uL (130-400); RDW Coefficient of Variation 13.2 % (11.5-14.5); RDW Standard Deviation 38.9 fL (36.4-46.3); Red Blood Count 2.52 M/uL (4.20-5.40); White Blood Count 1.65 K/ul (4.8-10.8)
[2022-04-20 08:14] LABS: INR 1.3 (0.9-1.1); Prothrombin Time 13.3 Seconds (9.0-12.0)
[2022-04-20] MEDS: FIRST - Mouthwash BLM 119 ML PO SCH ×3 (08:19→21:02)
[2022-04-20] MEDS: CYANOCOBALAMIN (B-12) 500 MCG TABLET PO SCH (08:20)
[2022-04-20] MEDS: lisinopril 20 MG TAB PO SCH (08:20)
[2022-04-20] MEDS: PANTOprazole 40 MG in SYRINGE 0 ML IV SCH ×2 (08:20→21:02)
[2022-04-20] MEDS: carvediloL 12.5 MG TAB PO SCH ×2 (08:20→21:02)
[2022-04-20] MEDS: FOLIC ACID 400 MCG TAB PO SCH (08:20)
[2022-04-20] MEDS: GABAPENTIN 300 MG CAP PO SCH ×3 (08:20→21:02)
[2022-04-20] MEDS: CHOLECALCIFEROL 1,000 UNITS 25 MCG TAB PO SCH (08:20)
[2022-04-20] MEDS: EZETIMIBE 10 MG TABLET PO SCH (08:20)
[2022-04-20] MEDS: VENLAFAXINE HCL XR 150 MG CAPXR PO SCH (08:20)
[2022-04-20] MEDS: ATORVASTATIN 40 MG TAB PO SCH (08:21)
[2022-04-20] MEDS: SUCRALFATE 1 GM/10 ML UDC PO SCH ×4 (08:21→21:02)
[2022-04-20] MEDS: NICOTINE 21 MG/24 HR TDSY TD SCH (08:22)
[2022-04-20] MEDS: UMECLIDINIUM/VILANTEROL 62.5/25MCG 7 PUFFS/INHALER INH SCH (08:23)
[2022-04-20] MEDS: FAMOTIDINE 20 MG in SYRINGE 3 ML IV SCH ×2 (08:26→21:06)
[2022-04-20 09:09] LABS: BUN Creatinine Ratio 4.5 (10-20); Calcium 7.7 mg/dl (8.5-10.1); Creatinine Clr Calc Pharmacy 78.4 ml/min; Est GFR (Non-African American) 88.9 ml/min; Magnesium 1.3 mg/dl (1.7-2.4); Potassium 3.6 mmol/L (3.5-5.1)
[2022-04-20] MEDS: MAGNESIUM SULFATE / D5W 1 GM/100 ML BAG IV SCH ×2 (10:46→12:42)
--- NOTE | 2022-04-20 17:00 | Hospitalist Progress Note ---
Date of Service April 20, 2022 Assessment & Plan (1) Difficulty in swallowing: (2) Odynophagia: Plan 72-year-old female with esophageal cancer, ongoing chemoradiation, presents with poor appetite due to painfull difficulty swallowing Might be related to radiation esophagitis Continue IV Pepcid, sucralfate and Chloraseptic CT abd/pelvis showed moderate wall thickening of the distal esophagus and gastroesophageal junction redemonstrated compatible with the patient's known primary malignancy Gastro on board S/P EGD done yesterday showed Case discussed with GI plan for EGD today since INR 1.9 Keep NPO for now for the EGD showed LA Grade D radiation esophagitis with no bleeding but stigmata of recent bleeding with some clot found from the mid esophagus to GE junction. This was ulcerated with some oozing. No obvious mass seen at the GEJ however the area was severely ulcerated with some sloughing and oozing from recent radiation treatment which interfered with visualization. Oozing gastric ulcer with oozing hemorrhage case discussed with gastro that recommended PPI 40 mg BID, carafate QID, magic mouth wash for radiation esophagitis. Pt will need a repeat EGD in 8 weeks to assess for gastric ulcer healing and healing of radiation esophagitis She is at high for bleeding because she is on coumadin therapy as the gastric ulcer was large with clot and oozing Continue to hold Coumadin since hgb 7.4 Diet advanced to soft diet Continue to hold aspirin Esophageal cancer, lower third. Status post chemo and radiation. Further management as per hem/onc. Radiation oncology on board History of factor V Leiden mutation Hx of CVA on Coumadin. INR is 1.3 Pt is at high risk of bleeding due to Oozing gastric ulcer with oozing hemorrhage Continue to hold Coumadin due to hgb 7.7 Supratherapeutic INR No sign of active bleeding Received Vitamin K 5 mg x 1 INR 1.3 resolved Pancytopenia Most likely from chemo. Platelets 55 and WBC 2.6 today Continue monitor PT/INR Continue to hold Aspirin and Coumadin for now Electrolytes imbalance Potassium 3.6 and Mg 1.3 electrolytes replaced Continue monitor BMP and Mg History of hypertension. 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 History of atherosclerotic carotid disease. Following with vascular surgery. Chronic obstructive pulmonary disease. Counseling on tobacco cessation Continue home inhaler. History of obstructive sleep apnea with nocturnal hypoxia. Continue CPAP with 2 L of oxygen at nighttime. Type 2 diabetes. Most recent hemoglobin A1c 7.2 currently not on medication. Continue monitor blood sugar Anxiety Depression Fibromyalgia. Continue home medications. Deep venous thrombosis prophylaxis: Coumadin on hold due to Oozing gastric ulcer with oozing hemorrhage/ Low platelet and dropped in Hgb On SCD while coumadin on hold Code status Full code Disposition Continue monitor closely Admission and Anticipated Discharge Date Admission Date: April 15, 2022 Subjective Patient was seen and evaluated for follow-up sore throat and epigastric tenderness Lying in bed with no acute distress She said that her throat is better She would like her diet to advance Denies any chest pain, palpitation, dizziness, shortness of breath, dark stool Review of Systems Review of Systems: All systems reviewed & are unremarkable except as noted in Subjective Physical Exam Physical Exam: General- No acute distress Head- atraumatic Eyes- PERRL, EOMI, ENT- oropharynx clear Neck- supple, no JVD Lungs- clear to auscultation Heart- regular rhythm; no murmur Abdomen- normal bowel sounds, soft, +tender with deep palpation Extremities- no calf tenderness Neuro- alert, oriented x 3; PERRL, EOMI; no facial palsy; no dysarthria Skin- warm & dry today tolerated well supported then will call Results & Data Results & Data ([facility]) Vital Signs (Past 12 Hours) Vital Signs Temp Pulse Pulse Resp BP Pulse Ox O2 Del Method 04/20/22 15:36 86 04/20/22 14:57 36.9 C 86 20 130/74 96 Room Air 04/20/22 11:15 37.0 C 82 16 134/74 97 Room Air 04/20/22 07:34 37.0 C 83 16 133/75 95 Room Air 04/20/22 07:22 77 (1) Difficulty in swallowing Dysphagia type: esophageal phase Qualified Code(s): R13.19 - Other dysphagia
[2022-04-20 18:16] LABS: Hematocrit (blood only) 21.2 % (37.0-47.0); Hemoglobin 7.2 g/dl (12.0-16.0)
[2022-04-20] MEDS ORDERED: SODIUM CHLORIDE 0.9% 250 ML IV PRN (20:08)
[2022-04-21] MEDS ORDERED: SODIUM CHLORIDE 0.9% 250 ML IV PRN (02:28)
[2022-04-21] MEDS ORDERED: levETIRAcetam 500 MG TAB PO SCH (08:00)
[2022-04-21] MEDS: lisinopril 20 MG TAB PO SCH (08:05)
[2022-04-21] MEDS: CHOLECALCIFEROL 1,000 UNITS 25 MCG TAB PO SCH (08:06)
[2022-04-21] MEDS: VENLAFAXINE HCL XR 150 MG CAPXR PO SCH (08:06)
[2022-04-21] MEDS: ATORVASTATIN 40 MG TAB PO SCH (08:06)
[2022-04-21] MEDS: EZETIMIBE 10 MG TABLET PO SCH (08:06)
[2022-04-21] MEDS: carvediloL 12.5 MG TAB PO SCH ×2 (08:06→21:31)
[2022-04-21] MEDS: SUCRALFATE 1 GM/10 ML UDC PO SCH ×4 (08:06→21:31)
[2022-04-21] MEDS: PANTOprazole 40 MG in SYRINGE 0 ML IV SCH ×2 (08:06→21:30)
[2022-04-21] MEDS: CYANOCOBALAMIN (B-12) 500 MCG TABLET PO SCH (08:06)
[2022-04-21] MEDS: GABAPENTIN 300 MG CAP PO SCH ×3 (08:06→21:32)
[2022-04-21] MEDS: FOLIC ACID 400 MCG TAB PO SCH (08:06)
[2022-04-21] MEDS: levETIRAcetam 500 MG TAB PO SCH ×2 (08:06→21:32)
[2022-04-21] MEDS: UMECLIDINIUM/VILANTEROL 62.5/25MCG 7 PUFFS/INHALER INH SCH (08:07)
[2022-04-21] MEDS: NICOTINE 21 MG/24 HR TDSY TD SCH (08:07)
[2022-04-21] MEDS: FIRST - Mouthwash BLM 119 ML PO SCH ×3 (08:07→21:32)
[2022-04-21] MEDS: FAMOTIDINE 20 MG in SYRINGE 3 ML IV SCH ×2 (08:08→21:30)
[2022-04-21 09:02] LABS: Eosinophils # (auto) 0.02 K/uL (0-0.50); Eosinophils % (auto) 0.9 %; Hematocrit (blood only) 28.1 % (37.0-47.0); Hemoglobin 9.7 g/dl (12.0-16.0); Immature Granulocytes # (auto) 0.01 K/uL (0.01-0.20); Immature Granulocytes % (auto) 0.5 %; Lymphocytes # (auto) 0.24 K/uL (1.2-3.4); Lymphocytes % (auto) 11.3 %; Mean Corpuscular Hemoglobin 28.9 pg (25.0-34.0); Mean Corpuscular Hgb Conc 34.5 g/dL (32.0-36.0); Mean Corpuscular Volume 83.6 fL (80.0-100.0); Mean Platelet Volume 9.3 fL (9.4-12.4); Monocytes # (auto) 0.28 K/uL (0.11-0.59); Monocytes % (auto) 13.1 %; Neutrophils # (auto) 1.58 K/uL (1.40-6.50); Neutrophils % (auto) 74.2 %; Platelet Count 70 K/uL (130-400); RDW Coefficient of Variation 13.8 % (11.5-14.5); RDW Standard Deviation 39.9 fL (36.4-46.3); Red Blood Count 3.36 M/uL (4.20-5.40); White Blood Count 2.13 K/ul (4.8-10.8)
[2022-04-21 09:12] LABS: BUN Creatinine Ratio 8.8 (10-20); Calcium 8.1 mg/dl (8.5-10.1); Creatinine Clr Calc Pharmacy 75.7 ml/min; Potassium 3.1 mmol/L (3.5-5.1)
[2022-04-21] MEDS ORDERED: POTASSIUM CHLORIDE CRTAB 20 MEQ TABCR PO STA (09:25)
[2022-04-21] MEDS: MAGNESIUM OXIDE 400 MG TAB PO SCH (10:08)
[2022-04-21] MEDS ORDERED: POTASSIUM CHLORIDE CRTAB 20 MEQ TABCR PO SCH (12:00)
--- NOTE | 2022-04-21 17:47 | Hospitalist Progress Note ---
Date of Service April 21, 2022 Assessment & Plan (1) Difficulty in swallowing: (2) Odynophagia: Plan 72-year-old female with esophageal cancer, ongoing chemoradiation, presents with poor appetite due to painfull difficulty swallowing Might be related to radiation esophagitis Continue IV Pepcid, sucralfate and Chloraseptic CT abd/pelvis showed moderate wall thickening of the distal esophagus and gastroesophageal junction redemonstrated compatible with the patient's known primary malignancy Gastro on board S/P EGD showed LA Grade D radiation esophagitis with no bleeding but stigmata of recent bleeding with some clot found from the mid esophagus to GE junction. This was ulcerated with some oozing. No obvious mass seen at the GEJ however the area was severely ulcerated with some sloughing and oozing from recent radiation treatment which interfered with visualization. Oozing gastric ulcer with oozing hemorrhage case discussed with gastro that recommended PPI 40 mg BID, carafate QID, magic mouth wash for radiation esophagitis. Pt will need a repeat EGD in 8 weeks to assess for gastric ulcer healing and healing of radiation esophagitis She is at high for bleeding because she is on coumadin therapy as the gastric ulcer was large with clot and oozing Continue to hold Coumadin since hgb dropped to 7.2 last night and pt received 1 unit PRBC Case discussed with GI today about the hgb dropped and 1 unit PRBC transfusion GI plan to repeat EGD tomorrow and recommended to change diet to clear liquid Will make NPO after midnight Continue to hold aspirin and coumadin Esophageal cancer, lower third. Status post chemo and radiation. Further management as per hem/onc. Radiation oncology on board History of factor V Leiden mutation Hx of CVA on Coumadin. INR is 1.3 Pt is at high risk of bleeding due to Oozing gastric ulcer with oozing hemorrhage Continue to hold Coumadin due to low hgb Supratherapeutic INR No sign of active bleeding Received Vitamin K 5 mg x 1 INR 1.3 resolved Pancytopenia Most likely from chemo. Platelets 70, WBC 2.1 and Hgb 9.7 S/P 1 unit PRBC last night due to hgb 7.2 Continue to hold Aspirin and Coumadin for now Continue monitor H/H and if hgb drops to transfuse PRBC Electrolytes imbalance Potassium 3.1 electrolytes replaced Continue monitor BMP and Mg History of hypertension. 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 History of atherosclerotic carotid disease. Following with vascular surgery. Chronic obstructive pulmonary disease. Counseling on tobacco cessation Continue home inhaler. History of obstructive sleep apnea with nocturnal hypoxia. Continue CPAP with 2 L of oxygen at nighttime. Type 2 diabetes. Most recent hemoglobin A1c 7.2 currently not on medication. Continue monitor blood sugar Anxiety Depression Fibromyalgia. Continue home medications. Deep venous thrombosis prophylaxis: Coumadin on hold due to Oozing gastric ulcer with oozing hemorrhage/ Low platelet and dropped in Hgb On SCD while coumadin on hold Code status Full code Disposition Continue monitor closely Admission and Anticipated Discharge Date Admission Date: April 15, 2022 Subjective Patient was seen and evaluated for follow-up sore throat and epigastric tenderness Lying in bed with no acute distress She said that her throat is getting better because she is able to swallow at least repeat hgb was 7.2 last night, Pt received 1 unit PRBC Denies any chest pain, palpitation, dizziness, shortness of breath, dark stool Review of Systems Review of Systems: All systems reviewed & are unremarkable except as noted in Subjective Physical Exam Physical Exam: General- No acute distress Head- atraumatic Eyes- PERRL, EOMI, ENT- oropharynx clear Neck- supple, no JVD Lungs- clear to auscultation Heart- regular rhythm; no murmur Abdomen- normal bowel sounds, soft, +tender with deep palpation Extremities- no calf tenderness Neuro- alert, oriented x 3; PERRL, EOMI; no facial palsy; no dysarthria Skin- warm & dry today tolerated well supported then will call Results & Data Results & Data ([facility]) Vital Signs (Past 12 Hours) Vital Signs Temp Pulse Pulse Resp BP BP Pulse Ox 04/21/22 17:35 81 04/21/22 16:02 36.7 C 78 20 135/77 97 04/21/22 11:27 36.8 C 77 19 123/73 93 04/21/22 08:00 04/21/22 07:30 84 04/21/22 06:45 36.8 C 88 18 140/60 98 04/21/22 05:55 37 C 85 20 143/75 H 98 O2 Del Method O2 Flow Rate 04/21/22 17:35 04/21/22 16:02 Room Air 04/21/22 11:27 Room Air 04/21/22 08:00 Room Air 04/21/22 07:30 04/21/22 06:45 2 04/21/22 05:55 2 (1) Difficulty in swallowing Dysphagia type: esophageal phase Qualified Code(s): R13.19 - Other dysphagia
[2022-04-21 19:07] LABS: Hematocrit (blood only) 27.3 % (37.0-47.0); Hemoglobin 9.5 g/dl (12.0-16.0)
[2022-04-22 06:40] LABS: Hematocrit (blood only) 28.1 % (37.0-47.0); Hemoglobin 9.7 g/dl (12.0-16.0); Mean Corpuscular Hgb Conc 34.5 g/dL (32.0-36.0); Mean Corpuscular Volume 83.9 fL (80.0-100.0); Mean Platelet Volume 9.2 fL (9.4-12.4); Platelet Count 78 K/uL (130-400); Red Blood Count 3.35 M/uL (4.20-5.40); White Blood Count 2.38 K/ul (4.8-10.8)
[2022-04-22 06:49] LABS: BUN Creatinine Ratio 8.7 (10-20); Calcium 8.3 mg/dl (8.5-10.1); Est GFR (African American) 101.5 ml/min; Est GFR (Non-African American) 87.6 ml/min; Magnesium 1.2 mg/dl (1.7-2.4); Potassium 3.6 mmol/L (3.5-5.1)
[2022-04-22] MEDS: MAGNESIUM SULFATE / D5W 1 GM/100 ML BAG IV SCH ×3 (07:49→11:50)
[2022-04-22] MEDS: lisinopril 20 MG TAB PO SCH (08:32)
[2022-04-22] MEDS: carvediloL 12.5 MG TAB PO SCH ×2 (08:32→21:36)
[2022-04-22] MEDS: NICOTINE 21 MG/24 HR TDSY TD SCH (09:13)
[2022-04-22] MEDS: FAMOTIDINE 20 MG in SYRINGE 3 ML IV SCH ×2 (09:19→21:35)
[2022-04-22] MEDS: PANTOprazole 40 MG in SYRINGE 0 ML IV SCH ×2 (09:19→21:35)
[2022-04-22] MEDS: SUCRALFATE 1 GM/10 ML UDC PO SCH ×4 (10:04→21:35)
[2022-04-22] MEDS: VENLAFAXINE HCL XR 150 MG CAPXR PO SCH (10:04)
[2022-04-22] MEDS: levETIRAcetam 500 MG TAB PO SCH ×2 (10:04→21:36)
[2022-04-22] MEDS: ATORVASTATIN 40 MG TAB PO SCH (10:04)
[2022-04-22] MEDS: CHOLECALCIFEROL 1,000 UNITS 25 MCG TAB PO SCH (10:04)
[2022-04-22] MEDS: GABAPENTIN 300 MG CAP PO SCH ×3 (10:05→21:37)
[2022-04-22] MEDS: EZETIMIBE 10 MG TABLET PO SCH (10:05)
[2022-04-22] MEDS: MAGNESIUM OXIDE 400 MG TAB PO SCH (10:05)
[2022-04-22] MEDS: FOLIC ACID 400 MCG TAB PO SCH (10:05)
[2022-04-22] MEDS: FIRST - Mouthwash BLM 119 ML PO SCH ×3 (10:05→21:36)
[2022-04-22] MEDS: CYANOCOBALAMIN (B-12) 500 MCG TABLET PO SCH (10:05)
[2022-04-22] MEDS: UMECLIDINIUM/VILANTEROL 62.5/25MCG 7 PUFFS/INHALER INH SCH (10:06)
--- NOTE | 2022-04-22 11:15 | Gastroenterology Progress Note ---
Date of Service April 22, 2022 Assessment & Plan (1) Difficulty in swallowing: (2) Radiation esophagitis: (3) Gastric ulcer: Plan 1. Will hold on repeating EGD for now as limited likelihood of changing the tx plan. 2. Recommend BID PPI, joint terminal attack controller; carafate; pepcid. 3. Full liquids today and may advance to a Soft diet if no gross bleeding today. 4. Avoid NSAIDs. 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 I spoke w the pt, letting her know that esophageal cancers tend to bleed, that she will likely have some black BMs ongoing, but that if she has large volume especially if with lightheadedness/dizziness then she should seek medical care. 5. GI will sign off. Please notify us if new/worsening GI issues. Admission and Anticipated Discharge Date Admission Date: April 15, 2022 Supervising Physician Co-Signing Physician Notes Patient was seen and examined on 04/22 with RADHA Carvalho whose note reflects our findings and plan. No s/s of on-goinh bleeding today. Images form EGD reviewed. Would continue with current plan. At time of discharge patient will need BID PPI, ok to advance diet if remains stable. Subjective 72 yr old female with metastatic esophageal cancer undergoing chemo/radiation treatment, admitted on 04/16 for worsening dysphagia, odynophagia, regurgitation, poor PO intake. At time of admission INR 6.4, EGD on 04/17 w radiation esophagitis and gastric ulcer (injected w epi). We were asked to re-eval the pt yesterday in light of Hb 7.2 yesterday. Of now BMs are documented as brown. Pt does report epigastric and chest burning after eating/drinking. Received 1 unit of RBCs yesterday then today Hb was 9.7. Saw pt this morning, no gross bleeding. symptoms as able. Had been kept NPO while we considered repeating the EGD. INR currently 1.1. Hemodynamically stable. Review of Systems Review of Systems: ROS: Gen: Denies weakness, fevers, weight loss Eyes: No eye redness, or pain, no recent vision changes Resp: No SOB, no cough Cardio: No palpitations/irregular beats, no chest pain GI: As per HPI, otherwise normal. : Denies pain on urination Skin: No jaundice, itching or new rashes Physical Exam Constitutional: WD/WN, vitals as above (sitting up at the bedside) Eyes: PERRL, conjunctivae normal, anicteric sclerae ENMT: external ear and nose normal, oropharynx normal Neck: trachea midline, no thyromegaly Respiratory: normal respiratory effort, lungs clear to auscultation Cardiovascular: RRR, no murmur, no edema Gastrointestinal (Abdomen): Soft, non distended, minimal epigastric tenderness. Skin: no rashes, warm and dry Neurologic: PERRL, EOMI, accommodation nl, no face palsy, no dysarthria Psychiatric: A+Ox3, euthymic affect Lymphatic: no cervical or axillary lymphadenopathy Results & Data ([facility]) Vital Signs (Past 12 Hours) Vital Signs Temp Pulse Pulse Resp BP BP Pulse Ox 04/22/22 07:45 04/22/22 07:22 36.8 C 86 16 153/81 H 94 04/22/22 07:13 93 H 04/22/22 04:00 36.6 C 84 18 125/69 94 04/21/22 23:25 37.0 C 85 18 134/76 98 O2 Del Method O2 Flow Rate 04/22/22 07:45 Room Air 04/22/22 07:22 Room Air 04/22/22 07:13 04/22/22 04:00 Room Air 04/21/22 23:25 Nasal Cannula 2 Laboratory Results WBC 2.38, Hb 9.7, Hct 28, Plts 78, PT 13, INR 1.3, Na 139, K 3.6, Cl 106, Co2 22, BUN 6, Cr 0.69, glucose 96 Diagnostic Findings Non contrast CTAP 04/18/22: 1. Moderate wall thickening of the distal esophagus and gastroesophageal junction re-demonstrated compatible with the patient's known primary malignancy. Mild adjacent inflammatory stranding and trace free fluid may be on a posttreatment related basis. 2. No bowel obstruction or bowel wall thickening. 3. No lymphadenopathy or evidence of metastatic disease. 4. Trace pleural effusions. 5. Cholelithiasis. (1) Difficulty in swallowing Dysphagia type: esophageal phase Qualified Code(s): R13.19 - Other dysphagia
--- NOTE | 2022-04-22 23:14 | Hospitalist Progress Note ---
Date of Service April 22, 2022 Assessment & Plan (1) Difficulty in swallowing: (2) Odynophagia: Plan 72-year-old female with esophageal cancer, ongoing chemoradiation, presents with poor appetite due to painfull difficulty swallowing Might be related to radiation esophagitis Continue IV Pepcid, sucralfate and Chloraseptic CT abd/pelvis showed moderate wall thickening of the distal esophagus and gastroesophageal junction redemonstrated compatible with the patient's known primary malignancy Gastro on board S/P EGD showed LA Grade D radiation esophagitis with no bleeding but stigmata of recent bleeding with some clot found from the mid esophagus to GE junction. This was ulcerated with some oozing. No obvious mass seen at the GEJ however the area was severely ulcerated with some sloughing and oozing from recent radiation treatment which interfered with visualization. Oozing gastric ulcer with oozing hemorrhage case discussed with gastro that recommended PPI 40 mg BID, carafate QID, magic mouth wash for radiation esophagitis. Pt will need a repeat EGD in 8 weeks to assess for gastric ulcer healing and healing of radiation esophagitis She is at high for bleeding because she is on coumadin therapy as the gastric ulcer was large with clot and oozing Continue to hold Coumadin since hgb dropped to 7.2 last night and pt received 1 unit PRBC Case discussed with GI today about the hgb dropped and 1 unit PRBC transfusion GI was planning to repeat EGD today, but pt hgb has been stable. EGD was cancelled today GI suggested to hold Aspirin on discharge Continue to hold coumadin, will consider to resume tomorrow if hgb stable Esophageal cancer, lower third. Status post chemo and radiation. Further management as per hem/onc. Radiation oncology on board History of factor V Leiden mutation Hx of CVA on Coumadin. INR is 1.3 Pt is at high risk of bleeding due to Oozing gastric ulcer with oozing hemorrhage Continue to hold Coumadin due to low hgb Supratherapeutic INR No sign of active bleeding Received Vitamin K 5 mg x 1 INR 1.3 resolved Pancytopenia Most likely from chemo. Platelets 70, WBC 2.1 and Hgb 9.7 S/P 1 unit PRBC last night due to hgb 7.2 Continue to hold Aspirin and Coumadin for now Continue monitor H/H and if hgb drops to transfuse PRBC Electrolytes imbalance Magnesium 1.2 electrolytes replaced Continue monitor BMP and Mg History of hypertension. 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 History of atherosclerotic carotid disease. Following with vascular surgery. Chronic obstructive pulmonary disease. Counseling on tobacco cessation Continue home inhaler. History of obstructive sleep apnea with nocturnal hypoxia. Continue CPAP with 2 L of oxygen at nighttime. Type 2 diabetes. Most recent hemoglobin A1c 7.2 currently not on medication. Continue monitor blood sugar Anxiety Depression Fibromyalgia. Continue home medications. Deep venous thrombosis prophylaxis: Coumadin on hold due to Oozing gastric ulcer with oozing hemorrhage/ Low platelet and dropped in Hgb On SCD while coumadin on hold Code status Full code Disposition Continue monitor closely Admission and Anticipated Discharge Date Admission Date: April 15, 2022 Subjective Patient was seen and evaluated for follow-up sore throat and epigastric tenderness Lying in bed with no acute distress she feels much better because she is able to swallow Denies any chest pain, palpitation, dizziness, shortness of breath, dark stool Review of Systems Review of Systems: All systems reviewed & are unremarkable except as noted in Subjective Physical Exam Physical Exam: General- No acute distress Head- atraumatic Eyes- PERRL, EOMI, ENT- oropharynx clear Neck- supple, no JVD Lungs- clear to auscultation Heart- regular rhythm; no murmur Abdomen- normal bowel sounds, soft, +tender with deep palpation Extremities- no calf tenderness Neuro- alert, oriented x 3; PERRL, EOMI; no facial palsy; no dysarthria Skin- warm & dry today tolerated well supported then will call Results & Data Results & Data ([facility]) Vital Signs (Past 12 Hours) Vital Signs Temp Pulse Pulse Resp BP BP Pulse Ox 04/22/22 22:55 36.9 C 84 18 138/80 99 04/22/22 19:18 36.9 C 87 18 126/78 94 04/22/22 15:24 36.8 C 82 18 144/81 H 94 04/22/22 15:22 85 04/22/22 12:03 36.7 C 81 14 119/75 94 O2 Del Method O2 Flow Rate 04/22/22 22:55 Nasal Cannula 2 04/22/22 19:18 Room Air 04/22/22 15:24 Room Air 04/22/22 15:22 04/22/22 12:03 Room Air (1) Difficulty in swallowing Dysphagia type: esophageal phase Qualified Code(s): R13.19 - Other dysphagia
[2022-04-23] MEDS: EZETIMIBE 10 MG TABLET PO SCH (08:31)
[2022-04-23] MEDS: CYANOCOBALAMIN (B-12) 500 MCG TABLET PO SCH (08:31)
[2022-04-23] MEDS: carvediloL 12.5 MG TAB PO SCH ×2 (08:31→22:14)
[2022-04-23] MEDS: FOLIC ACID 400 MCG TAB PO SCH (08:31)
[2022-04-23] MEDS: ATORVASTATIN 40 MG TAB PO SCH (08:31)
[2022-04-23] MEDS: levETIRAcetam 500 MG TAB PO SCH ×2 (08:31→22:13)
[2022-04-23] MEDS: lisinopril 20 MG TAB PO SCH (08:31)
[2022-04-23] MEDS: GABAPENTIN 300 MG CAP PO SCH ×3 (08:31→22:14)
[2022-04-23] MEDS: MAGNESIUM OXIDE 400 MG TAB PO SCH (08:31)
[2022-04-23] MEDS: CHOLECALCIFEROL 1,000 UNITS 25 MCG TAB PO SCH (08:31)
[2022-04-23] MEDS: VENLAFAXINE HCL XR 150 MG CAPXR PO SCH (08:32)
[2022-04-23] MEDS: FIRST - Mouthwash BLM 119 ML PO SCH ×3 (08:32→22:19)
[2022-04-23] MEDS: UMECLIDINIUM/VILANTEROL 62.5/25MCG 7 PUFFS/INHALER INH SCH (08:32)
[2022-04-23] MEDS: SUCRALFATE 1 GM/10 ML UDC PO SCH ×4 (08:32→22:14)
[2022-04-23] MEDS: PANTOprazole 40 MG in SYRINGE 0 ML IV SCH ×2 (08:32→22:14)
[2022-04-23] MEDS: NICOTINE 21 MG/24 HR TDSY TD SCH (08:32)
[2022-04-23] MEDS: FAMOTIDINE 20 MG in SYRINGE 3 ML IV SCH ×2 (08:34→22:19)
[2022-04-23 09:04] LABS: Hematocrit (blood only) 30.1 % (37.0-47.0); Hemoglobin 10.1 g/dl (12.0-16.0); Mean Corpuscular Hemoglobin 29.1 pg (25.0-34.0); Mean Corpuscular Hgb Conc 33.6 g/dL (32.0-36.0); Mean Corpuscular Volume 86.7 fL (80.0-100.0); Mean Platelet Volume 8.8 fL (9.4-12.4); Platelet Count 103 K/uL (130-400); RDW Coefficient of Variation 14.3 % (11.5-14.5); RDW Standard Deviation 41.1 fL (36.4-46.3); Red Blood Count 3.47 M/uL (4.20-5.40); White Blood Count 2.73 K/ul (4.8-10.8)
[2022-04-23 09:15] LABS: BUN Creatinine Ratio 11.5 (10-20); Calcium 8.5 mg/dl (8.5-10.1); Creatinine Clr Calc Pharmacy 65.4 ml/min; Est GFR (African American) 88.6 ml/min; Est GFR (Non-African American) 76.5 ml/min; Magnesium 1.5 mg/dl (1.7-2.4); Phosphorus 3.1 mg/dl (2.5-4.9); Potassium 3.6 mmol/L (3.5-5.1)
[2022-04-23] MEDS: MAGNESIUM SULFATE / D5W 1 GM/100 ML BAG IV SCH ×2 (12:57→14:56)
--- NOTE | 2022-04-23 13:37 | Hospitalist Progress Note ---
Date of Service April 23, 2022 Assessment & Plan (1) Difficulty in swallowing: (2) Odynophagia: Plan 72-year-old female with esophageal cancer, ongoing chemoradiation, presents with poor appetite due to painfull difficulty swallowing Might be related to radiation esophagitis CT abd/pelvis showed moderate wall thickening of the distal esophagus and gastroesophageal junction redemonstrated compatible with the patient's known primary malignancy Gastro on board S/P EGD showed LA Grade D radiation esophagitis with no bleeding but stigmata of recent bleeding with some clot found from the mid esophagus to GE junction. This was ulcerated with some oozing. No obvious mass seen at the GEJ however the area was severely ulcerated with some sloughing and oozing from recent radiation treatment which interfered with visualization. Oozing gastric ulcer with oozing hemorrhage GI recommended PPI 40 mg BID, carafate QID, magic mouth wash for radiation esophagitis. Pt will need a repeat EGD in 8 weeks to assess for gastric ulcer healing and healing of radiation esophagitis S/p 1 PRBC on 04/21/22 GI recommended stopping ASA even on discharge Continue IV Pepcid, sucralfate and Chloraseptic Esophageal cancer, lower third. Status post chemo and radiation. Further management as per hem/onc. Radiation oncology on board History of factor V Leiden mutation Had supratherapeutic INR on presentation. Got Vit K Hx of CVA on Coumadin. Hb is stable over the past 48h Considering supratherapeutic INR on presentation, will resume warfarin at lower dose of 2mg daily Check INR and monitor Will need to follow up closely with Anticoagulation clinic and PCP Educated patient abt med changes Pancytopenia Chronic Electrolytes imbalance Magnesium 1.5 Replete with IV Continue po mag History of hypertension. 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 History of atherosclerotic carotid disease. Following with vascular surgery. Chronic obstructive pulmonary disease. Counseling on tobacco cessation Continue home inhaler. History of obstructive sleep apnea with nocturnal hypoxia. Continue CPAP with 2 L of oxygen at nighttime. Type 2 diabetes. Most recent hemoglobin A1c 7.2 Currently not on medication. Continue monitor blood sugar Anxiety Depression Fibromyalgia. Continue home medications. Deep venous thrombosis prophylaxis: Warfarin Code status Full code Disposition Plan to me tomorrow AM I spent a total of 35 minutes coordinating, documenting and providing care for this patient excluding time spent in performance of separately billed services Admission and Anticipated Discharge Date Admission Date: April 15, 2022 Subjective Patient seen and examined Reports heart burn Reports odynophagia with swallowing but stated this is improved compared to when she came Denied any chest pain, cough, SOB Denied nausea, vomiting, abd pain, diarrhea Denied melena, hematemesis Denied dizziness Physical Exam Constitutional: + well hydrated; no acute distress Eyes: PERRL, conjunctivae normal, anicteric sclerae ENMT: external ear and nose normal, oropharynx normal Respiratory: normal respiratory effort, lungs clear to auscultation Cardiovascular: Rate/Rhythm: regular rate and regular rhythm S1 S2 Gastrointestinal (Abdomen): normal bowel sounds, soft, nontender, no hepatosplenomegaly Musculoskeletal: no cyanosis or clubbing, extremities motor strength 5/5 Neurologic: PERRL, EOMI, accommodation nl, no face palsy, no dysarthria Psychiatric: A+Ox3, euthymic affect Results & Data Results & Data Vital Signs (Past 12 Hours) Vital Signs Temp Pulse Pulse Resp BP Pulse Ox O2 Del Method 04/23/22 11:57 36.8 C 78 17 148/78 H 94 Room Air 04/23/22 08:00 Nasal Cannula 04/23/22 08:27 36.6 C 80 17 157/83 H 97 Nasal Cannula 04/23/22 08:03 82 04/23/22 03:27 36.9 C 78 20 137/67 99 Nasal Cannula O2 Flow Rate 04/23/22 11:57 04/23/22 08:00 2 04/23/22 08:27 3 04/23/22 08:03 04/23/22 03:27 2 Laboratory Results Abnormal lab results 04/23/22 04/23/22 Range/Units 08:19 08:19 WBC 2.73 L (4.8-10.8) K/ul RBC 3.47 L (4.20-5.40) M/uL Hgb 10.1 L (12.0-16.0) g/dl Hct 30.1 L (37.0-47.0) % Plt Count 103 L (130-400) K/uL MPV 8.8 L (9.4-12.4) fL Glucose 120 H (70-99(Fasting)) mg/dl Magnesium 1.5 L (1.7-2.4) mg/dl (1) Difficulty in swallowing Dysphagia type: esophageal phase Qualified Code(s): R13.19 - Other dysphagia
[2022-04-23 15:07] LABS: INR 1.1 (0.9-1.1); Prothrombin Time 11.2 Seconds (9.0-12.0)
[2022-04-23] MEDS ORDERED: WARFARIN SOD 2 MG TAB PO SCH (16:00)
[2022-04-24 07:30] LABS: Hematocrit (blood only) 27.9 % (37.0-47.0); Hemoglobin 9.4 g/dl (12.0-16.0); Mean Corpuscular Hgb Conc 33.7 g/dL (32.0-36.0); Mean Corpuscular Volume 86.1 fL (80.0-100.0); Mean Platelet Volume 9.2 fL (9.4-12.4); Platelet Count 112 K/uL (130-400); RDW Standard Deviation 39.4 fL (36.4-46.3); Red Blood Count 3.24 M/uL (4.20-5.40); White Blood Count 2.77 K/ul (4.8-10.8)
[2022-04-24 07:38] LABS: BUN Creatinine Ratio 13.9 (10-20); Calcium 8.2 mg/dl (8.5-10.1); Creatinine Clr Calc Pharmacy 70.8 ml/min; Est GFR (African American) 97.7 ml/min; Est GFR (Non-African American) 84.3 ml/min; Potassium 3.3 mmol/L (3.5-5.1)
[2022-04-24 08:03] LABS: INR 1.1 (0.9-1.1); Prothrombin Time 11.2 Seconds (9.0-12.0)
[2022-04-24] MEDS: NICOTINE 21 MG/24 HR TDSY TD SCH (08:40)
[2022-04-24] MEDS: PANTOprazole 40 MG in SYRINGE 0 ML IV SCH (08:43)
[2022-04-24] MEDS: carvediloL 12.5 MG TAB PO SCH (08:43)
[2022-04-24] MEDS: CYANOCOBALAMIN (B-12) 500 MCG TABLET PO SCH (08:44)
[2022-04-24] MEDS: GABAPENTIN 300 MG CAP PO SCH ×2 (08:44→13:25)
[2022-04-24] MEDS: ATORVASTATIN 40 MG TAB PO SCH (08:44)
[2022-04-24] MEDS: FIRST - Mouthwash BLM 119 ML PO SCH ×2 (08:44→13:26)
[2022-04-24] MEDS: levETIRAcetam 500 MG TAB PO SCH (08:44)
[2022-04-24] MEDS: CHOLECALCIFEROL 1,000 UNITS 25 MCG TAB PO SCH (08:45)
[2022-04-24] MEDS: MAGNESIUM OXIDE 400 MG TAB PO SCH (08:45)
[2022-04-24] MEDS: VENLAFAXINE HCL XR 150 MG CAPXR PO SCH (08:45)
[2022-04-24] MEDS: lisinopril 20 MG TAB PO SCH (08:45)
[2022-04-24] MEDS: EZETIMIBE 10 MG TABLET PO SCH (08:45)
[2022-04-24] MEDS: FOLIC ACID 400 MCG TAB PO SCH (08:45)
[2022-04-24] MEDS: SUCRALFATE 1 GM/10 ML UDC PO SCH ×2 (08:46→13:26)
[2022-04-24] MEDS: UMECLIDINIUM/VILANTEROL 62.5/25MCG 7 PUFFS/INHALER INH SCH (08:46)
[2022-04-24] MEDS: FAMOTIDINE 20 MG in SYRINGE 3 ML IV SCH (08:49)
[2022-04-24] MEDS: ONDANSETRON INJ 2 MG/ML 2 ML VIAL IV PRN (11:19)
--- NOTE | 2022-04-24 13:01 | Discharge Summary ---
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 The patient had a fall in November 2021 with resultant intraparenchymal hemorrhage resulting craniotomy in [place]. Keppra prescribed for seizure precautions. At that time, her course was complicated by E. coli uti and thrombocytosis. At that time evaluation revealed metastatic lower esophageal adenocarcinoma. Currently, the patient says she just completed chemotherapy 5 cycles and also 28 radiation treatments last week and I during recent evaluation found to be symptomatic hypotension requiring currently lisinopril and hydrochlorothiazide on hold. It looks like plan for possible future esophagectomy. palpitations controlled control by Coreg and as per cardiology notes. As per hem/onc notes, recommendations for magic swizzle, h small meals throughout the day and continue daily Boost and also to continue Coumadin. The patient says since the radiation treatment, she is having swallowing difficulty with painful swallowing and also having pain in lower esophagus that is getting worse and she is not able to eat much and swallow much, not eating or drinking. That is the reason she came to ER. ER given GI cocktail which helped, but the pain is coming back. She has vomiting few times a day, but no blood in vomitus and no blood in the stools. She says now she develops some abdominal pain also. Today she had some epistaxis. Denies shortness of breath and no cough, no fever, no headache, no blurred visions. She has had some peripheral vision problems in the left eye for long time. No headache, no runny nose. Hemodynamically stable. She is taking Coumadin, INR is 5.3 today. Because of poor appetite and dehydration we were called for admission. Admission Exam Per Admitting Provider GENERAL: The patient is of moderate build, not in acute distress. VITAL SIGNS: Temperature 37.5, pulse 94, respiratory rate 19, blood pressure 119/100, oxygen 99% on room air. HEENT: Pupils equal, round and reactive to light. Oral mucosa moist. NECK: No JVD, no neck masses. CARDIOVASCULAR: S1 and S2 heard. Regular rate and rhythm. No murmur, no gallop. RESPIRATORY SYSTEM: Normal AP diameter. No accessory muscle use. No wheezing, no crackles. ABDOMEN: Soft. Bowel sounds are present, nontender, no distention. CENTRAL NERVOUS SYSTEM: Alert and oriented. Speech is clear. No facial droop. Moves all extremities. EXTREMITIES: No edema, no erythema. Principal Diagnosis Odynophagia Esophagitis Gastric ulcer Discharge Exam Constitutional + well hydrated; no acute distress Eyes PERRL, conjunctivae normal, anicteric sclerae ENMT external ear and nose normal, oropharynx normal Respiratory normal respiratory effort, lungs clear to auscultation Cardiovascular Rate/Rhythm: regular rate and regular rhythm S1 S2 Gastrointestinal (Abdomen) normal bowel sounds, soft, nontender, no hepatosplenomegaly Musculoskeletal no cyanosis or clubbing, extremities motor strength 5/5 Neurologic PERRL, EOMI, accommodation nl, no face palsy, no dysarthria Psychiatric A+Ox3, euthymic affect Discharge Data Allergies Allergy/AdvReac Type Severity Reaction Status Date / Time iodine Allergy Intermediate ITCHING Verified 04/11/22 08:43 nickel Allergy Intermediate RASH/ITCHIN Verified 04/11/22 08:43 G buspirone Allergy Unknown PT UNSURE Verified 04/11/22 08:43 OF RXN Consultations 04/15/22 19:53 ED Decision to Admit Stat 04/16/22 08:00 Consult Gastroenterology Routine 04/17/22 11:34 Consult Palliative Care Routine 04/17/22 12:34 Consult Radiation Oncology Routine Procedures Performed Operation Date: 04/17/22 16:00 Actual Procedures p EGD Hemostasis - Judie Staton DO Ordered Studies 04/18/22 05:04 CT abd pelvis wo con Urgent Hospital Course (1) Difficulty in swallowing: (2) Odynophagia: Plan 72-year-old female with esophageal cancer, ongoing chemoradiation, presents with poor appetite due to painfull difficulty swallowing Might be related to radiation esophagitis CT abd/pelvis showed moderate wall thickening of the distal esophagus and gastroesophageal junction redemonstrated compatible with the patient's known primary malignancy Gastro on board S/P EGD showed LA Grade D radiation esophagitis with no bleeding but stigmata of recent bleeding with some clot found from the mid esophagus to GE junction. This was ulcerated with some oozing. No obvious mass seen at the GEJ however the area was severely ulcerated with some sloughing and oozing from recent radiation treatment which interfered with visualization. Oozing gastric ulcer with oozing hemorrhage GI recommended PPI 40 mg BID, carafate QID, magic mouth wash for radiation esophagitis. Pt will need a repeat EGD in 8 weeks to assess for gastric ulcer healing and healing of radiation esophagitis S/p 1 PRBC on 04/21/22 GI recommended stopping ASA even on discharge Continue Pantoprazole, pepcid and carafate Esophageal cancer, lower third. Status post chemo and radiation. Further management as per hem/onc. History of factor V Leiden mutation Had supratherapeutic INR on presentation. Got Vit K Hx of CVA on Coumadin. Hb is stable over the past 72h Considering supratherapeutic INR on presentation, warfarin was resumed on 04/23/22 at lower dose of 2mg daily INR is 1.1 Will need to follow up closely with Anticoagulation clinic and PCP. Educated patient about this Our nurse coordinator to notify Anticoagulation clinic to monitor closely and check INR within 3-5 days Educated patient abt med changes Pancytopenia Chronic Electrolytes imbalance Had hypomagnesemia and hypokalemia Repleted Continue po mag PCP to check BMP and mag on follow up History of hypertension. 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 History of atherosclerotic carotid disease. Following with vascular surgery. Chronic obstructive pulmonary disease. Counseling on tobacco cessation Continue home inhaler. History of obstructive sleep apnea with nocturnal hypoxia. Continue CPAP with 2 L of oxygen at nighttime. Type 2 diabetes. Most recent hemoglobin A1c 7.2 Currently not on medication. Continue monitor blood sugar Anxiety Depression Fibromyalgia. Continue home medications. Total Time Total Time Spent Total Time Spent (In Minutes): 55 Total Time Includes: Examination of the Patient, Discharge Planning, Medication Reconciliation and Communication With Other Providers (Tigertexted PCP discharge updates) Discharge Plan Discharge Items Patient Disposition: Home - Self-Care Reason For Visit: Difficulty swallowing Discharge Diagnosis: Odynophagia Esophagitis Gastric ulcer Activity: Resume your previous activity Non-emergency contact: Primary Care Provider and Bevel Polisher Call non-emergency contact if: you have any medication questions and your symptoms worsen Follow-up/Referrals: Tabitha Corbett PA-C [Physician Help Desk Agent] - (The gastroenterology office will contact you for a follow up appointment.) Dre Cagle MD [Primary Care Provider] - (Date & Time 04/30/2022 10:00 AM Provider Dre Cagle MD Department [facility] ) Diet: Heart Healthy Addtl Attending Provider Instructions: Mrs Ayala You came to the hospital with poor food intake and difficulty/pain swallowing. You were evaluated. You had upper endoscopy which showed esophagitis as well as gastric ulcer with some oozing of blood. You were started on Pantoprazole and Pepcid. Please continue carafate 4 times a day. You will need repeat endoscopy in 8 weeks. Please continue the new meds till then STOP TAKING ASPIRIN. Do not take any NSAIDS like ibuprofen, Advil, motrin etc. Your warfarin was reduced to 2mg daily for now until you follow up with Anticoagulation who will adjust doses as needed. Please call your doctor or return to ER if you notice bleeding in stool as we discussed. Please ensure follow up with your Primary Doctor. You were started on magnesium tablets due to low magnesium. Your Primary Doctor will monitor this. It was a pleasure taking care of you. Pending Studies at Discharge: No Stand-Alone Forms: [facility], Smoking Cessation Medications and DC Order Prescriptions: New magnesium oxide 400 mg (241.3 mg magnesium) Tablet 400 mg PO QAM Qty: 30 0RF warfarin 2 mg Tablet 2 mg PO DAILY@1600 Qty: 30 0RF Rx Instructions: Take daily or as directed by Anticoagulation clinic pantoprazole 40 mg tablet,delayed release (DR/EC) 40 mg PO BID Qty: 60 0RF famotidine [Pepcid] 20 mg tablet 20 mg PO BID Qty: 60 0RF Continued albuterol sulfate 90 mcg/actuation HFA aerosol inhaler 2 puff inhalation Q6H PRN (Reason: Shortness Of Breath Or Wheezing) diclofenac sodium [Arthritis Pain (diclofenac)] 1 % gel 2 g topical QID PRN (Reason: Pain) Rx Instructions: apply to single elbow, wrist or hand; for hand includes palm/fingers/back of hand ipratropium-albuterol 0.5 mg-3 mg(2.5 mg base)/3 mL solution for nebulization 3 ml inhalation Q6H PRN (Reason: Shortness Of Breath Or Wheezing) atorvastatin [Lipitor] 80 mg tablet 80 mg PO QAM hydrocodone-acetaminophen 7.5-325 mg tablet 1 tab PO Q6 PRN (Reason: Pain) gabapentin 300 mg capsule 300 mg PO TID ezetimibe [Zetia] 10 mg tablet 10 mg PO QAM carvedilol 12.5 mg tablet 12.5 mg PO BID venlafaxine [Effexor XR] 150 mg capsule,extended release 24hr 150 mg PO QAM Anoro Ellipta 62.5-25 mcg/actuation blister with device 1 ea INHALATION DAILY hydrochlorothiazide 25 mg tablet 12.5 mg PO QAM Patient Comments: ONHOLD as of 04/07/22 cyanocobalamin (vitamin B-12) 500 mcg Tablet 500 mcg PO QAM docusate sodium 100 mg Capsule 100 mg PO BID folic acid 800 mcg Tablet 0.8 mg PO QAM cholecalciferol (vitamin D3) [Vitamin D3] 25 mcg (1,000 unit) Tablet 25 mcg PO QAM levetiracetam [Keppra XR] 500 mg tablet extended release 24 hr 1,000 mg PO BID lisinopril 20 mg tablet 20 mg PO UD Rx Instructions: on hold 04/07/22 Changed sucralfate [Carafate] 1 gram tablet 1 g PO QID PRN (Reason: dysphagia) Qty: 120 0RF Rx Instructions: Placed 1 pill in 1 teaspoon of water and take 1 hour before meals and bedtime. Discontinued aspirin 81 mg Tablet,Delayed Release (Dr/Ec) 81 mg PO QAM warfarin 2.5 mg tablet 2.5 mg PO DAILY Discharge Orders: Discharge Order (Routine); Ordered 04/24/22 Ordered By: Ivelisse Flores/Other Patient Handouts: Sucralfate Oral Suspension, Esophagitis, Managing Type 2 Diabetes, Radiation Short Term Side Effects, Your Mouth: Keeping It Healthy, Understanding Gastric Ulcers Admission Data Admit Date/Time: 04/15/22 21:44 Attending Provider: Ivelisse Ordonez I. Admit Provider: Osman Lozano Primary Care Provider: Dre Cagle Other Providers: Casper Olivas ; Buffy Olivas ; Osman Lozano ; Raul Severino ; Schuyler Okeefe ; Jody Medeiros ; Tabitha Corbett ; Yojana López ; Alexandrea Franco ; Lawson Church ; Gama Blanchard ; Judi Luis ; Philip Fenton ; Silverio Tyson ; [place] ; Allison Echavarria ; Bia Barahona ; Laure Decker ; Aurora Mitchell ; Peewee Juan ; Osei Dominguez ; Judie Staton ; Eva Butterfield Jr ; Sienna Chiu ; Tommy Klein ; Essence Perrin Other Interventions: Discharge Summary Assessment (RN) Last Done: 04/24/22 11:25
[2022-04-25 13:45] LABS: Ferritin 346.7 ng/ml (8-388)
== END 2022-04-24 13:45 | disposition home or self-care (01) | DRG 374 ==
LOC: ED 16:57 → 2W 21:44 → SUATTDRO 21:44 → 2W 22:13

== ENCOUNTER 2022-04-29 14:54 | Inpatient (IN) ==
[2022-04-29] MEDS ORDERED: SODIUM CHLORIDE 0.9% 1000ML 1,000 ML IV SCH ×2 (15:15→23:19)
[2022-04-29 15:54] LABS: Basophils # (auto) 0.01 K/uL (0-0.2); Basophils % (auto) 0.3 %; Eosinophils # (auto) 0.03 K/uL (0-0.50); Eosinophils % (auto) 0.8 %; Hematocrit (blood only) 30.3 % (37.0-47.0); Hemoglobin 10.1 g/dl (12.0-16.0); Immature Granulocytes # (auto) 0.03 K/uL (0.01-0.20); Immature Granulocytes % (auto) 0.8 %; Lymphocytes # (auto) 0.46 K/uL (1.2-3.4); Lymphocytes % (auto) 11.6 %; Mean Corpuscular Hemoglobin 29.6 pg (25.0-34.0); Mean Corpuscular Hgb Conc 33.3 g/dL (32.0-36.0); Mean Corpuscular Volume 88.9 fL (80.0-100.0); Mean Platelet Volume 8.7 fL (9.4-12.4); Monocytes # (auto) 0.68 K/uL (0.11-0.59); Monocytes % (auto) 17.2 %; Neutrophils # (auto) 2.75 K/uL (1.40-6.50); Neutrophils % (auto) 69.3 %; Platelet Count 286 K/uL (130-400); RDW Coefficient of Variation 15.8 % (11.5-14.5); RDW Standard Deviation 43.3 fL (36.4-46.3); Red Blood Count 3.41 M/uL (4.20-5.40); White Blood Count 3.96 K/ul (4.8-10.8)
--- NOTE | 2022-04-29 15:54 | Emergency Department Note ---
Impression & Plan Generalized weakness, Fall, Hx of esophageal malignancy, Acute UTI (urinary tract infection) ED Provider Note INFORMANT: Patient ED PROVIDER(S): Johnnie Scott MD CHIEF COMPLAINT: Weakness PLAN: Disposition: Admitted Condition: Good Outpatient prescription management: none Referral: None MEDICAL DECISION MAKING: Patient presented with concerning weakness. She did not suffer any injury to her fall out. Work-up was initiated. Chest x-ray was negative. Head CT showed postsurgical changes without acute findings. ECG showed a normal sinus rhythm without acute ischemia. Patient's CBC showed a mild anemia. Chemistry panel, LFTs, and troponin were negative. Patient was hydrated. She provided a urine specimen. This was concerning for UTI. Patient was given IV Rocephin. I discussed management both inpatient and outpatient. Patient feels most comfortable with admission. In light of her chemotherapy, esophageal cancer and the weakness this seems reasonable. Patient and were in agreement. Consultation was made with the [facility] [place]. Patient was evaluated in the ER and admitted for further management. Discussed with manager strategic sourcing After review of the information above and other included data, I feel the patient requires admission. Triage Nursing notes reviewed and agree them. Vital Signs: reviewed and remarkable for no significant abnormalities Prior /Outside records reviewed: Prior hospitalization reviewed. Differential diagnosis: Complication of chemotherapy, infection, dehydration, metabolic abnormality, hypo/hyperglycemia, electrolyte disturbance, anemia, hypoxia, cardiac sources, CVA, TIA,, toxicologic, neurologic, as well as other pathologies. Diagnostics, as interpreted by me: ECG: Twelve-lead ECG reveals a normal sinus rhythm at 79 bpm. Voltage QRS. Anterior Q waves. No ST elevation. Cardiac Monitoring: Cardiac monitoring ordered by me: The patient was placed on continuous cardiac monitoring and observed. It revealed a normal sinus rhythm at 82 beats per minute without ectopy or evidence of dysrhythmia. Medical decision rules: none Imaging studies: Head CT: A noncontrast CT scan of the head was performed and was negative for tumor, fracture, intracranial hemorrhage, or other acute pathology. Chest x-ray. Findings: A chest x-ray was performed and revealed no pneumothorax, effusion, infiltrate, pulmonary edema, free air under the diaphragm, or wide mediastinum. Impression: No acute disease. HPI: The patient is a 72year old female who presents to the Emergency Room with complaints of weakness. This started today and resulted in a controlled fall. The patient was too weak to get up. summoned EMS. Patient was recently admitted to the hospital due to to complications of esophageal malignancy. Patient is also receiving chemotherapy for the same. Patient and noted that she was doing better after hospitalization. She does note fatigue since that time. Patient did note some lightheadedness today. tried to get the patient up but she was unable to stand. There is no slurred speech or facial droop noted. Patient and did not note any unilateral weakness. The patient has taken no medication for relieving factors. Current pain is rated as 0/10. Patient does have some difficulty swallowing which is baseline for her. She states it causes some discomfort in her chest with swallowing but that has not changed recently. Pt denies LOC, headache, fevers, chills, diaphoresis, visual changes, neck pain, chest pain, breathing difficulties, nausea, vomiting, abdominal pain, back pain, melena, hematochezia, urinary symptoms, numbness, lymphadenopathy, rash, or other complaints. PAST MEDICAL HISTORY: See Below, esophageal cancer PAST SURGICAL HISTORY: See Below, SOCIAL HISTORY: See Below, HOME MEDICATIONS: See Below ALLERGIES: See Below VITALS: See Below PHYSICAL EXAMINATION: GENERAL: Awake, tired-appearing, in no distress HENT: Normocephalic, atraumatic. Oropharynx unremarkable. EYES: Pale conjunctiva. Sclera non-icteric. PERRLA. EOMI. NECK: Inspection normal. Non-tender. Supple. No nuchal rigidity. FROM. No masses. RESPIRATORY: Clear to auscultation. No wheezes. No rales. Normal respiratory effort. CARDIAC: Normal rate. Normal rhythm. No murmurs. No rubs. Extremities warm and well perfused. Pulses equal. No JVD. GI: Soft, non-distended. No tenderness to palpation. No rebound or guarding. No masses. RECTAL: Deferred. MUSCULOSKELETAL: Atraumatic. Chest examination reveals no tenderness. The back is symmetrical on inspection without obvious abnormality. There is no CVA tenderness to palpation. No joint edema. LOWER EXTREMITIES: Calves are equal size bilaterally and non-tender. No edema. No discoloration. NEURO: Normal sensorium. No sensory or motor deficits noted. SKIN: No rash or jaundice noted. Past Med/Surg History Medical History (Updated 04/29/22 @ 20:18 by Johnnie Scott MD) Advanced care planning/counseling discussion Anxiety and depression Cancer related pain Carotid artery disease Per 11/2021 Carotid Duplex: 70-99% right ICA stenosis, 50-69% left ICA stenosis - Seen by vascular 12/12/21- 70-99% right ICA stenosis since 12/2019- continuing with surveillance and medical management Chronic kidney disease Chronic rhinitis Cognitive deficit due to old cerebrovascular accident (CVA) COPD (chronic obstructive pulmonary disease) Degenerative disc disease Dyslipidemia Esophageal pain Factor 5 Leiden mutation, heterozygous REASON FOR WARARIN RX GERD (gastroesophageal reflux disease) Heart palpitations FOLLOWED BY [facility] Hematoma of brain S/p fall 11/12/21- s/p right occipital craniotomy for minimally invasive evacuation of iintraparenchymal hematoma HTN (hypertension) Hyperlipidemia Meniere disease Migraine On home oxygen therapy 2.5L AT Palliative care by specialist Pericardial effusion Seizure BILAT. HAND SHAKING>WAS TOLD WAS SEIZURE ACTIVITY - No hx of seizures per PCP and neurosurgery records- on Keppra for seizure prophylaxis after craniotomy Stomach cancer CURRENT DX>"FOUND MASS DOWN LOWER NEAR ESOPHAGUS" (EGD/BIOPSY AT [facility]) Stroke 2008> RESIDUAL MEMORY ISSUES /MILD WEAKNESS Surgical History Brain bleed 11/12/21>LIFE FLIGHTED TO [facility] (EVACUATED BLOOD FROM BRAIN) S/P FELL AND HIT HEAD History of anesthesia reaction SLOW TO WAKE UP SOMETIMES History of carpal tunnel release RT/LEFT History of cataract surgery RT/LEFT History of colonoscopy History of esophagogastroduodenoscopy (EGD) History of hysterectomy History of tooth extraction History of total knee replacement RT/LEFT S/P trigger finger release Family History Mother Unknown family medical history Father Myocardial infarction Brother , as infant; No problems noted. Son No problems noted. Son No problems noted. Sister No problems noted. Sister No problems noted. Sister H/O brain surgery Sister No problems noted. 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 How many Children do You have: 2 Feels Safe at Home: Yes caffeine: Yes (2 cups/day) during the past year weight has: decreased > 10 lbs Assistive Devices: Cane and Glasses Allergies Allergies Allergy/AdvReac Type Severity Reaction Status Date / Time iodine Allergy Intermediate ITCHING Verified 04/29/22 18:35 nickel Allergy Intermediate RASH/ITCHIN Verified 04/29/22 18:35 G buspirone Allergy Unknown PT UNSURE Verified 04/29/22 18:35 OF RXN Home Meds Home Medications Medication Instructions Recorded Confirmed atorvastatin 80 mg tablet (Lipitor) 80 mg PO QAM 11/02/21 04/29/22 carvedilol 12.5 mg tablet 12.5 mg PO BID 11/02/21 04/29/22 ezetimibe 10 mg tablet (Zetia) 10 mg PO QAM 11/02/21 04/29/22 gabapentin 300 mg capsule 300 mg PO TID 11/02/21 04/29/22 hydrocodone 7.5 mg-acetaminophen 1 tab PO Q6 PRN Pain 11/02/21 04/29/22 325 mg tablet venlafaxine 150 mg 150 mg PO QAM 11/02/21 04/29/22 capsule,extended release 24 hr (Effexor XR) cholecalciferol (vitamin D3) 25 25 mcg PO QAM 01/14/22 04/29/22 mcg (1,000 unit) tablet (Vitamin D3) cyanocobalamin (vitamin B-12) 500 500 mcg PO QAM 01/14/22 04/29/22 mcg tablet folic acid 800 mcg tablet 0.8 mg PO QAM 01/14/22 04/29/22 albuterol sulfate 90 mcg/actuation 2 puff inhalation Q6H PRN 02/14/22 04/29/22 aerosol inhaler Shortness Of Breath Or Wheezing diclofenac sodium 1 % topical gel 2 g topical QID PRN Pain 02/14/22 04/29/22 (Arthritis Pain (diclofenac)) ipratropium 0.5 mg-albuterol 3 mg 3 ml inhalation Q6H PRN Shortness 02/14/22 04/29/22 (2.5 mg base)/3 mL nebulization Of Breath Or Wheezing soln levetiracetam 500 mg 1,000 mg PO BID 02/14/22 04/29/22 tablet,extended release 24 hr (Keppra XR) umeclidinium 62.5 mcg-vilanterol 1 ea inhalation DAILY 02/14/22 04/29/22 25 mcg/actuation powdr for inhalation (Anoro Ellipta) hydrochlorothiazide 25 mg tablet 12.5 mg PO QAM 04/07/22 04/29/22 lisinopril 20 mg tablet 20 mg PO DAILY 04/15/22 04/29/22 Previous Rx's Medication Instructions Recorded famotidine 20 mg tablet (Pepcid) 20 mg PO BID #60 tabs 04/24/22 magnesium oxide 400 mg (241.3 mg 400 mg PO QAM #30 tabs 04/24/22 magnesium) tablet pantoprazole 40 mg tablet,delayed 40 mg PO BID #60 tabs 04/24/22 release sucralfate 1 gram tablet (Carafate) 1 g PO QID PRN dysphagia #120 tabs 04/24/22 Results & Data (ED) Vital Signs Vital Signs - 24 hr 04/29/22 15:16 04/29/22 15:14 04/29/22 15:00 Pulse Rate 80 82 78 Pulse Rate from SpO2 Sensor Respiratory Rate 20 18 Blood Pressure 104/68 Blood Pressure Mean 80 Blood Pressure Position Lying Pulse Oximetry 97 99 Oxygen Delivery Method Room Air Room Air Sepsis Recent Fever Within 48 Hours No Sepsis New/Unexplained Change in Mental Status No Sepsis Action Taken by Nursing No Action Required 04/29/22 15:19 04/29/22 16:00 04/29/22 16:30 Pulse Rate 81 76 74 Pulse Rate from SpO2 Sensor 76 73 Respiratory Rate 17 18 19 Blood Pressure 117/65 119/71 152/89 H Blood Pressure Mean 82 87 110 Blood Pressure Position Pulse Oximetry 99 98 99 Oxygen Delivery Method Room Air Room Air Room Air Sepsis Recent Fever Within 48 Hours Sepsis New/Unexplained Change in Mental Status Sepsis Action Taken by Nursing 04/29/22 17:00 04/29/22 18:12 Pulse Rate 77 82 Pulse Rate from SpO2 Sensor 77 85 Respiratory Rate 18 18 Blood Pressure 153/89 H 142/103 H Blood Pressure Mean 110 116 Blood Pressure Position Pulse Oximetry 99 95 Oxygen Delivery Method Room Air Room Air Sepsis Recent Fever Within 48 Hours Sepsis New/Unexplained Change in Mental Status Sepsis Action Taken by Nursing Laboratory Data 04/29/22 15:21 04/29/22 15:21 Lab Results 04/29/22 04/29/22 04/29/22 Range/Units 15:21 15: 15:21 WBC 3.96 L (4.8-10.8) K/ul RBC 3.41 L (4.20-5.40) M/uL Hgb 10.1 L (12.0-16.0) g/dl Hct 30.3 L (37.0-47.0) % MCV 88.9 (80.0-100.0) fL MCH 29.6 (25.0-34.0) pg MCHC 33.3 (32.0-36.0) g/dL RDW Std Deviation 43.3 (36.4-46.3) fL RDW Coeff of Rony 15.8 H (11.5-14.5) % Plt Count 286 (130-400) K/uL MPV 8.7 L (9.4-12.4) fL Immature Gran % (Auto) 0.8 % Neut % (Auto) 69.3 % Lymph % (Auto) 11.6 % Pitkin % (Auto) 17.2 % Eos % (Auto) 0.8 % Baso % (Auto) 0.3 % Neut # (Auto) 2.75 (1.40-6.50) K/uL Lymph # (Auto) 0.46 L (1.2-3.4) K/uL Pitkin # (Auto) 0.68 H (0.11-0.59) K/uL Eos # (Auto) 0.03 (0-0.50) K/uL Baso # (Auto) 0.01 (0-0.2) K/uL Immature Gran # (Auto) 0.03 (0.01-0.20) K/uL PT 10.7 (9.0-12.0) Seconds INR 1.0 (0.9-1.1) Sodium 140 (136-145) mmol/L Potassium 4.1 (3.5-5.1) mmol/L Chloride 102 (98-107) mmol/L Carbon Dioxide 30 (21-32) mmol/L Anion Gap 8 (3-11) BUN 14 (6-23) mg/dl Creatinine 1.12 (0.6-1.2) mg/dl Est Cr Clr Drug Dosing Not Reportable Est GFR ( Amer) 57.2 ml/min Est GFR (Non-Af Amer) 49.4 ml/min BUN/Creatinine Ratio 12.5 (10-20) Glucose 110 H (70-99(Fasting)) mg/dl Calcium 9.4 (8.5-10.1) mg/dl Magnesium 1.7 (1.7-2.4) mg/dl Total Bilirubin 0.4 (0.2-1.0) mg/dl AST 21 (13-39) U/L ALT 20 (7-52) U/L Alkaline Phosphatase 48 (34-104) U/L Troponin I High Sens 11.0 (0-14) pg/ml Total Protein 6.1 (6.0-8.3) gm/dl Albumin 3.7 (3.4-5.0) gm/dl Globulin 2.4 L (2.5-4.0) gm/dl Albumin/Globulin Ratio 1.5 (0.9-2) TSH (0.300-4.500) uIu/ml Urine Color Urine Appearance (Clear) Urine pH (4.5-7.5) Ur Specific [place] (1.000-1.030) Urine Protein (Negative) Urine Glucose (UA) (Negative) Urine Ketones (Negative) Urine Blood (Negative) Urine Nitrite (Negative) Urine Bilirubin (Negative) Urine Urobilinogen (Negative) Ur Leukocyte Esterase (Negative) Urine WBC (Auto) (0-5) /hpf Urine RBC (Auto) (0-4) /hpf U Hyaline Cast (Auto) (0-5) /lpf U Epithel Cells (Auto) (0-5) /lpf Urine Bacteria (Auto) (Negative) Ur Renal Epithelial Cell Urine Crystals Calcium Oxalate Crystal (None Prsent) Urine Mucus (None Prsent) SARS-CoV-2, RNA, NAAT (NEGATIVE) 04/29/22 04/29/22 04/29/22 Range/Units 15:21 16:40 17:50 WBC (4.8-10.8) K/ul RBC (4.20-5.40) M/uL Hgb (12.0-16.0) g/dl Hct (37.0-47.0) % MCV (80.0-100.0) fL MCH (25.0-34.0) pg MCHC (32.0-36.0) g/dL RDW Std Deviation (36.4-46.3) fL RDW Coeff of Rony (11.5-14.5) % Plt Count (130-400) K/uL MPV (9.4-12.4) fL Immature Gran % (Auto) % Neut % (Auto) % Lymph % (Auto) % [place]kin % (Auto) % Eos % (Auto) % Baso % (Auto) % Neut # (Auto) (1.40-6.50) K/uL Lymph # (Auto) (1.2-3.4) K/uL [place]kin # (Auto) (0.11-0.59) K/uL Eos # (Auto) (0-0.50) K/uL Baso # (Auto) (0-0.2) K/uL Immature Gran # (Auto) (0.01-0.20) K/uL PT (9.0-12.0) Seconds INR (0.9-1.1) Sodium (136-145) mmol/L Potassium (3.5-5.1) mmol/L Chloride (98-107) mmol/L Carbon Dioxide (21-32) mmol/L Anion Gap (3-11) BUN (6-23) mg/dl Creatinine (0.6-1.2) mg/dl Est Cr Clr Drug Dosing Est GFR ( Amer) ml/min Est GFR (Non-Af Amer) ml/min BUN/Creatinine Ratio (10-20) Glucose (70-99(Fasting)) mg/dl Calcium (8.5-10.1) mg/dl Magnesium (1.7-2.4) mg/dl Total Bilirubin (0.2-1.0) mg/dl AST (13-39) U/L ALT (7-52) U/L Alkaline Phosphatase (34-104) U/L Troponin I High Sens (0-14) pg/ml Total Protein (6.0-8.3) gm/dl Albumin (3.4-5.0) gm/dl Globulin (2.5-4.0) gm/dl Albumin/Globulin Ratio (0.9-2) TSH 3.202 (0.300-4.500) uIu/ml Urine Color Dark Yellow Urine Appearance Cloudy A (Clear) Urine pH 6.5 (4.5-7.5) Ur Specific [place] 1.028 (1.000-1.030) Urine Protein 2+ H (Negative) Urine Glucose (UA) Negative (Negative) Urine Ketones Trace H (Negative) Urine Blood Negative (Negative) Urine Nitrite Negative (Negative) Urine Bilirubin Negative (Negative) Urine Urobilinogen Negative (Negative) Ur Leukocyte Esterase Trace H (Negative) Urine WBC (Auto) 10-30 H (0-5) /hpf Urine RBC (Auto) 5-10 H (0-4) /hpf U Hyaline Cast (Auto) 5-10 H (0-5) /lpf U Epithel Cells (Auto) >30 H (0-5) /lpf Urine Bacteria (Auto) 1+ H (Negative) Ur Renal Epithelial Cell Not Reportable Urine Crystals Not Reportable Calcium Oxalate Crystal Present A (None Prsent) Urine Mucus Present A (None Prsent) SARS-CoV-2, RNA, NAAT NEGATIVE (NEGATIVE) Administered Medications Sodium Chloride (Nss 1000ml) 1,000 mls @ 125 mls/hr IV .Q8H HANNAH Stop: 04/29/22 23:14 Last Admin: 04/29/22 16:39 Dose: 125 mls/hr Documented By: QGV Imaging Data Radiologist's Impression: Chest X-Ray 04/29/22 15:14 XR chest 1V portable CLINICAL HISTORY: weakness TECHNIQUE: Single frontal radiograph of the chest was obtained. Comparison: Comparison is made to chest radiograph 04/15/2022 FINDINGS: No lines and tubes are seen. Calcified aortic knob is seen. The lungs are clear. No evidence of pleural effusion or pneumothorax. IMPRESSION: No acute chest disease. ACT 112: Negative or not required by law. Electronically signed by: Moustapha Aguero M.D. 04/29/2022 4:[address] 04/29/22 16:04 CT SCAN OF THE BRAIN WITHOUT IV CONTRAST CLINICAL HISTORY: Fall. Generalized weakness. Reported history of esophageal cancer. COMPARISON STUDY: CT of the brain dated 11/12/2021. TECHNIQUE: Unenhanced axial CT scan of the brain is performed from the vertex to the skull base. A dose lowering technique was utilized adhering to the principles of ALARA. CT DOSE: 614.27 mGy.cm FINDINGS: Brain parenchyma: There is a large focus of right parieto-occipital encephalomalacia at the site of prior hemorrhage. A focus of left frontal encephalomalacia is also consistent with a remote insult. There is age-related involutional change noting mild subcortical and periventricular microangiopathic disease. There is no hemorrhage, mass effect, or evidence of acute territorial ischemia by CT criteria. Vale-white matter differentiation is preserved. Low- attenuation extra-axial fluid deep to the craniotomy site measures up to 7 mm in diameter. This may represent postsurgical change versus a small hygroma. No acute extra axial hemorrhage is seen. Ventricles, sulci, cisterns: Prominent secondary to involutional change. Intracranial vasculature: There is atherosclerotic calcification of the cavernous carotid arteries. Calvarium: There is postsurgical change from right-sided craniotomy. No destructive calvarial lesion is seen. Sinuses and mastoids: The visualized paranasal sinuses are clear. The mastoid air cells are well pneumatized. Orbits: The bony orbits are grossly intact. There are bilateral ocular lens implants. IMPRESSION: 1. There is no hemorrhage, mass effect, or evidence of acute territorial ischemia by CT criteria. 2. Chronic and postsurgical changes as above. ACT 112: Negative or not required by law. Electronically signed by: Nixon Drake M.D. 04/29/2022 4:36 PM Discharge Plan Visit Data Chief Complaint: Syncope (Near Syncope) ED Provider: Johnnie Scott Discharge Problem: Generalized weakness, Fall, Hx of esophageal malignancy, Acute UTI (urinary tract infection) Forms Stand Alone Forms: My [facility] Prescriptions Prescriptions: No Action albuterol sulfate 90 mcg/actuation HFA aerosol inhaler 2 puff inhalation Q6H PRN (Reason: Shortness Of Breath Or Wheezing) diclofenac sodium [Arthritis Pain (diclofenac)] 1 % gel 2 g topical QID PRN (Reason: Pain) ipratropium-albuterol 0.5 mg-3 mg(2.5 mg base)/3 mL solution for nebulization 3 ml inhalation Q6H PRN (Reason: Shortness Of Breath Or Wheezing) atorvastatin [Lipitor] 80 mg tablet 80 mg PO QAM hydrocodone-acetaminophen 7.5-325 mg tablet 1 tab PO Q6 PRN (Reason: Pain) gabapentin 300 mg capsule 300 mg PO TID ezetimibe [Zetia] 10 mg tablet 10 mg PO QAM carvedilol 12.5 mg tablet 12.5 mg PO BID venlafaxine [Effexor XR] 150 mg capsule,extended release 24hr 150 mg PO QAM Anoro Ellipta 62.5-25 mcg/actuation blister with device 1 ea INHALATION DAILY hydrochlorothiazide 25 mg tablet 12.5 mg PO QAM Patient Comments: ONHOLD as of 04/07/22 cyanocobalamin (vitamin B-12) 500 mcg Tablet 500 mcg PO QAM folic acid 800 mcg Tablet 0.8 mg PO QAM cholecalciferol (vitamin D3) [Vitamin D3] 25 mcg (1,000 unit) Tablet 25 mcg PO QAM levetiracetam [Keppra XR] 500 mg tablet extended release 24 hr 1,000 mg PO BID lisinopril 20 mg tablet 20 mg PO DAILY magnesium oxide 400 mg (241.3 mg magnesium) Tablet 400 mg PO QAM Qty: 30 0RF pantoprazole 40 mg tablet,delayed release (DR/EC) 40 mg PO BID Qty: 60 0RF famotidine [Pepcid] 20 mg tablet 20 mg PO BID Qty: 60 0RF sucralfate [Carafate] 1 gram tablet 1 g PO QID PRN (Reason: dysphagia) Qty: 120 0RF Rx Instructions: Placed 1 pill in 1 teaspoon of water and take 1 hour before meals and bedtime. Referrals Referrals: Dre Cagle MD [Primary Care Provider] -
[2022-04-29 16:09] LABS: Alanine Aminotransferase 20 U/L (7-52); Albumin Globulin Ratio 1.5 (0.9-2); Albumin Level 3.7 gm/dl (3.4-5.0); Alkaline Phosphatase 48 U/L (34-104); Anion Gap 8 (3-11); Aspartate Aminotransferase 21 U/L (13-39); BUN Creatinine Ratio 12.5 (10-20); Bilirubin,Total 0.4 mg/dl (0.2-1.0); Blood Urea Nitrogen 14 mg/dl (6-23); Calcium 9.4 mg/dl (8.5-10.1); Carbon Dioxide 30 mmol/L (21-32); Chloride 102 mmol/L (98-107); Est GFR (African American) 57.2 ml/min; Est GFR (Non-African American) 49.4 ml/min; Globulin 2.4 gm/dl (2.5-4.0); Glucose 110 mg/dl (70-99(Fasting)); Magnesium 1.7 mg/dl (1.7-2.4); Potassium 4.1 mmol/L (3.5-5.1); Sodium 140 mmol/L (136-145); Total Protein 6.1 gm/dl (6.0-8.3)
[2022-04-29 16:19] LABS: Prothrombin Time 10.7 Seconds (9.0-12.0)
--- NOTE | 2022-04-29 16:21 | XRay Report ---
XR chest 1V portable CLINICAL HISTORY: weakness TECHNIQUE: Single frontal radiograph of the chest was obtained. Comparison: Comparison is made to chest radiograph 04/15/2022 FINDINGS: No lines and tubes are seen. Calcified aortic knob is seen. The lungs are clear. No evidence of pleur al effusion or pneumothorax. IMPRESSION: No acute chest disease. ACT 112: Negative or not required by law. Electronically signed by: Moustapha Aguero M.D. 04/29/2022 4:20 PM
--- NOTE | 2022-04-29 16:39 | CT Scan Report ---
CT SCAN OF THE BRAIN WITHOUT IV CONTRAST CLINICAL HISTORY: Fall. Generalized weakness. Reported history of esophageal cancer. COMPARISON STUDY: CT of the brain dated 11/12/2021. TECHNIQUE: Unenhanced axial CT scan of the brain is performed from the vertex to the skull base. A do se lowering technique was utilized adhering to the principles of ALARA. CT DOSE: 614.27 mGy.cm FINDINGS: Brain parenchyma: There is a large focus of right parieto-occipital encephalomalacia at the site of p rior hemorrhage. A focus of left frontal encephalomalacia is also consistent with a remote insult. Th ere is age-related involutional change noting mild subcortical and periventricular microangiopathic d isease. There is no hemorrhage, mass effect, or evidence of acute territorial ischemia by CT criteria . Vale-white matter differentiation is preserved. Low-attenuation extra-axial fluid deep to the crani otomy site measures up to 7 mm in diameter. This may represent postsurgical change versus a small hyg sindi. No acute extra axial hemorrhage is seen. Ventricles, sulci, cisterns: Prominent secondary to involutional change. Intracranial vasculature: There is atherosclerotic calcification of the cavernous carotid arteries. Calvarium: There is postsurgical change from right-sided craniotomy. No destructive calvarial lesion is seen. Sinuses and mastoids: The visualized paranasal sinuses are clear. The mastoid air cells are well pneu matized. Orbits: The bony orbits are grossly intact. There are bilateral ocular lens implants. IMPRESSION: 1. There is no hemorrhage, mass effect, or evidence of acute territorial ischemia by CT criteria. 2. Chronic and postsurgical changes as above. ACT 112: Negative or not required by law. Electronically signed by: Nixon Drake M.D. 04/29/2022 4:36 PM
[2022-04-29 18:20] LABS: Appearance Urine Cloudy (Clear); Bacteria Urine Automated 1+ (Negative); Bilirubin Urine Negative (Negative); Blood Urine Negative (Negative); Color Urine Dark Yellow; Epithelial Cell Urine Auto >30 /lpf (0-5); Glucose Urine UA Negative (Negative); Ketones Urine Trace (Negative); Leukocyte Esterase Urine Trace (Negative); Nitrite Urine Negative (Negative); Protein Urine 2+ (Negative); Specific Gravity Urine 1.028 (1.000-1.030); Urobilinogen Urine Negative (Negative); pH Urine 6.5 (4.5-7.5)
[2022-04-29 18:39] LABS: Mucus Urine Present (None Prsent)
[2022-04-29 18:40] LABS: Calcium Oxalate Crystals Urine Present (None Prsent)
[2022-04-29] MEDS ORDERED: cefTRIAXone SODIUM 2,000 MG/70 ML BAG IV STA (18:49)
--- NOTE | 2022-04-29 22:45 | History and Physical Report ---
DATE OF ADMISSION: 04/29/2022 CHIEF COMPLAINT: Near syncope. HISTORY OF PRESENT ILLNESS: This is a 72-year-old female with past medical history significant for type 2 diabetes, currently not on any medications, hyperlipidemia, COPD, sleep apnea, nocturnal hypoxemia, history of CVA, hypertension, chronic kidney disease stage III, carotid stenosis, thrombophlebitis, history of irritable bowel syndrome, GERD, history of fibromyalgia, Meniere disease, history of malignant neoplasm of lower esophagus, history of intraparenchymal hematoma in brain, factor V Leiden heterozygous, history of thrombocytosis, anxiety. The patient had a fall in November 2021 with resultant intraparenchymal hemorrhage resulting craniotomy in [employer] [facility] [employer]. Keppra prescribed for seizure precautions. At that time, she was noted to have metastatic lower esophageal adenocarcinoma, currently completed chemo 5 cycles and also radiation treatments .She was also having symptomatic hypotension and lisinopril/hydrochlorothiazide was on hold at that time. The patient is currently awaiting a PET scan and followup at [employer] for future plan. She is having difficulty swallowing. She is eating small meals. The patient was recently here, was admitted on 04/16/2022 and discharged on 04/24/2022. She was admitted for difficulty swallowing, painful swallowing. Seen by GI, status post EGD, which showed LA grade D radiation esophagitis with no bleeding, but stigmata of recent bleeding with some clot formation from the mid esophagus to the GE junction. This was associated with some oozing. No obvious mass seen at the GE junction; however, the area was severely ulcerated with some sloughing and oozing from recent radiation treatment. A gastric ulcer with some oozing hemorrhage was seen. GI recommended PPI 40 mg b.i.d., Carafate q.i.d., Magic mouthwash for radiation esophagitis and she also received 1 unit of PRBC on 04/21/2022. GI recommended stopping aspirin even on discharge. As per GI, because of her esophageal cancer, she will likely have some black stools going on, but if there is large volume and if she becomes lightheaded then she should seek medical care was the recommendation and GI also to hold repeat EGD for now as it was not going to change the plan.The patient was discharged and she also followed with hematology/oncology and hematology/oncology also stopped Coumadin because of the history ofhx of brain bleed and GI bleed on Coumadin with her esophageal cancer and so she is not on Coumadin at this time . 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 She felt room spinning and she fell down, did not hit her head, seems no loss of consciousness. Her helped her to get up, but similar episode happened again when they called EMS and brought her here. Currently, the dizziness and spinning of the room is resolved. Hemodynamically stable. Denies any headache. No blurred visions, hard of hearing. No runny nose, no sore throat, no cough, no fevers, no chest pain, no shortness of breath, no nausea. Has some abdominal discomfort, still having difficulty swallowing. She eats small meals and not eating much. She has black stools a couple of days ago. Normal bladder movements. Resting comfortably and hemodynamically stable. ALLERGIES: IODINE, NICKEL, BUSPIRONE. PAST MEDICAL HISTORY: As mentioned above. PAST SURGICAL HISTORY: Bilateral knee arthroplasty, bilateral carpal tunnel surgery, colonoscopy, dilatation and curettage, EGDs, craniotomy for removal of hematoma, partial hysterectomy, bilateral cataract surgeries, trigger finger release, endoscopic ultrasound. MEDICATIONS: The patient is on albuterol 2 puffs inhalation q. 6 hours p.r.n., atorvastatin 80 mg p.o. a.m., Coreg 12.5 mg p.o. b.i.d., vitamin D 25 mcg p.o. a.m., vitamin B12 500 mcg p.o. a.m., diclofenac sodium 2 grams topical q.i.d. p.r.n., Zetia 10 mg p.o. a.m., Pepcid 20 mg p.o. b.i.d., folic acid 0.8 mg p.o. a.m., gabapentin 300 mg p.o. t.i.d., hydrocodone/acetaminophen 1 tab p.o. q. 6 hours p.r.n., DuoNeb 3 mL q. 6 hours p.r.n., Keppra 1000 mg p.o. b.i.d., magnesium oxide 400 mg p.o. a.m., Protonix 40 mg p.o. b.i.d., sucralfate 1 gram p.o. q.i.d. p.r.n., umeclidinium Vilanterol one inhalation daily, Effexor XR 150 mg p.o. a.m. FAMILY HISTORY: Significant for aunt has arthritis; mother has arthritis, factor V deficiency, diabetes, hypertension; father has GA. SOCIAL HISTORY: . Smoked three-fourth a day for last 33 years. Alcohol, rarely. No drug use. REVIEW OF SYSTEMS: As per HPI. Rest of the review of systems is negative. PHYSICAL EXAMINATION: GENERAL: The patient is of moderate build, not in acute distress. VITAL SIGNS: Temperature afebrile, pulse 82, respiratory rate 18, blood pressure 142/103, oxygen 95% on room air. HEENT: Pupils equal, round and reactive to light. Oral mucosa moist. NECK: No JVD, no neck masses. CARDIOVASCULAR: S1 and S2 heard. Regular rate and rhythm. No murmur, no gallop. RESPIRATORY SYSTEM: Normal AP diameter. No accessory muscle use. No wheezing, no crackles. ABDOMEN: Soft, bowel sounds present, nontender, no distention. CENTRAL NERVOUS SYSTEM: Cranial nerves II through XII grossly intact, nonfocal. EXTREMITIES: No edema, no erythema. LABORATORY DATA: WBC 3.9, hemoglobin 10.1, hematocrit 30.3, platelets 286. PT 10.7, INR 1. Sodium 140, potassium 4.1, chloride 102, bicarbonate 30, BUN 14, creatinine 1.1, serum glucose 110, calcium 9.4, magnesium 1.7, total bilirubin 0.4, AST 21, ALT 20, alkaline phosphatase 40. Troponin I high sensitivity 11. TSH 3.2. Urinalysis positive for leukocyte esterase, +1 bacteria. SARS-CoV-2 rapid test negative. IMAGING DATA: CT of the head without IV contrast, no hemorrhage, mass effect or evidence of acute territorial ischemia by CT criteria. Chronic and postsurgical changes as above. Chest x-ray, no acute chest disease. EKG: Normal sinus rhythm at a rate of 79, nonspecific T-wave abnormalities. ASSESSMENT AND PLAN: This is a 72-year-old female who presents with near syncope. 1. Near syncope. We will check orthostatics. Monitor in the tele. We will get an echo. If needed, we will consult cardiology and neuro. 2. Urinary tract infection, possibly contributing to her symptoms. Will treat with Rocephin. Follow the cultures. 3. History of metastatic lower third esophageal cancer, status post chemoradiation. Further management as per hematology/oncology. 4. History of CVA, was on Coumadin. After recent follow up with hematology/oncology, the Coumadin was stopped because of the bleeding episodes. 5. Anemia and thrombocytopenia, mostly from chemo. We will follow the labs. 6. History of hypertension, seems to on Coreg. Her lisinopril and hydrochlorothiazide are on hold but in [facility] [place] those medicines have removed. We will also stp those meds and monitor the blood pressure in the hospital. 7. History of fall resulting in intraparenchymal hemorrhage in brain in November 2021, status post craniotomy. On Keppra for seizure prophylaxis. 8. History of hyperlipidemia: On statin. 9. History of atherosclerotic heart disease, follows with vascular surgery. 10. History of chronic obstructive pulmonary disease: Tobacco abuse. Continue home inhalers. 11. History of sleep apnea and nocturnal hypoxia, uses CPAP with 2 liters oxygen at nighttime. 12. History of Meniere disease, we will monitor. The patient says she today also had some spinning of the room. We will place her on Antivert p.r.n. 13. Type 2 diabetes: Currently not on any medication. Follow the blood sugars. 14. Anxiety, depression, fibromyalgia: Continue home medications. 15. Deep venous thrombosis prophylaxis: Placed on sequential compression devices for now. 16. Ongoing painful swallowing from the esophageal cancer. Magic mouthwash and also patient to eat small food at a time. We will monitor for any aspiration. DISPOSITION: Closely monitor in the med tele. PT/OT ordered. Social service to help with discharge planning. Level 1 full code as per my discussion with the patient. Job ID: [id number] MTDD
[2022-04-29] MEDS ORDERED: NITROGLYCERIN SL 0.4 MG/TAB TAB SL PRN (23:19)
[2022-04-29] MEDS ORDERED: ACETAMINOPHEN 325 MG TAB PO PRN (23:19)
[2022-04-29] MEDS ORDERED: ALBUT/IPRATROP 3MG/0.5MG NEB 3 ML VIAL INH PRN (23:19)
[2022-04-29] MEDS ORDERED: SUCRALFATE 1 GM TAB PO PRN (23:19)
[2022-04-29] MEDS ORDERED: ALBUTEROL HFA 8 GM INHALER INH PRN (23:19)
[2022-04-29] MEDS ORDERED: HYDROCODONE/ACETAMINOPHEN 7.5/325MG TAB PO PRN (23:19)
[2022-04-29] MEDS ORDERED: DICLOFENAC SOD 1% GEL 100 GM TUBE EXT PRN (23:19)
[2022-04-30] MEDS: carvediloL 12.5 MG TAB PO SCH ×3 (00:46→23:52)
[2022-04-30] MEDS: FAMOTIDINE 20 MG TAB PO SCH ×3 (00:46→23:53)
[2022-04-30] MEDS: GABAPENTIN 300 MG CAP PO SCH ×4 (00:46→23:52)
[2022-04-30] MEDS: PANTOprazole 40 MG TAB PO SCH ×3 (00:46→23:53)
[2022-04-30] MEDS: levETIRAcetam 500 MG TAB PO SCH ×3 (00:47→23:52)
[2022-04-30 04:59] LABS: Basophils # (auto) 0.01 K/uL (0-0.2); Basophils % (auto) 0.3 %; Eosinophils # (auto) 0.02 K/uL (0-0.50); Eosinophils % (auto) 0.5 %; Hematocrit (blood only) 30.4 % (37.0-47.0); Hemoglobin 10.1 g/dl (12.0-16.0); Immature Granulocytes # (auto) 0.02 K/uL (0.01-0.20); Immature Granulocytes % (auto) 0.5 %; Lymphocytes # (auto) 0.42 K/uL (1.2-3.4); Mean Corpuscular Hemoglobin 29.3 pg (25.0-34.0); Mean Corpuscular Hgb Conc 33.2 g/dL (32.0-36.0); Mean Corpuscular Volume 88.1 fL (80.0-100.0); Mean Platelet Volume 8.3 fL (9.4-12.4); Monocytes # (auto) 0.62 K/uL (0.11-0.59); Monocytes % (auto) 16.3 %; Neutrophils # (auto) 2.72 K/uL (1.40-6.50); Neutrophils % (auto) 71.4 %; Platelet Count 267 K/uL (130-400); RDW Coefficient of Variation 15.7 % (11.5-14.5); RDW Standard Deviation 42.9 fL (36.4-46.3); Red Blood Count 3.45 M/uL (4.20-5.40); White Blood Count 3.81 K/ul (4.8-10.8)
[2022-04-30 05:17] LABS: BUN Creatinine Ratio 17.8 (10-20); Calcium 8.7 mg/dl (8.5-10.1); Creatinine Clr Calc Pharmacy 56.9 ml/min; Est GFR (African American) 74.6 ml/min; Est GFR (Non-African American) 64.3 ml/min; Magnesium 1.6 mg/dl (1.7-2.4); Potassium 3.7 mmol/L (3.5-5.1)
[2022-04-30 05:23] LABS: Troponin I High Sensitivity 8.5 pg/ml (0-14)
[2022-04-30] MEDS: VENLAFAXINE HCL XR 150 MG CAPXR PO SCH (08:58)
[2022-04-30] MEDS: MAGNESIUM OXIDE 400 MG TAB PO SCH (09:00)
[2022-04-30] MEDS: FOLIC ACID 400 MCG TAB PO SCH (09:01)
[2022-04-30] MEDS: EZETIMIBE 10 MG TABLET PO SCH (09:02)
[2022-04-30] MEDS: CYANOCOBALAMIN (B-12) 500 MCG TABLET PO SCH (09:02)
[2022-04-30] MEDS: CHOLECALCIFEROL 1,000 UNITS 25 MCG TAB PO SCH (09:02)
[2022-04-30] MEDS: ATORVASTATIN 40 MG TAB PO SCH (09:03)
[2022-04-30] MEDS: UMECLIDINIUM/VILANTEROL 62.5/25MCG 7 PUFFS/INHALER INH SCH (09:04)
--- NOTE | 2022-04-30 12:02 | Electrocardiogram Report ---
Test Reason : Blood Pressure : / mmHG Vent. Rate : 079 BPM Atrial Rate : 079 BPM P-R Int : 158 ms QRS Dur : 076 ms QT Int : 400 ms P-R-T Axes : 002 046 018 degrees QTc Int : 458 ms Normal sinus rhythm Low voltage QRS Poor R wave progression, consider anterior TN vs. lead placement vs. LVH Abnormal ECG When compared with ECG of 18-APR-2022 04:37, Nonspecific T wave abnormality now evident in Anterior leads Confirmed by Anthony Gregorio ([id number]) on 04/30/2022 12:02:18 PM Referred By: REFERRED SELF Confirmed By:Scooter Gregorio
--- NOTE | 2022-04-30 18:35 | Hospitalist Progress Note ---
Date of Service April 30, 2022 Assessment & Plan (1) Dizziness: Plan: Fall Present on admission due to fall after feeling dizzy while standing up Possible related to orthostatic CT head showed no acute intracranial finding ECHO showed subtle hypokinesis of the inferior wall at the base and 1 view only. Small loculated right lateral pericardial effusion of nonhemodynamic significance. Ejection fraction 65% No focal neuro deficit o exam Currently denies any symptoms PT/OT eval Fall precaution Esophageal cancer, lower third. Status post chemo and radiation. Further management as per hem/onc. Will consult speech to help with diet consistency since pt has been losing weight due to odynophagia Abnormal UA UA positive for leukocyte and bacteria Currently on IV Ceftriaxone Urine cx showed pin-point growth present, reincubating History of factor V Leiden mutation Hx of CVA Pt is at high risk of bleeding due to Oozing gastric ulcer with oozing hemorrhage adela was seen on last EGD Warfarin was discontinued by hem/onc at the last office visit Pancytopenia Most likely from chemo. Platelets 267 and WBC 3.8 Resolved History of hypertension. Continue BP med Continue monitor BP History of fall and resulted in intraparenchymal hemorrhage in brain in November 2021 status post craniotomy continue Keppra for seizure prophylaxis. History of atherosclerotic carotid disease. Following with vascular surgery. Chronic obstructive pulmonary disease. Counseling on tobacco cessation Continue home inhaler. History of obstructive sleep apnea with nocturnal hypoxia. Continue CPAP with 2 L of oxygen at nighttime. Type 2 diabetes. Most recent hemoglobin A1c 7.2 currently not on medication. Continue monitor blood sugar Anxiety Depression Fibromyalgia. Continue home medications. Deep venous thrombosis prophylaxis on SCD for now due to high risk of bleeding Code status Full code Disposition Continue monitor closely Admission and Anticipated Discharge Date Admission Date: April 29, 2022 Subjective Pt was seen and examined for follow up of dizziness. Lying in bed with no acute distress Pt said that her symptoms started after she heard the phone ring. she quickly got up from sleep to go answer the call She said that she got up too quickly and felt dizzy and fell on the floor Currently she denies any dizziness, SOB and palpitation Review of Systems Review of Systems: All systems reviewed & are unremarkable except as noted in Subjective Physical Exam Physical Exam: General- No acute distress Head- atraumatic Eyes- PERRL, EOMI, ENT- oropharynx clear Neck- supple, no JVD Lungs- clear to auscultation Heart- regular rhythm; no murmur Abdomen- normal bowel sounds, soft, +tender with deep palpation Extremities- no calf tenderness Neuro- alert, oriented x 3; PERRL, EOMI; no facial palsy; no dysarthria Skin- warm & dry today tolerated well supported then will call Results & Data Results & Data Vital Signs (Past 12 Hours) Vital Signs Temp Pulse Pulse Resp BP BP Pulse Ox 04/30/22 16:29 79 04/30/22 14:38 36.4 C L 75 18 137/89 98 04/30/22 13:53 16 98 04/30/22 13:53 132/80 04/30/22 13:50 95 04/30/22 13:40 97 04/30/22 13:30 98 04/30/22 13:20 97 04/30/22 13:10 97 04/30/22 13:00 95 04/30/22 13:00 145/106 H 04/30/22 12:50 88 20 96 04/30/22 12:40 91 H 18 95 04/30/22 12:30 90 27 H 96 04/30/22 12:20 89 20 96 04/30/22 12:10 92 H 26 H 95 04/30/22 12:00 94 H 18 96 04/30/22 12:00 127/83 04/30/22 11:50 89 18 96 04/30/22 11:40 91 H 18 95 04/30/22 11:30 91 H 17 95 04/30/22 11:20 96 H 13 95 04/30/22 11:10 92 H 18 94 04/30/22 11:00 92 H 17 94 04/30/22 11:00 148/103 H 04/30/22 10:50 92 H 18 94 04/30/22 10:40 94 H 18 94 04/30/22 10:30 95 H 19 95 04/30/22 10:20 92 H 18 95 04/30/22 10:10 95 H 16 97 04/30/22 10:00 92 H 17 95 04/30/22 10:00 169/89 H 04/30/22 09:50 92 H 21 04/30/22 09:40 96 H 15 04/30/22 09:30 96 H 16 04/30/22 09:20 97 H 21 04/30/22 09:10 94 H 25 H 04/30/22 09:01 104 H 16 04/30/22 09:01 120/100 04/30/22 09:00 101 H 19 04/30/22 08:56 147 H 27 H 04/30/22 08:00 118/72 04/30/22 07:16 169/81 H 04/30/22 07:00 201/109 H 04/30/22 10:11 92 H 20 169/89 H 97 04/30/22 09:52 94 H 17 120/100 97 04/30/22 09:02 104 H 04/30/22 07:56 88 20 169/81 H 96 O2 Del Method 04/30/22 16:29 04/30/22 14:38 Room Air 04/30/22 13:53 Room Air 04/30/22 13:53 04/30/22 13:50 04/30/22 13:40 04/30/22 13:30 04/30/22 13:20 04/30/22 13:10 04/30/22 13:00 Room Air 04/30/22 13:00 04/30/22 12:50 04/30/22 12:40 04/30/22 12:30 04/30/22 12:20 04/30/22 12:10 04/30/22 12:00 Room Air 04/30/22 12:00 04/30/22 11:50 04/30/22 11:40 04/30/22 11:30 04/30/22 11:20 04/30/22 11:10 04/30/22 11:00 04/30/22 11:00 04/30/22 10:50 04/30/22 10:40 04/30/22 10:30 04/30/22 10:20 04/30/22 10:10 04/30/22 10:00 04/30/22 10:00 04/30/22 09:50 04/30/22 09:40 04/30/22 09:30 04/30/22 09:20 04/30/22 09:10 04/30/22 09:01 04/30/22 09:01 04/30/22 09:00 04/30/22 08:56 04/30/22 08:00 04/30/22 07:16 04/30/22 07:00 04/30/22 10:11 Room Air 04/30/22 09:52 Room Air 04/30/22 09:02 04/30/22 07:56 Room Air
[2022-04-30] MEDS: cefTRIAXone SODIUM 2,000 MG in DEXTROSE 5% 50 ML IV SCH (22:40)
[2022-05-01] MEDS ORDERED: LACTATED RINGER'S 1,000 ML IV ONE (06:18)
--- NOTE | 2022-05-01 06:42 | Communication Note ---
Date of Service: May 01, 2022 Made aware by RN of abnormal orthostatic vitals "orthostatic BP & HR. Lying to standing and waiting for a couple minutes between: 146/83, 89/59, 78/52. 83, 156, 96." AP Orthostasis IVF Decrease Coreg 12.5 mg twice daily dosing to 6.25 mg twice daily dosing for now
[2022-05-01] MEDS: ATORVASTATIN 40 MG TAB PO SCH (10:43)
[2022-05-01] MEDS: CYANOCOBALAMIN (B-12) 500 MCG TABLET PO SCH (10:44)
[2022-05-01] MEDS: EZETIMIBE 10 MG TABLET PO SCH (10:44)
[2022-05-01] MEDS: CHOLECALCIFEROL 1,000 UNITS 25 MCG TAB PO SCH (10:44)
[2022-05-01] MEDS: FAMOTIDINE 20 MG TAB PO SCH ×2 (10:44→20:37)
[2022-05-01] MEDS: levETIRAcetam 500 MG TAB PO SCH ×2 (10:45→20:38)
[2022-05-01] MEDS: FOLIC ACID 400 MCG TAB PO SCH (10:45)
[2022-05-01] MEDS: GABAPENTIN 300 MG CAP PO SCH ×3 (10:45→20:39)
[2022-05-01] MEDS: UMECLIDINIUM/VILANTEROL 62.5/25MCG 7 PUFFS/INHALER INH SCH ×2 (10:46→11:17)
[2022-05-01] MEDS: PANTOprazole 40 MG TAB PO SCH ×2 (10:46→20:38)
[2022-05-01] MEDS: MAGNESIUM OXIDE 400 MG TAB PO SCH (10:46)
[2022-05-01] MEDS: VENLAFAXINE HCL XR 150 MG CAPXR PO SCH (10:47)
[2022-05-01] MEDS: carvediloL 6.25 MG TAB PO SCH ×2 (10:48→20:37)
[2022-05-01] MEDS: MAGNESIUM SULFATE / D5W 1 GM/100 ML BAG IV SCH ×2 (16:58→18:39)
[2022-05-01] MEDS: cefTRIAXone SODIUM 2,000 MG in DEXTROSE 5% 50 ML IV SCH (20:39)
--- NOTE | 2022-05-01 22:52 | Hospitalist Progress Note ---
Date of Service May 01, 2022 Assessment & Plan (1) Dizziness: Plan: Fall Present on admission due to fall after feeling dizzy while standing up related to orthostatic BP CT head showed no acute intracranial finding ECHO showed subtle hypokinesis of the inferior wall at the base and 1 view only. Small loculated right lateral pericardial effusion of nonhemodynamic significance. Ejection fraction 65% No focal neuro deficit on exam Currently denies any symptoms PT/OT eval Fall precaution Orthostatic Hypotension positive orthostatic BP med has been on hold Received gentle IV fluid Fall precaution Esophageal cancer, lower third. Status post chemo and radiation. Further management as per hem/onc. Will consult speech to help with diet consistency since pt has been losing weight due to odynophagia Abnormal UA UA positive for leukocyte and bacteria Urine culture grew multiple organism (mostly contamination) Currently on IV Ceftriaxone Will complete 3 days course total abx only History of factor V Leiden mutation Hx of CVA Pt is at high risk of bleeding due to Oozing gastric ulcer with oozing hemorrhage adela was seen on last EGD Warfarin was discontinued by hem/onc at the last office visit Hypomagnesia Mag 1.4 today Mag replaced Continue monitor electrolyte Pancytopenia Most likely from chemo. Platelets 267 and WBC 3.8 Resolved History of hypertension. Continue BP med Continue monitor BP History of fall and resulted in intraparenchymal hemorrhage in brain in November 2021 status post craniotomy continue Keppra for seizure prophylaxis. History of atherosclerotic carotid disease. Following with vascular surgery. Chronic obstructive pulmonary disease. Counseling on tobacco cessation Continue home inhaler. History of obstructive sleep apnea with nocturnal hypoxia. Continue CPAP with 2 L of oxygen at nighttime. Type 2 diabetes. Most recent hemoglobin A1c 7.2 currently not on medication. Continue monitor blood sugar Anxiety Depression Fibromyalgia. Continue home medications. Deep venous thrombosis prophylaxis on SCD for now due to high risk of bleeding Code status Full code Disposition Continue monitor closely Admission and Anticipated Discharge Date Admission Date: April 29, 2022 Subjective Pt was seen and examined for follow up of dizziness. Lying in bed with no acute distress She said that dizziness improved Patient Continue to have orthostatic BP Currently she denies any dizziness, SOB and palpitation Review of Systems Review of Systems: All systems reviewed & are unremarkable except as noted in Subjective Physical Exam Physical Exam: General- No acute distress Head- atraumatic Eyes- PERRL, EOMI, ENT- oropharynx clear Neck- supple, no JVD Lungs- clear to auscultation Heart- regular rhythm; no murmur Abdomen- normal bowel sounds, soft, +tender with deep palpation Extremities- no calf tenderness Neuro- alert, oriented x 3; PERRL, EOMI; no facial palsy; no dysarthria Skin- warm & dry today tolerated well supported then will call Results & Data Results & Data Vital Signs (Past 12 Hours) Vital Signs Temp Pulse Pulse Resp BP Pulse Ox O2 Del Method 05/01/22 19:23 36.7 C 86 18 148/82 H 99 Room Air 05/01/22 15:53 83 05/01/22 11:42 36.6 C 81 15 131/80 99 Room Air
[2022-05-02 06:52] LABS: BUN Creatinine Ratio 15.2 (10-20); Calcium 8.5 mg/dl (8.6-10.3); Est GFR (African American) 87.3 ml/min; Est GFR (Non-African American) 75.3 ml/min; Magnesium 1.8 mg/dl (1.7-2.4); Potassium 3.7 mmol/L (3.5-5.1)
[2022-05-02] MEDS: EZETIMIBE 10 MG TABLET PO SCH (08:13)
[2022-05-02] MEDS: FOLIC ACID 400 MCG TAB PO SCH (08:13)
[2022-05-02] MEDS: PANTOprazole 40 MG TAB PO SCH (08:14)
[2022-05-02] MEDS: carvediloL 6.25 MG TAB PO SCH (08:14)
[2022-05-02] MEDS: ATORVASTATIN 40 MG TAB PO SCH (08:14)
[2022-05-02] MEDS: levETIRAcetam 500 MG TAB PO SCH (08:15)
[2022-05-02] MEDS: FAMOTIDINE 20 MG TAB PO SCH (08:15)
[2022-05-02] MEDS: CYANOCOBALAMIN (B-12) 500 MCG TABLET PO SCH (08:16)
[2022-05-02] MEDS: GABAPENTIN 300 MG CAP PO SCH ×2 (08:16→14:32)
[2022-05-02] MEDS: CHOLECALCIFEROL 1,000 UNITS 25 MCG TAB PO SCH (08:17)
[2022-05-02] MEDS: MAGNESIUM OXIDE 400 MG TAB PO SCH (08:17)
[2022-05-02] MEDS: VENLAFAXINE HCL XR 150 MG CAPXR PO SCH (08:17)
[2022-05-02] MEDS: UMECLIDINIUM/VILANTEROL 62.5/25MCG 7 PUFFS/INHALER INH SCH (08:17)
[2022-05-02] MEDS ORDERED: SUCRALFATE 1 GM/10 ML UDC PO PRN (11:03)
--- NOTE | 2022-05-02 13:33 | Discharge Summary ---
Date of Service May 02, 2022 Admission HPI Per Admitting Provider DATE OF ADMISSION: 04/29/2022 CHIEF COMPLAINT: Near syncope. HISTORY OF PRESENT ILLNESS: This is a 72-year-old female with past medical history significant for type 2 diabetes, currently not on any medications, hyp erlipidemia, COPD, sleep apnea, nocturnal hypoxemia, history of CVA, hypertension, chronic kidney disease stage III, carotid stenosis, thrombophlebitis, history of irritable bowel syndrome, GERD, history of fibromyalgia, Meniere disease, history of malignant neoplasm of lower esophagus, history of intraparenchymal hematoma in brain, factor V Leiden heterozygous, history of thrombocytosis, anxiety. The patient had a fall in November 2021 with resultant intraparenchymal hemorrhage resulting craniotomy in [place]. Kejanicera prescribed for seizure precautions. At that time, she was noted to have me tastatic lower esophageal adenocarcinoma, currently completed chemo 5 cycles and also radiation treatments .She was also having symptomatic hypotension and lisinopril/hydrochlorothiazide was on hold at that time. The patient is currently awaiting a PET scan and followup at [place] for future plan. She is having difficulty swallowing. She is eating small meals. The patient was recently here, was admitted on 04/16/2022 and discharged on 04/24/2022. She was admitted for difficulty swallowing, painful swallowing. Seen by GI, status post EGD, which showed LA grade D radiation esophagitis with no bleeding, but stigmata of recent bleeding with some clot formation from the mid esophagus to the GE junction. This was associated with some oozing. No obvious mass seen at the GE junction; however, the area was severely ulcerated with some sloughing and oozing from recent radiation treatment. A gastric ulcer with some oozing hemorrhage was seen. GI recommended PPI 40 mg b.i.d., Carafate q.i.d., Magic mouthwash for radiation esophagitis and she also received 1 unit of PRBC on 04/21/2022. GI recommended stopping aspirin even on discharge. As per GI, because of her esophageal cancer, she will likely have some black stools going on, but if there is large volume and if she becomes lightheaded then she should seek medical care was the recommendation and GI also to hold repeat EGD for now as it was not going to change the plan.The patient was discharged and she also followed with hematology/oncology and hematology/oncology also stopped Coumadin because of the history ofhx of brain bleed and GI bleed on Coumadin with her esophageal cancer and so she is not on Coumadin at this time . 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 She felt room spinning and she fell down, did not hit her head, seems no loss of consciousness. Her helped her to get up, but similar episode happened again when they called EMS and brought her here. Currently, the dizziness and spinning of the room is resolved. Hemodynamically stable. Denies any headache. No blurred visions, hard of hearing. No runny nose, no sore throat, no cough, no fevers, no chest pain, no shortness of breath, no nausea. Has some abdominal discomfort, still having difficulty swallowing. She eats small meals and not eating much. She has black stools a couple of days ago. Normal bladder movements. Resting comfortably and hemodynamically stable. Admission Exam Per Admitting Provider GENERAL: The patient is of moderate build, not in acute distress. VITAL SIGNS: Temperature afebrile, pulse 82, respiratory rate 18, blood pressure 142/103, oxygen 95% on room air. HEENT: Pupils equal, round and reactive to light. Oral mucosa moist. NECK: No JVD, no neck masses. CARDIOVASCULAR: S1 and S2 heard. Regular rate and rhythm. No murmur, no gallop. RESPIRATORY SYSTEM: Normal AP diameter. No accessory muscle use. No wheezing, no crackles. ABDOMEN: Soft, bowel sounds present, nontender, no distention. CENTRAL NERVOUS SYSTEM: Cranial nerves II through XII grossly intact, nonfocal. EXTREMITIES: No edema, no erythema. Principal Diagnosis Fall Orthostatic Hypotension Esophageal cancer, lower third. Abnormal UA History of factor V Leiden mutation Hypomagnesia Pancytopenia History of hypertension. History of atherosclerotic carotid disease. Chronic obstructive pulmonary disease. History of obstructive sleep apnea with nocturnal hypoxia. Type 2 diabetes. Anxiety Depression Fibromyalgia. Discharge Exam General- No acute distress Head- atraumatic Eyes- PERRL, EOMI, ENT- oropharynx clear Neck- supple, no JVD Lungs- clear to auscultation Heart- regular rhythm; no murmur Abdomen- normal bowel sounds, soft, +tender with deep palpation Extremities- no calf tenderness Neuro- alert, oriented x 3; PERRL, EOMI; no facial palsy; no dysarthria Skin- warm & dry today tolerated well supported then will call Discharge Data Allergies Allergy/AdvReac Type Severity Reaction Status Date / Time iodine Allergy Intermediate ITCHING Verified 04/29/22 18:35 nickel Allergy Intermediate RASH/ITCHIN Verified 04/29/22 18:35 G buspirone Allergy Unknown PT UNSURE Verified 04/29/22 18:35 OF RXN Consultations 04/29/22 19:14 ED Decision to Admit Stat Ordered Studies 04/29/22 16:04 CT head/brain wo con Stat Laboratory Results WBC 3.81 K/ul (4.8-10.8) L 04/30/22 04:48 RBC 3.45 M/uL (4.20-5.40) L 04/30/22 04:48 Hgb 10.1 g/dl (12.0-16.0) L 04/30/22 04:48 Hct 30.4 % (37.0-47.0) L 04/30/22 04:48 MCV 88.1 fL (80.0-100.0) 04/30/22 04:48 MCH 29.3 pg (25.0-34.0) 04/30/22 04:48 MCHC 33.2 g/dL (32.0-36.0) 04/30/22 04:48 RDW Std Deviation 42.9 fL (36.4-46.3) 04/30/22 04:48 RDW Coeff of Rony 15.7 % (11.5-14.5) H 04/30/22 04:48 Plt Count 267 K/uL (130-400) 04/30/22 04:48 MPV 8.3 fL (9.4-12.4) L 04/30/22 04:48 Immature Gran % (Auto) 0.5 % 04/30/22 04:48 Neut % (Auto) 71.4 % 04/30/22 04:48 Lymph % (Auto) 11.0 % 04/30/22 04:48 [place] % (Auto) 16.3 % 04/30/22 04:48 Eos % (Auto) 0.5 % 04/30/22 04:48 Baso % (Auto) 0.3 % 04/30/22 04:48 Neut # (Auto) 2.72 K/uL (1.40-6.50) 04/30/22 04:48 Lymph # (Auto) 0.42 K/uL (1.2-3.4) L 04/30/22 04:48 [place] # (Auto) 0.62 K/uL (0.11-0.59) H 04/30/22 04:48 Eos # (Auto) 0.02 K/uL (0-0.50) 04/30/22 04:48 Baso # (Auto) 0.01 K/uL (0-0.2) 04/30/22 04:48 Immature Gran # (Auto) 0.02 K/uL (0.01-0.20) 04/30/22 04:48 PT 10.7 Seconds (9.0-12.0) 04/29/22 15:21 INR 1.0 (0.9-1.1) 04/29/22 15:21 Sodium 138 mmol/L (136-145) 05/02/22 06:09 Potassium 3.7 mmol/L (3.5-5.1) 05/02/22 06:09 Chloride 105 mmol/L (98-107) 05/02/22 06:09 Carbon Dioxide 28 mmol/L (21-32) 05/02/22 06:09 Anion Gap 5 (3-11) 05/02/22 06:09 BUN 12 mg/dl (6-23) 05/02/22 06:09 Creatinine 0.79 mg/dl (0.6-1.2) 05/02/22 06:09 Est Cr Clr Drug Dosing 64.0 ml/min 05/02/22 06:09 Est GFR ( Amer) 87.3 ml/min 05/02/22 06:09 Est GFR (Non-Af Amer) 75.3 ml/min 05/02/22 06:09 BUN/Creatinine Ratio 15.2 (10-20) 05/02/22 06:09 Glucose 101 mg/dl (70-99(Fasting)) H 05/02/22 06:09 Calcium 8.5 mg/dl (8.6-10.3) L 05/02/22 06:09 Magnesium 1.8 mg/dl (1.7-2.4) 05/02/22 06:09 Total Bilirubin 0.4 mg/dl (0.2-1.0) 04/29/22 15:21 AST 21 U/L (13-39) 04/29/22 15:21 ALT 20 U/L (7-52) 04/29/22 15:21 Alkaline Phosphatase 48 U/L (34-104) 04/29/22 15:21 Troponin I High Sens 8.5 pg/ml (0-14) 04/30/22 04:48 Total Protein 6.1 gm/dl (6.0-8.3) 04/29/22 15:21 Albumin 3.7 gm/dl (3.4-5.0) 04/29/22 15:21 Globulin 2.4 gm/dl (2.5-4.0) L 04/29/22 15:21 Albumin/Globulin Ratio 1.5 (0.9-2) 04/29/22 15:21 TSH 3.202 uIu/ml (0.300-4.500) 04/29/22 15:21 Urine Color Dark Yellow 04/29/22 17:50 Urine Appearance Cloudy (Clear) A 04/29/22 17:50 Urine pH 6.5 (4.5-7.5) 04/29/22 17:50 Ur Specific [place] 1.028 (1.000-1.030) 04/29/22 17:50 Urine Protein 2+ (Negative) H 04/29/22 17:50 Urine Glucose (UA) Negative (Negative) 04/29/22 17:50 Urine Ketones Trace (Negative) H 04/29/22 17:50 Urine Blood Negative (Negative) 04/29/22 17:50 Urine Nitrite Negative (Negative) 04/29/22 17:50 Urine Bilirubin Negative (Negative) 04/29/22 17:50 Urine Urobilinogen Negative (Negative) 04/29/22 17:50 Ur Leukocyte Esterase Trace (Negative) H 04/29/22 17:50 Urine WBC (Auto) 10-30 /hpf (0-5) H 04/29/22 17:50 Urine RBC (Auto) 5-10 /hpf (0-4) H 04/29/22 17:50 U Hyaline Cast (Auto) 5-10 /lpf (0-5) H 04/29/22 17:50 U Epithel Cells (Auto) >30 /lpf (0-5) H 04/29/22 17:50 Urine Bacteria (Auto) 1+ (Negative) H 04/29/22 17:50 Ur Renal Epithelial Cell Not Reportable 04/29/22 17:50 Urine Crystals Not Reportable 04/29/22 17:50 Calcium Oxalate Crystal Present (None Prsent) A 04/29/22 17:50 Urine Mucus Present (None Prsent) A 04/29/22 17:50 SARS-CoV-2, RNA, NAAT NEGATIVE (NEGATIVE) 04/29/22 16:40 Impressions Chest X-Ray 04/29/22 15:14 XR chest 1V portable CLINICAL HISTORY: weakness TECHNIQUE: Single frontal radiograph of the chest was obtained. Comparison: Comparison is made to chest radiograph 04/15/2022 FINDINGS: No lines and tubes are seen. Calcified aortic knob is seen. The lungs are clear. No evidence of pleural effusion or pneumothorax. IMPRESSION: No acute chest disease. ACT 112: Negative or not required by law. Electronically signed by: Moustapha Aguero M.D. 04/29/2022 4:[address] 04/29/22 16:04 CT SCAN OF THE BRAIN WITHOUT IV CONTRAST CLINICAL HISTORY: Fall. Generalized weakness. Reported history of esophageal cancer. COMPARISON STUDY: CT of the brain dated 11/12/2021. TECHNIQUE: Unenhanced axial CT scan of the brain is performed from the vertex to the skull base. A dose lowering technique was utilized adhering to the principles of ALARA. CT DOSE: 614.27 mGy.cm FINDINGS: Brain parenchyma: There is a large focus of right parieto-occipital encephalomalacia at the site of prior hemorrhage. A focus of left frontal encephalomalacia is also consistent with a remote insult. There is age-related involutional change noting mild subcortical and periventricular microangiopathic disease. There is no hemorrhage, mass effect, or evidence of acute territorial ischemia by CT criteria. Vale-white matter differentiation is preserved. Low- attenuation extra-axial fluid deep to the craniotomy site measures up to 7 mm in diameter. This may represent postsurgical change versus a small hygroma. No acute extra axial hemorrhage is seen. Ventricles, sulci, cisterns: Prominent secondary to involutional change. Intracranial vasculature: There is atherosclerotic calcification of the cavernous carotid arteries. Calvarium: There is postsurgical change from right-sided craniotomy. No destructive calvarial lesion is seen. Sinuses and mastoids: The visualized paranasal sinuses are clear. The mastoid air cells are well pneumatized. Orbits: The bony orbits are grossly intact. There are bilateral ocular lens implants. IMPRESSION: 1. There is no hemorrhage, mass effect, or evidence of acute territorial ischemia by CT criteria. 2. Chronic and postsurgical changes as above. ACT 112: Negative or not required by law. Electronically signed by: Nixon Drake M.D. 04/29/2022 4:36 PM Hospital Course (1) Dizziness: Fall Present on admission due to fall after feeling dizzy while standing up related to orthostatic BP CT head showed no acute intracranial finding ECHO showed subtle hypokinesis of the inferior wall at the base and 1 view only. Small loculated right lateral pericardial effusion of nonhemodynamic significance. Ejection fraction 65% No focal neuro deficit on exam Currently denies any symptoms PT/OT eval Fall precaution Orthostatic Hypotension positive orthostatic BP med has been on hold Pt was advised to get up slowly when standing up Received gentle IV fluid clinically improved Continue monitor your blood pressure and bring your blood pressure log at your next follow up appointment Fall precaution Esophageal cancer, lower third. Status post chemo and radiation. Further management as per hem/onc. speech recommended easy to chew diet Abnormal UA UA positive for leukocyte and bacteria Urine culture grew multiple organism (mostly contamination) Currently on IV Ceftriaxone, will d/c on discharge History of factor V Leiden mutation Hx of CVA Pt is at high risk of bleeding due to Oozing gastric ulcer with oozing hemorrhage adela was seen on last EGD Warfarin was discontinued by hem/onc at the last office visit Hypomagnesia Mag 1.8 Check Mg level within 1 week Continue monitor electrolyte Pancytopenia Most likely from chemo. Platelets 267 and WBC 3.8 Resolved History of hypertension. Continue BP med Continue monitor BP History of fall and resulted in intraparenchymal hemorrhage in brain in November 2021 status post craniotomy continue Keppra for seizure prophylaxis. History of atherosclerotic carotid disease. Following with vascular surgery. Chronic obstructive pulmonary disease. Counseling on tobacco cessation Continue home inhaler. History of obstructive sleep apnea with nocturnal hypoxia. Continue CPAP with 2 L of oxygen at nighttime. Type 2 diabetes. Most recent hemoglobin A1c 7.2 currently not on medication. Continue monitor blood sugar Anxiety Depression Fibromyalgia. Continue home medications. Deep venous thrombosis prophylaxis on SCD for now due to high risk of bleeding Code status Full code Disposition Continue monitor closely Total Time Total Time Spent Total Time Spent (In Minutes): 40 minutes Discharge Plan Discharge Items Patient Disposition: Home - Home Health Services Reason For Visit: NEAR SYNCOPE Discharge Diagnosis: Fall Orthostatic Hypotension Esophageal cancer, lower third. History of factor V Leiden mutation Hypomagnesia Pancytopenia History of hypertension. History of atherosclerotic carotid disease. Chronic obstructive pulmonary disease. History of obstructive sleep apnea with nocturnal hypoxia. Type 2 diabetes. Anxiety Depression Fibromyalgia. Activity: Resume your previous activity Non-emergency contact: Primary Care Provider and Oncologist Call non-emergency contact if: you have any medication questions Follow-up/Referrals: Dre Cagle MD [Primary Care Provider] - ( Date & Time 05/08/2022 10:40 AM Provider Dre Cagle MD [facility] ) Diet: Heart Healthy Diet Texture: Easy to Chew Addtl Attending Provider Instructions: Follow up with your primary care provider Dr. Cagle on 05/08/2022 @ 10:40 AM Dre Cagle MD [facility] Continue to hold Hydrochlorothiazide and lisinopril Continue monitor your blood pressure and bring your blood pressure log at your next follow up appointment Check Magnesium level in 1 -2 weeks Fall precaution Gastroenterology recommended to dissolve the carafate tablet in 30ml of water to make it slurry Pending Studies at Discharge: No Stand-Alone Forms: [facility] [place], Smoking Cessation Medications and DC Order Prescriptions: Continued albuterol sulfate 90 mcg/actuation HFA aerosol inhaler 2 puff inhalation Q6H PRN (Reason: Shortness Of Breath Or Wheezing) diclofenac sodium [Arthritis Pain (diclofenac)] 1 % gel 2 g topical QID PRN (Reason: Pain) ipratropium-albuterol 0.5 mg-3 mg(2.5 mg base)/3 mL solution for nebulization 3 ml inhalation Q6H PRN (Reason: Shortness Of Breath Or Wheezing) atorvastatin [Lipitor] 80 mg tablet 80 mg PO QAM hydrocodone-acetaminophen 7.5-325 mg tablet 1 tab PO Q6 PRN (Reason: Pain) gabapentin 300 mg capsule 300 mg PO TID ezetimibe [Zetia] 10 mg tablet 10 mg PO QAM carvedilol 12.5 mg tablet 12.5 mg PO BID venlafaxine [Effexor XR] 150 mg capsule,extended release 24hr 150 mg PO QAM Anoro Ellipta 62.5-25 mcg/actuation blister with device 1 ea INHALATION DAILY cyanocobalamin (vitamin B-12) 500 mcg Tablet 500 mcg PO QAM folic acid 800 mcg Tablet 0.8 mg PO QAM cholecalciferol (vitamin D3) [Vitamin D3] 25 mcg (1,000 unit) Tablet 25 mcg PO QAM levetiracetam [Keppra XR] 500 mg tablet extended release 24 hr 1,000 mg PO BID magnesium oxide 400 mg (241.3 mg magnesium) Tablet 400 mg PO QAM Qty: 30 0RF pantoprazole 40 mg tablet,delayed release (DR/EC) 40 mg PO BID Qty: 60 0RF famotidine [Pepcid] 20 mg tablet 20 mg PO BID Qty: 60 0RF sucralfate [Carafate] 1 gram tablet 1 g PO QID PRN (Reason: dysphagia) Qty: 120 0RF Rx Instructions: Placed 1 pill in 1 teaspoon of water and take 1 hour before meals and bedtime. Discontinued hydrochlorothiazide 25 mg tablet 12.5 mg PO QAM Patient Comments: ONHOLD as of 04/07/22 lisinopril 20 mg tablet 20 mg PO DAILY Discharge Orders: Discharge Order (Routine); Ordered 05/02/22 Ordered By: Essence Perrin Admission Data Admit Date/Time: 04/29/22 20:11 Attending Provider: Essence Perrin Admit Provider: Osman Lozano Primary Care Provider: Dre Cagle Other Providers: Osman Lozano ; Ivelisse Ordonez I. Other Interventions: Discharge Summary Assessment (RN) Last Done: 05/02/22 14:01
== END 2022-05-02 16:35 | disposition home health service (06) | DRG 312 ==
LOC: ED 14:54 → SUATTDRO 20:11 → EDINP 20:11 → 2N 04-30 14:11

== ENCOUNTER 2024-07-27 10:07 | Inpatient (IN) ==
[2024-07-27 10:57] LABS: Basophils # (auto) 0.03 K/uL (0.00-0.20); Basophils % (auto) 0.4 %; Eosinophils % (auto) 1.4 %; Hematocrit (blood only) 27.1 % (37.0-47.0); Hemoglobin 9.3 g/dl (12.0-16.0); Immature Granulocytes # (auto) 0.05 K/uL (0.01-0.20); Immature Granulocytes % (auto) 0.7 %; Lymphocytes # (auto) 0.55 K/uL (1.20-3.40); Lymphocytes % (auto) 7.7 %; Mean Corpuscular Hemoglobin 38.1 pg (25.0-34.0); Mean Corpuscular Hgb Conc 34.3 g/dL (32.0-36.0); Mean Corpuscular Volume 111.1 fL (80.0-100.0); Mean Platelet Volume 8.8 fL (9.4-12.4); Monocytes # (auto) 0.85 K/uL (0.11-0.59); Neutrophils # (auto) 5.53 K/uL (1.40-6.50); Neutrophils % (auto) 77.8 %; Platelet Count 179 K/uL (130-400); RDW Coefficient of Variation 15.8 % (11.5-14.5); RDW Standard Deviation 65.2 fL (36.4-46.3); Red Blood Count 2.44 M/uL (4.20-5.40); White Blood Count 7.11 K/ul (4.8-10.8)
[2024-07-27] MEDS: ACETAMINOPHEN 1,000 MG/100 ML VIAL IV STA (11:02)
[2024-07-27] MEDS: SODIUM CHLORIDE 0.9% 500 ML IV ONE (11:02)
--- NOTE | 2024-07-27 11:05 | Emergency Department Note ---
Impression & Plan Fall from standing, Ankle fracture, right, Recurrent falls ED Provider Note NAME: KINDRA LOWE AGE: 74 SEX: F : 1950 ARRIVES VIA: Ambulance INFORMANT: Patient ED PROVIDER(S): Berlin Escalante MD CHIEF COMPLAINT: Fall PLAN: Disposition: Admit MEDICAL DECISION MAKING: The patient is a pleasant 74-year-old woman with a past medical history of osteoarthritis, tobacco use, COPD, GERD, hypertension, hyperlipidemia, factor V Leiden mutation, esophageal cancer undergoing chemotherapy who presents to the emergency department via EMS for evaluation of repeated falls which occurred last night and again this morning. The patient reports last night she felt her legs give out and fell backwards where she believes she hit her head but did not lose consciousness. She reports that she was able to get up on her own and ambulate subsequently. Today she was coming into the house and had tripped falling again but was unable to get up and was reporting pain in her right hip, bilateral knees and right ankle. Patient is not on anticoagulation. On evaluation the patient is no acute distress, afebrile with vital signs otherwise stable. Head is atraumatic. There is no midline CTL spine tenderness palpation or step-offs. She exhibits discomfort of the paraspinal muscles of thoracic region. There is no anterior chest wall tenderness. Abdomen is benign. Pelvis is stable. Patient is able to range both hips though has increased discomfort of the right hip area. Bilateral knees are without ecchymosis or deformity. There is no gross instability. Right ankle demonstrates ecchymosis of the medial and lateral malleolus. Distal PMS is intact. EKG without overt acute ischemia. CXR negative for acute cardiopulmonary process per my personal preliminary review/interpretation. WBC within normal limits. H/H approximate to prior range of values. Platelets within normal limits. Chemistry without metabolic acidosis. Electrolytes LFTs unremarkable. High-sensitivity troponin 4.1, within normal limits. Lipase is not elevated. TSH is 4.8 however free T4 within normal limits. UA without evidence of infection. CT of the head, C-spine, chest abdomen pelvis were performed. CT findings were negative for acute traumatic findings or acute process otherwise. Question of age-indeterminate left anterior rib fractures likely are old given no point tenderness to palpation in this region. Esophageal wall thickening consistent with patient's history of esophageal cancer. Plain films of the pelvis and right hip as well as bilateral knees were negative for fracture or dislocation. X-ray of the right ankle demonstrates mildly displaced oblique fracture of the distal shaft of the fibula. There is posterior lateral subluxation of the tibiotalar joint. There is a possible small fracture at the medial process of the talus or from the tip of the medial malleolus. Ankle findings were reviewed with Dr. Glez, orthopedic surgery on-call. Agrees with bedside reduction and splinting at this time and post reduction films. Surgical intervention for these findings typically would allow a week for swelling to reduce. He will be available for inpatient team consultation. Appreciate consultation recommendations. Patient ankle fracture was reduced and splinted per procedure note below. There is acceptable improved alignment on post reduction/splinting x-ray per my preliminary independent interpretation. Case was discussed with Andrea Alcaraz, with [facility] who evaluate the patient for admission. Further management per admitting team. Triage Nursing notes reviewed and agree them. Prior/external medical records reviewed Vital Signs: reviewed Differential diagnosis: Fracture, dislocation, contusion, intra-abdominal, pneumothorax, intrathoracic, intracranial, neurologic, compartment syndrome, rhabdomyolysis, as well as other pathologies. ER treatment provided: See below. Diagnostics interpreted by me: ECG: Normal sinus rhythm, 61 bpm, no ectopy, no overt ST ovation or depression, QTc 437, QRS 82. Cardiac Monitoring: An order for continuous cardiac monitoring was placed and demonstrated normal sinus rhythm, 61 bpm, no ectopy. Laboratory studies: See below Imaging studies: See below Consultation(s): Dr. Glez, Orthropedic surgery Andrea Alcaraz, with [facility]. HPI: Per MDM. ROS: See above HPI for pertinent positives & negatives. A total of 10 systems reviewed and were otherwise negative. VITALS:See Below PHYSICAL EXAMINATION: GENERAL: Awake, alert, in no distress, BMI 32.5. HENT: Normocephalic, atraumatic. Oropharynx unremarkable. EYES: Normal conjunctiva. Sclera non-icteric. EOMI. No nystamgus. PEARRL. NECK: Supple. No nuchal rigidity. FROM. No JVD. No midline tenderness to palpation or step-offs. RESPIRATORY: Clear to auscultation. CARDIAC: Regular rate, normal rhythm. Extremities warm and well perfused. Pulses equal. ABDOMEN: Soft, non-distended. No tenderness to palpation. No rebound or guarding. No masses. MUSCULOSKELETAL: No midline CTL spine tenderness palpation or step-offs. She exhibits discomfort of the paraspinal muscles of thoracic region. There is no anterior chest wall tenderness. Pelvis is stable. Patient is able to range both hips though has increased discomfort of the right hip area. Bilateral knees are without ecchymosis or deformity. There is no gross instability. Right ankle demonstrates ecchymosis of the medial and lateral malleolus. Distal PMS is intact. LOWER EXTREMITIES: Calves are equal size bilaterally and non-tender. No edema. No discoloration. NEURO: Normal sensorium. No sensory or motor deficits noted. SKIN: No rash or jaundice noted. ED COURSE: Procedures: Ankle Fracture Dislocation Reduction Indication: Right ankle fracture. Verbal consent obtained. Risks and benefits were explained with the usual customary discussion. Neurovascular examination before the procedure revealed no deficits. Preprocedure analgesia provided with IV morphine. The right ankle fracture dislocation was reduced by placing the patient supine and applying gentle inline axial traction on the right forefoot foot and heel with slight plantar flexion while counter traction on the proximal tibia was applied and distal tibia stabilized with hip and knee in flexion. This resulted in reduction without complication. Post-reduction Xray demonstrates acceptable improved anatomic alignment. Neurovascular examination after the procedure revealed no deficits. The patient had significant pain relief and tolerated the procedure well. Berlin Escalante MD Past Med/Surg History Problem List (Updated 07/27/24 @ 20:55 by Berlin Escalante MD) Recurrent falls (Acute) Ankle fracture, right (Acute) Fall from standing (Acute) Ankle fracture Dizziness Generalized weakness (Acute) Gastric ulcer Radiation esophagitis Cancer related pain Advanced care planning/counseling discussion Esophageal pain Palliative care by specialist Odynophagia Esophageal cancer (Acute) Difficulty in swallowing (Acute) Encounter for pre-operative examination History of total right knee replacement (TKR) (Chronic) S/P total knee arthroplasty (Chronic) "Left 2014" History of carpal tunnel surgery (Chronic) History of hysterectomy (Chronic) Dysmetabolic syndrome (Chronic) Osteoarthritis (Chronic) Anxiety (Chronic) Depression (Chronic) Tobacco abuse disorder (Chronic) COPD (chronic obstructive pulmonary disease) (Chronic) Irritable bowel syndrome (IBS) (Chronic) PUD (peptic ulcer disease) (Chronic) GERD (gastroesophageal reflux disease) (Chronic) Hyperlipidemia (Chronic) History of CVA (cerebrovascular accident) (Chronic) Heterozygous factor V Leiden mutation (Chronic) HTN (hypertension) (Chronic) Medical History Obesity YASMINE (obstructive sleep apnea) CPAP and 2L O2 per chart review (per RN interview 10/26, pt stated only HS O2 2.5L) Diabetes mellitus type 2, controlled per chart review; Ha1c 07/10/23: 6.3%; no meds Iron deficiency anemia Adenocarcinoma of lower esophagus Dx 11/2021 - mass found lower esophagus (EGD and biopsy done at [facility]) - treated with chemo and XRT COPD (chronic obstructive pulmonary disease) daily and prn inh; +smoker Depression Dizziness "still has a little bit" Hx of gastric ulcer Hypertension IBS (irritable bowel syndrome) Odynophagia PUD (peptic ulcer disease) hx Pericardial effusion hx of Meniere disease Dyslipidemia Cognitive deficit due to old cerebrovascular accident (CVA) CVA 2008 Chronic rhinitis Chronic kidney disease Hematoma of brain S/p fall 11/12/21- s/p right occipital craniotomy for minimally invasive evacuation of intraparenchymal hematoma Brain bleed 11/12/21>Life flighted to [place] (evacuated blood evacuated from brain) s/p fell and hit head. GERD (gastroesophageal reflux disease) Degenerative disc disease Anxiety and depression Factor 5 Leiden mutation, heterozygous asa 81mg daily. Stroke 2008 -> residual weakness and memory issues/mild cognitive decline. 11/2021>"had brain bleed from fall, flown to [facility]" Seizure bilateral hand shaking - was told that was related to seizure acitivity - No hx of seizures per PCP and neurosurgery records- on Keppra for seizure prophylaxis after craniotomy Migraine hx Heart palpitations follows with [facility] Cardio Carotid artery disease Per 12/2022 Carotid Duplex: 70-99% R carotid stenosis, 50-69% L carotid stenosis, no change from 1 year prior. Follows with vascular: per 12/31/22 note, "Given low diastolic velocities, absence of symptoms, comorbidities, and overall higher surgical risk, will continue with surveillance and medical management." On home oxygen therapy 2.5L AT HS Surgical History History of craniotomy S/p fall 11/12/21- s/p right occipital craniotomy for minimally invasive evacuation of intraparenchymal hematoma History of anesthesia reaction slow to wake up at times History of hysterectomy S/P trigger finger release History of carpal tunnel release right/left History of total knee replacement right/left History of esophagogastroduodenoscopy (EGD) multiple; most recent: 01/22/23: MAC without issue History of colonoscopy History of tooth extraction History of cataract surgery right/left Family History Mother Unknown family medical history Father Myocardial infarction Brother , as ; No problems noted. Son No problems noted. Son No problems noted. Sister No problems noted. Sister No problems noted. Sister H/O brain surgery Sister No problems noted. Other No family history of adverse response to anesthesia Social History Smoking Status: Current every day smoker Tobacco Type: Cigarettes Cigarettes Per Day: 10; Second Hand Exposure: Yes (hx); Do You Dip or Chew Tobacco: No; Hx Alcohol Use: No Hx Substance Use: No Preferred Language: Tamazight Communication Ability: Effective Communication Ability Comment: mild memory issues Visual Impairment: No Limitations Hearing Ability: Use of Hearing Aid Blueprinting [employer]oc[employer] Supervisor Required: No Beliefs That Will Affect Care: None marital status: Current Living Situation: Spouse current occupational status: 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 How many Children do You have: 2 Feels Safe at Home: Yes Safety Concerns: Feels Safe At This Time Diet: regular caffeine: Yes (2 cups/day) during the past year weight has: decreased > 10 lbs Assistive Devices: Cane, CPAP, Denture - Upper, Denture - Lower, Hearing Aid - Bilateral, Hearing Aid - Left and Walker Allergies Allergies Allergy/AdvReac Type Severity Reaction Status Date / Time iodine Allergy Intermediate itching Verified 11/02/23 08:18 nickel Allergy Intermediate rash/itchin Verified 11/02/23 08:18 g buspirone Allergy Unknown pt unsure Verified 11/02/23 08:18 Home Meds Home Medications Medication Instructions Recorded Confirmed atorvastatin 80 mg tablet (Lipitor) 80 mg PO QAM 11/02/21 07/27/24 ezetimibe 10 mg tablet (Zetia) 10 mg PO QAM 11/02/21 07/27/24 gabapentin 300 mg capsule 300 mg PO TID 11/02/21 07/27/24 hydrocodone 7.5 mg-acetaminophen 1 tab PO Q6H PRN Pain 11/02/21 07/27/24 325 mg tablet cyanocobalamin (vitamin B-12) 500 500 mcg PO QAM 01/14/22 07/27/24 mcg tablet folic acid 800 mcg tablet 0.8 mg PO QAM 01/14/22 07/27/24 albuterol sulfate 90 mcg/actuation 2 puff inhalation Q6H PRN 02/14/22 07/27/24 aerosol inhaler Shortness Of Breath Or Wheezing diclofenac sodium 1 % topical gel 2 g topical QID PRN Pain 02/14/22 07/27/24 (Arthritis Pain (diclofenac)) ipratropium 0.5 mg-albuterol 3 mg 3 ml inhalation Q6H PRN Shortness 02/14/22 07/27/24 (2.5 mg base)/3 mL nebulization Of Breath Or Wheezing soln levetiracetam 500 mg 1,000 mg PO BID 02/14/22 07/27/24 tablet,extended release 24 hr (Keppra XR) umeclidinium 62.5 mcg-vilanterol 1 ea inhalation DAILY 02/14/22 07/27/24 25 mcg/actuation powdr for inhalation (Anoro Ellipta) venlafaxine 150 mg 150 mg PO QAM 07/17/22 07/27/24 capsule,extended release 24 hr (Effexor XR) aspirin 81 mg capsule 81 mg PO QAM 01/16/23 07/27/24 cholecalciferol (vitamin D3) 50 50 mcg PO QAM 01/16/23 07/27/24 mcg (2,000 unit) capsule (Vitamin D3) ferrous sulfate-vitamin C ER 65 1 cap PO 3XWK 01/16/23 07/27/24 mg-150 mg capsule,extended release metoprolol succinate 50 mg 75 mg PO UD 01/16/23 07/27/24 tablet,extended release 24 hr omega-3 fatty acids 2,000 mg PO QAM 01/16/23 07/27/24 polyethylene glycol 3350 17 17 g PO DAILY PRN Constipation 01/16/23 07/27/24 gram/dose oral powder (Miralax) peg 400-propylene glycol (PF) 0.4 1 drp ophthalmic (eye) DAILY 10/27/23 07/27/24 %-0.3 % eye drops in a dropperette (Systane (PF)) sucralfate 1 gram tablet (Carafate) 1 g PO UD dysphagia 10/27/23 07/27/24 famotidine 20 mg tablet (Pepcid) 20 mg PO BID PRN Acid Reflux 11/02/23 07/27/24 pantoprazole 40 mg tablet,delayed 40 mg PO BID 11/02/23 07/27/24 release (Protonix) sacubitril 24 mg-valsartan 26 mg 1 tab PO BID 07/27/24 07/27/24 tablet (Entresto) venlafaxine 37.5 mg 37.5 mg PO DAILY 07/27/24 07/27/24 tablet,extended release 24 hr Previous Rx's Medication Instructions Recorded magnesium oxide 400 mg (241.3 mg 400 mg PO QAM #30 tabs 04/24/22 magnesium) tablet Results & Data (ED) Vital Signs Vital Signs - 24 hr 07/27/24 10:22 07/27/24 10:24 07/27/24 10:33 Temperature 36.5 C Temperature Source Temporal Artery Scan Pulse Rate 73 69 Pulse Rate [Apical] Pulse Rhythm Regular Respiratory Rate 20 Respiratory Effort / Characteristics Non-Labored Spontaneous Respiratory Depth Normal Respiratory Pattern Regular Blood Pressure 140/79 Blood Pressure [Left Arm] Blood Pressure Mean 99 Blood Pressure Mean [Left Arm] Blood Pressure Position Sitting Pulse Oximetry 96 98 Oxygen Delivery Method Room Air Room Air Sepsis Recent Fever Within 48 Hours No Sepsis New/Unexplained Change in Mental Status No Sepsis Action Taken by Nursing No Action Required 07/27/24 11:00 07/27/24 12:00 07/27/24 12:01 Temperature 36.9 C 37 C Temperature Source Oral Temporal Artery Scan Pulse Rate Pulse Rate [Apical] 69 71 72 Pulse Rhythm Respiratory Rate 18 18 18 Respiratory Effort / Characteristics Non-Labored Spontaneous Non-Labored Spontaneous Non-Labored Spontaneous Respiratory Depth Normal Normal Normal Respiratory Pattern Regular Regular Blood Pressure Blood Pressure [Left Arm] 160/69 H 170/76 H 170/76 H Blood Pressure Mean Blood Pressure Mean [Left Arm] 99 107 107 Blood Pressure Position Pulse Oximetry 96 97 98 Oxygen Delivery Method Room Air Room Air Room Air Sepsis Recent Fever Within 48 Hours Sepsis New/Unexplained Change in Mental Status Sepsis Action Taken by Nursing 07/27/24 13:00 07/27/24 14:00 07/27/24 15:00 Temperature 37 C 36.9 C 36.8 C Temperature Source Temporal Artery Scan Oral Temporal Artery Scan Pulse Rate Pulse Rate [Apical] 71 72 70 Pulse Rhythm Respiratory Rate 18 18 18 Respiratory Effort / Characteristics Non-Labored Spontaneous Non-Labored Spontaneous Non-Labored Spontaneous Respiratory Depth Normal Normal Normal Respiratory Pattern Regular Regular Regular Blood Pressure Blood Pressure [Left Arm] 150/75 H 169/126 H 173/80 H Blood Pressure Mean Blood Pressure Mean [Left Arm] 100 140 111 Blood Pressure Position Pulse Oximetry 95 98 98 Oxygen Delivery Method Room Air Room Air Room Air Sepsis Recent Fever Within 48 Hours Sepsis New/Unexplained Change in Mental Status Sepsis Action Taken by Nursing 07/27/24 15:52 07/27/24 16:00 Temperature 37 C Temperature Source Oral Pulse Rate 73 Pulse Rate [Apical] 67 Pulse Rhythm Respiratory Rate 18 Respiratory Effort / Characteristics Non-Labored Spontaneous Respiratory Depth Normal Respiratory Pattern Regular Blood Pressure Blood Pressure [Left Arm] 159/78 H Blood Pressure Mean Blood Pressure Mean [Left Arm] 105 Blood Pressure Position Pulse Oximetry 98 Oxygen Delivery Method Room Air Sepsis Recent Fever Within 48 Hours Sepsis New/Unexplained Change in Mental Status Sepsis Action Taken by Nursing Laboratory Data Attestation: I reviewed the patient's lab results. 07/27/24 10:20 07/27/24 10:20 Lab Results 07/27/24 07/27/24 Range/Units 10:20 14:40 WBC 7.11 (4.8-10.8) K/ul RBC 2.44 L (4.20-5.40) M/uL Hgb 9.3 L (12.0-16.0) g/dl Hct 27.1 L (37.0-47.0) % MCV 111.1 H (80.0-100.0) fL MCH 38.1 H (25.0-34.0) pg MCHC 34.3 (32.0-36.0) g/dL RDW Std Deviation 65.2 H (36.4-46.3) fL RDW Coeff of Rony 15.8 H (11.5-14.5) % Plt Count 179 (130-400) K/uL MPV 8.8 L (9.4-12.4) fL Immature Gran % (Auto) 0.7 % Neut % (Auto) 77.8 % Lymph % (Auto) 7.7 % Gove % (Auto) 12.0 % Eos % (Auto) 1.4 % Baso % (Auto) 0.4 % Neut # (Auto) 5.53 (1.40-6.50) K/uL Lymph # (Auto) 0.55 L (1.20-3.40) K/uL Gove # (Auto) 0.85 H (0.11-0.59) K/uL Eos # (Auto) 0.10 (0.00-0.50) K/uL Baso # (Auto) 0.03 (0.00-0.20) K/uL Immature Gran # (Auto) 0.05 (0.01-0.20) K/uL Macrocytosis Present Ovalocytes 1+ PT 11.3 (9.0-12.0) Seconds INR 1.0 (0.9-1.1) Sodium 139 (136-145) mmol/L Potassium 4.1 (3.5-5.1) mmol/L Chloride 106 (98-107) mmol/L Carbon Dioxide 27 (21-32) mmol/L Anion Gap 6 (3-11) BUN 15 (6-23) mg/dl Creatinine 0.99 (0.6-1.2) mg/dl Est Cr Clr Drug Dosing 49.7 ml/min eGFR 60.21 BUN/Creatinine Ratio 15.2 (10-20) Glucose 105 H (70-99(Fasting)) mg/dl Calcium 8.9 (8.6-10.3) mg/dl Phosphorus 3.0 (2.5-4.9) mg/dl Magnesium 2.0 (1.7-2.4) mg/dl Total Bilirubin 1.0 (0.2-1.0) mg/dl AST 11 L (13-39) U/L ALT 9 (7-52) U/L Alkaline Phosphatase 42 (34-104) U/L Total Creatine Kinase 113 (26-192) U/L Troponin I High Sens 4.1 (0-14) pg/ml Total Protein 5.8 L (6.0-8.3) gm/dl Albumin 3.7 (3.4-5.0) gm/dl Globulin 2.1 L (2.5-4.0) gm/dl Albumin/Globulin Ratio 1.8 (0.9-2) Lipase 5 L (11-82) U/L TSH 4.851 H (0.300-4.500) uIu/ml Free T4 0.88 (0.61-1.60) ng/dl Urine Color Yellow Urine Appearance Clear (Clear) Urine pH 8.0 H (4.5-7.5) Ur Specific [place] 1.006 (1.000-1.030) Urine Protein Negative (Negative) Urine Glucose (UA) Negative (Negative) Urine Ketones Negative (Negative) Urine Blood Negative (Negative) Urine Nitrite Negative (Negative) Urine Bilirubin Negative (Negative) Urine Urobilinogen Negative (Negative) Ur Leukocyte Esterase Negative (Negative) Urine Comment Administered Medications Gabapentin (Gabapentin 300 Mg Cap) 300 mg PO TID HANNAH Stop: 08/26/24 20:59 Last Admin: 07/27/24 20:37 Dose: 300 mg Documented By: VAHE Levetiracetam (Levetiracetam 500 Mg Tab) 1,000 mg PO Q12H HANNAH Stop: 08/26/24 20:59 Last Admin: 07/27/24 20:36 Dose: 1,000 mg Documented By: VAHE Pantoprazole Sodium (Pantoprazole 40 Mg Tab) 40 mg PO BID HANNAH Stop: 08/26/24 20:59 Last Admin: 07/27/24 20:37 Dose: 40 mg Documented By: VAHE Sacubitril/Valsartan (Valsartan/Sacubitril 26/24mg Tab) 1 tab PO BID HANNAH Stop: 08/26/24 20:59 Last Admin: 07/27/24 20:37 Dose: 1 tab Documented By: VAHE Discontinued Medications Enoxaparin Sodium (Enoxaparin Inj 40 Mg/0.4 Ml Syr) 40 mg SQ NOW ONE Stop: 07/27/24 16:53 Last Admin: 07/27/24 17:03 Dose: 40 mg Documented By: FLORENCIO Sodium Chloride (Nss) 500 mls @ 999 mls/hr IV .Q31M ONE Stop: 07/27/24 11:07 Last Infusion: 07/27/24 11:46 Dose: Infused Documented By: Admin: 07/27/24 11:02 Dose: 999 mls/hr Documented By: MATEO Acetaminophen (Ofirmev) 1,000 mg in 100 mls @ 400 mls/hr IV NOW STA Stop: 07/27/24 10:51 Last Infusion: 07/27/24 11:17 Dose: Infused Documented By: Admin: 07/27/24 11:02 Dose: 400 mls/hr Documented By: MATEO Morphine Sulfate (Morphine Sulfate 4 Mg/Ml 1 Ml Carp\\Vial) 4 mg IV NOW STA Stop: 07/27/24 16:10 Last Admin: 07/27/24 16:36 Dose: 4 mg Documented By: FLORENCIO Imaging Data Radiologist's Impression: Chest X-Ray 07/27/24 10:33 XR chest 1V portable CLINICAL HISTORY: Chest pain, nonspecific COMPARISON STUDY: Chest radiograph November 02, 2023. FINDINGS: Right internal jugular [id number] is in place. There is no pneumothorax or pleural effusion. There is no consolidation or evidence for pulmonary edema. Cardiomediastinal silhouette is stable. IMPRESSION: No acute cardiopulmonary findings. ACT 112: Negative or not required by law. Electronically signed by: Parish Lugo M.D. 07/27/2024 12:18 PM Abdomen/Pelvis CT 07/27/24 10:37 CT OF THE ABDOMEN AND PELVIS WITHOUT CONTRAST CLINICAL HISTORY: Pain following fall. COMPARISON STUDY: CT of the abdomen and pelvis April 18, 2022. TECHNIQUE: Axial images of the abdomen and pelvis were obtained without IV contrast. Images were reviewed in the axial, sagittal, and coronal planes. Automated exposure control was utilized for the study. A dose lowering technique was utilized adhering to the principles of ALARA. FINDINGS: Distal esophageal wall thickening with trace adjacent fluid is better depicted on the chest CT which will be reported separately. No hemoperitoneum or pneumoperitoneum is present. The solid abdominal viscera are suboptimally assessed on unenhanced exam but there is no evidence for traumatic injury to the liver, spleen, adrenal glands, kidneys or pancreas. There is a gallstone within the gallbladder. There is no evidence for acute cholecystitis. There is no abdominal or pelvic lymphadenopathy. There is trace fluid within the pelvis. There is no evidence for a bowel obstruction. Incidental note is made of a moderate amount of stool within the colon. Apparent wall thickening of the ascending colon is likely due to underdistention. No acute lumbar spine, pelvis or hip fractures are identified. IMPRESSION: No acute traumatic findings within the abdomen or pelvis on unenhanced exam. ACT 112: Negative or not required by law. Electronically signed by: Parish Lugo M.D. 07/27/2024 12:00 PM Ankle X-Ray 07/27/24 10:37 XR ankle RT min 3V routine CLINICAL HISTORY: pain fall COMPARISON: None FINDINGS: There is an acute mildly displaced oblique fracture at the distal shaft of the fibula. There is posterior lateral subluxation of the tibiotalar joint. There is a possible small fracture either at the medial process of the talus or from the tip of the medial malleolus. IMPRESSION: Acute fracture/subluxation of the ankle. ACT 112: Negative or not required by law. Electronically signed by: Phan Vazquez M.D. 07/27/2024 12:[address] 07/27/24 10:37 CT cervical spine wo con CT DOSE: 3144 CLINICAL HISTORY: pain fall. COMPARISON: 11/02/2021 TECHNIQUE: Multiple axial CT images of the cervical spine were obtained without contrast. A dose lowering technique was utilized adhering to the principles of ALARA. FINDINGS: There are moderate diffuse degenerative changes at the cervical spine. No fracture or subluxation. There are carotid bulb calcifications. IMPRESSION: No cervical spine fracture seen. ACT 112: Negative or not required by law. The above report was generated using voice recognition software. It may contain grammatical, syntax or spelling errors. Electronically signed by: Phan Vazquez M.D. 07/27/2024 11:[address] 07/27/24 10:37 CT OF THE CHEST WITHOUT IV CONTRAST CLINICAL HISTORY: Pain following fall. COMPARISON STUDY: Chest radiograph November 02, 2023. Chest CT September 23, 2017. PET/CT December 26, 2021. TECHNIQUE: Axial images of the chest were obtained without IV contrast. Images were reviewed in the axial, sagittal, and coronal planes. IV contrast was not administered for this examination. Automated exposure control was utilized for the study. A dose lowering technique was utilized adhering to the principles of ALARA. FINDINGS: The thoracic aorta is suboptimally assessed on unenhanced exam but no mediastinal hematoma is identified. The heart is moderately enlarged. There is a trace pericardial effusion. There is no thoracic lymphadenopathy. Moderate circumferential wall thickening of the distal esophagus with trace adjacent fluid is noted. There is no pneumomediastinum. No pneumothorax or pleural effusion is present. Subpleural linear densities within the right lower lobe favor atelectasis or scarring. An 8 mm left upper lobe nodule on image [id number] of September 23, 2017. There are several old right-sided rib fractures. There are age indeterminate fractures of the anterior left fourth and fifth ribs. No thoracic spine fractures are present. Abdomen and pelvis CT will be reported separately. IMPRESSION: 1. Age indeterminate nondisplaced fractures of the anterior left fourth and fifth ribs. No pneumothorax. Several old right rib fractures. 2. No additional traumatic findings within the chest. 3. Nonspecific distal esophageal wall thickening with trace adjacent fluid. 4. 8 mm left upper lobe nodule, similar to CT of September 23, 2017. This is likely benign given stability. ACT 112: Negative or not required by law. Electronically signed by: Parish Lugo M.D. 07/27/2024 11:[address] 07/27/24 10:37 CT head/brain wo con CLINICAL HISTORY: pain fall. TECHNIQUE: Multiple axial CT images of the head were obtained without contrast. A dose lowering technique was utilized adhering to the principles of ALARA. CT DOSE: 3144.33 mGy.cm COMPARISON: 04/29/2022 FINDINGS: Stable right parieto-occipital craniotomy. Stable large area of underlying encephalomalacia involving the entire right occipital lobe and a small portion of the right parietal lobe. Stable small area of encephalomalacia at the left frontoparietal junction. No intracranial hemorrhage seen. No mass effect, midline shift, or hydrocephalus. No skull fracture seen. Visualized paranasal sinuses and mastoid air cells are clear. IMPRESSION: No acute findings. ACT 112: Negative or not required by law. The above report was generated using voice recognition software. It may contain grammatical, syntax or spelling errors. Electronically signed by: Phan Vazquez M.D. 07/27/2024 11:40 AM Hip/Pelvis X-Ray 07/27/24 10:37 XR hip RT 2V w pelvis CLINICAL HISTORY: Pain following fall. COMPARISON: CT of the abdomen and pelvis April 18, 2022. FINDINGS: Sacroiliac joints and symphysis pubis are intact. There are no fractures within the pelvis or hips. There is mild joint space narrowing and osteophytosis of both hips. There are no osseous lesions. IMPRESSION: No fractures within the pelvis or hips. ACT 112: Negative or not required by law. Electronically signed by: Parish Lugo M.D. 07/27/2024 12:19 PM Knee X-Ray 07/27/24 10:37 XR knee RT 1 or 2V routine CLINICAL HISTORY: pain fall COMPARISON: None FINDINGS: Right knee prosthesis shows no hardware complication. No fracture or dislocation. IMPRESSION: No fracture seen. ACT 112: Negative or not required by law. Electronically signed by: Phan Vazquez M.D. 07/27/2024 12:27 PM Knee X-Ray 07/27/24 10:37 XR knee LT 1 or 2V routine CLINICAL HISTORY: pain fall COMPARISON: None FINDINGS: Left knee prosthesis shows no hardware complication. No fracture or dislocation. There is a mild joint effusion. IMPRESSION: No fracture seen. ACT 112: Negative or not required by law. Electronically signed by: Phan Vazquez M.D. 07/27/2024 12:27 PM Discharge Plan Visit Data Chief Complaint: Fall ED Provider: Berlin Escalante Discharge Problem: Fall from standing, Ankle fracture, right, Recurrent falls Patient Disposition: Admitted As Inpatient Condition: Fair Discharge Instructions Interventions: ED Discharge Assessment Last Done: 07/27/24 17:10 Discharge Problem: Fall from standing Qualifiers: Encounter type: initial encounter Qualified Code(s): W19.XXXA - Unspecified fall, initial encounter Ankle fracture, right Qualifiers: Encounter type: initial encounter Fracture type: closed Qualified Code(s): S 82.891A - Other fracture of right lower leg, initial encounter for closed fracture
[2024-07-27 11:19] LABS: Albumin Globulin Ratio 1.8 (0.9-2); Albumin Level 3.7 gm/dl (3.4-5.0); BUN Creatinine Ratio 15.2 (10-20); Calcium 8.9 mg/dl (8.6-10.3); Creatinine Clr Calc Pharmacy 49.7 ml/min; Globulin 2.1 gm/dl (2.5-4.0); Potassium 4.1 mmol/L (3.5-5.1); Total Protein 5.8 gm/dl (6.0-8.3)
[2024-07-27 11:20] LABS: Macrocytosis Present; Ovalocytes 1+
[2024-07-27 11:22] LABS: Prothrombin Time 11.3 Seconds (9.0-12.0)
[2024-07-27 11:23] LABS: Troponin I High Sensitivity 4.1 pg/ml (0-14)
[2024-07-27 11:33] LABS: Thyroid Stimulating Hormone 4.851 uIu/ml (0.300-4.500)
--- NOTE | 2024-07-27 11:42 | CT Scan Report ---
CT head/brain wo con CLINICAL HISTORY: pain fall. TECHNIQUE: Multiple axial CT images of the head were obtained without contrast. A dose lowering tech nique was utilized adhering to the principles of ALARA. CT DOSE: 3144.33 mGy.cm COMPARISON: 04/29/2022 FINDINGS: Stable right parieto-occipital craniotomy. Stable large area of underlying encephalomalacia involving the entire right occipital lobe and a small portion of the right parietal lobe. Stable sma ll area of encephalomalacia at the left frontoparietal junction. No intracranial hemorrhage seen. No mass effect, midline shift, or hydrocephalus. No skull fracture seen. Visualized paranasal sinuses an d mastoid air cells are clear. IMPRESSION: No acute findings. ACT 112: Negative or not required by law. The above report was generated using voice recognition software. It may contain grammatical, syntax o r spelling errors. Electronically signed by: Phan Vazquez M.D. 07/27/2024 11:40 AM
--- NOTE | 2024-07-27 11:55 | CT Scan Report ---
CT OF THE CHEST WITHOUT IV CONTRAST CLINICAL HISTORY: Pain following fall. COMPARISON STUDY: Chest radiograph November 02, 2023. Chest CT September 23, 2017. PET/CT December 26, 2021. TECHNIQUE: Axial images of the chest were obtained without IV contrast. Images were reviewed in the axial, sagittal, and coronal planes. IV contrast was not administered for this examination. Automat ed exposure control was utilized for the study. A dose lowering technique was utilized adhering to t he principles of ALARA. FINDINGS: The thoracic aorta is suboptimally assessed on unenhanced exam but no mediastinal hematoma is identified. The heart is moderately enlarged. There is a trace pericardial effusion. There is no thoracic lymphadenopathy. Moderate circumferential wall thickening of the distal esophagus with trace adjacent fluid is noted. There is no pneumomediastinum. No pneumothorax or pleural effusion is prese nt. Subpleural linear densities within the right lower lobe favor atelectasis or scarring. An 8 mm le ft upper lobe nodule on image [id number] of September 23, 2017. There are several old right -sided rib fractures. There are age indeterminate fractures of the anterior left fourth and fifth rib s. No thoracic spine fractures are present. Abdomen and pelvis CT will be reported separately. IMPRESSION: 1. Age indeterminate nondisplaced fractures of the anterior left fourth and fifth ribs. No pneumothor ax. Several old right rib fractures. 2. No additional traumatic findings within the chest. 3. Nonspecific distal esophageal wall thickening with trace adjacent fluid. 4. 8 mm left upper lobe nodule, similar to CT of September 23, 2017. This is likely benign given stabili ty. ACT 112: Negative or not required by law. Electronically signed by: Parish Lugo M.D. 07/27/2024 11:52 AM
--- NOTE | 2024-07-27 12:01 | CT Scan Report ---
CT OF THE ABDOMEN AND PELVIS WITHOUT CONTRAST CLINICAL HISTORY: Pain following fall. COMPARISON STUDY: CT of the abdomen and pelvis April 18, 2022. TECHNIQUE: Axial images of the abdomen and pelvis were obtained without IV contrast. Images were revi ewed in the axial, sagittal, and coronal planes. Automated exposure control was utilized for the carolyn dy. A dose lowering technique was utilized adhering to the principles of ALARA. FINDINGS: Distal esophageal wall thickening with trace adjacent fluid is better depicted on the chest CT which will be reported separately. No hemoperitoneum or pneumoperitoneum is present. The solid ab dominal viscera are suboptimally assessed on unenhanced exam but there is no evidence for traumatic i njury to the liver, spleen, adrenal glands, kidneys or pancreas. There is a gallstone within the gall bladder. There is no evidence for acute cholecystitis. There is no abdominal or pelvic lymphadenopath y. There is trace fluid within the pelvis. There is no evidence for a bowel obstruction. Incidental n ote is made of a moderate amount of stool within the colon. Apparent wall thickening of the ascending colon is likely due to underdistention. No acute lumbar spine, pelvis or hip fractures are identifie d. IMPRESSION: No acute traumatic findings within the abdomen or pelvis on unenhanced exam. ACT 112: Negative or not required by law. Electronically signed by: Parish Lugo M.D. 07/27/2024 12:00 PM
--- NOTE | 2024-07-27 12:01 | CT Scan Report ---
CT cervical spine wo con CT DOSE: 3144 CLINICAL HISTORY: pain fall. COMPARISON: 11/02/2021 TECHNIQUE: Multiple axial CT images of the cervical spine were obtained without contrast. A dose low ering technique was utilized adhering to the principles of ALARA. FINDINGS: There are moderate diffuse degenerative changes at the cervical spine. No fracture or sublu xation. There are carotid bulb calcifications. IMPRESSION: No cervical spine fracture seen. ACT 112: Negative or not required by law. The above report was generated using voice recognition software. It may contain grammatical, syntax o r spelling errors. Electronically signed by: Phan Vazquez M.D. 07/27/2024 11:59 AM
[2024-07-27 12:07] LABS: T4 Free Thyroxine 0.88 ng/dl (0.61-1.60)
--- NOTE | 2024-07-27 12:20 | XRay Report ---
XR chest 1V portable CLINICAL HISTORY: Chest pain, nonspecific COMPARISON STUDY: Chest radiograph November 02, 2023. FINDINGS: Right internal jugular [id number] is in place. There is no pneumothorax or pleural effus ion. There is no consolidation or evidence for pulmonary edema. Cardiomediastinal silhouette is stabl e. IMPRESSION: No acute cardiopulmonary findings. ACT 112: Negative or not required by law. Electronically signed by: Parish Lugo M.D. 07/27/2024 12:18 PM
--- NOTE | 2024-07-27 12:21 | XRay Report ---
XR hip RT 2V w pelvis CLINICAL HISTORY: Pain following fall. COMPARISON: CT of the abdomen and pelvis April 18, 2022. FINDINGS: Sacroiliac joints and symphysis pubis are intact. There are no fractures within the pelvis or hips. There is mild joint space narrowing and osteophytosis of both hips. There are no osseous le sions. IMPRESSION: No fractures within the pelvis or hips. ACT 112: Negative or not required by law. Electronically signed by: Parish Lugo M.D. 07/27/2024 12:19 PM
--- NOTE | 2024-07-27 12:28 | XRay Report ---
XR knee LT 1 or 2V routine CLINICAL HISTORY: pain fall COMPARISON: None FINDINGS: Left knee prosthesis shows no hardware complication. No fracture or dislocation. There is a mild joint effusion. IMPRESSION: No fracture seen. ACT 112: Negative or not required by law. Electronically signed by: Phan Vazquez M.D. 07/27/2024 12:27 PM
--- NOTE | 2024-07-27 12:28 | XRay Report ---
XR knee RT 1 or 2V routine CLINICAL HISTORY: pain fall COMPARISON: None FINDINGS: Right knee prosthesis shows no hardware complication. No fracture or dislocation. IMPRESSION: No fracture seen. ACT 112: Negative or not required by law. Electronically signed by: Phan Vazquez M.D. 07/27/2024 12:27 PM
--- NOTE | 2024-07-27 12:28 | XRay Report ---
XR ankle RT min 3V routine CLINICAL HISTORY: pain fall COMPARISON: None FINDINGS: There is an acute mildly displaced oblique fracture at the distal shaft of the fibula. The re is posterior lateral subluxation of the tibiotalar joint. There is a possible small fracture eithe r at the medial process of the talus or from the tip of the medial malleolus. IMPRESSION: Acute fracture/subluxation of the ankle. ACT 112: Negative or not required by law. Electronically signed by: Phan Vazquez M.D. 07/27/2024 12:26 PM
[2024-07-27 14:59] LABS: Appearance Urine Clear (Clear); Bilirubin Urine Negative (Negative); Blood Urine Negative (Negative); Color Urine Yellow; Glucose Urine UA Negative (Negative); Ketones Urine Negative (Negative); Leukocyte Esterase Urine Negative (Negative); Nitrite Urine Negative (Negative); Protein Urine Negative (Negative); Specific Gravity Urine 1.006 (1.000-1.030); Urobilinogen Urine Negative (Negative)
--- NOTE | 2024-07-27 16:24 | History & Physical Report ---
Date of Service July 27, 2024 Assessment & Plan (1) Obesity: (2) YASMINE (obstructive sleep apnea): (3) Diabetes mellitus type 2, controlled: (4) Iron deficiency anemia: (5) Adenocarcinoma of lower esophagus: (6) COPD (chronic obstructive pulmonary disease): (7) Depression: (8) Hypertension: (9) Dyslipidemia: (10) Carotid artery disease: (11) Ankle fracture: Plan The patient is a 74-year-old female who presented to the ED on 07/27/2024 s/p mechanical fall found to have a right ankle fracture Recurrent falls Ambulatory dysfunction R fibular fracture PT/OT, may need rehab on DC with continuing ambulatory issues Ortho consulted for right fibula fracture, plan for reduction/splinting Pain control, DVT prophylaxis Anterior left 4th and 5th rib fractures: Age-indeterminate, incentive spirometry Hx HTN/HLD: Continue metoprolol/statin/aspirin Hx COPD/YASMINE: Continue home inhalers Hx seizures: Continue Keppra A total of 60 minutes was spent on chart review/reviewing diagnostic data/facilitating plan of care/discussion with consultants Patient is a full code DVT prophylaxis: Lovenox History of Present Illness Chief Complaint: Falls Primary Care Provider: Dre Cagle MD The patient is a 74-year-old female with a past medical history of DM2, HLD, COPD, sleep apnea, CVA, HTN, CKD stage III, carotid stenosis, IBS, GERD, fibromyalgia, Mnire's, esophageal malignant neoplasm, factor V Leiden, anxiety who presents to the ED on 07/27/2024 with complaints of generalized weakness and recurrent falls. Also reported right ankle pain. The patient reported that she felt like her legs gave out last night and she fell backwards. She is unsure if she hit her head but denies any loss of consciousness. She does report being able to get herself up and ambulate after the fall. She then reports trying to come into the house this morning and tripped falling again but at this time was unable to get up and was complaining of right hip pain. Denies any CP, sob, fevers, chills, abdominal pain. Denies n/v/d. On arrival to the ED, labs are fairly unremarkable, hemoglobin 9.3 Bilateral knee x-rays negative for fractures Pelvis x-ray negative Head CT negative Cervical spine CT negative Abdomen/pelvis CT negative Chest x-ray negative Chest CT showed: 1. Age indeterminate nondisplaced fractures of the anterior left fourth and fifth ribs. No pneumothorax. Several old right rib fractures. 2. No additional traumatic findings within the chest. 3. Nonspecific distal esophageal wall thickening with trace adjacent fluid. 4. 8 mm left upper lobe nodule, similar to CT of September 23, 2017. This is likely benign given stability. Ankle x-ray showed acute mildly displaced oblique fracture at the distal shaft of the fibula. Posterior lateral subluxation of the tibiotalar joint. Possible small fracture either at the medial process of the talus or from the tip of the medial malleolus The patient will be admitted for further management of ambulatory dysfunction and right ankle fracture Allergies Allergy/AdvReac Type Severity Reaction Status Date / Time iodine Allergy Intermediate itching Verified 11/02/23 08:18 nickel Allergy Intermediate rash/itchin Verified 11/02/23 08:18 g buspirone Allergy Unknown pt unsure Verified 11/02/23 08:18 Home Medications Medication Instructions Recorded Confirmed Type atorvastatin 80 mg tablet (Lipitor) 80 mg PO QAM 11/02/21 07/27/24 History ezetimibe 10 mg tablet (Zetia) 10 mg PO QAM 11/02/21 07/27/24 History gabapentin 300 mg capsule 300 mg PO TID 11/02/21 07/27/24 History hydrocodone 7.5 mg-acetaminophen 1 tab PO Q6H PRN Pain 11/02/21 07/27/24 History 325 mg tablet cyanocobalamin (vitamin B-12) 500 500 mcg PO QAM 01/14/22 07/27/24 History mcg tablet folic acid 800 mcg tablet 0.8 mg PO QAM 01/14/22 07/27/24 History albuterol sulfate 90 mcg/actuation 2 puff inhalation Q6H PRN 02/14/22 07/27/24 History aerosol inhaler Shortness Of Breath Or Wheezing diclofenac sodium 1 % topical gel 2 g topical QID PRN Pain 02/14/22 07/27/24 History (Arthritis Pain (diclofenac)) ipratropium 0.5 mg-albuterol 3 mg 3 ml inhalation Q6H PRN Shortness 02/14/22 07/27/24 History (2.5 mg base)/3 mL nebulization Of Breath Or Wheezing soln levetiracetam 500 mg 1,000 mg PO BID 02/14/22 07/27/24 History tablet,extended release 24 hr (Keppra XR) umeclidinium 62.5 mcg-vilanterol 1 ea inhalation DAILY 02/14/22 07/27/24 History 25 mcg/actuation powdr for inhalation (Anoro Ellipta) magnesium oxide 400 mg (241.3 mg 400 mg PO QAM #30 tabs 04/24/22 07/27/24 Rx magnesium) tablet venlafaxine 150 mg 150 mg PO QAM 07/17/22 07/27/24 History capsule,extended release 24 hr (Effexor XR) aspirin 81 mg capsule 81 mg PO QAM 01/16/23 07/27/24 History cholecalciferol (vitamin D3) 50 50 mcg PO QAM 01/16/23 07/27/24 History mcg (2,000 unit) capsule (Vitamin D3) ferrous sulfate-vitamin C ER 65 1 cap PO 3XWK 01/16/23 07/27/24 History mg-150 mg capsule,extended release metoprolol succinate 50 mg 75 mg PO UD 01/16/23 07/27/24 History tablet,extended release 24 hr omega-3 fatty acids 2,000 mg PO QAM 01/16/23 07/27/24 History polyethylene glycol 3350 17 17 g PO DAILY PRN Constipation 01/16/23 07/27/24 History gram/dose oral powder (Miralax) peg 400-propylene glycol (PF) 0.4 1 drp ophthalmic (eye) DAILY 10/27/23 07/27/24 History %-0.3 % eye drops in a dropperette (Systane (PF)) sucralfate 1 gram tablet (Carafate) 1 g PO UD dysphagia 10/27/23 07/27/24 History famotidine 20 mg tablet (Pepcid) 20 mg PO BID PRN Acid Reflux 11/02/23 07/27/24 History pantoprazole 40 mg tablet,delayed 40 mg PO BID 11/02/23 07/27/24 History release (Protonix) sacubitril 24 mg-valsartan 26 mg 1 tab PO BID 07/27/24 07/27/24 History tablet (Entresto) venlafaxine 37.5 mg 37.5 mg PO DAILY 07/27/24 07/27/24 History tablet,extended release 24 hr Past Med/Surg History Problem List (Updated 07/27/24 @ 16:23 by RADHA Kern) Ankle fracture Dizziness Generalized weakness (Acute) Gastric ulcer Radiation esophagitis Cancer related pain Advanced care planning/counseling discussion Esophageal pain Palliative care by specialist Odynophagia Esophageal cancer (Acute) Difficulty in swallowing (Acute) Encounter for pre-operative examination History of total right knee replacement (TKR) (Chronic) S/P total knee arthroplasty (Chronic) "Left 2015" History of carpal tunnel surgery (Chronic) History of hysterectomy (Chronic) Dysmetabolic syndrome (Chronic) Osteoarthritis (Chronic) Anxiety (Chronic) Depression (Chronic) Tobacco abuse disorder (Chronic) COPD (chronic obstructive pulmonary disease) (Chronic) Irritable bowel syndrome (IBS) (Chronic) PUD (peptic ulcer disease) (Chronic) GERD (gastroesophageal reflux disease) (Chronic) Hyperlipidemia (Chronic) History of CVA (cerebrovascular accident) (Chronic) Heterozygous factor V Leiden mutation (Chronic) HTN (hypertension) (Chronic) Medical History Obesity YASMINE (obstructive sleep apnea) CPAP and 2L O2 per chart review (per RN interview 10/26, pt stated only HS O2 2.5L) Diabetes mellitus type 2, controlled per chart review; Ha1c 07/10/23: 6.3%; no meds Iron deficiency anemia Adenocarcinoma of lower esophagus Dx 11/2021 - mass found lower esophagus (EGD and biopsy done at [facility]) - treated with chemo and XRT COPD (chronic obstructive pulmonary disease) daily and prn inh; +smoker Depression Dizziness "still has a little bit" Hx of gastric ulcer Hypertension IBS (irritable bowel syndrome) Odynophagia PUD (peptic ulcer disease) hx Pericardial effusion hx of Meniere disease Dyslipidemia Cognitive deficit due to old cerebrovascular accident (CVA) CVA 2008 Chronic rhinitis Chronic kidney disease Hematoma of brain S/p fall 11/12/21- s/p right occipital craniotomy for minimally invasive evacuation of intraparenchymal hematoma Brain bleed 11/12/21>Life flighted to [place] (evacuated blood evacuated from brain) s/p fell and hit head. GERD (gastroesophageal reflux disease) Degenerative disc disease Anxiety and depression Factor 5 Leiden mutation, heterozygous asa 81mg daily. Stroke 2008 -> residual weakness and memory issues/mild cognitive decline. 11/2021>"had brain bleed from fall, flown to [facility]" Seizure bilateral hand shaking - was told that was related to seizure acitivity - No hx of seizures per PCP and neurosurgery records- on Keppra for seizure prophylaxis after craniotomy Migraine hx Heart palpitations follows with [facility] Cardio Carotid artery disease Per 12/2022 Carotid Duplex: 70-99% R carotid stenosis, 50-69% L carotid stenosis, no change from 1 year prior. Follows with vascular: per 12/31/22 note, "Given low diastolic velocities, absence of symptoms, comorbidities, and overall higher surgical risk, will continue with surveillance and medical management." On home oxygen therapy 2.5L AT HS Surgical History History of craniotomy S/p fall 11/12/21- s/p right occipital craniotomy for minimally invasive evacuation of intraparenchymal hematoma History of anesthesia reaction slow to wake up at times History of hysterectomy S/P trigger finger release History of carpal tunnel release right/left History of total knee replacement right/left History of esophagogastroduodenoscopy (EGD) multiple; most recent: 01/22/23: MAC without issue History of colonoscopy History of tooth extraction History of cataract surgery right/left Family History Mother Unknown family medical history Father Myocardial infarction Brother , as infant; No problems noted. Son No problems noted. Son No problems noted. Sister No problems noted. Sister No problems noted. Sister H/O brain surgery Sister No problems noted. Other No family history of adverse response to anesthesia Social History Smoking Status: Current every day smoker Tobacco Type: Cigarettes Cigarettes Per Day: 10; Second Hand Exposure: Yes (hx); Do You Dip or Chew Tobacco: No; Hx Alcohol Use: No Hx Substance Use: No Preferred Language: Kittitian Communication Ability: Effective Communication Ability Comment: mild memory issues Visual Impairment: No Limitations Hearing Ability: Use of Hearing Aid Sales Support Specialist Required: No Beliefs That Will Affect Care: None marital status: Current Living Situation: Spouse current occupational status: retired 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 How many Children do You have: 2 Feels Safe at Home: Yes Safety Concerns: Feels Safe At This Time Diet: regular caffeine: Yes (2 cups/day) during the past year weight has: decreased > 10 lbs Assistive Devices: Cane, CPAP, Denture - Upper, Denture - Lower, Hearing Aid - Bilateral, Hearing Aid - Left and Walker Review of Systems Review of Systems: All systems reviewed & are unremarkable except as noted in HPI & below Physical Exam Constitutional: WD/WN, vitals as above (aao x2 ) Eyes: PERRL, conjunctivae normal, anicteric sclerae ENMT: external ear and nose normal, oropharynx normal Neck: trachea midline, no thyromegaly Respiratory: normal respiratory effort, lungs clear to auscultation Cardiovascular: RRR, no murmur, no edema Gastrointestinal (Abdomen): normal bowel sounds, soft, nontender, no hepatosplenomegaly Musculoskeletal: no cyanosis or clubbing, extremities motor strength 5/5 (r ankle in cast, full rom, and sensation ) Skin: no rashes, warm and dry Neurologic: PERRL, EOMI, accommodation nl, no face palsy, no dysarthria Psychiatric: A+Ox3, euthymic affect Genitourinary: no vaginal lesions, no adnexal mass Lymphatic: no cervical or axillary lymphadenopathy Results & Data Results & Data Vital Signs (Past 12 Hours) Vital Signs Temp Pulse Pulse Resp BP BP Pulse Ox 07/27/24 15:52 73 07/27/24 15:00 36.8 C 70 18 173/80 H 98 07/27/24 14:00 36.9 C 72 18 169/126 H 98 07/27/24 13:00 37 C 71 18 150/75 H 95 07/27/24 12:01 37 C 72 18 170/76 H 98 07/27/24 12:00 71 18 170/76 H 97 07/27/24 11:00 36.9 C 69 18 160/69 H 96 07/27/24 10:33 98 07/27/24 10:24 69 07/27/24 10:22 36.5 C 73 20 140/79 96 O2 Del Method 07/27/24 15:52 07/27/24 15:00 Room Air 07/27/24 14:00 Room Air 07/27/24 13:00 Room Air 07/27/24 12:01 Room Air 07/27/24 12:00 Room Air 07/27/24 11:00 Room Air 07/27/24 10:33 Room Air 07/27/24 10:24 07/27/24 10:22 Room Air Diagnostic Findings Laboratory Results WBC 7.11 K/ul (4.8-10.8) 07/27/24 10:20 RBC 2.44 M/uL (4.20-5.40) L 07/27/24 10:20 Hgb 9.3 g/dl (12.0-16.0) L 07/27/24 10:20 Hct 27.1 % (37.0-47.0) L 07/27/24 10:20 MCV 111.1 fL (80.0-100.0) H 07/27/24 10:20 MCH 38.1 pg (25.0-34.0) H 07/27/24 10:20 MCHC 34.3 g/dL (32.0-36.0) 07/27/24 10:20 RDW Std Deviation 65.2 fL (36.4-46.3) H 07/27/24 10:20 RDW Coeff of Rony 15.8 % (11.5-14.5) H 07/27/24 10:20 Plt Count 179 K/uL (130-400) 07/27/24 10:20 MPV 8.8 fL (9.4-12.4) L 07/27/24 10:20 Immature Gran % (Auto) 0.7 % 07/27/24 10:20 Neut % (Auto) 77.8 % 07/27/24 10:20 Lymph % (Auto) 7.7 % 07/27/24 10:20 [place] % (Auto) 12.0 % 07/27/24 10:20 Eos % (Auto) 1.4 % 07/27/24 10:20 Baso % (Auto) 0.4 % 07/27/24 10:20 Neut # (Auto) 5.53 K/uL (1.40-6.50) 07/27/24 10:20 Lymph # (Auto) 0.55 K/uL (1.20-3.40) L 07/27/24 10:20 [place] # (Auto) 0.85 K/uL (0.11-0.59) H 07/27/24 10:20 Eos # (Auto) 0.10 K/uL (0.00-0.50) 07/27/24 10:20 Baso # (Auto) 0.03 K/uL (0.00-0.20) 07/27/24 10:20 Immature Gran # (Auto) 0.05 K/uL (0.01-0.20) 07/27/24 10:20 Macrocytosis Present 07/27/24 10:20 Ovalocytes 1+ 07/27/24 10:20 PT 11.3 Seconds (9.0-12.0) 07/27/24 10:20 INR 1.0 (0.9-1.1) 07/27/24 10:20 Sodium 139 mmol/L (136-145) 07/27/24 10:20 Potassium 4.1 mmol/L (3.5-5.1) 07/27/24 10:20 Chloride 106 mmol/L (98-107) 07/27/24 10:20 Carbon Dioxide 27 mmol/L (21-32) 07/27/24 10:20 Anion Gap 6 (3-11) 07/27/24 10:20 BUN 15 mg/dl (6-23) 07/27/24 10:20 Creatinine 0.99 mg/dl (0.6-1.2) 07/27/24 10:20 Est Cr Clr Drug Dosing 49.7 ml/min 07/27/24 10:20 eGFR 60.21 07/27/24 10:20 BUN/Creatinine Ratio 15.2 (10-20) 07/27/24 10:20 Glucose 105 mg/dl (70-99(Fasting)) H 07/27/24 10:20 Calcium 8.9 mg/dl (8.6-10.3) 07/27/24 10:20 Phosphorus 3.0 mg/dl (2.5-4.9) 07/27/24 10:20 Magnesium 2.0 mg/dl (1.7-2.4) 07/27/24 10:20 Total Bilirubin 1.0 mg/dl (0.2-1.0) 07/27/24 10:20 AST 11 U/L (13-39) L 07/27/24 10:20 ALT 9 U/L (7-52) 07/27/24 10:20 Alkaline Phosphatase 42 U/L (34-104) 07/27/24 10:20 Total Creatine Kinase 113 U/L (26-192) 07/27/24 10:20 Troponin I High Sens 4.1 pg/ml (0-14) 07/27/24 10:20 Total Protein 5.8 gm/dl (6.0-8.3) L 07/27/24 10:20 Albumin 3.7 gm/dl (3.4-5.0) 07/27/24 10:20 Globulin 2.1 gm/dl (2.5-4.0) L 07/27/24 10:20 Albumin/Globulin Ratio 1.8 (0.9-2) 07/27/24 10:20 Lipase 5 U/L (11-82) L 07/27/24 10:20 TSH 4.851 uIu/ml (0.300-4.500) H 07/27/24 10:20 Free T4 0.88 ng/dl (0.61-1.60) 07/27/24 10:20 Urine Color Yellow 07/27/24 14:40 Urine Appearance Clear (Clear) 07/27/24 14:40 Urine pH 8.0 (4.5-7.5) H 07/27/24 14:40 Ur Specific [place] 1.006 (1.000-1.030) 07/27/24 14:40 Urine Protein Negative (Negative) 07/27/24 14:40 Urine Glucose (UA) Negative (Negative) 07/27/24 14:40 Urine Ketones Negative (Negative) 07/27/24 14:40 Urine Blood Negative (Negative) 07/27/24 14:40 Urine Nitrite Negative (Negative) 07/27/24 14:40 Urine Bilirubin Negative (Negative) 07/27/24 14:40 Urine Urobilinogen Negative (Negative) 07/27/24 14:40 Ur Leukocyte Esterase Negative (Negative) 07/27/24 14:40 Urine Comment 07/27/24 14:40 Impressions Chest X-Ray 07/27/24 10:33 XR chest 1V portable CLINICAL HISTORY: Chest pain, nonspecific COMPARISON STUDY: Chest radiograph November 02, 2023. FINDINGS: Right internal jugular [id number] is in place. There is no pneumothorax or pleural effusion. There is no consolidation or evidence for pulmonary edema. Cardiomediastinal silhouette is stable. IMPRESSION: No acute cardiopulmonary findings. ACT 112: Negative or not required by law. Electronically signed by: Parish Lugo M.D. 07/27/2024 12:18 PM Abdomen/Pelvis CT 07/27/24 10:37 CT OF THE ABDOMEN AND PELVIS WITHOUT CONTRAST CLINICAL HISTORY: Pain following fall. COMPARISON STUDY: CT of the abdomen and pelvis April 18, 2022. TECHNIQUE: Axial images of the abdomen and pelvis were obtained without IV contrast. Images were reviewed in the axial, sagittal, and coronal planes. Automated exposure control was utilized for the study. A dose lowering technique was utilized adhering to the principles of ALARA. FINDINGS: Distal esophageal wall thickening with trace adjacent fluid is better depicted on the chest CT which will be reported separately. No hemoperitoneum or pneumoperitoneum is present. The solid abdominal viscera are suboptimally assessed on unenhanced exam but there is no evidence for traumatic injury to the liver, spleen, adrenal glands, kidneys or pancreas. There is a gallstone within the gallbladder. There is no evidence for acute cholecystitis. There is no abdominal or pelvic lymphadenopathy. There is trace fluid within the pelvis. There is no evidence for a bowel obstruction. Incidental note is made of a moderate amount of stool within the colon. Apparent wall thickening of the ascending colon is likely due to underdistention. No acute lumbar spine, pelvis or hip fractures are identified. IMPRESSION: No acute traumatic findings within the abdomen or pelvis on unenhanced exam. ACT 112: Negative or not required by law. Electronically signed by: Parish Lugo M.D. 07/27/2024 12:00 PM Ankle X-Ray 07/27/24 10:37 XR ankle RT min 3V routine CLINICAL HISTORY: pain fall COMPARISON: None FINDINGS: There is an acute mildly displaced oblique fracture at the distal shaft of the fibula. There is posterior lateral subluxation of the tibiotalar joint. There is a possible small fracture either at the medial process of the talus or from the tip of the medial malleolus. IMPRESSION: Acute fracture/subluxation of the ankle. ACT 112: Negative or not required by law. Electronically signed by: Phan Vazquez M.D. 07/27/2024 12:[address] 07/27/24 10:37 CT cervical spine wo con CT DOSE: 3144 CLINICAL HISTORY: pain fall. COMPARISON: 11/02/2021 TECHNIQUE: Multiple axial CT images of the cervical spine were obtained without contrast. A dose lowering technique was utilized adhering to the principles of ALARA. FINDINGS: There are moderate diffuse degenerative changes at the cervical spine. No fracture or subluxation. There are carotid bulb calcifications. IMPRESSION: No cervical spine fracture seen. ACT 112: Negative or not required by law. The above report was generated using voice recognition software. It may contain grammatical, syntax or spelling errors. Electronically signed by: Phan Vazquez M.D. 07/27/2024 11:[address] 07/27/24 10:37 CT OF THE CHEST WITHOUT IV CONTRAST CLINICAL HISTORY: Pain following fall. COMPARISON STUDY: Chest radiograph November 02, 2023. Chest CT September 23, 2017. PET/CT December 26, 2021. TECHNIQUE: Axial images of the chest were obtained without IV contrast. Images were reviewed in the axial, sagittal, and coronal planes. IV contrast was not administered for this examination. Automated exposure control was utilized for the study. A dose lowering technique was utilized adhering to the principles of ALARA. FINDINGS: The thoracic aorta is suboptimally assessed on unenhanced exam but no mediastinal hematoma is identified. The heart is moderately enlarged. There is a trace pericardial effusion. There is no thoracic lymphadenopathy. Moderate circumferential wall thickening of the distal esophagus with trace adjacent fluid is noted. There is no pneumomediastinum. No pneumothorax or pleural effusion is present. Subpleural linear densities within the right lower lobe favor atelectasis or scarring. An 8 mm left upper lobe nodule on image [id number] of September 23, 2017. There are several old right-sided rib fractures. There are age indeterminate fractures of the anterior left fourth and fifth ribs. No thoracic spine fractures are present. Abdomen and pelvis CT will be reported separately. IMPRESSION: 1. Age indeterminate nondisplaced fractures of the anterior left fourth and fifth ribs. No pneumothorax. Several old right rib fractures. 2. No additional traumatic findings within the chest. 3. Nonspecific distal esophageal wall thickening with trace adjacent fluid. 4. 8 mm left upper lobe nodule, similar to CT of September 23, 2017. This is likely benign given stability. ACT 112: Negative or not required by law. Electronically signed by: Parish Lugo M.D. 07/27/2024 11:[address] 07/27/24 10:37 CT head/brain wo con CLINICAL HISTORY: pain fall. TECHNIQUE: Multiple axial CT images of the head were obtained without contrast. A dose lowering technique was utilized adhering to the principles of ALARA. CT DOSE: 3144.33 mGy.cm COMPARISON: 04/29/2022 FINDINGS: Stable right parieto-occipital craniotomy. Stable large area of underlying encephalomalacia involving the entire right occipital lobe and a small portion of the right parietal lobe. Stable small area of encephalomalacia at the left frontoparietal junction. No intracranial hemorrhage seen. No mass effect, midline shift, or hydrocephalus. No skull fracture seen. Visualized paranasal sinuses and mastoid air cells are clear. IMPRESSION: No acute findings. ACT 112: Negative or not required by law. The above report was generated using voice recognition software. It may contain grammatical, syntax or spelling errors. Electronically signed by: Phan Vazquez M.D. 07/27/2024 11:40 AM Hip/Pelvis X-Ray 07/27/24 10:37 XR hip RT 2V w pelvis CLINICAL HISTORY: Pain following fall. COMPARISON: CT of the abdomen and pelvis April 18, 2022. FINDINGS: Sacroiliac joints and symphysis pubis are intact. There are no fractures within the pelvis or hips. There is mild joint space narrowing and osteophytosis of both hips. There are no osseous lesions. IMPRESSION: No fractures within the pelvis or hips. ACT 112: Negative or not required by law. Electronically signed by: Parish Lugo M.D. 07/27/2024 12:19 PM Knee X-Ray 07/27/24 10:37 XR knee LT 1 or 2V routine CLINICAL HISTORY: pain fall COMPARISON: None FINDINGS: Left knee prosthesis shows no hardware complication. No fracture or dislocation. There is a mild joint effusion. IMPRESSION: No fracture seen. ACT 112: Negative or not required by law. Electronically signed by: Phan Vazquez M.D. 07/27/2024 12:27 PM Supervising Physician Co-Signing Physician Notes Patient seen and examined independently. Discussed with above provider. Patient presented to the hospital with mechanical fall; found to have right ankle fracture. Orthopedic consulted for radiation/splinting. Continue pain control, PT OT. I have reviewed the advanced practitioner's documentation, and I agree with, and take responsibility for the plan of care I spent a total of 30 minutes coordinating, documenting, and providing care for this patient excluding time spent in the performance of separately billed services. All of the aforementioned completed while collaborating with the assigned advanced practitioner for a full treatment plan
[2024-07-27] MEDS: MoRPHine SULFATE 4 MG/ML 1 ML CARP\\VIAL IV STA (16:36)
[2024-07-27] MEDS: ENOXAPARIN INJ 40 MG/0.4 ML SYR SQ ONE (17:03)
[2024-07-27] MEDS ORDERED: ACETAMINOPHEN 325 MG TAB PO PRN (17:54)
--- NOTE | 2024-07-27 18:12 | XRay Report ---
Clinical History: Postreduction 3 views of the right ankle are submitted for review. No prior examination is available for comparison Findings: There is an apparent fracture fragment arising from the inferior aspect of the medial malleolus. There is an oblique fracture of the distal fibular shaft with one half shaft width lateral displacement of the distal fracture fragment. There is a mildly displaced fracture of the posterior malleolus. Cast material is in place, which obscures fine bony detail There is mild osteoarthritis of the navicular cuneiform and first tarsometatarsal joint. There are dorsal and plantar calcaneal spurs. No other osseous abnormality is identified. There are no radiopaque foreign bodies. Impression: Mildly displaced fractures of the inferior medial malleolus, the posterior malleolus, and the distal fibular shaft ACT 112: Positive. There are findings on this exam that require communication between the performing entity and the patient following Patient Test Result Information Act ([place] ACT 112) guidelines. Electronically signed by Cr Simpson 07-27-2024 6:12 PM
[2024-07-27] MEDS ORDERED: FAMOTIDINE 20 MG TAB PO PRN (18:30)
--- NOTE | 2024-07-27 20:11 | CT Scan Report ---
CT of the right ankle without contrast Technique: Noncontrast axial images of the right ankle. Coronal and sagittal reformatted images made available for review. 3D reformatted images also made available for review Comparison made to prior exam performed earlier on the same date Comminuted intra-articular fracture involving the lateral aspect of the distal tibia. Comminuted minimally displaced medial malleolus fracture. Comminuted minimally displaced intra-articular fracture involving the posterior aspect of the distal tibia. Obliquely oriented slightly comminuted and displaced intra-articular fracture involving the distal fibula.Moderate degenerative changes within the midfoot. Ankle mortise appears intact. Impression Comminuted displaced intra-articular trimalleolar fracture as described above. Electronically signed by Cipriano Looney 07-27-2024 8:11 PM
[2024-07-27] MEDS: levETIRAcetam 500 MG TAB PO SCH (20:36)
[2024-07-27] MEDS: PANTOprazole 40 MG TAB PO SCH (20:37)
[2024-07-27] MEDS: GABAPENTIN 300 MG CAP PO SCH (20:37)
[2024-07-27] MEDS: VALSARTAN/SACUBITRIL 26/24MG TAB PO SCH (20:37)
--- NOTE | 2024-07-28 04:47 | Electrocardiogram Report ---
Test Reason : Blood Pressure : */* mmHG Vent. Rate : 67 BPM Atrial Rate : 67 BPM P-R Int : 184 ms QRS Dur : 82 ms QT Int : 414 ms P-R-T Axes : 70 40 61 degrees QTcB Int : 437 ms Normal sinus rhythm Nonspecific ST abnormality When compared with ECG of 29-Apr-2022 16:09, Minimal criteria for Anterior infarct are no longer Present Nonspecific T wave abnormality no longer evident in Anterior leads Confirmed by Parish Carrera ([id number]) on 07/28/2024 4:46:59 AM Referred By: REFERRED SELF Confirmed By: Parish Carrera
[2024-07-28 07:21] LABS: Basophils # (auto) 0.02 K/uL (0.00-0.20); Basophils % (auto) 0.3 %; Eosinophils # (auto) 0.05 K/uL (0.00-0.50); Eosinophils % (auto) 0.8 %; Hematocrit (blood only) 27.2 % (37.0-47.0); Hemoglobin 9.3 g/dl (12.0-16.0); Immature Granulocytes # (auto) 0.03 K/uL (0.01-0.20); Immature Granulocytes % (auto) 0.5 %; Lymphocytes # (auto) 0.68 K/uL (1.20-3.40); Lymphocytes % (auto) 11.3 %; Mean Corpuscular Hemoglobin 37.7 pg (25.0-34.0); Mean Corpuscular Hgb Conc 34.2 g/dL (32.0-36.0); Mean Corpuscular Volume 110.1 fL (80.0-100.0); Mean Platelet Volume 8.8 fL (9.4-12.4); Monocytes # (auto) 0.79 K/uL (0.11-0.59); Monocytes % (auto) 13.1 %; Neutrophils # (auto) 4.46 K/uL (1.40-6.50); Platelet Count 173 K/uL (130-400); RDW Coefficient of Variation 15.6 % (11.5-14.5); RDW Standard Deviation 63.8 fL (36.4-46.3); Red Blood Count 2.47 M/uL (4.20-5.40); White Blood Count 6.03 K/ul (4.8-10.8)
[2024-07-28 07:49] LABS: Albumin Globulin Ratio 1.8 (0.9-2); Albumin Level 3.8 gm/dl (3.4-5.0); BUN Creatinine Ratio 18.3 (10-20); Bilirubin,Total 1.1 mg/dl (0.2-1.0); Calcium 8.7 mg/dl (8.6-10.3); Creatinine Clr Calc Pharmacy 60.1 ml/min; Globulin 2.1 gm/dl (2.5-4.0); Potassium 3.7 mmol/L (3.5-5.1); Total Protein 5.9 gm/dl (6.0-8.3)
--- NOTE | 2024-07-28 07:56 | Orthopedic Consultation ---
Date of Consultation July 28, 2024 Assessment & Plan (1) Ankle fracture, right: (2) Fall from standing: (3) Recurrent falls: (4) Dizziness: (5) Generalized weakness: (6) Gastric ulcer: (7) Esophageal cancer: (8) S/P total knee arthroplasty: (9) History of total right knee replacement (TKR): (10) Dysmetabolic syndrome: (11) Anxiety: (12) Depression: (13) Tobacco abuse disorder: (14) COPD (chronic obstructive pulmonary disease): (15) GERD (gastroesophageal reflux disease): (16) Heterozygous factor V Leiden mutation: (17) History of CVA (cerebrovascular accident): (18) HTN (hypertension): (19) Obesity: (20) YASMINE (obstructive sleep apnea): (21) Diabetes mellitus type 2, controlled: (22) Adenocarcinoma of lower esophagus: (23) COPD (chronic obstructive pulmonary disease): (24) Meniere disease: (25) Cognitive deficit due to old cerebrovascular accident (CVA): (26) Chronic kidney disease: (27) Hematoma of brain: (28) Brain bleed: (29) Factor 5 Leiden mutation, heterozygous: (30) Stroke: Plan 74-year-old female presents to the emergency department after a fall wherein she sustained a closed, traumatic, displaced right ankle fracture with a Perez C fibula and associated posterior malleolus. Stella is a 74-year-old female who is quite medically complex who presents the emergency department after a fall. During the fall she sustained a right ankle fracture. This was dislocated and required reduction by the emergency department. On my evaluation this morning, the patient is resting comfortably in bed. She did have a CT scan demonstrating concentric reduction of the ankle mortise and placement of a splint Maintaining that reduction. I had a long discussion the patient regarding the nature of this injury. Discussed in great detail the pathoanatomy, pathophysiology, treatment options. I expressed to her that her ankle fracture represents an unstable variant and as such my recommendation for this would be for surgical management. After explaining this recommendation to the patient, she got teary-eyed and quite upset as she was told by a cardiothoracic surgeon in [place] that she "cannot have major surgery due to the risks". Specifically, she recalls them mentioning her history of brain bleed and the potential for adverse perioperative outcomes due to her medical complexity. Per discussion with the admitting hospitalist team, the plan was for an esophagectomy due to her esophageal cancer. From a surgical standpoint, I did explain the risks in great detail to the patient. Our plan would be for open reduction internal fixation of the lateral malleolus with syndesmotic stabilization and nonoperative management of the posterior malleolus due to the small fracture size as well as the increased complexity of the surgery in a medically frail and complex patient. I explained the risks include but are not limited to loss of life/limb, DVT, incomplete relief of pain, need for additional surgery, nonunion, malunion, hardware complication, hardware failure, need for additional surgery, iatrogenic injury to bone/nerve/tendon/vessel, anesthesia complications. I explained to the patient that the reason for recommending surgical management is due to the unstable nature of this fracture. The benefits would be a more reproducible alignment of the ankle mortise and the anatomy of the distal fibula. I explained to her that without surgical management, she risks developing a nonunion or malunion that could lead to significant ankle osteoarthritic change and degeneration. I expressed to her that her ankle without surgical management would likely always be a source of discomfort for her. patient notes that she is not ready at this point to agree to surgical management until she has a chance to discuss this with her family and also with the rest of her care team. I did explain to the patient that she has some time to make this decision as the soonest that we would perform surgery on her would be about a week to 10 days due to the significant soft tissue swelling noted about her ankle. At the time being, the patient will maintain her splint and she should maintain nonweightbearing on her right lower extremity. Should the patient decide to forego surgical management, we would plan for casting of her lower extremity for at least 6 to 8 weeks followed by aggressive physical therapy and progression of weightbearing in a very slow and controlled manner. I explained to her that it would likely be about 4 months before she is back into normal shoes and due to the risk of instability of her ankle, I would recommend lifetime brace wear in the form of an Unique brace. I will continue to follow along to determine what is most appropriate for the patient. The medical team notes they will reach out to anesthesia for a perioperative risk assessment as well. The other option would be for her to receive her orthopedic care in [place] where her neurosurgical care has taken place and where they would be well equipped to deal with any potential perioperative complications. History of Present Illness Reason for Consultation: Right ankle fracture Attending Physician: April Ty MD History of Present Illness This is a 74-year-old female with a past medical history of DM2, HLD, COPD, sleep apnea, CVA, HTN, CKD stage III, carotid stenosis, IBS, GERD, fibromyalgia, Mnire's, esophageal malignant neoplasm, factor V Leiden, anxiety, history of brain bleed (intraparenchymal hematoma after a fall in 2021 - evacuated in [place]) who presents to the ED on 07/27/2024 with complaints of generalized weakness and recurrent falls with her most recent fall resulting in significant right ankle pain. The patient reported that she felt like her legs gave out last night and she fell backwards. She is unsure if she hit her head but denies any loss of consciousness. She does report being able to get herself up and attempted to ambulate after the fall. Denies any CP, sob, fevers, chills, abdominal pain. Denies n/v/d This morning, the patient notes that her ankle pain is improved since yesterday. She states the splint is comfortable. She denies any additional areas of pain. Patient does express to me hesitancy with regards to requiring surgery for her ankle as a Dr. Burns in [place] told her that she cannot ever have "major surgery" in her life due to her previous brain bleed. Allergies Allergy/AdvReac Type Severity Reaction Status Date / Time iodine Allergy Intermediate itching Verified 11/02/23 08:18 nickel Allergy Intermediate rash/itchin Verified 11/02/23 08:18 g buspirone Allergy Unknown pt unsure Verified 11/02/23 08:18 Home Medications Medication Instructions Recorded Confirmed Type atorvastatin 80 mg tablet (Lipitor) 80 mg PO QAM 11/02/21 07/27/24 History ezetimibe 10 mg tablet (Zetia) 10 mg PO QAM 11/02/21 07/27/24 History gabapentin 300 mg capsule 300 mg PO TID 11/02/21 07/27/24 History hydrocodone 7.5 mg-acetaminophen 1 tab PO Q6H PRN Pain 11/02/21 07/27/24 History 325 mg tablet cyanocobalamin (vitamin B-12) 500 500 mcg PO QAM 01/14/22 07/27/24 History mcg tablet folic acid 800 mcg tablet 0.8 mg PO QAM 01/14/22 07/27/24 History albuterol sulfate 90 mcg/actuation 2 puff inhalation Q6H PRN 02/14/22 07/27/24 History aerosol inhaler Shortness Of Breath Or Wheezing diclofenac sodium 1 % topical gel 2 g topical QID PRN Pain 02/14/22 07/27/24 History (Arthritis Pain (diclofenac)) ipratropium 0.5 mg-albuterol 3 mg 3 ml inhalation Q6H PRN Shortness 02/14/22 07/27/24 History (2.5 mg base)/3 mL nebulization Of Breath Or Wheezing soln levetiracetam 500 mg 1,000 mg PO BID 02/14/22 07/27/24 History tablet,extended release 24 hr (Keppra XR) umeclidinium 62.5 mcg-vilanterol 1 ea inhalation DAILY 02/14/22 07/27/24 History 25 mcg/actuation powdr for inhalation (Anoro Ellipta) magnesium oxide 400 mg (241.3 mg 400 mg PO QAM #30 tabs 04/24/22 07/27/24 Rx magnesium) tablet venlafaxine 150 mg 150 mg PO QAM 07/17/22 07/27/24 History capsule,extended release 24 hr (Effexor XR) aspirin 81 mg capsule 81 mg PO QAM 01/16/23 07/27/24 History cholecalciferol (vitamin D3) 50 50 mcg PO QAM 01/16/23 07/27/24 History mcg (2,000 unit) capsule (Vitamin D3) ferrous sulfate-vitamin C ER 65 1 cap PO 3XWK 01/16/23 07/27/24 History mg-150 mg capsule,extended release metoprolol succinate 50 mg 75 mg PO UD 01/16/23 07/27/24 History tablet,extended release 24 hr omega-3 fatty acids 2,000 mg PO QAM 01/16/23 07/27/24 History polyethylene glycol 3350 17 17 g PO DAILY PRN Constipation 01/16/23 07/27/24 History gram/dose oral powder (Miralax) peg 400-propylene glycol (PF) 0.4 1 p ophthalmic (eye) DAILY 10/27/23 07/27/24 History %-0.3 % eye drops in a dropperette (Systane (PF)) sucralfate 1 gram tablet (Carafate) 1 g PO UD dysphagia 10/27/23 07/27/24 History famotidine 20 mg tablet (Pepcid) 20 mg PO BID PRN Acid Reflux 11/02/23 07/27/24 History pantoprazole 40 mg tablet,delayed 40 mg PO BID 11/02/23 07/27/24 History release (Protonix) sacubitril 24 mg-valsartan 26 mg 1 tab PO BID 07/27/24 07/27/24 History tablet (Entresto) venlafaxine 37.5 mg 37.5 mg PO DAILY 07/27/24 07/27/24 History tablet,extended release 24 hr Patient History Medical History Obesity YASMINE (obstructive sleep apnea) CPAP and 2L O2 per chart review (per RN interview 10/26, pt stated only HS O2 2.5L) Diabetes mellitus type 2, controlled per chart review; Ha1c 07/10/23: 6.3%; no meds Iron deficiency anemia Adenocarcinoma of lower esophagus Dx 11/2021 - mass found lower esophagus (EGD and biopsy done at [facility] - treated with chemo and XRT COPD (chronic obstructive pulmonary disease) daily and prn inh; +smoker Depression Dizziness "still has a little bit" Hx of gastric ulcer Hypertension IBS (irritable bowel syndrome) Odynophagia PUD (peptic ulcer disease) hx Pericardial effusion hx of Meniere disease Dyslipidemia Cognitive deficit due to old cerebrovascular accident (CVA) CVA 2008 Chronic rhinitis Chronic kidney disease Hematoma of brain S/p fall 11/12/21- s/p right occipital craniotomy for minimally invasive evacuation of intraparenchymal hematoma Brain bleed 11/12/21>Life flighted to [place] (evacuated blood evacuated from brain) s/p fell and hit head. GERD (gastroesophageal reflux disease) Degenerative disc disease Anxiety and depression Factor 5 Leiden mutation, heterozygous asa 81mg daily. Stroke 2008 -> residual weakness and memory issues/mild cognitive decline. 11/2021>"had brain bleed from fall, flown to [facility]" Seizure bilateral hand shaking - was told that was related to seizure acitivity - No hx of seizures per PCP and neurosurgery records- on Keppra for seizure prophylaxis after craniotomy Migraine hx Heart palpitations follows with [facility] Cardio Carotid artery disease Per 12/2022 Carotid Duplex: 70-99% R carotid stenosis, 50-69% L carotid stenosis, no change from 1 year prior. Follows with vascular: per 12/31/22 note, "Given low diastolic velocities, absence of symptoms, comorbidities, and overall higher surgical risk, will continue with surveillance and medical management." On home oxygen therapy 2.5L AT HS Surgical History History of craniotomy S/p fall 11/12/21- s/p right occipital craniotomy for minimally invasive evacu ation of intraparenchymal hematoma History of anesthesia reaction slow to wake up at times History of hysterectomy S/P trigger finger release History of carpal tunnel release right/left History of total knee replacement right/left History of esophagogastroduodenoscopy (EGD) multiple; most recent: 01/22/23: MAC without issue History of colonoscopy History of tooth extraction History of cataract surgery right/left Family History Mother Unknown family medical history Father Myocardial infarction Brother , as infant; No problems noted. Son No problems noted. Son No problems noted. Sister No problems noted. Sister No problems noted. Sister H/O brain surgery Sister No problems noted. 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 She is nontender to her knee or head or hip. She is nontender in her contralateral lower extremity or her bilateral upper extremities. She does demonstrate moderate soft tissue swelling of her foot. She has intact EHL and FHL motor function. She has intact sensation SPN, DPN nerve distribution. Results & Data Vital Signs (Past 12 Hours) Vital Signs Temp Pulse Pulse Resp BP Pulse Ox O2 Del Method 07/28/24 07:09 36.5 C 85 16 162/72 H 94 Room Air 07/27/24 22:22 76 18 96 O2 Flow Rate 07/28/24 07:09 07/27/24 22:22 2.5 Diagnostic Findings X-rays, CT of the right ankle as well as x-rays of bilateral knees and x-rays of the right hip were personally interpreted and reviewed. These demonstrate a Perez C distal fibula fracture with associated posterior malleolus fracture that initially was subluxed and has been reduced. No acute osseous abnormalities are identified in her knees or her hip. (1) Ankle fracture, right Encounter type: initial encounter Fracture type: closed Qualified Code(s): S82.891A - Other fracture of right lower leg, initial encounter for closed fracture (2) Fall from standing Encounter type: initial encounter Qualified Code(s): W19.XXXA - Unspecified fall, initial encounter (7) Esophageal cancer Malignant neoplasm of esophagus location: unspecified location Qualified Code(s): C15.9 - Malignant neoplasm of esophagus, unspecified
[2024-07-28 07:57] LABS: Macrocytosis Present; Ovalocytes 1+
[2024-07-28] MEDS: VENLAFAXINE HCL XR 37.5 MG CAPXR PO SCH (08:07)
[2024-07-28] MEDS: ATORVASTATIN 40 MG TAB PO SCH (08:07)
[2024-07-28] MEDS: METOPROLOL SUCC 25MG EXT REL TAB PO SCH (08:07)
[2024-07-28] MEDS: VENLAFAXINE HCL XR 150 MG CAPXR PO SCH (08:07)
[2024-07-28] MEDS: EZETIMIBE 10 MG TAB PO SCH (08:07)
[2024-07-28] MEDS: UMECLIDINIUM/VILANTEROL 62.5/25MCG 7 PUFFS/INHALER INH SCH (08:08)
--- NOTE | 2024-07-28 16:35 | Hospitalist Progress Note ---
Date of Service July 28, 2024 Assessment & Plan (1) Obesity: (2) YASMINE (obstructive sleep apnea): (3) Diabetes mellitus type 2, controlled: (4) Iron deficiency anemia: (5) Adenocarcinoma of lower esophagus: (6) COPD (chronic obstructive pulmonary disease): (7) Depression: (8) Hypertension: (9) Dyslipidemia: (10) Carotid artery disease: (11) Ankle fracture: Plan Ms. Ayala is a 74-year-old female with a past medical history of DM2, HLD, COPD, sleep apnea, CVA, HTN, CKD stage III, carotid stenosis, IBS, GERD, fibromyalgia, Mnire's, esophageal malignant neoplasm, factor V Leiden, anxiety who presents to the ED on 07/27/2024 and admitted for management of right displaced ankle fracture. #Right displaced ankle fracture #Perez C fibula and associated posterior malleolus fracture Discussed case with Ortho at length Patient undecided about surgery given concerns of being told she is high risk by prior surgeons ACS NSQIP Risk Score RCRI 1.0 given history of CVD PT/OT ordered for rehab purposes Plan for dispo to rehab with ortho follow up for surgical planning Patient would like to wait to discuss DVT ppx with tomorrow SCD on LLE and increase ASA to BID, will discuss therapeutic dosing with patient Discussed DVT ppx with Neurology: patient with INR of 9 back in 2021 when presenting with intraparenchymal bleed prompting right open craniotomy for hematoma evacuation Dr. Jorgensen states that given the bleed was likely 2/2 supratherapeutic levels, starting DVT ppx would be sufficent given patient's history of factor V #Recurrent falls #Ambulatory dysfunction PT/OT #Anterior left 4th and 5th rib fractures: Age-indeterminate, incentive spirometry #HTN/HLD: Continue metoprolol/statin/aspirin #COPD/YASMINE: Continue home inhalers #seizures: Continue Keppra A total of 85 minutes was spent on chart review/reviewing diagnostic data/facilitating plan of care/discussion with consultants Patient is a full code DVT prophylaxis:scd, asa bid, plan to discuss further anticoagulation with in am Admission and Anticipated Discharge Date Admission Date: July 27, 2024 Subjective Admitted yesterday afternoon after mechanical fall with right ankle fracture Evaluated patient after surgeon--reports concern over surgical invention given reports of being "high risk" by previous surgeons in regards to her recurrent esophageal adenocarcinoma Today patient reports intermittent pain in RLE She is very conflicted on surgery v no surgery for her right ankle She is also concerned for using any blood thinners at this time given her history of hematoma evaucation Physical Exam 2 Constitutional: WD/WN, vitals as above Respiratory: normal respiratory effort, lungs clear to auscultation Cardiovascular: RRR, no murmur, no edema Musculoskeletal: splint on RLE Results & Data Results & Data Vital Signs (Past 12 Hours) Vital Signs Temp Pulse Resp BP Pulse Ox O2 Del Method 07/28/24 14:43 36.6 C 69 16 134/70 95 Room Air 07/28/24 07:09 36.5 C 85 16 162/72 H 94 Room Air Laboratory Results Short CBC 07/28/24 Range/Units 06:52 WBC 6.03 (4.8-10.8) K/ul Hgb 9.3 L (12.0-16.0) g/dl Hct 27.2 L (37.0-47.0) % Plt Count 173 (130-400) K/uL BMP 07/28/24 06:52 Sodium 139 Potassium 3.7 Chloride 107 Carbon Dioxide 25 BUN 15 Creatinine 0.82 Glucose 104 H Calcium 8.7 Liver Function 07/28/24 Range/Units 06:52 Total Bilirubin 1.1 H (0.2-1.0) mg/dl AST 11 L (13-39) U/L ALT 8 (7-52) U/L Alkaline Phosphatase 37 (34-104) U/L Albumin 3.8 (3.4-5.0) gm/dl Medications Administered Home Medications Medication Instructions Recorded Confirmed Last Taken atorvastatin 80 mg tablet (Lipitor) 80 mg PO QAM 11/02/21 07/27/24 11/02/23 06:00 ezetimibe 10 mg tablet (Zetia) 10 mg PO QAM 11/02/21 07/27/24 11/02/23 06:00 gabapentin 300 mg capsule 300 mg PO TID 11/02/21 07/27/24 11/02/23 06:00 hydrocodone 7.5 mg-acetaminophen 1 tab PO Q6H PRN Pain 11/02/21 07/27/24 11/02/23 06:00 325 mg tablet cyanocobalamin (vitamin B-12) 500 500 mcg PO QAM 01/14/22 07/27/24 11/02/23 06:00 mcg tablet folic acid 800 mcg tablet 0.8 mg PO QAM 01/14/22 07/27/24 11/02/23 06:00 albuterol sulfate 90 mcg/actuation 2 puff inhalation Q6H PRN 02/14/22 07/27/24 Unknown aerosol inhaler Shortness Of Breath Or Wheezing diclofenac sodium 1 % topical gel 2 g topical QID PRN Pain 02/14/22 07/27/24 01/22/23 05:00 (Arthritis Pain (diclofenac)) ipratropium 0.5 mg-albuterol 3 mg 3 ml inhalation Q6H PRN Shortness 02/14/22 07/27/24 01/21/23 (2.5 mg base)/3 mL nebulization Of Breath Or Wheezing soln levetiracetam 500 mg 1,000 mg PO BID 02/14/22 07/27/24 11/02/23 06:00 tablet,extended release 24 hr (Keppra XR) umeclidinium 62.5 mcg-vilanterol 1 ea inhalation DAILY 02/14/22 07/27/24 11/01/23 08:00 25 mcg/actuation powdr for inhalation (Anoro Ellipta) magnesium oxide 400 mg (241.3 mg 400 mg PO QAM #30 tabs 04/24/22 07/27/24 11/02/23 06:00 magnesium) tablet venlafaxine 150 mg 150 mg PO QAM 07/17/22 07/27/24 11/02/23 06:00 capsule,extended release 24 hr (Effexor XR) aspirin 81 mg capsule 81 mg PO QAM 01/16/23 07/27/24 11/02/23 06:00 cholecalciferol (vitamin D3) 50 50 mcg PO QAM 01/16/23 07/27/24 11/02/23 06:00 mcg (2,000 unit) capsule (Vitamin D3) ferrous sulfate-vitamin C ER 65 1 cap PO 3XWK 01/16/23 07/27/24 11/02/23 06:00 mg-150 mg capsule,extended release metoprolol succinate 50 mg 75 mg PO UD 01/16/23 07/27/24 11/02/23 06:00 tablet,extended release 24 hr omega-3 fatty acids 2,000 mg PO QAM 01/16/23 07/27/24 11/02/23 06:00 polyethylene glycol 3350 17 17 g PO DAILY PRN Constipation 01/16/23 07/27/24 Unknown gram/dose oral powder (Miralax) peg 400-propylene glycol (PF) 0.4 1 drp ophthalmic (eye) DAILY 10/27/23 07/27/24 11/01/23 08:00 %-0.3 % eye drops in a dropperette (Systane (PF)) sucralfate 1 gram tablet (Carafate) 1 g PO UD dysphagia 10/27/23 07/27/24 11/02/23 06:00 famotidine 20 mg tablet (Pepcid) 20 mg PO BID PRN Acid Reflux 11/02/23 07/27/24 Unknown pantoprazole 40 mg tablet,delayed 40 mg PO BID 11/02/23 07/27/24 11/02/23 06:00 release (Protonix) sacubitril 24 mg-valsartan 26 mg 1 tab PO BID 07/27/24 07/27/24 Unknown tablet (Entresto) venlafaxine 37.5 mg 37.5 mg PO DAILY 07/27/24 07/27/24 Unknown tablet,extended release 24 hr Active Medications Generic Name Dose Route Start Last Admin Trade Name Freq PRN Reason Stop Dose Admin Atorvastatin Calcium 80 mg 07/28/24 09:00 07/28/24 08:07 Atorvastatin 40 Mg Tab PO 08/27/24 08:59 80 mg QAM HANNAH Administration Ezetimibe 10 mg 07/28/24 09:00 07/28/24 08:07 Ezetimibe 10 Mg Tab PO 08/27/24 08:59 10 mg QAM HANNAH Administration Gabapentin 300 mg 07/27/24 21:00 07/28/24 15:24 Gabapentin 300 Mg Cap PO 08/26/24 20:59 300 mg TID HANNAH Administration Levetiracetam 1,000 mg 07/27/24 21:00 07/28/24 08:07 Levetiracetam 500 Mg Tab PO 08/26/24 20:59 1,000 mg Q12H HANNAH Administration Metoprolol Succinate 75 mg 07/28/24 09:00 07/28/24 08:07 Metoprolol Succ 25mg Ext Rel Tab PO 08/27/24 08:59 75 mg QAM HANNAH Administration Pantoprazole Sodium 40 mg 07/27/24 21:00 07/28/24 08:07 Pantoprazole 40 Mg Tab PO 08/26/24 20:59 40 mg BID HANNAH Administration Sacubitril/Valsartan 1 tab 07/27/24 21:00 07/28/24 08:07 Valsartan/Sacubitril 26/24mg Tab PO 08/26/24 20:59 1 tab BID HANNAH Administration Umeclidinium/Vilanterol 1 puffs 07/28/24 09:00 07/28/24 08:08 Umeclidinium/Vilanterol 62.5/25mcg 7 Puffs/Inhaler INH 08/27/24 08:59 1 puffs DAILY HANNAH Administration Venlafaxine HCl 150 mg 07/28/24 09:00 07/28/24 08:07 Venlafaxine Hcl Xr 150 Mg Capxr PO 08/27/24 08:59 150 mg QAM HANNAH Administration Venlafaxine HCl 37.5 mg 07/28/24 09:00 07/28/24 08:07 Venlafaxine Hcl Xr 37.5 Mg Capxr PO 08/27/24 08:59 37.5 mg DAILY HANNAH Administration
[2024-07-28] MEDS ORDERED: LOPERAMIDE HCL 2 MG CAP PO PRN (19:21)
[2024-07-28] MEDS: HYDROCODONE/ACETAMINOPHEN 7.5/325MG TAB PO PRN (21:40)
[2024-07-28] MEDS: ASPIRIN 81 MG ECTAB PO SCH (22:27)
[2024-07-29 06:26] LABS: Mean Corpuscular Hemoglobin 38.3 pg (25.0-34.0); Mean Corpuscular Hgb Conc 34.6 g/dL (32.0-36.0); Mean Corpuscular Volume 110.6 fL (80.0-100.0); Mean Platelet Volume 8.6 fL (9.4-12.4); Platelet Count 167 K/uL (130-400); RDW Coefficient of Variation 15.6 % (11.5-14.5); RDW Standard Deviation 62.9 fL (36.4-46.3); Red Blood Count 2.35 M/uL (4.20-5.40); White Blood Count 6.48 K/ul (4.8-10.8)
[2024-07-29 06:48] LABS: BUN Creatinine Ratio 18.4 (10-20); Calcium 8.8 mg/dl (8.6-10.3); Creatinine Clr Calc Pharmacy 64.8 ml/min; Potassium 3.5 mmol/L (3.5-5.1)
[2024-07-29 11:10] LABS: Folate (Folic Acid),Ser orPlas > 22.30 ng/ml (>5.38)
[2024-07-29 11:11] LABS: Vitamin B12 645 pg/ml (180-914)
--- NOTE | 2024-07-29 11:20 | Hospitalist Progress Note ---
Date of Service July 29, 2024 Assessment & Plan (1) Obesity: (2) YASMINE (obstructive sleep apnea): (3) Diabetes mellitus type 2, controlled: (4) Iron deficiency anemia: (5) Adenocarcinoma of lower esophagus: (6) COPD (chronic obstructive pulmonary disease): (7) Depression: (8) Hypertension: (9) Dyslipidemia: (10) Carotid artery disease: (11) Ankle fracture: Plan Ms. Ayala is a 74-year-old female with a past medical history of DM2, HLD, COPD, sleep apnea, CVA, HTN, CKD stage III, carotid stenosis, IBS, GERD, fibromyalgia, Mnire's, esophageal malignant neoplasm, factor V Leiden, anxiety who presents to the ED on 07/27/2024 and admitted for management of right displaced ankle fracture. #Right displaced ankle fracture #Age-related osteoporosis with current pathologic fracture, R ankle and L ribs #Perez C fibula and associated posterior malleolus fracture Discussed case with Ortho at length Patient undecided about surgery given concerns of being told she is high risk by prior surgeons ACS NSQIP Risk Score RCRI 1.0 given history of CVD PT/OT ordered for rehab purposes Plan for dispo to rehab with ortho follow up for surgical planning Patient would like to wait to discuss DVT ppx with tomorrow Discussed DVT ppx with Neurology: patient with INR of 9 back in 2021 when presenting with intraparenchymal bleed prompting right open craniotomy for hematoma evacuation Dr. Jorgensen states that given the bleed was likely 2/2 supratherapeutic levels, starting AC would be sufficient given patient's history of factor V discussed preferred AC with Ortho--plan for therapeutic lovenox iso factor v and acute fracture #chronic macrocytic anemia anemia labs for preop optimization #Recurrent falls #Ambulatory dysfunction PT/OT #Anterior left 4th and 5th rib fractures: Age-indeterminate, incentive spirometry #HTN/HLD: Continue metoprolol/statin/aspirin #COPD/YASMINE: Continue home inhalers #seizures: Continue Keppra A total of 85 minutes was spent on chart review/reviewing diagnostic data/facilitating plan of care/discussion with consultants Patient is a full code DVT prophylaxis:lovenox dispo contingent on auth to rehab prior to surgical intervention in 7-10 days Admission and Anticipated Discharge Date Admission Date: July 27, 2024 Subjective Agreeable to full dose anticoagulation iso factor V and RLE fracture with anticipated surgical intervention Denies any chest pain, palpiations, or sob denies abdominal pain, but reports a few loose stools Reports pain is controlled at this time worked with OT and notes that she could not stand on LLE for any period of time to complete hygiene Physical Exam 2 Constitutional: WD/WN, vitals as above Respiratory: normal respiratory effort, lungs clear to auscultation Cardiovascular: RRR, no murmur, no edema Gastrointestinal (Abdomen): normal bowel sounds, soft, nontender, no hepatosplenomegaly Musculoskeletal: RLE in splint Results & Data Results & Data Vital Signs (Past 12 Hours) Vital Signs Temp Pulse Pulse Resp BP Pulse Ox O2 Del Method 07/29/24 07:36 36.4 C L 66 16 128/65 96 Room Air 07/29/24 03:09 77 18 96 07/28/24 23:19 37.4 C 75 18 138/70 99 Room Air O2 Flow Rate 07/29/24 07:36 07/29/24 03:09 2.5 07/28/24 23:19 Laboratory Results Short CBC 07/29/24 Range/Units 06:00 WBC 6.48 (4.8-10.8) K/ul Hgb 9.0 L (12.0-16.0) g/dl Hct 26.0 L (37.0-47.0) % Plt Count 167 (130-400) K/uL BMP 07/29/24 06:00 Sodium 140 Potassium 3.5 Chloride 108 H Carbon Dioxide 26 BUN 14 Creatinine 0.76 Glucose 100 H Calcium 8.8 Medications Administered Home Medications Medication Instructions Recorded Confirmed Last Taken atorvastatin 80 mg tablet (Lipitor) 80 mg PO QAM 11/02/21 07/27/24 11/02/23 06:00 ezetimibe 10 mg tablet (Zetia) 10 mg PO QAM 11/02/21 07/27/24 11/02/23 06:00 gabapentin 300 mg capsule 300 mg PO TID 11/02/21 07/27/24 11/02/23 06:00 hydrocodone 7.5 mg-acetaminophen 1 tab PO Q6H PRN Pain 11/02/21 07/27/24 11/02/23 06:00 325 mg tablet cyanocobalamin (vitamin B-12) 500 500 mcg PO QAM 01/14/22 07/27/24 11/02/23 06:00 mcg tablet folic acid 800 mcg tablet 0.8 mg PO QAM 01/14/22 07/27/24 11/02/23 06:00 albuterol sulfate 90 mcg/actuation 2 puff inhalation Q6H PRN 02/14/22 07/27/24 Unknown aerosol inhaler Shortness Of Breath Or Wheezing diclofenac sodium 1 % topical gel 2 g topical QID PRN Pain 02/14/22 07/27/24 01/22/23 05:00 (Arthritis Pain (diclofenac)) ipratropium 0.5 mg-albuterol 3 mg 3 ml inhalation Q6H PRN Shortness 02/14/22 07/27/24 01/21/23 (2.5 mg base)/3 mL nebulization Of Breath Or Wheezing soln levetiracetam 500 mg 1,000 mg PO BID 02/14/22 07/27/24 11/02/23 06:00 tablet,extended release 24 hr (Keppra XR) umeclidinium 62.5 mcg-vilanterol 1 ea inhalation DAILY 02/14/22 07/27/24 11/01/23 08:00 25 mcg/actuation powdr for inhalation (Anoro Ellipta) magnesium oxide 400 mg (241.3 mg 400 mg PO QAM #30 tabs 04/24/22 07/27/24 11/02/23 06:00 magnesium) tablet venlafaxine 150 mg 150 mg PO QAM 07/17/22 07/27/24 11/02/23 06:00 capsule,extended release 24 hr (Effexor XR) aspirin 81 mg capsule 81 mg PO QAM 01/16/23 07/27/24 11/02/23 06:00 cholecalciferol (vitamin D3) 50 50 mcg PO QAM 01/16/23 07/27/24 11/02/23 06:00 mcg (2,000 unit) capsule (Vitamin D3) ferrous sulfate-vitamin C ER 65 1 cap PO 3XWK 01/16/23 07/27/24 11/02/23 06:00 mg-150 mg capsule,extended release metoprolol succinate 50 mg 75 mg PO UD 01/16/23 07/27/24 11/02/23 06:00 tablet,extended release 24 hr omega-3 fatty acids 2,000 mg PO QAM 01/16/23 07/27/24 11/02/23 06:00 polyethylene glycol 3350 17 17 g PO DAILY PRN Constipation 01/16/23 07/27/24 Unknown gram/dose oral powder (Miralax) peg 400-propylene glycol (PF) 0.4 1 drp ophthalmic (eye) DAILY 10/27/23 07/27/24 11/01/23 08:00 %-0.3 % eye drops in a dropperette (Systane (PF)) sucralfate 1 gram tablet (Carafate) 1 g PO UD dysphagia 10/27/23 07/27/24 11/02/23 06:00 famotidine 20 mg tablet (Pepcid) 20 mg PO BID PRN Acid Reflux 11/02/23 07/27/24 Unknown pantoprazole 40 mg tablet,delayed 40 mg PO BID 11/02/23 07/27/24 11/02/23 06:00 release (Protonix) sacubitril 24 mg-valsartan 26 mg 1 tab PO BID 07/27/24 07/27/24 Unknown tablet (Entresto) venlafaxine 37.5 mg 37.5 mg PO DAILY 07/27/24 07/27/24 Unknown tablet,extended release 24 hr Active Medications Generic Name Dose Route Start Last Admin Trade Name Freq PRN Reason Stop Dose Admin Hydrocodone Bitart/Acetaminophen 1 tab 07/27/24 18:30 07/29/24 07:46 Hydrocodone/Acetaminophen 7.5/325mg Tab PO 08/10/24 18:29 1 tab Q6H PRN Administration Pain Atorvastatin Calcium 80 mg 07/28/24 09:00 07/29/24 07:42 Atorvastatin 40 Mg Tab PO 08/27/24 08:59 80 mg QAM HANNAH Administration Ezetimibe 10 mg 07/28/24 09:00 07/29/24 07:41 Ezetimibe 10 Mg Tab PO 08/27/24 08:59 10 mg QAM HANNAH Administration Gabapentin 300 mg 07/27/24 21:00 07/29/24 07:41 Gabapentin 300 Mg Cap PO 08/26/24 20:59 300 mg TID HANNAH Administration Levetiracetam 1,000 mg 07/27/24 21:00 07/29/24 07:42 Levetiracetam 500 Mg Tab PO 08/26/24 20:59 1,000 mg Q12H HANNAH Administration Metoprolol Succinate 75 mg 07/28/24 09:00 07/29/24 07:41 Metoprolol Succ 25mg Ext Rel Tab PO 08/27/24 08:59 75 mg QAM HANNAH Administration Pantoprazole Sodium 40 mg 07/27/24 21:00 07/29/24 07:42 Pantoprazole 40 Mg Tab PO 08/26/24 20:59 40 mg BID HANNAH Administration Sacubitril/Valsartan 1 tab 07/27/24 21:00 07/29/24 07:41 Valsartan/Sacubitril 26/24mg Tab PO 08/26/24 20:59 1 tab BID HANNAH Administration Umeclidinium/Vilanterol 1 puffs 07/28/24 09:00 07/29/24 07:42 Umeclidinium/Vilanterol 62.5/25mcg 7 Puffs/Inhaler INH 08/27/24 08:59 1 puffs DAILY HANNAH Administration Venlafaxine HCl 150 mg 07/28/24 09:00 07/29/24 07:41 Venlafaxine Hcl Xr 150 Mg Capxr PO 08/27/24 08:59 150 mg QAM HANNAH Administration Venlafaxine HCl 37.5 mg 07/28/24 09:00 07/29/24 07:41 Venlafaxine Hcl Xr 37.5 Mg Capxr PO 08/27/24 08:59 37.5 mg DAILY HANNAH Administration
[2024-07-29] MEDS ORDERED: ENOXAPARIN 1 MG/KG SQ SCH (11:30)
[2024-07-29] MEDS: ENOXAPARIN 80 MG/0.8 ML SYR SQ SCH (12:20)
[2024-07-29 12:23] LABS: Ferritin 298.4 ng/ml (8-388)
[2024-07-30 06:29] LABS: Hematocrit (blood only) 25.6 % (37.0-47.0); Hemoglobin 8.8 g/dl (12.0-16.0); Mean Corpuscular Hemoglobin 38.1 pg (25.0-34.0); Mean Corpuscular Hgb Conc 34.4 g/dL (32.0-36.0); Mean Corpuscular Volume 110.8 fL (80.0-100.0); Mean Platelet Volume 8.8 fL (9.4-12.4); Platelet Count 192 K/uL (130-400); RDW Coefficient of Variation 15.7 % (11.5-14.5); Red Blood Count 2.31 M/uL (4.20-5.40); White Blood Count 7.28 K/ul (4.8-10.8)
[2024-07-30 07:44] VITALS: BP 131/71; PULSE 78; RESP 18; TEMP 97.7; O2SAT 96
[2024-07-30] MEDS: ASPIRIN 81 MG ECTAB PO SCH (08:18)
--- NOTE | 2024-07-30 11:07 | Discharge Summary ---
Date of Service July 30, 2024 Admission HPI Per Admitting Provider The patient is a 74-year-old female with a past medical history of DM2, HLD, COPD, sleep apnea, CVA, HTN, CKD stage III, carotid stenosis, IBS, GERD, fibromyalgia, Mnire's, esophageal malignant neoplasm, factor V Leiden, anxiety who presents to the ED on 07/27/2024 with complaints of generalized weakness and recurrent falls. Also reported right ankle pain. The patient reported that she felt like her legs gave out last night and she fell backwards. She is unsure if she hit her head but denies any loss of consciousness. She does report being able to get herself up and ambulate after the fall. She then reports trying to come into the house this morning and tripped falling again but at this time was unable to get up and was complaining of right hip pain. Denies any CP, sob, fevers, chills, abdominal pain. Denies n/v/d. On arrival to the ED, labs are fairly unremarkable, hemoglobin 9.3 Bilateral knee x-rays negative for fractures Pelvis x-ray negative Head CT negative Cervical spine CT negative Abdomen/pelvis CT negative Chest x-ray negative Chest CT showed: 1. Age indeterminate nondisplaced fractures of the anterior left fourth and fifth ribs. No pneumothorax. Several old right rib fractures. 2. No additional traumatic findings within the chest. 3. Nonspecific distal esophageal wall thickening with trace adjacent fluid. 4. 8 mm left upper lobe nodule, similar to CT of September 23, 2017. This is likely benign given stability. Ankle x-ray showed acute mildly displaced oblique fracture at the distal shaft of the fibula. Posterior lateral subluxation of the tibiotalar joint. Possible small fracture either at the medial process of the talus or from the tip of the medial malleolus The patient will be admitted for further management of ambulatory dysfunction and right ankle fracture Admission Exam Per Admitting Provider Constitutional: WD/WN, vitals as above (aao x2 ) Eyes: PERRL, conjunctivae normal, anicteric sclerae ENMT: external ear and nose normal, oropharynx normal Neck: trachea midline, no thyromegaly Respiratory: normal respiratory effort, lungs clear to auscultation Cardiovascular: RRR, no murmur, no edema Gastrointestinal (Abdomen): normal bowel sounds, soft, nontender, no hepatosplenomegaly Musculoskeletal: no cyanosis or clubbing, extremities motor strength 5/5 (r ankle in cast, full rom, and sensation ) Skin: no rashes, warm and dry Neurologic: PERRL, EOMI, accommodation nl, no face palsy, no dysarthria Psychiatric: A+Ox3, euthymic affect Genitourinary: no vaginal lesions, no adnexal mass Lymphatic: no cervical or axillary lymphadenopathy Principal Diagnosis Right displaced ankle fracture Age-related osteoporosis with current pathologic fracture, R ankle and L ribs Perez C fibula and associated posterior malleolus fracture Recurrent falls Ambulatory dysfunction Discharge Data Allergies Allergy/AdvReac Type Severity Reaction Status Date / Time iodine Allergy Intermediate itching Verified 11/02/23 08:18 nickel Allergy Intermediate rash/itchin Verified 11/02/23 08:18 g buspirone Allergy Unknown pt unsure Verified 11/02/23 08:18 Consultations 07/27/24 16:01 ED Decision to Admit Stat 07/27/24 17:54 Consult Orthopedic Surgery Routine Ordered Studies 07/27/24 10:37 CT abd pelvis wo con Stat CT cervical spine wo con Stat CT chest diagnostic wo con Stat CT head/brain wo con Stat 07/27/24 18:18 CT ankle RT wo con Stat Hospital Course (1) Obesity: (2) YASMINE (obstructive sleep apnea): (3) Diabetes mellitus type 2, controlled: (4) Iron deficiency anemia: (5) Adenocarcinoma of lower esophagus: (6) COPD (chronic obstructive pulmonary disease): (7) Depression: (8) Hypertension: (9) Dyslipidemia: (10) Carotid artery disease: (11) Ankle fracture: Plan Per prior attending with addendum: Ms. Ayala is a 74-year-old female with a past medical history of DM2, HLD, COPD, sleep apnea, CVA, HTN, CKD stage III, carotid stenosis, IBS, GERD, fibromyalgia, Mnire's, esophageal malignant neoplasm, factor V Leiden, anxiety who presents to the ED on 07/27/2024 and admitted for management of right displaced ankle fracture. #Right displaced ankle fracture #Age-related osteoporosis with current pathologic fracture, R ankle and L ribs #Perez C fibula and associated posterior malleolus fracture Discussed case with Ortho at length Patient undecided about surgery given concerns of being told she is high risk by prior surgeons ACS NSQIP Risk Score RCRI 1.0 given history of CVD PT/OT ordered for rehab purposes Plan for dispo to rehab with ortho follow up for surgical planning Patient would like to wait to discuss DVT ppx with tomorrow Discussed DVT ppx with Neurology: patient with INR of 9 back in 2021 when presenting with intraparenchymal bleed prompting right open craniotomy for hematoma evacuation Dr. Jorgensen states that given the bleed was likely 2/2 supratherapeutic levels, starting AC would be sufficient given patient's history of factor V discussed preferred AC with Ortho--plan for therapeutic lovenox iso factor v and acute fracture #chronic macrocytic anemia anemia labs for preop optimization #Recurrent falls #Ambulatory dysfunction PT/OT #Anterior left 4th and 5th rib fractures: Age-indeterminate, incentive spirometry #HTN/HLD: Continue metoprolol/statin/aspirin #COPD/YASMINE: Continue home inhalers #seizures: Continue Keppra A total of 85 minutes was spent on chart review/reviewing diagnostic data/facilitating plan of care/discussion with consultants Patient is a full code DVT prophylaxis:lovenox dispo contingent on auth to rehab prior to surgical intervention in 7-10 days Addendum 07/30/2024: Patient was seen and examined at bedside as a follow-up of right displaced ankle fracture, patient was started on Lovenox twice daily at therapeutic dose given history of factor V Leiden mutation and in the setting of immobility due to fracture. Orthopedics has evaluated, patient is undecided regarding surgical versus nonsurgical option at this point. Patient aware that she needs to follow-up with orthopedics within a week time for ongoing evaluation/further management of her right ankle fracture. Patient reports pain under control, distal neurovascular status WNL at bedside exam. Patient offers no further complaints. Per egg caser, patient has been accepted at nursing facility, patient will be discharged with following instructions at the point of discharge: Follow-up with your primary care physician within a week time and likely you will need labs CBC/CMP/magnesium/phosphorus. Continue with physical therapy at rehab facility. Follow-up with orthopedics in 1 to 2 weeks time upon discharge. Maintain the splint and continue with nonweightbearing on right lower extremity until you follow-up with orthopedics in a week time upon discharge and further recommendation at that point from your orthopedic physician. You are being discharged on therapeutic Lovenox given immobility secondary to fracture and history of factor V. Recommend that you follow-up with hematology in 2 to 4 weeks time upon discharge, coordinate with your PCP office to set up the referral. Take your medications as prescribed. Please make sure that you are able to get your medications today by calling your pharmacy before you leave the hospital so that your treatment continuity is not broken. Home Health Attestation I certify that this patient is under my care and that I, or a physicians acute care certified nursing assistant working with me, had a face to-face encounter that meets the home health [id number] encounter requirements with this patient. The encounter with the patient was in whole, or in part, for the following medical condition, which is the primary reason for home health care (list medical condition): I certify that, based on my findings, the following services are medically necessary home health services: My clinical findings support the need for the above services because: Further, I certify that my clinical findings support that this patient is homebound (i.e. absences from home require considerable and taxing effort and are for medical reasons or nondenominational services or infrequently or of short duration when for other reasons) because: Certification for Home Health Services: Based on the above findings, I certify that this patient is confined to the home and needs intermittent group home care, physical therapy and/or speech therapy or continues to need occupational therapy. The patient is under my care, and I have initiated the establishment of the plan of care. This patient will be followed by a physician who will periodically review the plan of care. Total Time Total Time Spent Total Time Spent (In Minutes): 45 Discharge Plan Discharge Items Patient Disposition: Transfer [facility] Reason For Visit: R ANKLE FX Discharge Diagnosis: Right displaced ankle fracture Age-related osteoporosis with current pathologic fracture, R ankle and L ribs Perez C fibula and associated posterior malleolus fracture Recurrent falls Ambulatory dysfunction Condition on Discharge: Fair Activity: As commented below Activity Comment: Continue with physical therapy at rehab. Non-emergency contact: Primary Care Provider Call non-emergency contact if: you have any medication questions Follow-up/Referrals: Dre Cagle MD [Primary Care Provider] - Diet: Heart Healthy Addtl Attending Provider Instructions: Follow-up with your primary care physician within a week time and likely you will need labs CBC/CMP/magnesium/phosphorus. Continue with physical therapy at rehab facility. Follow-up with orthopedics in 1 to 2 weeks time upon discharge. Maintain the splint and continue with nonweightbearing on right lower extremity until you follow-up with orthopedics in a week time upon discharge and further recommendation at that point from your orthopedic physician. You are being discharged on therapeutic Lovenox given immobility secondary to fracture and history of factor V. Recommend that you follow-up with hematology in 2 to 4 weeks time upon discharge, coordinate with your PCP office to set up the referral. Take your medications as prescribed. Please make sure that you are able to get your medications today by calling your pharmacy before you leave the hospital so that your treatment continuity is not broken. Pending Studies at Discharge: No Stand-Alone Forms: My [facility] Material Mix Skilled Items Patient informed of condition?: Yes DNR: No Discharge Level of Care: Skilled Communicable Disease: No Discharge Prognosis: Stable Lines: None Urinary Catheter: No Medications and DC Order Prescriptions: New enoxaparin 80 mg/0.8 mL Syringe 80 mg subcut BID Qty: 48 0RF Continued albuterol sulfate 90 mcg/actuation HFA aerosol inhaler 2 puff inhalation Q6H PRN (Reason: Shortness Of Breath Or Wheezing) Rx Instructions: last filled 11.05.23 diclofenac sodium [Arthritis Pain (diclofenac)] 1 % gel 2 g topical QID PRN (Reason: Pain) Rx Instructions: 07/27/24- OTC unable to verify, pt doesnt know medications and didnt answer phone. ipratropium-albuterol 0.5 mg-3 mg(2.5 mg base)/3 mL solution for nebulization 3 ml inhalation Q6H PRN (Reason: Shortness Of Breath Or Wheezing) Rx Instructions: 07/27/24- no fill history. unable to verify, pt doesnt know medications and didnt answer phone. atorvastatin [Lipitor] 80 mg tablet 80 mg PO QAM hydrocodone-acetaminophen 7.5-325 mg tablet 1 tab PO Q6H PRN (Reason: Pain) Patient Comments: takes 3x daily gabapentin 300 mg capsule 300 mg PO TID ezetimibe [Zetia] 10 mg tablet 10 mg PO QAM Anoro Ellipta 62.5-25 mcg/actuation blister with device 1 ea INHALATION DAILY cyanocobalamin (vitamin B-12) 500 mcg Tablet 500 mcg PO QAM Rx Instructions: 07/27/24- OTC unable to verify, pt doesnt know medications and didnt answer phone. folic acid 800 mcg Tablet 0.8 mg PO QAM Rx Instructions: 07/27/24- OTC unable to verify, pt doesnt know medications and didnt answer phone. levetiracetam [Keppra XR] 500 mg tablet extended release 24 hr 1,000 mg PO BID magnesium oxide 400 mg (241.3 mg magnesium) Tablet 400 mg PO QAM Qty: 30 0RF Rx Instructions: 07/27/24- OTC unable to verify, pt doesnt know medications and didnt answer phone. polyethylene glycol 3350 [Miralax] 17 gram/dose Powder 17 g PO DAILY PRN (Reason: Constipation) Rx Instructions: 07/27/24- OTC unable to verify, pt doesnt know medications and didnt answer phone. ferrous sulfate-vitamin C 65-150 mg Capsule, Extended Release 1 cap PO 3XWK Rx Instructions: 07/27/24- OTC unable to verify, pt doesnt know medications and didnt answer phone. omega-3 fatty acids Capsule 2,000 mg PO QAM Rx Instructions: 07/27/24- OTC unable to verify, pt doesnt know medications and didnt answer phone. cholecalciferol (vitamin D3) [Vitamin D3] 50 mcg (2,000 unit) Capsule 50 mcg PO QAM Rx Instructions: 07/27/24- OTC unable to verify, pt doesnt know medications and didnt answer phone. aspirin 81 mg Capsule 81 mg PO QAM Rx Instructions: 07/27/24- OTC unable to verify, pt doesnt know medications and didnt answer phone. venlafaxine [Effexor XR] 150 mg Capsule,Extended Release 24hr 150 mg PO QAM Systane (PF) 0.4-0.3 % Dropperette 1 drp OPHTHALMIC (EYE) DAILY sucralfate [Carafate] 1 gram tablet 1 g PO UD Rx Instructions: original:1g po TID. Placed 1 pill in 1 teaspoon of water and take 1 hour before meals and bedtime. 07/27/24- Last filled 12/24/23. Pt doesnt know her meds and didnt answer phone call. famotidine [Pepcid] 20 mg tablet 20 mg PO BID PRN (Reason: Acid Reflux) pantoprazole [Protonix] 40 mg tablet,delayed release (DR/EC) 40 mg PO BID Entresto 24-26 mg tablet 1 tab PO BID Rx Instructions: per pt she said it sounds familiar venlafaxine 37.5 mg tablet extended release 24hr 37.5 mg PO DAILY Rx Instructions: per pt she knows she takes both 37.5mg and 150mg doses Changed metoprolol succinate 50 mg Tablet Extended Release 24 Hr 75 mg PO QAM Qty: 45 0RF Rx Instructions: original: 75mg po qam. 07/27- Last filled 04/15/24 90 day supply #225. Pt isnt sure of her medications, called husbands number but no answer Discharge Orders: Discharge Order (Routine); Ordered 07/30/24 Ordered By: Felicita Flores/Other Patient Handouts: Falls Prevent Adjust Living Space Admission Data Admit Date/Time: 07/27/24 16:11 Attending Provider: Felicita Lester Admit Provider: Eleazar Carbajal Primary Care Provider: Dre Cagle Other Providers: Eleazar Carbajal; Carlos Glez; [facility]
== END 2024-07-30 13:31 | DRG 543 ==
LOC: ED 10:07 → 3E 16:11 → SUATTDRO 16:11 → 3E 17:10

== ENCOUNTER 2024-08-11 08:32 | Observation (INO) ==
--- NOTE | 2024-08-10 15:47 | Anesthesiology Consultation ---
Date of Service August 10, 2024 Assessment & Plan (1) Encounter for pre-operative examination: - Check BSG DOS - S/P A-port insertion (11/02/23): MAC at [facility] Vascular surgery (01/21/24): "..Carotid duplex scans since 12/2019 have noted a 70-99% R carotid stenosis. Given risk factors and gender, have felt she would be best suited with medical therapy... 01/21/24: Carotid Duplex: KENDAL 475/101, LICA 325/70.. IMPRESSIONS: Asymptomatic 70-99% R carotid stenosis.. Asymptomatic 50-69% L carotid stenosis.. 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 Asymptomatic severe carotid disease in diabetic female smoker with recurrent esophageal cancer, COPD, and intolerant of anticoagulation r/t GIB. Given absence of symptoms, comorbidities, and overall higher surgical risk, will continue with surveillance and medical management. Continue 81 mg aspirin. Continue high-intensity statin (80 mg Lipitor) and 10 mg Zetia for dyslipidemia. RTC in 1 [address] [place] [address] Feng with carotid duplex completed week prior." - [facility] Discharge summary (07/30/24): "..presents to the ED on 07/27/2024 with complaints of generalized weakness and recurrent falls. Also reported right ankle pain. The patient reported that she felt like her legs gave out last night and she fell backwards. She is unsure if she hit her head but denies any loss of consciousness. She does report being able to get herself up and ambulate after the fall. She then reports trying to come into the house this morning and tripped falling again but at this time was unable to get up and was complaining of right hip pain.. On arrival to the ED, labs are fairly unremarkable, hemoglobin 9.3.. Chest CT showed: 1. Age indeterminate nondisplaced fractures of the anterior left fourth and fifth ribs. Ankle x-ray showed acute mildly displaced oblique fracture at the distal shaft of the fib luciana. Posterior lateral subluxation of the tibiotalar joint. Possible small fracture either at the medial process of the talus or from the tip of the medial malleolus.. Addendum 07/30/2024: Patient was seen and examined at bedside as a follow-up of right displaced ankle fracture, patient was started on Lovenox twice daily at therapeutic dose given history of factor V Leiden mutation and in the setting of immobility due to fracture. Orthopedics has evaluated, patient is undecided regarding surgical versus nonsurgical option at this point. Patient aware that she needs to follow-up with orthopedics within a week time for ongoing evaluation/further management of her right ankle fracture." - Surgery booked late afternoon day prior to surgery. PAT RN unable to obtain phone interview prior to DOS. PMHX/PSHX obtained per available records. Case (including severe carotid artery disease/anemia) reviewed with Dr. Lazo. He feels patient is okay to proceed with given surgery as scheduled pending DOS evaluation. Recheck CBC DOS to reassess/trend anemia. Chart Review Chart Review: Patient NOT seen in Pre Admission Testing History Surgery Operation Date: 08/11/24 10:15 Proposed Procedures p Right Ankle Distal Fibula Open Reduction Internal Fixation, Syndesmosis - Carlos Glez DO Height/Weight Height: 5 ft 2 in Weight: 80.5 kg Allergies Allergy/AdvReac Type Severity Reaction Status Date / Time iodine Allergy Intermediate Itching Verified 08/10/24 15:33 nickel Allergy Intermediate Rash, Verified 08/10/24 15:33 itching buspirone Allergy Unknown Unknown Verified 08/10/24 15:33 Medications Home Medications Medication Instructions Recorded Confirmed Last Taken atorvastatin 80 mg tablet (Lipitor) 80 mg PO QAM 11/02/21 07/27/24 11/02/23 06:00 ezetimibe 10 mg tablet (Zetia) 10 mg PO QAM 11/02/21 07/27/24 11/02/23 06:00 gabapentin 300 mg capsule 300 mg PO TID 11/02/21 07/27/24 11/02/23 06:00 hydrocodone 7.5 mg-acetaminophen 1 tab PO Q6H PRN Pain 11/02/21 07/27/24 11/02/23 06:00 325 mg tablet cyanocobalamin (vitamin B-12) 500 500 mcg PO QAM 01/14/22 07/27/24 11/02/23 06:00 mcg tablet folic acid 800 mcg tablet 0.8 mg PO QAM 01/14/22 07/27/24 11/02/23 06:00 albuterol sulfate 90 mcg/actuation 2 puff inhalation Q6H PRN 02/14/22 07/27/24 Unknown aerosol inhaler Shortness Of Breath Or Wheezing diclofenac sodium 1 % topical gel 2 g topical QID PRN Pain 02/14/22 07/27/24 01/22/23 05:00 (Arthritis Pain (diclofenac)) ipratropium 0.5 mg-albuterol 3 mg 3 ml inhalation Q6H PRN Shortness 02/14/22 07/27/24 01/21/23 (2.5 mg base)/3 mL nebulization Of Breath Or Wheezing soln levetiracetam 500 mg 1,000 mg PO BID 02/14/22 07/27/24 11/02/23 06:00 tablet,extended release 24 hr (Keppra XR) umeclidinium 62.5 mcg-vilanterol 1 ea inhalation DAILY 02/14/22 07/27/24 11/01/23 08:00 25 mcg/actuation powdr for inhalation (Anoro Ellipta) magnesium oxide 400 mg (241.3 mg 400 mg PO QAM #30 tabs 04/24/22 07/27/24 11/02/23 06:00 magnesium) tablet venlafaxine 150 mg 150 mg PO QAM 07/17/22 07/27/24 11/02/23 06:00 capsule,extended release 24 hr (Effexor XR) aspirin 81 mg capsule 81 mg PO QAM 01/16/23 07/27/24 11/02/23 06:00 cholecalciferol (vitamin D3) 50 50 mcg PO QAM 01/16/23 07/27/24 11/02/23 06:00 mcg (2,000 unit) capsule (Vitamin D3) ferrous sulfate-vitamin C ER 65 1 cap PO 3XWK 01/16/23 07/27/24 11/02/23 06:00 mg-150 mg capsule,extended release omega-3 fatty acids 2,000 mg PO QAM 01/16/23 07/27/24 11/02/23 06:00 polyethylene glycol 3350 17 17 g PO DAILY PRN Constipation 01/16/23 07/27/24 Unknown gram/dose oral powder (Miralax) peg 400-propylene glycol (PF) 0.4 1 drp ophthalmic (eye) DAILY 10/27/23 07/27/24 11/01/23 08:00 %-0.3 % eye drops in a dropperette (Systane (PF)) sucralfate 1 gram tablet (Carafate) 1 g PO UD dysphagia 10/27/23 07/27/24 11/02/23 06:00 famotidine 20 mg tablet (Pepcid) 20 mg PO BID PRN Acid Reflux 11/02/23 07/27/24 Unknown pantoprazole 40 mg tablet,delayed 40 mg PO BID 11/02/23 07/27/24 11/02/23 06:00 release (Protonix) sacubitril 24 mg-valsartan 26 mg 1 tab PO BID 07/27/24 07/27/24 Unknown tablet (Entresto) venlafaxine 37.5 mg 37.5 mg PO DAILY 07/27/24 07/27/24 Unknown tablet,extended release 24 hr enoxaparin 80 mg/0.8 mL 80 mg (0.8 mL) subcut BID #48 mL 07/30/24 Unknown subcutaneous syringe metoprolol succinate 50 mg 75 mg (1.5 x 50 mg) PO QAM #45 tabs 07/30/24 07/27/24 11/02/23 06:00 tablet,extended release 24 hr Past Medical History Medical History (Updated 08/10/24 @ 15:51 by Anai Groves) Adenocarcinoma of lower esophagus Dx 11/2021, treated with chemo and XRT Anxiety and depression Brain bleed 11/12/21 (s/p fall/hit head) > Life flighted to [place] (evacuated blood evacuated from brain) Carotid artery disease Carotid doppler 01/21/24: B/L ICA stenosis 70-99% Chronic kidney disease Chronic rhinitis Cognitive deficit due to old cerebrovascular accident (CVA) CVA 2008 COPD (chronic obstructive pulmonary disease) Degenerative disc disease Depression Diabetes mellitus type 2, controlled Dyslipidemia Factor 5 Leiden mutation, heterozygous GERD (gastroesophageal reflux disease) Heart palpitations Follows with [facility] Hematoma of brain s/p fall 11/12/21- s/p right occipital craniotomy for minimally invasive evacuation of intraparenchymal hematoma Hx of gastric ulcer Hypertension IBS (irritable bowel syndrome) Iron deficiency anemia Meniere disease Migraine Hx Obesity Odynophagia YASMINE (obstructive sleep apnea) 2.5L HS Pericardial effusion Remote hx per records PUD (peptic ulcer disease) Hx Seizure B/L hand shaking - was told that was related to seizure activity No hx of seizures per PCP and neurosurgery records- on Keppra for seizure prophylaxis after craniotomy Stroke 2008- residual weakness and memory issues/mild cognitive decline 11/2021- brain bleed after fall/hit head Past Family History Family History Mother Unknown family medical history Father Myocardial infarction Brother , as ; No problems noted. Son No problems noted. Son No problems noted. Sister No problems noted. Sister No problems noted. Sister H/O brain surgery Sister No problems noted. Other No family history of adverse response to anesthesia Past Surgical History Surgical History History of anesthesia reaction Occasional slow to wake History of carpal tunnel release R/L History of cataract surgery R/L History of colonoscopy History of craniotomy 2021 History of esophagogastroduodenoscopy (EGD) Multiple History of hysterectomy History of tooth extraction History of total knee replacement R/L S/P trigger finger release Social History Smoking Status: Current every day smoker tobacco type: cigarettes Smoking cigarettes per day: 10 Do You Dip or Chew Tobacco: No Hx Alcohol Use: No Alcohol type: beer alcohol intake frequency: holidays/special occasions only Hx Substance Use: No substance use type: does not use Lab Results Anesthesia Preop Results Results Anesthesia Widget: WBC 7.28 K/ul (4.8-10.8) 07/30/24 Hgb 8.8 g/dl (12.0-16.0) L 07/30/24 Hct 25.6 % (37.0-47.0) L 07/30/24 Plt 192 K/uL (130-400) 07/30/24 Na 140 mmol/L (136-145) 07/29/24 K 3.5 mmol/L (3.5-5.1) 07/29/24 Cl 108 mmol/L (98-107) H 07/29/24 CO2 26 mmol/L (21-32) 07/29/24 BUN 14 mg/dl (6-23) 07/29/24 Creat 0.76 mg/dl (0.6-1.2) 07/29/24 Glucose Level 100 mg/dl (70-99(Fasting)) H 07/29/24 PT 11.3 Seconds (9.0-12.0) 07/27/24 INR 1.0 (0.9-1.1) 07/27/24 TSH 4.851 uIu/ml (0.300-4.500) H 07/27/24 Free T4 0.88 ng/dl (0.61-1.60) 07/27/24 Urine Color Yellow 07/27/24 Urine Appearance Clear (Clear) 07/27/24 Urine pH 8.0 (4.5-7.5) H 07/27/24 Urine Specific [place] 1.006 (1.000-1.030) 07/27/24 Urine Protein Negative (Negative) 07/27/24 Urine Glucose (UA) Negative (Negative) 07/27/24 Urine Ketones Negative (Negative) 07/27/24 Urine Blood Negative (Negative) 07/27/24 Urine Nitrite Negative (Negative) 07/27/24 Urine Bilirubin Negative (Negative) 07/27/24 Urine Urobilinogen Negative (Negative) 07/27/24 Urine Leukocyte Esterase Negative (Negative) 07/27/24 Testing Electrocardiogram Date: 07/27/24 NSR at 67bpm. NS STA. Echocardiogram Date: 10/20/23 EF: 55-59% RWMA: + none LA mildly enlarged. Gr II DD Mild MR. Compared to prior study, changes are noted as follows: No evidence of pericardial effusion Stress Test Date: 07/17/16 Type: nuclear Findings: + WNL Myocardial perfusion imaging is normal Overall LVSF nl without RWMA LVEF 70% Other Testing Carotid Doppler Date: 01/21/24 Impression: Right carotid artery duplex examination indicates evidence of 70-99% stenosis of the internal carotid artery. Left carotid artery duplex examination indicates evidence of 70-99% stenosis of the internal carotid artery. Chest CT Date: 07/27/24 IMPRESSION: 1. Age indeterminate nondisplaced fractures of the anterior left fourth and fifth ribs. No pneumothorax. Several old right rib fractures. 2. No additional traumatic findings within the chest. 3. Nonspecific distal esophageal wall thickening with trace adjacent fluid. 4. 8 mm left upper lobe nodule, similar to CT of September 23, 2017. This is likely benign given stability.
[~2024-08-11 08:32] MED LIST changes: -ANT25 PO; -ATOR-24 PO; -CMD25 PO; -FLVHFA110 INH; -HYG25 PO; -LISI40TA3 PO; -PYRI250T7 PO; +ROPIVACAINE 0.5% 5 MG/ML 30 ML VIAL ONE
[2024-08-11] MEDS ORDERED: MIDAZOLAM HCL 1 MG/ML 2ML VIAL ONE (08:37)
[2024-08-11 08:44] LABS: Hematocrit (blood only) 29.8 % (37.0-47.0); Hemoglobin 9.8 g/dl (12.0-16.0); Immature Granulocytes # (auto) 0.04 K/uL (0.01-0.20); Immature Granulocytes % (auto) 0.5 %; Mean Corpuscular Hemoglobin 37.7 pg (25.0-34.0); Mean Corpuscular Volume 114.6 fL (80.0-100.0); Platelet Count 313 K/uL (130-400); RDW Standard Deviation 66.5 fL (36.4-46.3); Red Blood Count 2.60 M/uL (4.20-5.40); White Blood Count 8.37 K/ul (4.8-10.8)
[2024-08-11] MEDS ORDERED: ONDANSETRON INJ 2 MG/ML 2 ML VIAL ONE (08:50)
[2024-08-11] MEDS ORDERED: PROPOFOL IV EMULSION 10 MG/ML 20 ML VIAL IV ONE (08:50)
[2024-08-11] MEDS ORDERED: LIDOCAINE 2% 2 ML VIAL/AMP(20MG/ML) INFIL ONE ×2 (08:51→10:05)
[2024-08-11] MEDS: LACTATED RINGER'S 1,000 ML IV SCH (09:12)
[2024-08-11] MEDS ORDERED: ROCURONIUM BROMIDE 10 MG/ML 5 ML VIAL IV ONE (09:20)
[2024-08-11] MEDS ORDERED: SUGAMMADEX SODIUM 200 MG/2 ML VIAL IV ONE (09:20)
[2024-08-11 09:22] LABS: Macrocytosis Present
[2024-08-11] MEDS ORDERED: PHENYLEPHRINE HCL 10 MG/ML VIAL ONE (09:23)
--- NOTE | 2024-08-11 10:18 | History & Physical Bridge Note ---
Date of Service August 11, 2024 History & Physical Bridge Note I have examined the patient, reviewed the History & Physical and in the interval since the performance of the History & Physical I have noted the following changes of clinical significance: 74-year-old female presented to the emergency department after a fall wherein she sustained a Perez C distal fibula fracture with associated posterior malleolus fracture and syndesmotic injury. This required reduction and splinting by the emergency department. She was admitted for ambulatory dysfunction thereafter and a CT scan was obtained demonstrating concentric reduction of the ankle mortise and further elucidating the fracture fragments. I initially saw the patient while she was in the hospital and at that time she was quite resistant to undergoing operative management. She has a very long complex medical history, and was told by prior provider that she should never have major surgery due to the risks. We did discuss this with the surgeon at [facility] in [place] who told us this and he meant that she should not have a large esophagectomy which was planned due to her esophageal cancer, but extremity surgery should be reasonable. We discussed the operative plan with the patient which would include open reduction internal fixation of distal fibula and syndesmosis with nonoperative management of the posterior malleolus fracture because of the patient's medical frailty and the small size of the fragment.. We discussed in great detail the risks of the surgery which include but are not limited to loss of life/limb, DVT, incomplete relief of pain, need for additional surgery, nonunion, malunion, hardware complication, hardware failure, need for additional surgery, infection, iatrogenic injury to bone/nerve/tendon/vessel. The greatest risks for the patient in this surgery are likely related anesthesia due to her medical history and complexity and also risks of wound healing complications and troubles due to the fragility of her skin. After thorough discussion of the risk, benefits, alternatives to surgery which would include nonoperative management, the patient has elected to proceed with operative care. She presented to the office yesterday where we performed a swelling check and her swelling was amenable definitive fixation. Postoperatively, the patient will be admitted for observation and she will be discharged back to her nursing facility tomorrow. She will resume her therapeutic Lovenox starting tomorrow. All questions were answered to her satisfaction. Surgical plan: Open reduction internal fixation right distal fibula with open reduction internal fixation syndesmosis and nonoperative management posterior malleolus.
[2024-08-11] MEDS ORDERED: ATROPINE SULFATE 0.1 MG/ML 10ML SYR IV PRN (10:29)
[2024-08-11] MEDS ORDERED: ONDANSETRON INJ 2 MG/ML 2 ML VIAL IV PRN ×2 (10:29→12:46)
--- NOTE | 2024-08-11 12:33 | Fluoroscopy Report ---
FL ankle RT min 3V RTN CLINICAL HISTORY: RIGHT ORIF ANKLE COMPARISON STUDY: 07/27/2024 FLUOROSCOPY TIME: 1 minute FLUOROSCOPY IMAGES: 7 EXPOSURE DOSE: 1.1 mGy FINDINGS: Fluoroscopy was provided for internal fixation of the right ankle. IMPRESSION: Intraoperative fluoroscopy. ACT 112: Negative or not required by law. Electronically signed by: Phan Vazquez M.D. 08/11/2024 12:32 PM
[2024-08-11] MEDS ORDERED: MAGNESIUM HYDROXIDE SUSP 30 ML UDC PO PRN (12:46)
[2024-08-11] MEDS ORDERED: NALOXONE HCL 0.4 MG/1 ML VIAL/CARP IV PRN (12:46)
[2024-08-11] MEDS ORDERED: METOCLOPRAMIDE HCL INJ 5 MG/ML 2 ML VIAL IV PRN (12:46)
--- NOTE | 2024-08-11 12:46 | Post Operative Brief Note ---
Immediate Post Op Note Date of Surgery August 11, 2024 Pre & Post Diagnosis Operation Date: 08/11/24 10:15 <No data on this case meets the specified criteria> Preop Diagnosis: 1. Right distal fibula fracture 2. Right ankle syndesmotic instability Postop diagnosis: 1. Right distal fibula fracture 2. Right ankle syndesmotic instability I identified the patient and participated in the time-out.: Yes Procedure Operation Date: 08/11/24 10:15 <No data on this case meets the specified criteria> 1. Open reduction internal fixation right distal fibula 2. Open reduction internal fixation right ankle syndesmosis Surgeon Carlos Glez DO Inspector Receiving none Estimated Blood Loss 20 Findings Consistent with Post-Op Diagnosis Disposition Disposition: Recovery Room Overlapping Procedure I was present for: the critical portions of procedure. ( the entire surgical case)
--- NOTE | 2024-08-11 12:53 | Operative Report ---
Post Operative Report Pre & Post Diagnosis Operation Date: 08/11/24 10:15 <No data on this case meets the specified criteria> Preop Diagnosis: 1. Right distal fibula fracture 2. Right ankle syndesmotic instability 3. Right ankle posterior malleolus fracture Postop diagnosis: 1. Right distal fibula fracture 2. Right ankle syndesmotic instability 3. Nonoperative management right posterior malleolus fracture I identified the patient and participated in the time-out.: Yes Procedure Operation Date: 08/11/24 10:15 <No data on this case meets the specified criteria> 1. Open reduction internal fixation right distal fibula 2. Open reduction internal fixation right ankle syndesmosis 3. Physician directed fluoroscopy less than 1 hour 4. Application right below-knee splint Surgeon Carlos Glez DO Toxicology Supervisor none Estimated Blood Loss 20 Findings Consistent with Post-Op Diagnosis Specimens none Disposition Disposition: Recovery Room Indications 74-year-old female presented to the emergency department after a fall wherein she sustained a Perez C distal fibula fracture with associated posterior malleolus fracture and syndesmotic injury. This required reduction and splinting by the emergency department. She was admitted for ambulatory dysfunction thereafter and a CT scan was obtained demonstrating concentric reduction of the ankle mortise and further elucidating the fracture fragments. I initially saw the patient while she was in the hospital and at that time she was quite resistant to undergoing operative management. She has a very long complex medical history, and was told by prior provider that she should never have major surgery due to the risks. We did discuss this with the surgeon at [facility] in [place] who told us this and he meant that she should not have a large esophagectomy which was planned due to her esophageal cancer, but extremity surgery should be reasonable. We discussed the operative plan with the patient which would include open reduction internal fixation of distal fibula and syndesmosis with nonoperative management of the posterior malleolus fracture because of the patient's medical frailty and the small size of the fragment.. We discussed in great detail the risks of the surgery which include but are not limited to loss of life/limb, DVT, incomplete relief of pain, need for additional surgery, nonunion, malunion, hardware complication, hardware failure, need for additional surgery, infection, iatrogenic injury to bone/nerve/tendon/vessel. The greatest risks for the patient in this surgery are likely related anesthesia due to her medical history and complexity and also risks of wound healing complications and troubles due to the fragility of her skin. After thorough discussion of the risk, benefits, alternatives to surgery which would include nonoperative management, the patient has elected to proceed with operative care. She presented to the office yesterday where we performed a swelling check and her swelling was amenable definitive fixation. Postoperatively, the patient will be admitted for observation and she will be discharged back to her nursing facility tomorrow. She will resume her therapeutic Lovenox starting tomorrow. All questions were answered to her satisfaction. Surgical plan: Open reduction internal fixation right distal fibula with open reduction internal fixation syndesmosis and nonoperative management posterior malleolus. Description of Procedure after informed consent was obtained, the patient was correctly identified in the preoperative holding suite, the operative site was marked with the surgeon's initials, the date of surgery, and the word yes. The patient was then taken to the operative suite. The department of anesthesia administered General anesthesia with popliteal nerve block. The patient was transferred from the [facility] to the operative table. All bony prominences were well-padded. Briefing and timeout was performed. All implants were available and sterile at the time. BRIEFING AND DEBRIEFING: Pre and post operative briefing and debriefing was performed. Introductions were made, goals of the procedure were discussed, questions and concerns were addressed. The operative site markings were identified and appropriate. A time [id number] was performed, the patient's correct identity was confirmed and the correct operative sites were identified. The patients pre-operative antibiotic dosing and administration was confirmed along with other SCIP measures. The team was polled at the completion of the surgery and all team members were in agreement that the procedure was without complication, the counts are correct, the wound class was identified and suggestions for improvement were shared. patient was transferred in supine fashion from the [facility] to the operative table. All bony promises well-padded. An SCD was placed on the nonoperative leg and this was well-padded on eggcrate. Bilateral upper extremities were placed on well-padded arm boards. A well-padded tourniquet was placed high on the right thigh and the patient's right lower extremity was placed on a bone foam ramp. The skin was cleansed with a chlorhexidine scrub brush and then prepped and draped in standard sterile fashion using ChloraPrep. We began by marking out the anatomy of the distal fibula and plan for our incision directly lateral over the distal fibula. We exsanguinated the limb, raised the tourniquet to 300 mmHg. It remained elevated for a total of 82 minutes which proved to be the duration of the case. We incised sharply through skin and dissected bluntly through subcutaneous tissue identifying and protecting the superficial peroneal nerve and the anterior flap the entire time. Periosteal flaps were made along the course of the fibula both anteriorly and posteriorly to expose the fracture site. The fracture was a long oblique Perez C variant and we began by sharply debriding all organizing hematoma from the fracture site. We used dental picks, curettes, rongeur's in order to prepare t he fracture edges. We would then use a outmt-hj-wmdsc reduction clamp and a lobster claw reduction clamp to obtain a provisional reduction we dialed this reduction in until we had appropriately reestablished the fibular length. Once we are satisfied we would plan to place 2 lag screws due to the long nature of this fracture and we would place 2 x 3.0 mm cortical screws from the Arthrex set using a lag by technique technique. He has obtained excellent compression. We then removed our reduction clamps and selected an appropriately sized plate. We would choose a locking one third tubular plate out of the Arthrex set using titanium due to the patient's nickel allergy. We would contoured this to match the patient's anatomy and provisionally stabilize this to bone using K wires. We checked this position fluoroscopically and once we are satisfied we began in the proximal segment drilling, measuring, and placing appropriately sized 3.5 mm cortical screws. This achieved excellent compression of the plate to the bone. Next, distally we would drill through the locking towers and place appropriately sized 3.5 mm locking screws distally leading 1 hole open for the syndesmosis. Once we had placed appropriate fixation both proximally and distally, we performed an external rotation stress examination which demonstrated medial clear space widening as expected. We dissected anteriorly over the distal fibula so we could appreciate the syndesmotic reduction within the incisura. We dorsiflex the ankle, manually reduced the fibula into place within the incisura, confirmed this visually and then placed the Arthrex titanium tight rope across the syndesmosis. We visualized our reduction 1 more time, were satisfied and then we tightened the tight rope with the ankle held in dorsifl exion. We then checked final fluoroscopic images, were satisfied with our reduction and fixation construct, so we began our layered closure. We started by thoroughly irrigating the wound with copious amounts of sterile saline followed by running a 3-0 Monocryl in the periosteal layer followed by using 4 oh nylons in a vertical Algar Donati fashion in the skin. We would place quarter inch brown Steri-Strips between each suture, pulled the tails through and then cover the wound with Xeroform, 4 x 4's fluffs, sterile Webril. We then applied a well-padded trilaminar AO trauma splint with the ankle held in neutral dorsiflexion while the splint cured. The patient tolerated this procedure well and was transferred to the PACU in stable condition. Prior to transportation to PACU, all counts were correct and a briefing was performed at the end of the case. Physician-directed fluoroscopy for Less than one hour was performed by myself to verify fracture alignment and the safe placement of all internal fixation. The final images saved to PACs showed views demonstrating satisfactory alignment of the fracture and stable internal fixation. Implant verification was performed by myself by reading and confirming the implant information on the packaging with the team before the sterile implants were opened. I was present for the entire procedure. Plan: Weight bearing status: nonweightbearing right lower extremity Wound care: keep splint clean and dry Range of motion: as tolerated of hip and knee VTE Prophylaxis: patient will resume her therapeutic Lovenox postoperative day #1 Antibiotics: perioperative Ancef Pain Control: Multimodal avoiding NSAIDs Vitamin D Replacement: labs ordered Discharge Plan: patient will be admitted for observation and then discharge back to her nursing facility likely tomorrow pending medical stability Follow Up: patient will follow-up with myself in 2 weeks for suture removal and casting I attest to the content of the Intraoperative Record and any orders documented therein. Any exceptions are noted below.
--- NOTE | 2024-08-11 13:54 | Anesthesiology Progress Note ---
Date of Service August 11, 2024 Anesthesia Post Procedure Vital Signs Vital Signs: Temp Pulse Pulse Resp BP BP BP 08/11/24 13:40 78 14 169/84 H 178/63 H 08/11/24 13:30 83 14 168/66 H 178/63 H 08/11/24 13:20 81 16 167/62 H 172/66 H 08/11/24 13:10 82 20 179/67 H 08/11/24 13:00 80 18 160/71 H 08/11/24 12:50 81 20 175/95 H 181/75 H 08/11/24 12:45 36.3 C L 87 16 174/88 H 08/11/24 08:50 37 C 70 18 140/77 Pulse Ox O2 Del Method O2 Flow Rate 08/11/24 13:40 97 Room Air 08/11/24 13:30 97 Room Air 08/11/24 13:20 97 Room Air 08/11/24 13:10 100 Room Air 08/11/24 13:00 100 Oxymask 2 08/11/24 12:50 100 Oxymask 4 08/11/24 12:45 97 Oxymask 6 08/11/24 08:50 97 Room Air, Nasal Cannula, CPAP Pain Intensity Right Ankle: Pain Intensity: 8 Transfer of Care Handoff Completed per policy Notes Mental Status: alert / awake / arousable and participated in evaluation Patient Amnestic to Procedure: Yes Nausea / Vomiting: adequately controlled Pain: adequately controlled Airway Patency, RR, SpO2: stable & adequate BP & HR: stable & adequate Hydration State: stable & adequate Anesthetic Complications: no major complications apparent and Pt Satisfied with anesthetic care
[2024-08-11] MEDS ORDERED: ALBUTEROL HFA 8 GM INHALER INH PRN (14:38)
[2024-08-11] MEDS ORDERED: ALBUT/IPRATROP 3MG/0.5MG NEB 3 ML VIAL INH PRN (14:38)
[2024-08-11] MEDS ORDERED: POLYETHYLENE (MIRALAX) 17 GM PACK PO PRN (14:38)
[2024-08-11] MEDS: LABETALOL HCL IV 5 MG/ML 20ML IV STA (14:44)
[2024-08-11] MEDS: SODIUM CHLORIDE 0.9% 1,000 ML IV SCH (14:48)
--- NOTE | 2024-08-11 14:48 | Electrocardiogram Report ---
Test Reason : Blood Pressure : */* mmHG Vent. Rate : 79 BPM Atrial Rate : 79 BPM P-R Int : 186 ms QRS Dur : 88 ms QT Int : 398 ms P-R-T Axes : 71 20 66 degrees QTcB Int : 456 ms Normal sinus rhythm Low voltage QRS Borderline ECG When compared with ECG of 27-Jul-2024 10:15, No significant change was found Confirmed by Robbie Glez ([id number]) on 08/11/2024 2:48:06 PM Referred By: Carlos Glez Confirmed By: Robbie Glez
--- NOTE | 2024-08-11 17:02 | Hospitalist Consultation ---
Date of Consultation August 11, 2024 Assessment & Plan (1) Ankle fracture, right: Patient presenting for planned surgical intervention of displaced right ankle fracture with Perez C fibula and associated posterior malleolus. POD#0 ORIF of right distal fibula and right ankle syndesmosis EBC 20cc Management as per ortho (2) History of CVA (cerebrovascular accident): (3) Brain bleed: (4) Heterozygous factor V Leiden mutation: History of CVA in the setting of factor V Leiden, previously anticoagulated on Coumadin - discontinued in 2021 due to traumatic intraparenchymal hemorrhage requiring craniotomy Given patient's history of factor V Leiden and immobile state due to ankle fracture, patient was discharged on therapeutic dose Lovenox. Dr. Tapia discussed anticoagulation plan with patient's brattice builder/oncologist Dr. Casper Olivas - recommends Lovenox 30mg BID to start tomorrow Continue Keppra for seizure prophylaxis (5) Esophageal cancer: Follows with Dr. Casper Olvias Receiving 5FU and Leucovorin, last treatment on 07/20/24 (6) Heart failure with improved ejection fraction (HFimpEF): History of chemotherapy induced cardiomyopathy with EF 45% - EF improved to 55% on echo 04/2024 Continue Entresto and metoprolol Appears euvolemic, does not take routine diuretics (7) Chronic anemia: In the setting of malignancy/chemo Hgb 9.8, at baseline (8) Diabetes mellitus type 2, controlled: Diet controlled Hgb a1c 6.3 06/2024 Currently not on any diabetic meds Novolog per protocol while hospitalized (9) GERD (gastroesophageal reflux disease): (10) PUD (peptic ulcer disease): Continue PPI and Carafate (11) COPD (chronic obstructive pulmonary disease): No signs of acute exacerbation Continue home inhalers DVT PROPHYLAXIS Lovenox 30mg BID starting tomorrow as above Patient seen in collaboration with Dr. Tapia. I spent a total of 50 minutes coordinating, documenting, and providing care for this patient excluding time spent in the performance of separately billed services. This included personally reviewing all current laboratories and imaging studies, medication reconciliation, outpatient chart review, and discussion with specialists. Supervising Physician Co-Signing Physician Notes Pt seen and examined by me, care coordinated naa/ RADHA Stock, pls refer to her note above for further detail. Pt is a 74 yo F w/ DM2, HLD, COPD, sleep apnea, CVA in the setting of factor V Leiden, (previously anticoagulated Coumadin - discontinued in 2021 due to traumatic intraparenchymal hemorrhage requiring craniotomy and on Keppra for seizure prophylaxis), HTN, HFimpEF, CKD stage III, carotid stenosis, IBS, GERD, fibromyalgia, Mnire's, esophageal malignant neoplasm, who is now s/p Right Distal Fibula Open Reduction Internal Fixation, Syndesmosis. Currently pt is lying in bed in NAD, eating dinner. She is awake , alert, answers appropriately. Speech fluent, no facial asymmetry noted. Denies any chest pain, shortness of breath, no abd. pain, n/v. Lungs are CTAB, heart sounds regular. Abdomen soft, nontender. RLE in surg. dressings/ splint. Discussed on the phone w/ orthopedics (Dr. Glez), and hem/onc. (Dr. Olivas) - pt was discharged earlier in July w/ ankle fx, and w/ known hx of Factor V Leiden on therap. dose lovenox 80 bid - will hold AC tonight and plan to start lovenox [address] Olivas continues to follow with the pt closely given her esophageal cancer and currently on chemo. He may then reduce the dose of lovenox to daily but for now recommends 30 bid. MD Regina History of Present Illness Reason for Consultation: Post op medical management Requesting Physician: Dr. Carlos Glez Attending Physician: Carlos Glez DO History of Present Illness 74-year-old female with PMH DM2, HLD, COPD, sleep apnea, CVA in the setting of factor V Leiden, previously anticoagulated Coumadin - discontinued in 2021 due to traumatic intraparenchymal hemorrhage requiring craniotomy and on Keppra for seizure prophylaxis, HTN, HFimpEF, CKD stage III, carotid stenosis, IBS, GERD, fibromyalgia, Mnire's, esophageal malignant neoplasm, anxiety who presents for planned surgical intervention of right ankle fracture. Patient admitted to [facility] 07/27 through 07/30 after a fall and sustaining a displaced right ankle and Perez C fibula posterior malleolus fracture. patient was discharged to [facility]. Given patient's history of factor V Leiden and immobile state due to ankle fracture, patient was discharged on therapeutic dose Lovenox. Postoperatively, the patient is doing well. She reports her pain is well-cont rolled. She denies chest pain and shortness of breath. No lightheadedness or dizziness. Denies abdominal pain and nausea. Urinating without difficulty. Allergies Allergy/AdvReac Type Severity Reaction Status Date / Time iodine Allergy Intermediate Itching Verified 08/11/24 08:46 nickel Allergy Intermediate Rash, Verified 08/11/24 08:46 itching buspirone Allergy Unknown Unknown Verified 08/11/24 08:46 Home Medications Medication Instructions Recorded Confirmed Type atorvastatin 80 mg tablet (Lipitor) 80 mg PO QAM 11/02/21 08/11/24 History ezetimibe 10 mg tablet (Zetia) 10 mg PO QAM 11/02/21 08/11/24 History gabapentin 300 mg capsule 300 mg PO TID 11/02/21 08/11/24 History hydrocodone 7.5 mg-acetaminophen 1 tab PO Q6H PRN Pain 11/02/21 08/11/24 History 325 mg tablet cyanocobalamin (vitamin B-12) 500 500 mcg PO QAM 01/14/22 08/11/24 History mcg tablet folic acid 800 mcg tablet 0.8 mg PO QAM 01/14/22 08/11/24 History albuterol sulfate 90 mcg/actuation 2 puff inhalation Q6H PRN 02/14/22 08/11/24 History aerosol inhaler Shortness Of Breath Or Wheezing diclofenac sodium 1 % topical gel 2 g topical QID PRN Pain 02/14/22 08/11/24 History (Arthritis Pain (diclofenac)) ipratropium 0.5 mg-albuterol 3 mg 3 ml inhalation Q6H PRN Shortness 02/14/22 08/11/24 History (2.5 mg base)/3 mL nebulization Of Breath Or Wheezing soln levetiracetam 500 mg 1,000 mg PO BID 02/14/22 08/11/24 History tablet,extended release 24 hr (Keppra XR) umeclidinium 62.5 mcg-vilanterol 1 ea inhalation DAILY 02/14/22 08/11/24 History 25 mcg/actuation powdr for inhalation (Anoro Ellipta) magnesium oxide 400 mg (241.3 mg 400 mg PO QAM #30 tabs 04/24/22 08/11/24 Rx magnesium) tablet venlafaxine 150 mg 150 mg PO QAM 07/17/22 08/11/24 History capsule,extended release 24 hr (Effexor XR) aspirin 81 mg capsule 81 mg PO QAM 01/16/23 08/11/24 History cholecalciferol (vitamin D3) 50 50 mcg PO QAM 01/16/23 08/11/24 History mcg (2,000 unit) capsule (Vitamin D3) ferrous sulfate-vitamin C ER 65 1 cap PO 3XWK 01/16/23 08/11/24 History mg-150 mg capsule,extended release omega-3 fatty acids 2,000 mg PO QAM 01/16/23 08/11/24 History polyethylene glycol 3350 17 17 g PO DAILY PRN Constipation 01/16/23 08/11/24 History gram/dose oral powder (Miralax) peg 400-propylene glycol (PF) 0.4 1 drp ophthalmic (eye) DAILY 10/27/23 08/11/24 History %-0.3 % eye drops in a dropperette (Systane (PF)) sucralfate 1 gram tablet (Carafate) 1 g PO UD dysphagia 10/27/23 08/11/24 History famotidine 20 mg tablet (Pepcid) 20 mg PO BID PRN Acid Reflux 11/02/23 08/11/24 History pantoprazole 40 mg tablet,delayed 40 mg PO BID 11/02/23 08/11/24 History release (Protonix) sacubitril 24 mg-valsartan 26 mg 1 tab PO BID 07/27/24 08/11/24 History tablet (Entresto) venlafaxine 37.5 mg 37.5 mg PO DAILY 07/27/24 08/11/24 History tablet,extended release 24 hr enoxaparin 80 mg/0.8 mL 80 mg (0.8 mL) subcut BID #48 mL 07/30/24 08/11/24 Rx subcutaneous syringe metoprolol succinate 50 mg 75 mg (1.5 x 50 mg) PO QAM #45 tabs 07/30/24 08/11/24 Rx tablet,extended release 24 hr Patient History Medical History (Updated 08/11/24 @ 17:00 by RADHA Caldwell) Heart failure with improved ejection fraction (HFimpEF) Obesity YASMINE (obstructive sleep apnea) 2.5L HS Diabetes mellitus type 2, controlled Iron deficiency anemia Adenocarcinoma of lower esophagus Dx 11/2021, treated with chemo and XRT COPD (chronic obstructive pulmonary disease) Depression Hx of gastric ulcer Hypertension IBS (irritable bowel syndrome) Odynophagia PUD (peptic ulcer disease) Hx Pericardial effusion Remote hx per records Meniere disease Dyslipidemia Cognitive deficit due to old cerebrovascular accident (CVA) CVA 2008 Chronic rhinitis Chronic kidney disease Hematoma of brain s/p fall 11/12/21- s/p right occipital craniotomy for minimally invasive evacuation of intraparenchymal hematoma Brain bleed 11/12/21 (s/p fall/hit head) > Life flighted to [place] (evacuated blood evacuated from brain) GERD (gastroesophageal reflux disease) Degenerative disc disease Anxiety and depression Factor 5 Leiden mutation, heterozygous Stroke 2008- residual weakness and memory issues/mild cognitive decline 11/2021- brain bleed after fall/hit head Seizure B/L hand shaking - was told that was related to seizure activity No hx of seizures per PCP and neurosurgery records- on Keppra for seizure prophylaxis after craniotomy Migraine Hx Heart palpitations Follows with [facility] Carotid artery disease Carotid doppler 01/21/24: B/L ICA stenosis 70-99% Surgical History History of craniotomy 2021 History of anesthesia reaction Occasional slow to wake History of hysterectomy S/P trigger finger release History of carpal tunnel release R/L History of total knee replacement R/L History of esophagogastroduodenoscopy (EGD) Multiple History of colonoscopy History of tooth extraction History of cataract surgery R/L Family History Mother Unknown family medical history Father Myocardial infarction Brother , as infant; No problems noted. Son No problems noted. Son No problems noted. Sister No problems noted. Sister No problems noted. Sister H/O brain surgery Sister No problems noted. Other No family history of adverse response to anesthesia Social History Smoking Status: Current every day smoker Tobacco Type: Cigarettes Cigarettes Per Day: 10; Second Hand Exposure: Yes (hx); Do You Dip or Chew Tobacco: No; Hx Alcohol Use: No Hx Substance Use: No Preferred Language: Icelandic Communication Ability: Effective Communication Ability Comment: mild memory issues Visual Impairment: No Limitations Hearing Ability: Use of Hearing Aid Vamp Wetter Required: No Beliefs That Will Affect Care: None marital status: Current Living Situation: Senior Care current occupational status: retired 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 How many Children do You have: 2 Other Information That Helps Us Care for You: No Feels Safe at Home: Yes Safety Concerns: Feels Safe At This Time Diet: regular caffeine: Yes (2 cups/day) during the past year weight has: decreased > 10 lbs Assistive Devices: Cane and Walker Review of Systems Review of Systems: ROS per HPI, all other systems reviewed and negative Physical Exam Constitutional: WD/WN, vitals as above no acute distress chronically ill appearing Respiratory: normal respiratory effort, lungs clear to auscultation Cardiovascular: Rate/Rhythm: regular rate and regular rhythm Vessels: normal peripheral pulses Extremities: no edema Gastrointestinal (Abdomen): Percussion/Palpation: abdomen soft; abdomen nontender Musculoskeletal: s/p right ankle surgery, split/surgical dressing CDI, circulation and sensory intact Skin: no rashes, warm and dry Neurologic: no focal motor deficits Psychiatric: A+Ox3, euthymic affect Results & Data Results & Data Vital Signs (Past 12 Hours) Vital Signs Temp Pulse Pulse Pulse Resp BP BP 08/11/24 15:30 37.1 C 83 16 149/70 H 08/11/24 15:00 36.6 C 79 16 155/78 H 08/11/24 14:30 36.6 C 61 16 136/68 08/11/24 14:00 81 12 165/60 H 08/11/24 13:50 36.4 C L 77 14 148/64 H 08/11/24 13:40 78 14 169/84 H 08/11/24 13:30 83 14 168/66 H 08/11/24 13:20 81 16 167/62 H 08/11/24 13:10 82 20 179/67 H 08/11/24 13:00 80 18 08/11/24 12:50 81 20 175/95 H 181/75 H 08/11/24 12:45 36.3 C L 87 16 174/88 H 08/11/24 08:50 37 C 70 18 140/77 BP Pulse Ox O2 Del Method O2 Flow Rate 08/11/24 15:30 99 Room Air 08/11/24 15:00 94 Room Air 08/11/24 14:30 96 Room Air 08/11/24 14:00 93 Room Air 08/11/24 13:50 97 Room Air 08/11/24 13:40 178/63 H 97 Room Air 08/11/24 13:30 178/63 H 97 Room Air 08/11/24 13:20 172/66 H 97 Room Air 08/11/24 13:10 100 Room Air 08/11/24 13:00 160/71 H 100 Oxymask 2 08/11/24 12:50 100 Oxymask 4 08/11/24 12:45 97 Oxymask 6 08/11/24 08:50 97 Room Air, Nasal Cannula, CPAP Laboratory Results Short CBC 08/11/24 Range/Units 08:35 WBC 8.37 (4.8-10.8) K/ul Hgb 9.8 L (12.0-16.0) g/dl Hct 29.8 L (37.0-47.0) % Plt Count 313 (130-400) K/uL Medications Administered Current Inpatient Medications Albuterol (Albuterol Hfa 8 Gm Inhaler) 2 puffs INH Q6H PRN PRN Reason: Shortness Of Breath Or Wheezing Stop: 09/10/24 14:37 Albuterol (Albut/Ipratrop 3mg/0.5mg Neb 3 Ml Vial) 3 ml INH Q6H PRN; Protocol PRN Reason: Shortness Of Breath Or Wheezing Stop: 09/10/24 14:37 Artificial Tears (Artificial Tears) 1 drops OP DAILY [facility] Stop: 09/11/24 08:59 Atorvastatin Calcium (Atorvastatin 40 Mg Tab) 80 mg PO QAM [facility] Stop: 09/11/24 08:59 Atropine Sulfate (Atropine Sulfate 0.1 Mg/Ml 10ml Syr) 0.5 mg IV Q1M PRN PRN Reason: PACU Use-HR<40 &/or Bradycardi Stop: 08/11/24 18:29 Bisacodyl (Bisacodyl 10 Mg Supp) 10 mg OH DAILY PRN PRN Reason: Constipation Stop: 09/10/24 12:45 Cyanocobalamin (Cyanocobalamin (B-12) 500 Mcg Tablet) 500 mcg PO QAM [facility] Stop: 09/11/24 08:59 Docusate Sodium (Docusate Sodium 100 Mg Cap) 100 mg PO BID [facility] Stop: 09/10/24 20:59 Ezetimibe (Ezetimibe 10 Mg Tab) 10 mg PO QAM [facility] Stop: 09/11/24 08:59 Enoxaparin Sodium (Enoxaparin Inj 30 Mg/0.3 Ml Syr) 30 mg SQ Q12H [facility] Stop: 09/11/24 08:59 Ephedrine Sulfate (Ephedrine Sulfate 50 Mg/Ml Amp) 5 mg IV Q5M PRN PRN Reason: PACU Use Only-SBP<90 mmHg Stop: 08/11/24 18:29 Famotidine (Famotidine 20 Mg Tab) 20 mg PO BID PRN PRN Reason: Acid Reflux Stop: 09/10/24 14:37 Fentanyl Citrate (Fentanyl Citrate Pf 100 Mcg/2 Ml Vial) 25 mcg IV Q5M PRN PRN Reason: PACU Use Only-Pain Stop: 08/11/24 18:29 Ferrous Sulfate (Ferrous Sulfate 325 Mg Tab) 325 mg PO MoWeFr@0900 [facility] Stop: 09/11/24 08:59 Fish Oil (Cushing-3 (Purified Fish Oil) 1 Gm Cap) 2 cap PO QAM [facility] Stop: 09/11/24 08:59 Folic Acid (Folic Acid 400 Mcg Tab) 800 mcg PO QAM [facility] Stop: 09/11/24 08:59 Gabapentin (Gabapentin 300 Mg Cap) 300 mg PO TID [facility] Stop: 09/10/24 14:37 Last Admin: 08/11/24 17:09 Dose: 300 mg Lactated Ringer's (Lr) 1,000 mls @ 15 mls/hr IV .Q24H [facility] Stop: 08/14/24 09:14 Last Infusion: 08/11/24 10:25 Dose: Infused Sodium Chloride (Nss) 1,000 mls @ 100 mls/hr IV .Q10H [facility] Stop: 08/12/24 06:00 Last Admin: 08/11/24 14:48 Dose: 100 mls/hr Cefazolin Sodium (Ancef 1000mg) 1,000 mg in 7.5 mls @ 2.5 mls/min IV Q8H [facility]; Protocol Stop: 08/12/24 03:02 Levetiracetam (Levetiracetam 500 Mg Tab) 1,000 mg PO BID [facility] Stop: 09/10/24 20:59 Magnesium Hydroxide (Magnesium Hydroxide Susp 30 Ml Udc) 30 ml PO Q6H PRN PRN Reason: Constipation Stop: 09/10/24 12:45 Magnesium Oxide (Magnesium Oxide 400 Mg Tab) 400 mg PO QAM [facility] Stop: 09/11/24 08:59 Metoclopramide HCl (Metoclopramide Hcl Inj 5 Mg/Ml 2 Ml Vial) 10 mg IV Q6H PRN PRN Reason: Nausea And Vomiting Stop: 09/10/24 12:45 Metoprolol Succinate (Metoprolol Succ 25mg Ext Rel Tab) [facility] Stop: 09/11/24 08:59 Miscellaneous (Keppra Xr 1000 Mg- Order Awaiting Action) 1 each N/A QS [facility] Stop: 09/10/24 16:59 Last Admin: 08/11/24 17:10 Dose: Not Given Naloxone HCl (Naloxone Hcl 0.4 Mg/1 Ml Vial/Carp) 0.1 mg IV Q5M PRN PRN Reason: Oversedation/Resp Depression Stop: 09/10/24 12:45 Ondansetron HCl (Ondansetron Inj 2 Mg/Ml 2 Ml Vial) 4 mg IV Q6H PRN PRN Reason: Nausea And Vomiting Stop: 09/10/24 12:45 Oxycodone HCl (Oxycodone Hcl Ir 5 Mg Tab (Immediate Release)) 5 - 10 mg PO Q4H PRN PRN Reason: Pain or Pre PT Stop: 08/25/24 12:45 Pantoprazole Sodium (Pantoprazole 40 Mg Tab) 40 mg PO BID [facility] Stop: 09/10/24 20:59 Polyethylene Glycol (Polyethylene (Miralax) 17 Gm Pack) 17 gm PO DAILY PRN PRN Reason: Constipation Stop: 09/10/24 14:37 Sacubitril/Valsartan (Valsartan/Sacubitril 26/24mg Tab) 1 tab PO BID [facility] Stop: 09/10/24 20:59 Sennosides (Senna 8.6 Mg Tab) 17.2 mg PO HS [facility] Stop: 09/10/24 20:59 Sucralfate (Sucralfate 1 Gm Tab) 1 gm PO ACHS [facility] Stop: 09/10/24 16:29 Last Admin: 08/11/24 17:10 Dose: 1 gm Umeclidinium/Vilanterol (Umeclidinium/Vilanterol 62.5/25mcg 7 Puffs/Inhaler) 1 puffs INH DAILY [facility] Stop: 09/11/24 08:59 Venlafaxine HCl (Venlafaxine Hcl Xr 150 Mg Capxr) 150 mg PO QAM [facility] Stop: 09/11/24 08:59 Venlafaxine HCl (Venlafaxine Hcl Xr 37.5 Mg Capxr) 37.5 mg PO DAILY [facility] Stop: 09/11/24 08:59 Vitamin D (Cholecalciferol 25 Mcg (1000 Units) Tab) 50 mcg PO QAM [facility] Stop: 09/11/24 08:59 (1) Ankle fracture, right Encounter type: initial encounter Fracture type: closed Qualified Code(s): S82.891A - Other fracture of right lower leg, initial encounter for closed fracture (5) Esophageal cancer Malignant neoplasm of esophagus location: unspecified location Qualified Code(s): C15.9 - Malignant neoplasm of esophagus, unspecified
[2024-08-11] MEDS: GABAPENTIN 300 MG CAP PO SCH (17:09)
[2024-08-11] MEDS: SUCRALFATE 1 GM TAB PO SCH (17:10)
[2024-08-11] MEDS: FAMOTIDINE 20 MG TAB PO PRN (20:25)
[2024-08-11] MEDS: SENNA 8.6 MG TAB PO SCH (20:25)
[2024-08-11] MEDS: DOCUSATE SODIUM 100 MG CAP PO SCH (20:25)
[2024-08-11] MEDS: VALSARTAN/SACUBITRIL 26/24MG TAB PO SCH (20:26)
[2024-08-11] MEDS: levETIRAcetam 500 MG TAB PO SCH (20:49)
[2024-08-12] MEDS: HYDROmorphone INJ 0.5 MG/0.5 ML SYR IV STA (03:55)
[2024-08-12] MEDS: diphenhydrAMINE 50 MG/ML VIAL IV ONE (04:48)
[2024-08-12] MEDS: OPTIRAY 320 125ml IV ONE (05:24)
[2024-08-12] MEDS: ACETAMINOPHEN 1,000 MG/100 ML VIAL IV STA (06:03)
--- NOTE | 2024-08-12 07:06 | CT Scan Report ---
EXAM: CT angio chest PE protocol CLINICAL HISTORY: PE TECHNIQUE: Contiguous axial images were obtained from the neck base through the upper abdomen following intravenous administration of iodinated contrast material. Angiographic images were processed, 3D MIP images were acquired for interpretation. If IV contrast material had not been administered, the likelihood of detecting abnormalities relevant to the patient's condition would have been substantially decreased. Coronal and sagittal 3-D MIPs were likewise performed and indicated to increase the sensitivity of detectin diffuse clinically relevant pathology. CT scan was performed according to ALARA (as low as reasonable achievable). COMPARISON: 10:17:04 GUARDIAN AD LITEM FINDINGS: Adequate contrast bolus without evidence of pulmonary embolism. The central airways are patent. Few dependant ground glass opacities in bilateral lung bases- likely positional Rest of the lungs are clear. No pleural effusion. The heart, aorta, and pulmonary arteries are of normal size and configuration. There are no appreciable coronary artery and aortic atherosclerotic calcifications. No pericardial effusion is identified. The thyroid is unremarkable. No mediastinal, hilar, or axillary lymphadenopathy is noted. No suspicious lytic or sclerotic osseous lesions are identified. Spondylodegenerative changes in visualised spine IMPRESSION: No evidence of pulmonary embolism. Few dependant ground glass opacities in bilateral lung bases- likely positional Electronically signed by Obed Martin 08-12-2024 07:06 AM
[2024-08-12 07:37] LABS: Hematocrit (blood only) 29.3 % (37.0-47.0); Hemoglobin 9.9 g/dl (12.0-16.0); Mean Corpuscular Hemoglobin 38.7 pg (25.0-34.0); Mean Corpuscular Volume 114.5 fL (80.0-100.0); Platelet Count 267 K/uL (130-400); RDW Standard Deviation 62.4 fL (36.4-46.3); Red Blood Count 2.56 M/uL (4.20-5.40); White Blood Count 10.23 K/ul (4.8-10.8)
[2024-08-12] MEDS: CHOLECALCIFEROL 25 MCG (1000 UNITS) TAB PO SCH (07:40)
[2024-08-12] MEDS: EZETIMIBE 10 MG TAB PO SCH (07:41)
[2024-08-12] MEDS: FERROUS SULFATE 325 MG TAB PO SCH (07:41)
[2024-08-12] MEDS: CYANOCOBALAMIN (B-12) 500 MCG TABLET PO SCH (07:41)
[2024-08-12] MEDS: METOPROLOL SUCC 25MG EXT REL TAB PO SCH (07:42)
[2024-08-12] MEDS: FOLIC ACID 400 MCG TAB PO SCH (07:42)
[2024-08-12] MEDS: ATORVASTATIN 40 MG TAB PO SCH (07:42)
[2024-08-12] MEDS: VENLAFAXINE HCL XR 150 MG CAPXR PO SCH (07:43)
[2024-08-12] MEDS: MAGNESIUM OXIDE 400 MG TAB PO SCH (07:43)
[2024-08-12] MEDS: OMEGA-3 (PURIFIED FISH OIL) 1 GM CAP PO SCH (07:44)
[2024-08-12] MEDS: VENLAFAXINE HCL XR 37.5 MG CAPXR PO SCH (07:45)
[2024-08-12] MEDS: UMECLIDINIUM/VILANTEROL 62.5/25MCG 7 PUFFS/INHALER INH SCH (07:45)
[2024-08-12 08:01] LABS: Anion Gap 6.0 (3-11); Blood Urea Nitrogen 12.0 mg/dl (6-23); Calcium 8.5 mg/dl (8.6-10.3); Carbon Dioxide 27.0 mmol/L (21-32); Chloride 104.0 mmol/L (98-107); Creatinine Clr Calc Pharmacy 55.9 ml/min; Glucose 135.0 mg/dl (70-99(Fasting)); Magnesium 1.8 mg/dl (1.7-2.4); Potassium 4.3 mmol/L (3.5-5.1); Sodium 137.0 mmol/L (136-145)
[2024-08-12] MEDS ORDERED: ENOXAPARIN 80 MG/0.8 ML SYR SQ SCH (09:00)
[2024-08-12] MEDS ORDERED: MULTIVITAMIN TAB PO SCH (09:00)
--- NOTE | 2024-08-12 09:14 | Orthopedic Progress Note ---
Date of Service August 12, 2024 Assessment & Plan (1) Ankle fracture, right: (2) Chronic anemia: (3) Radiation esophagitis: (4) Palliative care by specialist: (5) Esophageal cancer: (6) Anxiety: (7) Depression: (8) Tobacco abuse disorder: (9) COPD (chronic obstructive pulmonary disease): (10) HTN (hypertension): (11) Heterozygous factor V Leiden mutation: (12) History of CVA (cerebrovascular accident): Plan 74-year-old female postoperative day #1 status post open reduction internal fixation of her right ankle. Overall, the patient is doing well this morning. She was admitted for observation with plans to discharge back to her nursing facility today. Medicine has been consulted and saw the patient. We have adjusted her Lovenox dosing from 80mg twice daily to 30mg twice daily. Patient is nonweightbearing on her operative extremity She will work with PT/OT Lovenox 30 mg twice daily to start today Patient will follow-up with me in 2 weeks Admission and Anticipated Discharge Date Admission Date: August 11, 2024 Subjective 74-year-old female postoperative day #1 status post open reduction internal fixation of her right ankle. Patient is resting comfortably. No acute events overnight. Review of Systems Review of Systems: All systems reviewed & are unremarkable except as noted in HPI & below Physical Exam Physical Exam: Splint clean dry and intact. Patient wiggles toes. Still some diminished sensation from the nerve block. Toes warm and well-perfused. Results & Data Vital Signs (Past 12 Hours) Vital Signs Temp Pulse Pulse Resp BP Pulse Ox O2 Del Method 08/12/24 07:45 100 H 15 174/69 H Nasal Cannula 08/12/24 03:41 37.0 C 122 H 18 160/76 H 95 Room Air 08/11/24 22:29 37.3 C 116 H 16 152/69 H 92 Room Air O2 Flow Rate 08/12/24 07:45 2 08/12/24 03:41 08/11/24 22:29 (1) Ankle fracture, right Encounter type: initial encounter Fracture type: closed Qualified Code(s): S82.891A - Other fracture of right lower leg, initial encounter for closed fracture (5) Esophageal cancer Malignant neoplasm of esophagus location: unspecified location Qualified Code(s): C15.9 - Malignant neoplasm of esophagus, unspecified
--- NOTE | 2024-08-12 09:26 | Discharge Summary ---
Date of Service August 12, 2024 Admission HPI Per Admitting Provider 74-year-old female presented to the emergency department after a fall wherein she sustained a Perez C distal fibula fracture with associated posterior malleolus fracture and syndesmotic injury. This required reduction and splinting by the emergency department. She was admitted for ambulatory dysfunction thereafter and a CT scan was obtained demonstrating concentric reduction of the ankle mortise and further elucidating the fracture fragments. I initially saw the patient while she was in the hospital and at that time she was quite resistant to undergoing operative management. She has a very long complex medical history, and was told by prior provider that she should never have major surgery due to the risks. We did discuss this with the surgeon at [facility] in [place] who told us this and he meant that she should not have a large esophagectomy which was planned due to her esophageal cancer, but extremity surgery should be reasonable. We discussed the operative plan with the patient which would include open reduction internal fixation of distal fibula and syndesmosis with nonoperative management of the posterior malleolus fracture because of the patient's medical frailty and the small size of the fragment.. We discussed in great detail the risks of the surgery which include but are not limited to loss of life/limb, DVT, incomplete relief of pain, need for additional surgery, nonunion, malunion, hardware complication, hardware failure, need for additional surgery, infection, iatrogenic injury to bone/nerve/tendon/vessel. The greatest risks for the patient in this surgery are likely related anesthesia due to her medical history and complexity and also risks of wound healing complications and troubles due to the fragility of her skin. After thorough discussion of the risk, benefits, a lternatives to surgery which would include nonoperative management, the patient has elected to proceed with operative care. Principal Diagnosis right ankle fracture Discharge Exam RLE splinted splint c.d.i wiggles toes toes WWP SILT SPN,DPN Discharge Data Allergies Allergy/AdvReac Type Severity Reaction Status Date / Time iodine Allergy Intermediate Itching Verified 08/11/24 08:46 nickel Allergy Intermediate Rash, Verified 08/11/24 08:46 itching buspirone Allergy Unknown Unknown Verified 08/11/24 08:46 Consultations 08/11/24 12:46 Consult Hospitalist Routine Procedures Performed Operation Date: 08/11/24 10:15 Actual Procedures p Right Distal Fibula Open Reduction Internal Fixation, Syndesmosis, Physician Directed Fluoroscopy less than one hour, Application of below knee splint(Right) - Carlos Glez DO Ordered Studies 08/11/24 05:00 US - OR guided needle placemen Routine 08/11/24 10:15 FL ankle RT min 3V RTN Routine 08/12/24 04:10 CT angio chest PE protocol Stat Hospital Course (1) Ankle fracture, right: (2) Chronic anemia: (3) Radiation esophagitis: (4) Palliative care by specialist: (5) Esophageal cancer: (6) Anxiety: (7) Depression: (8) Tobacco abuse disorder: (9) COPD (chronic obstructive pulmonary disease): (10) HTN (hypertension): (11) Heterozygous factor V Leiden mutation: (12) History of CVA (cerebrovascular accident): Plan 74-year-old female admitted for observation status post open reduction internal fixation right ankle. Patient doing well in the morning postoperative day #1. Medical team has been consulted and they did discuss Lovenox dosing with the patient's director learning. She was initially discharged from the hospital after her last visit on therapeutic Lovenox but this has been decreased to prophylactic dosing instead. She will take 30 mg twice daily. With regards to patient's right ankle, she is nonweightbearing on the right lo wer extremity. She will follow-up with myself in 2 weeks for wound check. She will continue multimodal pain control avoiding NSAIDs. We have ordered vitamin D labs and those are still pending at this time. We will also refer her to the osteoporosis clinic as an outpatient. Nonweightbearing right lower extremity Keep limb elevated to decrease swelling 30 mg twice daily Lovenox for DVT prophylaxis Call the office with any questions or concerns: [phone] Total Time Total Time Spent Total Time Spent (In Minutes): 20 Discharge Plan Discharge Items Patient Disposition: Transfer [facility] Reason For Visit: Right Ankle Fracture Discharge Diagnosis: right ankle fracture Condition on Discharge: Fair Activity: Per Instructions section Weightbearing: Right non-weightbearing Non-emergency contact: Primary Care Provider and Surgeon Call non-emergency contact if: you have any medication questions, your pain is not controlled and your rectal temperature is above 100.4 Follow-up/Referrals: Dre Cagle MD [Primary Care Provider] - Diet: Regular Addtl Attending Provider Instructions: Nonweightbearing right lower extremity Lovenox 30 mg twice daily for DVT prophylaxis Follow-up with Dr. Glez in 2 weeks as scheduled Keep splint on and keep leg elevated to decrease swelling Multimodal pain control avoiding NSAIDs Pending Studies at Discharge: No Stand-Alone Forms: My [facility] Skilled Items Patient informed of condition?: Yes DNR: No Discharge Level of Care: Skilled Communicable Disease: No Discharge Prognosis: Stable Lines: None Urinary Catheter: No Medications and DC Order Prescriptions: New oxycodone 5 mg Tablet 5 mg PO Q6H PRN (Reason: pain) 7 Days Qty: 25 0RF enoxaparin [Lovenox] 30 mg/0.3 mL Syringe 30 mg subcut Q12H 45 Days Qty: 27 0RF Continued albuterol sulfate 90 mcg/actuation HFA aerosol inhaler 2 puff inhalation Q6H PRN (Reason: Shortness Of Breath Or Wheezing) Rx Instructions: last filled 11.05.23 diclofenac sodium [Arthritis Pain (diclofenac)] 1 % gel 2 g topical QID PRN (Reason: Pain) Rx Instructions: 07/27/24- OTC unable to verify, pt doesnt know medications and didnt answer phone. ipratropium-albuterol 0.5 mg-3 mg(2.5 mg base)/3 mL solution for nebulization 3 ml inhalation Q6H PRN (Reason: Shortness Of Breath Or Wheezing) Rx Instructions: 07/27/24- no fill history. unable to verify, pt doesnt know medications and didnt answer phone. atorvastatin [Lipitor] 80 mg tablet 80 mg PO QAM hydrocodone-acetaminophen 7.5-325 mg tablet 1 tab PO Q6H PRN (Reason: Pain) Patient Comments: takes 3x daily gabapentin 300 mg capsule 300 mg PO TID ezetimibe [Zetia] 10 mg tablet 10 mg PO QAM Anoro Ellipta 62.5-25 mcg/actuation blister with device 1 ea INHALATION DAILY cyanocobalamin (vitamin B-12) 500 mcg Tablet 500 mcg PO QAM Rx Instructions: 07/27/24- OTC unable to verify, pt doesnt know medications and didnt answer phone. folic acid 800 mcg Tablet 0.8 mg PO QAM Rx Instructions: 07/27/24- OTC unable to verify, pt doesnt know medications and didnt answer phone. levetiracetam [Keppra XR] 500 mg tablet extended release 24 hr 1,000 mg PO BID magnesium oxide 400 mg (241.3 mg magnesium) Tablet 400 mg PO QAM Qty: 30 0RF Rx Instructions: 07/27/24- OTC unable to verify, pt doesnt know medications and didnt answer phone. polyethylene glycol 3350 [Miralax] 17 gram/dose Powder 17 g PO DAILY PRN (Reason: Constipation) Rx Instructions: 07/27/24- OTC unable to verify, pt doesnt know medications and didnt answer phone. ferrous sulfate-vitamin C 65-150 mg Capsule, Extended Release 1 cap PO 3XWK Rx Instructions: 07/27/24- OTC unable to verify, pt doesnt know medications and didnt answer phone. omega-3 fatty acids Capsule 2,000 mg PO QAM Rx Instructions: 07/27/24- OTC unable to verify, pt doesnt know medications and didnt answer phone. cholecalciferol (vitamin D3) [Vitamin D3] 50 mcg (2,000 unit) Capsule 50 mcg PO QAM Rx Instructions: 07/27/24- OTC unable to verify, pt doesnt know medications and didnt answer phone. aspirin 81 mg Capsule 81 mg PO QAM Rx Instructions: 07/27/24- OTC unable to verify, pt doesnt know medications and didnt answer phone. venlafaxine [Effexor XR] 150 mg Capsule,Extended Release 24hr 150 mg PO QAM Systane (PF) 0.4-0.3 % Dropperette 1 drp OPHTHALMIC (EYE) DAILY sucralfate [Carafate] 1 gram tablet 1 g PO UD Rx Instructions: original:1g po TID. Placed 1 pill in 1 teaspoon of water and take 1 hour before meals and bedtime. 07/27/24- Last filled 12/24/23. Pt doesnt know her meds and didnt answer phone call. famotidine [Pepcid] 20 mg tablet 20 mg PO BID PRN (Reason: Acid Reflux) pantoprazole [Protonix] 40 mg tablet,delayed release (DR/EC) 40 mg PO BID Entresto 24-26 mg tablet 1 tab PO BID Rx Instructions: per pt she said it sounds familiar venlafaxine 37.5 mg tablet extended release 24hr 37.5 mg PO DAILY Rx Instructions: per pt she knows she takes both 37.5mg and 150mg doses metoprolol succinate 50 mg Tablet Extended Release 24 Hr 75 mg PO QAM Qty: 45 0RF Rx Instructions: original: 75mg po qam. 07/27- Last filled 04/15/24 90 day supply #225. Pt isnt sure of her medications, called husbands number but no answer Discontinued enoxaparin 80 mg/0.8 mL Syringe 80 mg subcut BID Qty: 48 0RF Discharge Orders: Discharge Order (Routine); Ordered 08/12/24 Ordered By: Carlos Glez Admission Data Admit Date/Time: 08/11/24 12:46 Attending Provider: Carlos Glez Admit Provider: Carlos Glez Primary Care Provider: Dre Cagle Other Providers: Juan Antonio Carpio; Marlyn Grande; Saranya Springer I.; Essence Perrin; Melony Vanegas; Cierra Martin; Anastasiya Bland; Kera Cornelius; Rayomnd Arredondo; Johnnie Alex; Osman Lozano; Saw Thomas; Cheryl Mart; Jules Ceballos; Gema Bedolla; Mayra Crowder; Camila Campbell; Marina Nuno; Jay Jay Ann; Ivelisse Ordonez I.; Harsha Tapia; Katalina Beaver; Felicita Lester; Lázaro Michael; Eleazar Carbajal; George Acharya; April Ty; Melody Ceja; Jamison Landry; Rashawn Borja; Odalis Fowler; Harsha Ponce; Lia Landry; Cheko Duff; Esperanza Navarro; Yvette Palmer; Yvette Beltran; Carlos Gunderson
[2024-08-12] MEDS: ARTIFICIAL TEARS OP SCH (10:41)
[2024-08-12] MEDS: ENOXAPARIN INJ 30 MG/0.3 ML SYR SQ SCH (10:42)
--- NOTE | 2024-08-12 11:04 | Orthopedic Progress Note ---
Date of Service August 12, 2024 Assessment & Plan (1) Ankle fracture, right: (2) Chronic anemia: (3) Radiation esophagitis: (4) Palliative care by specialist: (5) Esophageal cancer: (6) Anxiety: (7) Depression: (8) Tobacco abuse disorder: (9) COPD (chronic obstructive pulmonary disease): (10) HTN (hypertension): (11) Heterozygous factor V Leiden mutation: (12) History of CVA (cerebrovascular accident): Plan informed this morning that the patient had low oxygen saturations after pain medicine requiring supplemental oxygen. I discussed this with the medical team. Originally planning for discharge today, however will plan to keep the patient in the hospital longer if necessary for medical stability. Discharge orders are currently in place, but will be canceled if the patient needs to stay overnight again. At this point, the patient is sitting up, comfortable and saturating well on room air. Admission and Anticipated Discharge Date Admission Date: August 11, 2024 (1) Ankle fracture, right Encounter type: initial encounter Fracture type: closed Qualified Code(s): S82.891A - Other fracture of right lower leg, initial encounter for closed fracture (5) Esophageal cancer Malignant neoplasm of esophagus location: unspecified location Qualified Code(s): C15.9 - Malignant neoplasm of esophagus, unspecified
--- NOTE | 2024-08-12 11:34 | Hospitalist Progress Note ---
Date of Service August 12, 2024 Assessment & Plan (1) Ankle fracture, right: Plan: Patient presenting for planned surgical intervention of displaced right ankle fracture with Perez C fibula and associated posterior malleolus. POD#1 ORIF of right distal fibula and right ankle syndesmosis Management as per ortho (2) History of CVA (cerebrovascular accident): (3) Brain bleed: (4) Heterozygous factor V Leiden mutation: Plan: History of CVA in the setting of factor V Leiden, previously anticoagulated on Coumadin - discontinued in 2021 due to traumatic intraparenchymal hemorrhage requiring craniotomy Given patient's history of factor V Leiden and immobile state due to ankle fracture, patient was discharged on therapeutic dose Lovenox. Discussed anticoagulation plan with patient's supervisor blood donor recruiters/oncologist Dr. Casper Olivas - recommends Lovenox 30mg BID Continue Keppra for seizure prophylaxis (5) Esophageal cancer: Plan: Follows with Dr. 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% - EF improved to 55% on echo 04/2024 Continue Entresto and metoprolol Appears euvolemic, does not take routine diuretics (7) Chronic anemia: Plan: In the setting of malignancy/chemo Hgb 9.8, at baseline (8) Diabetes mellitus type 2, controlled: Plan: Diet controlled Hgb a1c 6.3 06/2024 Currently not on any diabetic meds Novolog per protocol while hospitalized (9) GERD (gastroesophageal reflux disease): (10) PUD (peptic ulcer disease): Plan: Continue PPI and Carafate (11) COPD (chronic obstructive pulmonary disease): Plan: No signs of acute exacerbation Continue home inhalers DVT PROPHYLAXIS Lovenox 30mg BID Admission and Anticipated Discharge Date Admission Date: August 11, 2024 Subjective Pt seen in follow up Pt is postoperative day #1 status post open reduction internal fixation of her right ankle. Overnight pt w/ increased pain requiring incr. pain med dose -> tachycardic then became hypoxic, CTA chest obtained overnight - unremarkable and no PE Currently sitting up in chair in NAD, on RA, she is comfortable, currently denies any leg pain, also denies chest pain or shortness of breath, denies abd.pain, n/v Discussed w/ ortho and RN -> pt ok for DC but transportation not arranged for today Review of Systems Review of Systems: All systems reviewed & are unremarkable except as noted in Subjective Physical Exam Physical Exam: Constitutional: WD/WN in NAD Respiratory: normal respiratory effort, lungs juliann ar to auscultation Cardiovascular: Rate/Rhythm: regul ar rate and regula r rhythm Gastrointestinal ( Abdomen): Percussion/Palpati on: abdomen soft; abdomen nontender Musculoskeletal: s/p right ankle s urgery, split/surg ical dressing Skin: no rashes, warm an d dry Neurologic: awake, alert, answ ers appropriately, speech fluent, mo ves extremities Psychiatric: A+Ox3, euthymic af fect Results & Data Results & Data Vital Signs (Past 12 Hours) Vital Signs Temp Pulse Resp BP Pulse Ox O2 Del Method O2 Flow Rate 08/12/24 07:45 100 H 15 174/69 H Nasal Cannula 2 08/12/24 03:41 37.0 C 122 H 18 160/76 H 95 Room Air Laboratory Results 08/12/24 08/12/24 08/11/24 Range/Units 08:26 07:07 15:01 WBC 10.23 (4.8-10.8) K/ul RBC 2.56 L (4.20-5.40) M/uL Hgb 9.9 L (12.0-16.0) g/dl Hct 29.3 L (37.0-47.0) % MCV 114.5 H (80.0-100.0) fL MCH 38.7 H (25.0-34.0) pg MCHC 33.8 (32.0-36.0) g/dL RDW Std Deviation 62.4 H (36.4-46.3) fL RDW Coeff of Rony 14.7 H (11.5-14.5) % Plt Count 267 (130-400) K/uL MPV 8.7 L (9.4-12.4) fL Sodium 137 (136-145) mmol/L Potassium 4.3 (3.5-5.1) mmol/L Chloride 104 (98-107) mmol/L Carbon Dioxide 27 (21-32) mmol/L Anion Gap 6 (3-11) BUN 12 (6-23) mg/dl Creatinine 0.86 (0.6-1.2) mg/dl Est Cr Clr Drug Dosing 55.9 ml/min eGFR 71.29 BUN/Creatinine Ratio 14.0 (10-20) Glucose 135 H (70-99(Fasting)) mg/dl POC Glucose (70-99) mg/dl Calcium 8.5 L (8.6-10.3) mg/dl Phosphorus 3.5 (2.5-4.9) mg/dl Magnesium 1.8 (1.7-2.4) mg/dl 25-OH Vitamin D Total 51.7 (30-100) ng/ml Procalcitonin 0.09 (0-0.5) ng/ml 08/11/24 Range/Units 13:16 WBC (4.8-10.8) K/ul RBC (4.20-5.40) M/uL Hgb (12.0-16.0) g/dl Hct (37.0-47.0) % MCV (80.0-100.0) fL MCH (25.0-34.0) pg MCHC (32.0-36.0) g/dL RDW Std Deviation (36.4-46.3) fL RDW Coeff of Rony (11.5-14.5) % Plt Count (130-400) K/uL MPV (9.4-12.4) fL Sodium (136-145) mmol/L Potassium (3.5-5.1) mmol/L Chloride (98-107) mmol/L Carbon Dioxide (21-32) mmol/L Anion Gap (3-11) BUN (6-23) mg/dl Creatinine (0.6-1.2) mg/dl Est Cr Clr Drug Dosing ml/min eGFR BUN/Creatinine Ratio (10-20) Glucose (70-99(Fasting)) mg/dl POC Glucose 115 H (70-99) mg/dl Calcium (8.6-10.3) mg/dl Phosphorus (2.5-4.9) mg/dl Magnesium (1.7-2.4) mg/dl 25-OH Vitamin D Total (30-100) ng/ml Procalcitonin (0-0.5) ng/ml Medications Administered Current Inpatient Medications Albuterol (Albuterol Hfa 8 Gm Inhaler) 2 puffs INH Q6H PRN PRN Reason: Shortness Of Breath Or Wheezing Stop: 09/10/24 14:37 Albuterol (Albut/Ipratrop 3mg/0.5mg Neb 3 Ml Vial) 3 ml INH Q6H PRN; Protocol PRN Reason: Shortness Of Breath Or Wheezing Stop: 09/10/24 14:37 Artificial Tears (Artificial Tears) 1 drops OP DAILY [facility]ANNA[facility] Stop: 09/11/24 08:59 Last Admin: 08/12/24 10:41 Dose: 1 drops Atorvastatin Calcium (Atorvastatin 40 Mg Tab) 80 mg PO QAM [facility] Stop: 09/11/24 08:59 Last Admin: 08/12/24 07:42 Dose: 80 mg Bisacodyl (Bisacodyl 10 Mg Supp) 10 mg [place] DAILY PRN PRN Reason: Constipation Stop: 09/10/24 12:45 Cyanocobalamin (Cyanocobalamin (B-12) 500 Mcg Tablet) 500 mcg PO QAM [facility] Stop: 09/11/24 08:59 Last Admin: 08/12/24 07:41 Dose: 500 mcg Docusate Sodium (Docusate Sodium 100 Mg Cap) 100 mg PO BID [facility] Stop: 09/10/24 20:59 Last Admin: 08/12/24 10:41 Dose: 100 mg Ezetimibe (Ezetimibe 10 Mg Tab) 10 mg PO QAM [facility] Stop: 09/11/24 08:59 Last Admin: 08/12/24 07:41 Dose: 10 mg Enoxaparin Sodium (Enoxaparin Inj 30 Mg/0.3 Ml Syr) 30 mg SQ Q12H [facility] Stop: 09/11/24 08:59 Last Admin: 08/12/24 10:42 Dose: 30 mg Famotidine (Famotidine 20 Mg Tab) 20 mg PO BID PRN PRN Reason: Acid Reflux Stop: 09/10/24 14:37 Last Admin: 08/11/24 20:25 Dose: 20 mg Ferrous Sulfate (Ferrous Sulfate 325 Mg Tab) 325 mg PO MoWeFr@0900 [facility] Stop: 09/11/24 08:59 Last Admin: 08/12/24 07:41 Dose: 325 mg Fish Oil (Solvang-3 (Purified Fish Oil) 1 Gm Cap) 2 cap PO QAM [facility] Stop: 09/11/24 08:59 Last Admin: 08/12/24 07:44 Dose: 2 cap Folic Acid (Folic Acid 400 Mcg Tab) 800 mcg PO QAM [facility] Stop: 09/11/24 08:59 Last Admin: 08/12/24 07:42 Dose: 800 mcg Gabapentin (Gabapentin 300 Mg Cap) 300 mg PO TID [facility] Stop: 09/10/24 14:37 Last Admin: 08/12/24 07:43 Dose: 300 mg Lactated Ringer's (Lr) 1,000 mls @ 15 mls/hr IV .Q24H [facility] Stop: 08/14/24 09:14 Last Admin: 08/12/24 10:34 Dose: Not Given Levetiracetam (Levetiracetam 500 Mg Tab) 1,000 mg PO BID [facility] Stop: 09/10/24 20:59 Last Admin: 08/12/24 07:40 Dose: 1,000 mg Magnesium Hydroxide (Magnesium Hydroxide Susp 30 Ml Udc) 30 ml PO Q6H PRN PRN Reason: Constipation Stop: 09/10/24 12:45 Magnesium Oxide (Magnesium Oxide 400 Mg Tab) [facility] Stop: 09/11/24 08:59 Last Admin: 08/12/24 07:43 Dose: 400 mg Metoclopramide HCl (Metoclopramide Hcl Inj 5 Mg/Ml 2 Ml Vial) 10 mg IV Q6H PRN PRN Reason: Nausea And Vomiting Stop: 09/10/24 12:45 Metoprolol Succinate (Metoprolol Succ 25mg Ext Rel Tab) 75 mg PO QAM [facility] Stop: 09/11/24 08:59 Last Admin: 08/12/24 07:42 Dose: 75 mg Miscellaneous (Keppra Xr 1000 Mg- Order Awaiting Action) 1 each N/A QS [facility] Stop: 09/10/24 16:59 Last Admin: 08/12/24 10:34 Dose: Not Given Naloxone HCl (Naloxone Hcl 0.4 Mg/1 Ml Vial/Carp) 0.1 mg IV Q5M PRN PRN Reason: Oversedation/Resp Depression Stop: 09/10/24 12:45 Ondansetron HCl (Ondansetron Inj 2 Mg/Ml 2 Ml Vial) 4 mg IV Q6H PRN PRN Reason: Nausea And Vomiting Stop: 09/10/24 12:45 Oxycodone HCl (Oxycodone Hcl Ir 5 Mg Tab (Immediate Release)) 5 - 10 mg PO Q4H PRN PRN Reason: Pain or Pre PT Stop: 08/25/24 12:45 Last Admin: 08/12/24 01:46 Dose: 10 mg Pantoprazole Sodium (Pantoprazole 40 Mg Tab) 40 mg PO BID [facility] Stop: 09/10/24 20:59 Last Admin: 08/12/24 07:44 Dose: 40 mg Polyethylene Glycol (Polyethylene (Miralax) 17 Gm Pack) 17 gm PO DAILY PRN PRN Reason: Constipation Stop: 09/10/24 14:37 Sacubitril/Valsartan (Valsartan/Sacubitril 26/24mg Tab) 1 tab PO BID [facility] Stop: 09/10/24 20:59 Last Admin: 08/12/24 07:41 Dose: 1 tab Sennosides (Senna 8.6 Mg Tab) 17.2 mg PO HS [facility] Stop: 09/10/24 20:59 Last Admin: 08/11/24 20:25 Dose: 17.2 mg Sucralfate (Sucralfate 1 Gm Tab) 1 gm PO ACHS [facility] Stop: 09/10/24 16:29 Last Admin: 08/12/24 07:42 Dose: 1 gm Umeclidinium/Vilanterol (Umeclidinium/Vilanterol 62.5/25mcg 7 Puffs/Inhaler) 1 puffs INH DAILY [facility] Stop: 09/11/24 08:59 Last Admin: 08/12/24 07:45 Dose: 1 puffs Venlafaxine HCl (Venlafaxine Hcl Xr 150 Mg Capxr) 150 mg PO QAM [facility] Stop: 09/11/24 08:59 Last Admin: 08/12/24 07:43 Dose: 150 mg Venlafaxine HCl (Venlafaxine Hcl Xr 37.5 Mg Capxr) 37.5 mg PO DAILY [facility] Stop: 09/11/24 08:59 Last Admin: 08/12/24 07:45 Dose: 37.5 mg Vitamin D (Cholecalciferol 25 Mcg (1000 Units) Tab) 50 mcg PO QAM [facility] Stop: 09/11/24 08:59 Last Admin: 08/12/24 07:40 Dose: 50 mcg (1) Ankle fracture, right Encounter type: initial encounter Fracture type: closed Qualified Code(s): S82.891A - Other fracture of right lower leg, initial encounter for closed fracture (5) Esophageal cancer Malignant neoplasm of esophagus location: unspecified location Qualified Code(s): C15.9 - Malignant neoplasm of esophagus, unspecified
[2024-08-12] MEDS: HYDROCODONE/ACETAMINOPHEN 7.5/325MG TAB PO PRN (20:42)
[2024-08-13 06:45] LABS: Hematocrit (blood only) 26.8 % (37.0-47.0); Hemoglobin 8.8 g/dl (12.0-16.0); Mean Corpuscular Hemoglobin 37.4 pg (25.0-34.0); Mean Corpuscular Volume 114.0 fL (80.0-100.0); Platelet Count 253 K/uL (130-400); RDW Standard Deviation 61.1 fL (36.4-46.3); Red Blood Count 2.35 M/uL (4.20-5.40); White Blood Count 6.92 K/ul (4.8-10.8)
[2024-08-13 07:06] LABS: Anion Gap 5.0 (3-11); Blood Urea Nitrogen 14.0 mg/dl (6-23); Calcium 8.7 mg/dl (8.6-10.3); Carbon Dioxide 28.0 mmol/L (21-32); Chloride 107.0 mmol/L (98-107); Creatinine Clr Calc Pharmacy 54.6 ml/min; Glucose 101.0 mg/dl (70-99(Fasting)); Magnesium 1.9 mg/dl (1.7-2.4); Potassium 3.7 mmol/L (3.5-5.1); Sodium 140.0 mmol/L (136-145)
[2024-08-13 07:19] VITALS: BP 166/73; PULSE 83; RESP 16; TEMP 98.2; O2SAT 97
--- NOTE | 2024-08-13 09:24 | Hospitalist Progress Note ---
Date of Service August 13, 2024 Assessment & Plan (1) Ankle fracture, right: Plan: Patient presenting for planned surgical intervention of displaced right ankle fracture with Perez C fibula and associated posterior malleolus. POD#2 ORIF of right distal fibula and right ankle syndesmosis The patient had oxygen desaturations on postoperative day #1 likely secondary to pain medicine but this has resolved. The patient has been stable since yesterday and is awaiting transportation to discharge to [facility]. Will be transported to [facility] tomorrow. Management per ortho. Recommends Patient is nonweightbearing on her operative extremity. Is to follow up with ortho in 2 weeks. (2) History of CVA (cerebrovascular accident): (3) Brain bleed: (4) Heterozygous factor V Leiden mutation: Plan: History of CVA in the setting of factor V Leiden, previously anticoagulated on Coumadin - discontinued in 2021 due to traumatic intraparenchymal hemorrhage requiring craniotomy Given patient's history of factor V Leiden and immobile state due to ankle fracture, patient was discharged on therapeutic dose Lovenox. 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 Casper Olivas - recommends Lovenox 30mg BID Continue Keppra for seizure prophylaxis (5) Esophageal cancer: Plan: Follows with Dr. 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 Has been relatively stable (8) Diabetes mellitus type 2, controlled: Plan: Diet controlled Hgb a1c 6.3 06/2024 Currently not on any diabetic meds Novolog per protocol while hospitalized (9) GERD (gastroesophageal reflux disease): (10) PUD (peptic ulcer disease): Plan: Continue PPI and Carafate (11) COPD (chronic obstructive pulmonary disease): Plan: No signs of acute exacerbation Continue home inhalers DVT PROPHYLAXIS Lovenox 30mg BID Disposition [facility] today Pt was seen and care coordinated with Dr Frost. I spent a total of 30 minutes reviewing notes, outpatient records, labs, medication, coordinating, documenting and providing care for this patient excluding time spent in the performance of separately billed services and excluding time spent by another provider/QHP. Admission and Anticipated Discharge Date Admission Date: August 11, 2024 Supervising Physician Co-Signing Physician Notes Pt seen and examined by me, care coordinated w/ JING Hilario, pls refer to her note above for further detail. Pt is a 74 yo F w/ DM2, HLD, COPD, sleep apnea, CVA in the setting of factor V Leiden, (previously anticoagulated Coumadin - discontinued in 2021 due to traumatic intraparenchymal hemorrhage requiring craniotomy and on Keppra for seizure prophylaxis), HTN, HFimpEF, CKD stage III, carotid stenosis, IBS, GERD, fibromyalgia, Mnire's, esophageal malignant neoplasm, who is now s/p Right Distal Fibula Open Reduction Internal Fixation, Syndesmosis. Currently pt is sitting up in bed in [facility]. She is awake , alert, answers appropriately. Speech fluent, no facial asymmetry noted. Denies any chest pain, shortness of breath, no abd. pain, n/v. Lungs are CTAB, heart sounds regular. Abdomen soft, nontender. RLE in surg. dressings/ splint. After discussing w/orthopedics (Dr. Glez), and hem (Dr. Olivas) - started pt on lovenox 30 bid post-op. Dr. Olivas continues to follow with the pt closely given her esophageal cancer and currently on chemo. He may then reduce the dose of lovenox to daily but for now recommends 30 bid. Plan to DC pt back to [facility]. MD Regina Subjective Patient seen and examined lying in bed. Patient states having pain to right ankle. Otherwise denies complaint. Is awai ting transfer to [facility]. Denies fever/chills, diaphoresis, N/V/D/C, AGUIRRE, dizziness, CP, SOB, orthopnea, palpitations, cough, abdominal pain, paresthesias, urinary symptoms. Review of Systems Review of Systems: All systems reviewed & are unremarkable except as noted in HPI & below Physical Exam Physical Exam: General: no distress, WDWN Head: normocephalic, atraumatic Eyes: conjunctiva non-injected, anicteric ENT: hard of hearing, normal inspection external ears, nose, mucous membranes moist Neck: supple, trachea midline Lungs: clear, no respiratory distress, no wheezing/rhonchi/rales CV: RRR, no pretibial edema Abd: normal BS, soft, non-tender Ext: RLE: +Surgical dressing and splint in place. sensation to light touch toes intact, brisk capillary refill. Remaining extremities normal appearance and non- tender Neuro: A&O x 3, no focal deficits noted, normal affect Skin: warm, dry Results & Data Results & Data Vital Signs (Past 12 Hours) Vital Signs Temp Pulse Resp BP Pulse Ox O2 Del Method 08/13/24 07:18 36.8 C 83 16 166/73 H 97 Room Air 08/12/24 22:33 37.1 C 75 18 122/67 98 Room Air Laboratory Results Short CBC 08/13/24 Range/Units 06:13 WBC 6.92 (4.8-10.8) K/ul Hgb 8.8 L (12.0-16.0) g/dl Hct 26.8 L (37.0-47.0) % Plt Count 253 (130-400) K/uL BMP 08/13/24 06:13 Sodium 140 Potassium 3.7 Chloride 107 Carbon Dioxide 28 BUN 14 Creatinine 0.88 Glucose 101 H Calcium 8.7 (1) Ankle fracture, right Encounter type: initial encounter Fracture type: closed Qualified Code(s): S82.891A - Other fracture of right lower leg, initial encounter for closed fracture (5) Esophageal cancer Malignant neoplasm of esophagus location: unspecified location Qualified Code(s): C15.9 - Malignant neoplasm of esophagus, unspecified
--- NOTE | 2024-08-13 10:06 | Orthopedic Progress Note ---
Date of Service August 13, 2024 Assessment & Plan (1) Ankle fracture, right: (2) Chronic anemia: (3) Radiation esophagitis: (4) Palliative care by specialist: (5) Esophageal cancer: (6) Anxiety: (7) Depression: (8) Tobacco abuse disorder: (9) COPD (chronic obstructive pulmonary disease): (10) HTN (hypertension): (11) Heterozygous factor V Leiden mutation: (12) History of CVA (cerebrovascular accident): Plan 74-year-old female postoperative day #2 status post open reduction internal fixation of her right ankle. Overall, the patient is doing well this morning. She was admitted for observation with plans to discharge back to her nursing facility Yesterday, however transportation not available. The patient did have oxygen desaturations on postoperative day #1 due to too much pain medicine but this has resolved. The patient has been stable since yesterday. Patient is nonweightbearing on her operative extremity Lovenox 30 mg twice daily Patient will follow-up with me in 2 weeks Transportation has been arranged for today. Patient will be discharged back to her nursing facility today. Admission and Anticipated Discharge Date Admission Date: August 11, 2024 Subjective Postoperative day #2 status post open reduction internal fixation right ankle. Patient was supposed to leave yesterday but transportation not available, so she will be leaving today. Patient notes her pain is well-controlled. Review of Systems Review of Systems: All systems reviewed & are unremarkable except as noted in HPI & below Physical Exam Physical Exam: Splint clean dry and intact. Wiggles all toes. Sensation intact to light touch. Results & Data Vital Signs (Past 12 Hours) Vital Signs Temp Pulse Resp BP Pulse Ox O2 Del Method 08/13/24 07:18 36.8 C 83 16 166/73 H 97 Room Air 08/12/24 22:33 37.1 C 75 18 122/67 98 Room Air (1) Ankle fracture, right Encounter type: initial encounter Fracture type: closed Qualified Code(s): S82.891A - Other fracture of right lower leg, initial encounter for closed fracture (5) Esophageal cancer Malignant neoplasm of esophagus location: unspecified location Qualified Code(s): C15.9 - Malignant neoplasm of esophagus, unspecified
--- NOTE | 2024-08-14 14:34 | Electrocardiogram Report ---
Test Reason : Blood Pressure : */* mmHG Vent. Rate : 116 BPM Atrial Rate : 116 BPM P-R Int : 160 ms QRS Dur : 82 ms QT Int : 324 ms P-R-T Axes : 72 24 73 degrees QTcB Int : 450 ms Sinus tachycardia Otherwise normal ECG When compared with ECG of 11-Aug-2024 12:53, No significant change was found Confirmed by Jose Valladares ([id number] on 08/14/2024 2:34:16 PM Referred By: Carlos Glez Confirmed By: Jose Valladares
== END 2024-08-13 12:16 ==
LOC: 3E 08:32 → ASU 08:32